=== PATIENT | female | born 1950 | race Caucasian/White ===

== ENCOUNTER → 2017-09-21 | Outpatient (CLI) | payer MEDICAID ==
[~2017-09-21] MED LIST: AC325T PO; ALBU2.5V4; ALBU8.5H2; ALBU8.5H2 IH; ALN70T; ALPR.5T; ALPR.5T PO; ALPR1TAB7 PO; ASP325TEC PO; BACL10TA PO; CA C1TAB26 PO; CALCIUM PO; CHLO500T2; CHOL500019 PO; D50KC; FLC1T PO; FLUO20CA25; FLUO20CA25 PO; FLUO40CA PO; FLUO60TA PO; FLUT1DIS26; FNT100TD TD; FNT50TD; FNT75TD TD; FRS325T PO; FURO40TA4; FURO40TA4 PO; IBUP-15 PO; IBUP-1773 PO; KCL20TCR; LANS30CA PO; LNS30CCR; LNS30CCR PO; LRT10T; LRT10T PO; MAGN250T7 PO; METH2.5T PO; MNTL10T; MNTL10T PO; MTF500T; MTX2.5T PO; MULT-608 PO; MULT1TAB53 PO; NIAC400C2 PO; NYST15CR3 TP; OMEG-12 PO; OMEG1CAP51 PO; OMEP40CA36 PO; OMG1KC PO; OXC5T; OXYC10TA7 PO; POLY17PO23 PO; POTA10CA43 PO; POTA10TA10 PO; SENN1TAB76 PO
--- NOTE | 2017-09-21 15:19 | Diagnostic Imaging Report ---
EXAMINATION: Pelvic ultrasound. INDICATION: Postmenopausal bleeding. FINDINGS: This study was technically difficult due to patient's body habitus. The previous pelvic ultrasound exam performed on 05/17/2016 noted thickening of the endometrium and raised the question of endometrial carcinoma. On the prior exam, the endometrial stripe measured 7 mm. On this study, the endometrium remains slightly thickened at 6 mm (normal 5 mm or less). There is an IUD within the endometrium. Even in retrospect, the IUD was difficult to appreciate on the prior exam. The uterus itself is not enlarged measuring 7.8 x 3.3 x 5.2 cm. There is no focal mass involving the uterus to suggest fibroid. Neither ovary was identified. There is no pelvic mass or free fluid collection noted. IMPRESSION: 1. The endometrial lining is minimally thickened. There also appears to be an IUD within the endometrium. If further evaluation of the endometrium is desired, then hysteroscopy would be recommended. 2. There is no acute pelvic abnormality noted. 3. The ovaries were not identified. Dictated on workstation # [id number]
== END ==
LOC: RAD 11:29
PROVIDERS: ATTEND Family Medicine
DX: N95.0 Postmenopausal bleeding (principal); Z97.5 Presence of (intrauterine) contraceptive device
CPT/HCPCS: 76830

== ENCOUNTER → 2018-01-03 | Outpatient (CLI) | payer MEDICAID ==
--- NOTE | 2018-01-03 14:00 | Diagnostic Imaging Report ---
INDICATION: Chronic left hip pain. FINDINGS: Three views of the left hip show no fracture, dislocation or other acute bony abnormality. There is mild narrowing and hypertrophic spurring present. 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 IMPRESSION: There are degenerative changes present as described with no acute abnormality seen. Dictated by: Dictated on workstation # [id number]
== END ==
LOC: RAD 13:07
PROVIDERS: ATTEND Family Medicine
DX: M16.12 Unilateral primary osteoarthritis, left hip (principal)
CPT/HCPCS: 73502

== ENCOUNTER 2018-01-29 18:28 | Observation (INO) | payer MEDICAID ==
[~2018-01-29] VITALS: Ht 162.6 cm; Wt 144.4 kg
--- OUTSIDE RECORDS SUMMARY | 2018-01-29 18:38 | XMS REPORT ---
Author Author HILARY BESS Organization [facility] Address [address] [place] [address] Care Team Providers Care Undertaker Helper Name Role Phone BESS RICHARD Unavailable PROBLEMS Type Condition ICD9-CM Code [id number] Code Onset Dates Condition Status SNOMED Code Problem Peripheral edema R60.9 Active 281156950 Problem Low HDL (under 40) E78.6 Active 620614238 Problem Leukocytosis, unspecified type D72.829 Active 391265410 Problem BMI 50.0-59.9, adult Z68.43 Active 045026557 Problem Chronic obstructive pulmonary disease, unspecified COPD type J44.9 Active 98271413 Problem Elevated lymphocyte count D72.820 Active 86345531 Problem Abnormal stress test R94.39 Active 955206244 Problem Allergic rhinitis, unspecified allergic rhinitis type J30.9 Active 88050533 Problem Stress incontinence N39.3 Active 12394326 Problem Postmenopausal bleeding N95.0 Active 86173340 Problem Type 2 diabetes mellitus with hyperglycemia, without long-term current use of insulin E11.65 Active 40012877 Problem Drug-induced constipation K59.03 Active 87010947 Problem Obstructive sleep apnea G47.33 Active 12276027 Problem Palpitations R00.2 Active 62175955 Problem Uncomplicated asthma, unspecified asthma severity J45.909 Active 474182618 Problem Nocturnal hypoxia G47.34 Active 858134447 Problem Rheumatoid arthritis involving multiple sites, unspecified rheumatoid factor presence M06.9 Active 615686717 Problem Bilateral carotid artery stenosis I65.23 Active 31249572 Problem Chronic pain syndrome G89.4 Active 876732042 Problem 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, penitentiary, 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 Active 056144051929 Problem Major depressive disorder, recurrent episode, unspecified severity F33.9 Active 27981740 Problem Generalized anxiety disorder F41.1 Active 721484076 Problem Chronic prescription opiate use Z79.899 Active 860718424 ALLERGIES No Information ENCOUNTERS Encounter Location Date Diagnosis [facility] [address] [address] Dec, [facility] [id number] [place] [address] 03667- 9619 Nov, Chronic pain syndrome G89.4 [facility] [id number] [place] [address] 06604- 4115 Oct, Chronic pain syndrome G89.4 [facility] [id number] [place] [address] 23254- 9151 Sep, Chronic pain syndrome G89.4 [facility] [id number] [place] [address] 11188- 1070 Sep, [facility] [id number] [place] [address] 44295- 3556 Aug, Chronic pain syndrome G89.4 [facility] [id number] [place] [address] 90406- 6816 Aug, Postmenopausal bleeding N95.0 ; 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, penitentiary, 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 ; Type 2 diabetes mellitus with hyperglycemia, without long- term current use of insulin E11.65 and BMI 50.0-59.9, adult Z68.43 [place] [id number] [place] [address] 53883- 5481 Jul, Chronic pain syndrome G89.4 and Generalized anxiety disorder F41.1 [facility] [id number] [place] [address] 73611- 8110 Jun, Chronic pain syndrome G89.4 and Generalized anxiety disorder F41.1 [facility] [id number] [place] [address] 83390- 7212 May, Chronic pain syndrome G89.4 and Generalized anxiety disorder F41.1 [place] [id number] [place] [address] 07234- 5862 May, 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, penitentiary, 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 [facility] [id number] [place] [address] 52786- 7387 15 May, 2017 Type 2 diabetes mellitus with hyperglycemia, without long- term current use of insulin E11.65 ; Chronic pain syndrome G89.4 ; Leukocytosis , unspecified type D72.829 ; Chronic prescription opiate use Z79.899 ; 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, oil heaterman, 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 ; Elevated lymphocyte count D72.820 ; Encounter for immunization Z23 and BMI 50.0-59.9, adult Z68.43 [facility] [id number] [place] [address] 31095- 5759 18 Apr, 2017 Chronic pain syndrome G89.4 and Generalized anxiety disorder F41.[address] [address]776- 0545 Mar, Generalized anxiety disorder F41.1 and Chronic pain syndrome G89.4 [place] [address] 17840- 3846 Mar, [facility] [id number] [place] [address] 15155- 0888 Feb, [address] [address]43- 5486 Feb, Generalized anxiety disorder F41.1 and Chronic pain syndrome G89.4 [facility] [id number] [place] [address] 43461- 4813 16 Feb, 2017 Elevated lymphocyte count D72.820 [facility] [id number] [place] [address] 37794- 3677 15 Feb, 2017 Chronic prescription opiate use Z79.899 ; 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, penitentiary, 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 ; Low HDL (under 40) E78.6 and Chronic obstructive pulmonary disease, unspecified COPD type J44.9 [facility] [id number] [place] [address] 17271- 8315 January, Generalized anxiety disorder F41.1 and Chronic pain syndrome G89.4 [id number] [place] [address] 0407 18 Dec, 2016 Chronic pain syndrome G89.4 and Generalized anxiety disorder F41.1 [facility] [id number] [place] [address] 01394- 9962 11 Dec, 2016 [facility] [id number] [place] [address] 15008- 4918 28 Nov, 2016 Rheumatoid arthritis involving multiple sites, unspecified rheumatoid factor presence M06.9 ; Chronic pain syndrome G89.4 ; Generalized anxiety disorder F41.1 ; Type 2 diabetes mellitus with hyperglycemia, without long-term current use of insulin E11.65 and Postmenopausal bleeding N95.0 [facility] [id number] [place] [address] 42755- 0859 17 Nov, 2016 [facility] [id number] [place] [address] 10487- 2985 Nov, [facility] [id number] [place] [address] 92642- 5686 16 Nov, 2016 Generalized anxiety disorder F41.1 and Chronic pain syndrome G89.4 [facility] [id number] [place] [address] 85287- 3201 28 Oct, 2016 [facility] [id number] [place] [address] 47112- 4098 17 Oct, 2016 [facility] [id number] [place] [address] 92794- 7248 17 Oct, 2016 [facility] [id number] [place] [address] 81583- 2028 15 Oct, 2016 Chronic pain syndrome G89.4 and Generalized anxiety disorder F41.1 [facility] [id number] [place] [address] 35877- 9832 Sep, Chronic pain syndrome G89.4 and Generalized anxiety disorder F41.1 [facility] [address] [place] [address] 70096- 4787 14 Aug, 2016 Sore throat J02.9 ; Chronic pain syndrome G89.4 ; Postmenopausal bleeding N95.0 ; Acute suppurative otitis media of left ear without spontaneous rupture of tympanic membrane, recurrence not specified H66.002 ; Generalized anxiety disorder F41.1 ; Stress incontinence N39.3 ; Drug- induced constipation K59.03 ; Chronic prescription opiate use Z79.899 and Prediabetes R73.09 [facility] [id number] [place] [address] 51683- 1417 15 Jul, 2016 [facility] [address] 16514- 9713 Jul, [facility] [address] 89359- 1514 Jun, [facility] [address] 22855- 7174 Jun, [facility] [address] 77588- 9012 Jun, [facility] [address] 60679- 2691 Jun, [facility] [address] 39490- 8622 Jun, Prediabetes R73.09 [facility] [address] 19830- 3556 May, Prediabetes R73.09 [facility] [address] 09872- 1477 13 May, 2016 Postmenopausal bleeding N95.0 ; Prediabetes R73.09 and Thickened endometrium R93.8 [facility] [address] 69155- 7991 May, [facility] [address] 53942- 9075 Apr, Prediabetes R73.09 [facility] [address] 03592- 5477 Apr, Chronic pain syndrome G89.4 ; Postmenopausal bleeding N95.0 ; 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, penitentiary, 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 ; Generalized anxiety disorder F41.1 and Chronic obstructive pulmonary disease, unspecified COPD type J44.9 [facility] [id number] [place] [address] 80156- 0114 Mar, [facility] [id number] [place] [address] 99996- 8749 Feb, [facility] [id number] [place] [address] 89486- 8258 January, [facility] [id number] [place] [address] 29319- 9002 Dec, Chronic pain syndrome G89.4 ; Chronic prescription opiate use Z79.899 ; Leukocytosis, unspecified type D72.829 and Generalized anxiety disorder F41.1 [facility] [id number] [place] [address] 99080- 3653 Dec, [facility] [id number] [place] [address] 31119- 1332 Nov, [facility] [id number] [place] [address] 76677- 3619 Nov, [facility] [id number] [place] [address] 44082- 2394 Nov, [facility] [id number] [place] [address] 18613- 6827 Oct, [facility] [id number] [place] [address] 73831- 9868 Oct, [facility] [id number] [place] [address] 63684- 5605 Oct, [facility] [address] 8075 Sep, [facility] [id number] [place] [address] 87721- 1992 Aug, [facility] [address] [address]- 8352 Aug, Leukocytosis, unspecified type D72.829 ; Peripheral edema R60.9 and 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, penitentiary, 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 [facility] [address] [address]- 2106 Aug, [facility] [id number] [place] [address] 50232- 2469 Jul, [facility] [id number] [place] [address] 90616- 0800 Jul, [facility] [id number] [place] [address] 61552- 5822 Jun, [facility] [id number] [place] [address] 41174- 6998 May, [facility] [id number] [place] [address] 75518- 9089 May, Chronic pain 338.29 ; Leukocytosis 288.60 ; Anxiety 300.00 and Major depressive disorder, recurrent episode, severe, without mention of psychotic behavior 296.33 [facility] [address] [address]- 5106 Apr, [facility] [address] [address]- 4478 Apr, [facility] [address] [address]- 9089 Apr, [facility] [id number] [place] [address] 06228- 6961 Apr, [facility] [id number] [place] [address] 67038- 7197 Apr, [facility] [address] [address]- 0637 Apr, [facility] [address] [address]- 9753 Mar, [facility] [address] [address]- 6881 Mar, [facility] [address] [address]- 2546 Mar, [facility] [id number] [place] [address] 78500- 1809 Mar, [facility] [address] [address]- 4975 Feb, Leukocytosis 288.60 [facility] [id number] [place] [address] 31408- 3836 Feb, [facility] [address] [address]- 1258 Feb, Chronic pain 338.29 ; Rheumatoid arthritis 714.0 ; Fatigue 780.79 ; Anxiety 300.00 and Asthma 493.90 [facility] [address] [address]- 7711 January, [facility] [address] [address]- 0602 29 Dec, 2014 [facility] [address] [address]- 8192 28 Dec, 2014 [facility] [address] [address]- 3132 14 Dec, 2014 [facility] [address] [address]- 2571 13 Dec, 2014 [facility] [address] [address]- 5906 18 Nov, 2014 [facility] [address] [address]- 6506 18 Nov, 2014 [facility] [address] [address]- 1990 Nov, [facility] [place] [facility] [address] [id number] [place] [address]- 2128 Nov, [facility] [place] [facility] [address] [id number] [place] [address]- 7158 Nov, [facility] [place] [facility] [address] [id number] [place] [address]- 9013 Nov, [facility] [place] [facility] [address] [id number] [place] [address]- 7907 Nov, [facility] [place] [facility] [address] [id number] [place] [address]- 2436 Nov, [facility] [place] [facility] [address] [id number] [place] [address]- 7353 Oct, [facility] [place] [facility] [address] [id number] [place] [address]- 4831 Oct, [facility] [place] [facility] [address] [id number] [place] [address]- 4826 Sep, [facility] [place] [facility] [address] [id number] [place] [address]- 8026 Sep, [facility] [place] [facility] [address] [id number] [place] [address]- 5053 Sep, [facility] [place] [facility] [address] [id number] [place] [address]- 4321 Sep, [facility] [place] [facility] [address] [id number] [address]- 0109 Aug, [facility] [place] [facility] [address] [id number] [place] [address]- 1982 Aug, [facility] [place] [facility] [address] [id number] [place] [address]- 9492 Aug, [facility] [place] [facility] [address] [id number] [place] [address]- 5693 Aug, [facility] [place] [facility] [address] [id number] [place] 9084 Aug, [facility] [place] [facility] [address] [id number] [place] 9797 Aug, [facility] [place] [facility] [address] [id number] [place]- 4298 Aug, [facility] [place] [facility] [address] [id number] [place] [address]- 6001 Aug, [facility] [place] [facility] [address] [id number] [place] [address]- 0738 Jul, [facility] [place] [facility] [address] [id number] [place]- 7185 Jul, [facility] [place] [facility] [address] [id number] [place] [address]- 0491 Jun, [facility] [place] [facility] [address] [id number] [place] [address]- 2327 Jun, [facility] [place] [facility] [address] [id number] [place] [address]- 2318 Jun, [facility] [place] [facility] [address] [id number] [place] [address]- 2017 Jun, [facility] [place] [facility] [address] [facility] [id number] [place] [address]- 4153 Jun, [facility] [place] [facility] [address] [id number] [place] [address]- 7189 Jun, [facility] [place] [facility] [address] [id number] [address]- 9636 Jun, [facility] [place] [facility] [address] [id number] [place] [address]- 2046 Jun, [facility] [place] [facility] [address] [id number] [place] [address]- 5168 Jun, [facility] [place] [facility] [address] [id number] [place] [address]- 0077 Jun, [facility] [place] [facility] [address] [id number] [place] [address]- 5689 May, 2013 [facility] [place] [facility] [address] [id number] [place] [address]- 6911 May, [facility] [place] [facility] [address] [id number] [place] [address]- 1319 May, [facility] [place] [facility] [address] [id number] [place] [address]- 9455 May, 2013 [facility] [place] [facility] [address] [id number] [place] [address]- 9112 May, [facility] [place] [facility] [address] [id number] [place] [address]- 7892 May, 2013 [facility] [place] [facility] [address] [id number] [place] [address]- 9306 May, [facility] [place] [facility] [address] [id number] [place] [address]- 5258 May, [facility] [place] [facility] [address] [id number] [place] [address]- 2764 May, [facility] [place] [facility] [address] [id number] [place] [address]- 4212 Apr, [facility] [place] [facility] [address] [id number] [place] [address]- 3029 Apr, [facility] [place] [facility] [address] [id number] [place] [address]- 3906 Apr, [facility] [place] [facility] [address] [id number] [place] [address]- 2660 Apr, [facility] [place] [facility] [address] [id number] [place] [address]- 1110 Apr, [facility] [place] [facility] [address] [id number] [place] [address]- 3924 Apr, [facility] [place] [facility] [address] [id number] [place] [address]- 3430 Apr, [facility] [place] [facility] [address] [id number] [place] [address]- 1666 Apr, [facility] [place] [facility] [address] [id number] [place] [id number] Apr, [facility] [place] [facility] [address] [id number] [place] 3579 Apr, [facility] [place] [facility] [address] [id number] [place] [address]- 9176 Mar, [facility] [place] [facility] [address] [id number] [place] [address]- 8148 Mar, [facility] [place] [facility] [address] [id number] [place] [address]- 2499 Mar, [facility] [place] [facility] [address] [id number] [place] [address]- 3043 Mar, [facility] [place] [facility] [address] [id number] [place] [address]- 1986 Mar, [facility] [place] [facility] [address] [id number] [place] [address]- 1421 Mar, [facility] [place] [facility] [address] [id number] [place] [address]- 7887 Mar, [facility] [place] [facility] [address] [id number] [place] [address]- 4665 Mar, [facility] [place] [facility] [address] [id number] [place] [address]- 2178 Mar, [facility] [place] [facility] [address] [id number] [place] [address]- 5346 Mar, [facility] [place] [facility] [address] [id number] [place] [address]- 7221 Mar, [facility] [place] [facility] [address] [id number] [place] 1162 Mar, [facility] [place] [facility] [address] [id number] [place] [address]- 9935 16 Mar, 2013 [facility] [place] [facility] [address] [id number] [place] [address]- 5413 16 Mar, 2013 [facility] [place] [facility] [address] [id number] [place] [address]- 3736 15 Mar, 2014 [facility] [place] [facility] [address] [id number] [place] [address]- 2970 15 Mar, 2013 [facility] [place] [facility] [address] [id number] [place] [address]- 6922 14 Mar, 2013 [facility] [place] [facility] [address] [id number] [place] [address]- 4090 14 Mar, 2014 [facility] [place] [facility] [address] [id number] [place] [address]- 2930 11 Mar, 2014 [facility] [place] [facility] [address] [id number] [place] [address]- 8324 11 Mar, 2014 [facility] [place] [facility] [address] [id number] [place] [address]- 2109 10 Mar, 2014 [facility] [place] [facility] [address] [id number] [place] [address]- 4702 10 Mar, 2014 [facility] [place] [facility] [address] [id number] [place] [address]- 1758 27 Feb, 2014 [facility] [place] [facility] [address] [id number] [place] [address]- 1486 27 Feb, 2014 [facility] [place] [facility] [address] [id number] [place] [address]- 1904 17 Feb, 2014 [facility] [place] [facility] [address] [id number] [place] [address]- 7162 17 Feb, 2014 [facility] [place] [facility] [address] [id number] [place] [address]- 8000 13 Feb, 2014 [facility] [place] [facility] [address] [id number] [place] [address]- 7426 Feb, [facility] [place] [facility] [address] [id number] [place] [address]- 7516 Feb, [facility] [place] [facility] [address] [id number] [place] [address]- 0495 Feb, [facility] [place] [facility] [address] [id number] [place] [address] January, [facility] [place] [facility] [address] [id number] [place] [address] January, [facility] [place] [facility] [address] [id number] [place] [address] January, [facility] [place] [facility] [address] [id number] [place] [address] January, [facility] [place] [facility] [address] [id number] [place] [address] January, [facility] [place] [facility] [address] [id number] [place] [address] January, [facility] [place] [facility] [address] [id number] [place] [address] January, [facility] [place] [facility] [address] [id number] [place] [address] January, [facility] [place] [facility] [address] [id number] [place] [address] January, [facility] [place] [facility] [address] [id number] [place] [address] January, [facility] [place] [facility] [address] [id number] [place] [address] January, [facility] [place] [facility] [address] [id number] [place] [address]- [address] Dec, [facility] [place] [facility] [address] [id number] [place] [address] Dec, [facility] [place] [facility] [address] [id number] [place] [address]- [address] Dec, [facility] [place] [facility] [address] [id number] [place] [address] 29 Dec, 2013 [facility] [place] [facility] [address] [id number] [place] [address] 28 Dec, 2013 [facility] [place] [facility] [address] [id number] [place] [address] Dec, [facility] [place] [facility] [address] [id number] [place] [address] 24 Dec, 2013 [facility] [place] [facility] [address] [id number] [place] [address] Dec, [facility] [place] [facility] [address] [id number] [place] [address] Dec, [facility] [place] [facility] [address] [id number] [place] [address] Dec, [facility] [place] [facility] [address] [id number] [place] [address] 16 Dec, 2013 [facility] [place] [facility] [address] [id number] [place] [address] 15 Dec, 2013 [facility] [place] [facility] [address] [id number] [place] [address] 15 Dec, 2013 [facility] [place] [facility] [address] [id number] [place] [address]- [address] Dec, [facility] [place] [facility] [address] [id number] [place] [address] Dec, [facility] [place] [facility] [address] [id number] [place] [address] Dec, [facility] [place] [facility] [address] [id number] [place] [address] Dec, [facility] [place] [facility] [address] [id number] [place] [address] Nov, [facility] [place] [facility] [address] [id number] [place] [address] Nov, [facility] [place] [facility] [address] [id number] [place] [address] Nov, [facility] [place] [facility] [address] [id number] [place] [address] Nov, [facility] [place] [facility] [address] [id number] [place] [address] Nov, [facility] [place] [facility] [address] [id number] [place] [address] Nov, [facility] [facility] [address] [id number] [place] [address] Nov, [facility] [place] [facility] [address] [facility] [id number] [place] [address] Nov, [facility] [place] [facility] [address] [id number] [place] [address] Oct, [facility] [place] [facility] [address] [id number] [place] [address] Oct, [facility] [place] [facility] [address] [id number] [place] [address] 33[address] Oct, [facility] [place] [facility] [address] [id number] [place] [address]- 8980 Oct, [facility] [place] [facility] [address] [id number] [place] [address] 3618 Oct, [facility] [place] [facility] [address] [id number] [place] [address]- 2807 Oct, [facility] [place] [facility] [address] [id number] [place] [address] Sep, [facility] [place] [facility] [address] [id number] [place] [address] Sep, [facility] [place] [facility] [address] [id number] [place] [address] Sep, [facility] [address] [id number] [place] [address] 7474 Sep, [facility] [place] [facility] [address] [id number] [place] [address]- 4[address] Sep, [facility] [place] [facility] [address] [id number] [place] [address]- 6[address] Sep, [facility] [place] [address] [id number] [place] [address]- 5010 Sep, [facility] [place] [address] [id number] [place] [address]- 6019 Sep, [facility] [place] [facility] [address] [id number] [place] [address]- 1619 Sep, [facility] [address] [id number] [place] [address]- 2565 Sep, [facility] [place] [facility] [address] [id number] [place] [address]- 9050 Sep, [facility] [place] [facility] [address] [id number] [place] [address] 2014 Sep, [facility] [address] [id number] [place] [address]- [address] Aug, [facility] [address] [id number] [place] [address] Aug, [facility] [address] [id number] [place] [address]- 5623 Aug, [facility] [address] [id number] [place] [address]- 9502 Aug, [facility] [address] [id number] [place] [address] Aug, [facility] [address] [id number] [place] [address] Aug, [facility] [address] [id number] [place] [address]- 7986 Aug, 2012 [facility] [address] [id number] [place] [address]- 3279 Aug, [facility] [address] [id number] [place] [address]- 6831 Aug, [facility] [address] [id number] [place] [address]- 0809 Aug, [facility] [address] [id number] [place] [address]- 1090 Jul, [facility] [place] [facility] [address] [id number] [place] [address]- 7743 Jul, [facility] [address] [id number] [place] [address]- 5961 Jul, [facility] [address] [id number] [place] [address]- 1703 Jul, [facility] [place] [address] [id number] [place] [address]- 0803 Jul, [facility] [address] [id number] [place] [address]- 2795 Jun, [facility] [address] [id number] [place] [address]- 2630 Jun, [facility] [address] [id number] [place] [address]- 2161 Jun, [facility] [address] [id number] [place] [address]- 7490 Jun, [facility] [address] [id number] [place] [address]- 0155 Jun, [facility] [address] [id number] [place] [address]- 3252 Jun, [facility] [address] [id number] [place] [address]- 0199 Jun, [facility] [address] [id number] [place] [address]- 6614 16 Jun, 2012 [facility] [address] [id number] [place] [address]- 0110 16 Jun, 2012 [facility] [address] [id number] [place] [address]- 1660 10 Jun, 2012 [facility] [address] [id number] [place] [address]- 2241 10 Jun, 2012 [facility] [address] [id number] [place] [address]- 0894 10 Jun, 2012 [facility] [address] [id number] [place] [address]- 3116 10 Jun, 2012 [facility] [address] [id number] [place] [address]- 2399 10 Jun, 2013 [facility] [address] [id number] [place] [address]- 8657 10 Jun, 2013 [facility] [address] [id number] [place] [address]- 4845 Jun, [facility] [address] [id number] [place] [address]- 7281 Jun, [facility] [address] [id number] [place] [address]- 1561 30 May, 2012 [facility] [address] [id number] [place] [address]- 9827 18 May, 2012 [facility] [address] [id number] [place] [address]- 7971 10 May, 2012 [facility] [address] [id number] [place] [address]- 9314 03 May, 2012 [facility] [address] [id number] [place] [address]- 1845 19 Apr, 2013 [facility] [address] [id number] [place] [address]- 4198 Apr, [facility] [address] [id number] [place] [address]- 9222 Apr, [facility] [address] [id number] [place] [address]- 3277 Mar, [facility] [address] [id number] [place] [address]- 6517 Mar, [facility] [address] [id number] [place] [address]- 3884 Feb, [facility] [address] [id number] [place] [address]- 5529 Feb, [facility] [address] [id number] [place] [address]- 5369 Feb, [facility] [address] [id number] [place] [address]- 8278 January, [facility] [address] [id number] [place] [address]- 6862 January, [facility] [address] [id number] [place] [address]- 6849 January, [facility] [address] [id number] [place] [address]- 4772 January, [facility] [address] [id number] [place] [address]- 6329 Dec, [facility] [address] [id number] [place] [address]- 0049 Dec, [facility] [address] [id number] [place] [address]- 2656 Dec, [facility] [address] [id number] [place] [address]- 6673 Dec, [facility] [address] [id number] [place] [address]- 3668 Dec, [facility] [address] [id number] [place] [address]- 1330 Nov, [facility] [address] [id number] [place] [address]- 3797 Oct, [facility] [address] [id number] [place] [address]- 9985 Oct, [facility] [address] [id number] [place] [address]- 7297 Oct, [facility] [address] [id number] [place] [address]- 8492 Oct, [facility] [address] [id number] [place] [address]- 1240 Oct, [facility] [address] [id number] [place] [address]- 5706 Sep, [facility] [address] [id number] [place] [address]- 2807 Sep, [facility] [address] [id number] [place] [address]- 5454 Sep, [facility] [address] [id number] [place] [address]- 8030 Sep, [facility] [address] [id number] [place] [address]- 1839 Sep, [facility] [address] [id number] [place] [address]- 8967 Sep, [facility] [address] [id number] [place] [address]- 9138 Sep, [facility] [address] [id number] [place] [address]- 8611 Aug, [facility] [address] [id number] [place] [address]117 Aug, [facility] [address] [id number] [place] [address]- 1017 Aug, [facility] [address] [id number] [place] [address]- 2636 Aug, [facility] [address] [id number] [place] [address]- 8416 Aug, [facility] [address] [id number] [place] [address]- 6396 Aug, [facility] [address] [id number] [place] [address]- 9542 Aug, [facility] [address] [id number] [place] [address]- 2875 Aug, [facility] [address] [id number] [place] [address]- 9183 Aug, [facility] [address] [id number] [place] [address]- 9724 Jul, [facility] [address] [id number] [place] [address]- 1071 Jul, [facility] [address] [id number] [place] [address]- 2323 Jul, [facility] [address] [id number] [place] [address]- 6795 Jul, [facility] [address] [id number] [place] [address]- 3092 Jul, [facility] [address] [id number] [place] [address]- 5669 Jul, [facility] [address] [id number] [place] [address]- 5115 Jul, [facility] [address] [id number] [place] [address]- 5312 Jul, [facility] [address] [facility] [id number] [place] [address]- 9005 Jul, [facility] [address] [id number] [place] [address]- 4641 Jun, [facility] [address] [id number] [place] [address]- 5143 Jun, [facility] [address] [id number] [place] [address]- 5006 Jun, [facility] [address] [id number] [place] [address]- 8396 Jun, [facility] [address] [id number] [place] [address]- 3595 Jun, [facility] [address] [id number] [place] [address]- 7564 Jun, [facility] [address] [id number] [place] [address]- 1071 Jun, [facility] [address] [id number] [place] [address]- 5144 Jun, [facility] [address] [id number] [place] [address]- 6408 May, [facility] [address] [id number] [place] [address]- 7349 May, [facility] [address] [id number] [place] [address]- 0895 Apr, [facility] [address] [id number] [place] [address]- 3310 Apr, [facility] [address] [id number] [place] [address]- 8464 Mar, [facility] [address] [id number] [place] [address]- 3406 Mar, [facility] [address] [id number] [place] [address]- 2546 Mar, [facility] [address] [id number] [place] [address]- 1349 Feb, [facility] [address] [id number] [place] [address]- 2110 Feb, [facility] [address] [id number] [place] [address]- 3445 Feb, [facility] [address] [id number] [place] [address]- 4956 Feb, [facility] [address] [id number] [place] [address]- 2845 January, [facility] [address] [id number] [place] [address]- 2876 January, [facility] [address] [id number] [place] [address]- 0091 January, [facility] [address] [id number] [place] [address]- 1812 Dec, [facility] [address] [id number] [place] [address]- 8510 Dec, [facility] [address] [id number] [place] [address]- 2067 Dec, [facility] [address] [id number] [place] [address]- 0135 Dec, [facility] [address] [id number] [place] [address]- 5690 Nov, [facility] [address] [id number] [place] [address]- 2147 Nov, [facility] [address] [id number] [place] [address]- 4094 Nov, [facility] [address] [id number] [place] [address]- 1390 16 Nov, 2011 [facility] [address] [id number] [place] [address]- 2327 Oct, [facility] [address] [id number] [place] [address]- 0336 23 Oct, 2011 [facility] [address] [id number] [place] [address] 2546 16 Oct, 2011 [facility] [address] [id number] [place] [address] 2546 15 Oct, 2011 [facility] [address] [id number] [place] [address] 2546 09 Oct, 2011 [facility] [place] [address] [id number] [place] [address] 2546 07 Oct, 2011 [facility] [address] [id number] [place] [address]- 2346 02 Oct, 2011 [facility] [address] [id number] [place] [address] 2546 31 Sep, 2011 [facility] [address] [id number] [place] [address] 2546 Sep, [facility] [address] [id number] [place] [address] 2545 Sep, [facility] [address] [id number] [place] [address]- 0776 Sep, [facility] [address] [id number] [place] [address]- 0857 Sep, [facility] [address] [id number] [place] [address] 2546 Sep, [facility] [address] [id number] [place] [address] 2546 Sep, [facility] [place] [facility] [address] [id number] [place] [address] 2546 Sep, [facility] [address] [id number] [place] [address]- 2546 Sep, [facility] [place] [facility] [address] [id number] [place] [address]- 3383 Sep, [facility] [place] [facility] [address] [id number] [place] [address]- 8852 10 Sep, 2011 [facility] [place] [facility] [address] [id number] [place] [address]- 9890 Aug, [facility] [place] [facility] [address] [id number] [place] [address]- 5823 Aug, [facility] [place] [facility] [address] [id number] [place] [address]- 3320 Aug, [facility] [place] [facility] [address] [id number] [place] [address]- 3930 Aug, [facility] [place] [facility] [address] [id number] [place] [address]- 3818 Jul, [facility] [place] [facility] [address] [id number] [place] [address]- 0822 Jul, [facility] [place] [facility] [address] [id number] [place] [address]- 3827 16 Jul, 2011 [facility] [place] [facility] [address] [id number] [place] [address]- 4348 Jul, [facility] [place] [facility] [address] [id number] [place] [address]- 2258 Jul, [facility] [place] [facility] [address] [id number] [place] [address]- 5279 Jul, [facility] [place] [facility] [address] [id number] [place] [address]- 8390 Jun, [facility] [place] [facility] [address] [id number] [place] [address]- 7333 18 Jun, 2011 [facility] [place] [facility] [address] [id number] [place] [address]- 1339 10 Jun, 2011 [facility] [place] [facility] [address] [id number] [place]10 16 Feb, 2011 [facility] [place] [facility] [address] [id number] [place] [address]- 7980 28 Aug, 2010 [facility] [address] [id number] [place] [address]- 1317 Aug, [facility] [place] [facility] [address] [id number] [place] 9166 Aug, [facility] [address] [id number] [place] [address]- 0496 Jul, [facility] [place] [facility] [address] [id number] [place] [address]- 0665 Jul, [facility] [address] [id number] [place] [address]- 6434 Jul, [facility] [address] [id number] [place] [address]- 4155 Jul, [facility] [address] [id number] [place] [address]- 4748 Jul, [facility] [address] [id number] [place] [address]- 7141 Jul, [facility] [address] [id number] [place] [address]- 0710 Jun, [facility] [address] [id number] [place] [address]- 6187 Mar, [facility] [address] [id number] [place] [address]- 3048 January, [facility] [place] [facility] [address] [id number] [place] [address]- 1655 Nov, [facility] [place] [facility] [address] [id number] [place] [address]- 5232 Oct, [facility] [place] [facility] [address] [id number] [place] [address]- 1145 Sep, [facility] [place] [facility] [address] [id number] [place] [address]- 5962 Aug, [facility] [place] [facility] [address] [id number] [place] [address]- 6692 30 Aug, 2009 [facility] [place] [facility] [address] [id number] [place] [address]- 4916 Aug, [facility] [place] [facility] [address] [id number] [place] [address] 2546 16 Aug, 2009 [facility] [place] [facility] [address] [id number] [place] [address]- 4436 16 Aug, 2009 [facility] [place] [facility] [address] [id number] [place] [address] 2546 Aug, [facility] [place] [facility] [address] [id number] [place] [address]- 5936 Aug, [facility] [address] [facility] [id number] [place] 3039 Aug, [facility] [place] [facility] [address] [id number] [place] [address]- 3943 Aug, [facility] [place] [facility] [address] [id number] [place] [address]- 4908 Jul, [facility] [place] [facility] [address] [id number] [place] [address]- 8010 28 Jun, 2009 [facility] [place] [facility] [address] [id number] [place] [address]- 1040 21 Jun, 2009 [facility] [place] [facility] [address] [id number] [place] [address]- 2760 16 Jun, 2009 [facility] [place] [facility] [address] [id number] [place] [address]- 5186 13 Jun, 2009 [facility] [place] [facility] [address] [id number] [place] [address] 2546 Jun, [facility] [place] [facility] [address] [id number] [place] [address] 2546 11 May, 2009 [facility] [place] [facility] [address] [id number] [place] [address] January, IMMUNIZATIONS No Known Immunizations SOCIAL HISTORY Never Assessed REASON FOR VISIT Refill Requests PLAN OF CARE VITAL SIGNS MEDICATIONS Medication Instructions Dosage Frequency Start Date End Date Duration Status Lasix 40 MG Orally Once a day in the morning & 1/2 tab in afternoon 1 tablet 30 Active Klor-Con M10 10 MEQ TAKE ONE TABLET ORAL ROUTE 1 TIME PER DAY TAKE ONLY WITH LASIX. 30 Active RESULTS No Results PROCEDURES No Known procedures INSTRUCTIONS MEDICATIONS ADMINISTERED No Known Medications MEDICAL (GENERAL) HISTORY Type Description Date Medical History respiratory disorders Medical History chronic obstructive pulmonary disease remote hx of heavy tobacco use Medical History post cholecystectomy Medical History hyperlipidemia Medical History obesity Medical History endocrine disorder glucose intolerance Medical History osteoporosis Medical History arthritis psoriatic Medical History rheumatoid arthritis 2009 Medical History chronic pain Medical History psychiatric disorders anxiety/depression Medical History fatty liver Medical History Chest pain- normal cardiac cath 2009 Medical History H/O chronic steroid use- last DEXA normal 2013 Surgical History dental surgery teeth pulled . wears denture 08/13/2010 Surgical History tonsilectomy Surgical History appendectomy Surgical History orthopedic surgery -total left knee replacement 05/03/2011 Surgical History laminectomy with disc removal Surgical History prior surgery 2 spinal fusions , tubal ligation Hospitalization History tonsil surgery Hospitalization History appendectomy Hospitalization History PNA x 3 Hospitalization History back surgery x 3 Hospitalization History torn knee stayed 3 days Hospitalization History total L knee replacement stayed 7 days Hospitalization History ruptured disc
--- OUTSIDE RECORDS SUMMARY | 2018-01-29 18:39 | XMS REPORT ---
Author Author HILARY BESS Organization [facility] Address [address] [place] [address] Care Team Providers Care Traffic Sign Erection Supervisor Name Role Phone BESS RICHARD Unavailable PROBLEMS Type Condition ICD9-CM Code [id number] Code Onset Dates Condition Status SNOMED Code Problem Peripheral edema R60.9 Active 915082131 Problem Low HDL (under 40) E78.6 Active 125927169 Problem Leukocytosis, unspecified type D72.829 Active 849363399 Problem BMI 50.0-59.9, adult Z68.43 Active 646142165 Problem Chronic obstructive pulmonary disease, unspecified COPD type J44.9 Active 13498861 Problem Elevated lymphocyte count D72.820 Active 10190251 Problem Abnormal stress test R94.39 Active 251482207 Problem Allergic rhinitis, unspecified allergic rhinitis type J30.9 Active 12278888 Problem Stress incontinence N39.3 Active 15710653 Problem Postmenopausal bleeding N95.0 Active 27867949 Problem Type 2 diabetes mellitus with hyperglycemia, without long-term current use of insulin E11.65 Active 07532415 Problem Drug-induced constipation K59.03 Active 99852368 Problem Obstructive sleep apnea G47.33 Active 62848121 Problem Palpitations R00.2 Active 51873534 Problem Uncomplicated asthma, unspecified asthma severity J45.909 Active 026503753 Problem Nocturnal hypoxia G47.34 Active 121138917 Problem Rheumatoid arthritis involving multiple sites, unspecified rheumatoid factor presence M06.9 Active 960959181 Problem Bilateral carotid artery stenosis I65.23 Active 30879182 Problem Chronic pain syndrome G89.4 Active 877804756 Problem 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, medical terminologist, 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 Active 674022480987 Problem Major depressive disorder, recurrent episode, unspecified severity F33.9 Active 96364206 Problem Generalized anxiety disorder F41.1 Active 641125516 Problem Chronic prescription opiate use Z79.899 Active 174372754 ALLERGIES No Information SOCIAL HISTORY Never Assessed PLAN OF CARE VITAL SIGNS MEDICATIONS Unknown Medications RESULTS No Results PROCEDURES No Known procedures IMMUNIZATIONS No Known Immunizations MEDICAL (GENERAL) HISTORY Type Description Date Medical [...]
--- OUTSIDE RECORDS SUMMARY | 2018-01-29 18:39 | XMS REPORT ---
Author Author HILARY BESS Organization [facility] Address [address] [place] [address] Care Team Providers Care Compliance Field Technician Name Role Phone BESS RICHARD Unavailable PROBLEMS Type Condition ICD9-CM Code FUT01-AK Code Onset Dates Condition Status SNOMED Code Problem Peripheral edema R60.9 Active 485572704 Problem Low HDL (under 40) E78.6 Active 158936354 Problem Leukocytosis, unspecified type D72.829 Active 844413979 Problem BMI 50.0-59.9, adult Z68.43 Active 854172598 Problem Chronic obstructive pulmonary disease, unspecified COPD type J44.9 Active 90724555 Problem Elevated lymphocyte count D72.820 Active 52649883 Problem Abnormal stress test R94.39 Active 375842993 Problem Allergic rhinitis, unspecified allergic rhinitis type J30.9 Active 47320755 Problem Stress incontinence N39.3 Active 27087816 Problem Postmenopausal bleeding N95.0 Active 19692929 Problem Type 2 diabetes mellitus with hyperglycemia, without long-term current use of insulin E11.65 Active 73271562 Problem Drug-induced constipation K59.03 Active 22298196 Problem Obstructive sleep apnea G47.33 Active 20850765 Problem Palpitations R00.2 Active 15123685 Problem Uncomplicated asthma, unspecified asthma severity J45.909 Active 797341723 Problem Nocturnal hypoxia G47.34 Active 724252101 Problem Rheumatoid arthritis involving multiple sites, unspecified rheumatoid factor presence M06.9 Active 943216600 Problem Bilateral carotid artery stenosis I65.23 Active 88314224 Problem Chronic pain syndrome G89.4 Active 012104019 Problem 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, residential, 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 Active 106377191844 Problem Major depressive disorder, recurrent episode, unspecified severity F33.9 Active 08270802 Problem Generalized anxiety disorder F41.1 Active 670578919 Problem Chronic prescription opiate use Z79.899 Active 085521478 ALLERGIES Substance Reaction Event Type Date Status stainless steel, medical kaylan redness Non Drug Allergy May, Active adhesive rash Non Drug Allergy May, Active ENCOUNTERS Encounter Location Date Diagnosis [facility] [id number] [place] [address] 38012- 5211 January, [facility] [id number] [place] [address] 78105- 1279 Dec, Generalized anxiety disorder F41.1 and Chronic pain syndrome G89.4 [facility] [id number] [place] [address] 84529- 5072 Dec, [facility] [id number] [place] [address] 20167- 2053 Dec, [facility] [id number] [place] [address] 70123- 9999 Dec, BMI 50.0-59.9, adult Z68.43 ; Left hip pain M25.552 ; Chronic pain syndrome G89.4 ; Generalized anxiety disorder F41.1 and Rheumatoid arthritis involving multiple sites, unspecified rheumatoid factor presence M06.9 [facility] [id number] [place] [address] 77801- 8549 Nov, Chronic pain syndrome G89.4 [facility] [id number] [place] [address] 26375- 3467 Oct, Chronic pain syndrome G89.4 [facility] [id number] [place] [address] 72595- 9994 Sep, Chronic pain syndrome G89.4 [facility] [id number] [place] [address] 15300- 3350 Sep, [facility] [id number] [place] [address] 34929- 8104 Aug, Chronic pain syndrome G89.4 [facility] [id number] [place] [address] 81553- 4880 Aug, Postmenopausal bleeding N95.0 ; 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, 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, 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 ; Type 2 diabetes mellitus with hyperglycemia, without long- term current use of insulin E11.65 and BMI 50.0-59.9, adult Z68.43 [facility] [id number] [place] [address] 28370- 9481 Jul, Chronic pain syndrome G89.4 and Generalized anxiety disorder F41.1 [facility] [id number] [place] [address] 34290- 8034 Jun, Chronic pain syndrome G89.4 and Generalized anxiety disorder F41.1 [facility] [id number] [place] [address] 16081- 5833 May, Chronic pain syndrome G89.4 and Generalized anxiety disorder F41.1 [facility] [id number] [place] [address] 95707- 0784 May, 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, residential, 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 [facility] [id number] [place] [address] 50544- 0294 15 May, 2017 Type 2 diabetes mellitus with hyperglycemia, without long- term current use of insulin E11.65 ; Chronic pain syndrome G89.4 ; Leukocytosis , unspecified type D72.829 ; Chronic prescription opiate use Z79.899 ; 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, 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, 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 ; Elevated lymphocyte count D72.820 ; Encounter for immunization Z23 and BMI 50.0-59.9, adult Z68.43 [facility] [id number] [place] [address] 69658- 5073 Apr, Chronic pain syndrome G89.4 and Generalized anxiety disorder F41.1 [facility] [id number] [place] [address] 06857- 6993 Mar, Generalized anxiety disorder F41.1 and Chronic pain syndrome G89.4 [facility] [id number] [place] [address] 88557- 3570 Mar, [facility] [id number] [place] [address] 59071- 4282 Feb, [place] [id number] [place] [address] 92380- 2171 Feb, Generalized anxiety disorder F41.1 and Chronic pain syndrome G89.4 [facility] [id number] [place] [address] 98653- 5049 Feb, Elevated lymphocyte count D72.820 [facility] [id number] [place] [address] 22765- 4719 Feb, Chronic prescription opiate use Z79.899 ; 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, 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, 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 ; Low HDL (under 40) E78.6 and Chronic obstructive pulmonary disease, unspecified COPD type J44.9 [facility] [id number] [place] [address] 06652- 1314 January, Generalized anxiety disorder F41.1 and Chronic pain syndrome G89.4 [facility] [id number] [place] [address] 78504- 5690 Dec, Chronic pain syndrome G89.4 and Generalized anxiety disorder F41.1 [facility] [id number] [place] [address] 38730- 4720 Dec, [facility] [id number] [place] [address] 16887- 7030 Nov, Rheumatoid arthritis involving multiple sites, unspecified rheumatoid factor presence M06.9 ; Chronic pain syndrome G89.4 ; Generalized anxiety disorder F41.1 ; Type 2 diabetes mellitus with hyperglycemia, without long-term current use of insulin E11.65 and Postmenopausal bleeding N95.0 [facility] [id number] [place] [address] 52815- 3203 Nov, [facility] [id number] [place] [address] 77287- 5234 Nov, [facility] [id number] [place] [address] 77074- 9017 Nov, Generalized anxiety disorder F41.1 and Chronic pain syndrome G89.4 [facility] [id number] [place] [address] 02408- 9532 Oct, [facility] [id number] [place] [address] 55597- 0230 Oct, [facility] [id number] [place] [address] 07162- 0845 Oct, [facility] [id number] [place] [address] 16136- 7130 15 Oct, 2016 Chronic pain syndrome G89.4 and Generalized anxiety disorder F41.1 [facility] [id number] [place] [address] 90922- 2671 Sep, Chronic pain syndrome G89.4 and Generalized anxiety disorder F41.1 [facility] [id number] [place] [address] 27698- 2824 Aug, Sore throat J02.9 ; Chronic pain syndrome G89.4 ; Postmenopausal bleeding N95.0 ; Acute suppurative otitis media of left ear without spontaneous rupture of tympanic membrane, recurrence not specified H66.002 ; Generalized anxiety disorder F41.1 ; Stress incontinence N39.3 ; Drug- induced constipation K59.03 ; Chronic prescription opiate use Z79.899 and Prediabetes R73.09 [facility] [id number] [place] [address] 84106- 0053 15 Jul, 2016 [facility] [id number] [place] [address] 00443- 2442 Jul, [facility] [id number] [place] [address] 53055- 9641 Jun, [facility] [id number] [place] [address] 53566- 4358 Jun, [facility] [id number] [place] [address] 69356- 4887 Jun, [facility] [id number] [place] [address] 12664- 6278 Jun, [facility] [address] [address]- 8847 Jun, Prediabetes R73.09 [facility] [id number] [place] [address] 87966- 9083 May, Prediabetes R73.09 [facility] [id number] [place] [address] 11746- 6598 May, Postmenopausal bleeding N95.0 ; Prediabetes R73.09 and Thickened endometrium R93.8 [facility] [id number] [place] [address] 98809- 3550 May, [facility] [id number] [place] [address] 95185- 5565 Apr, Prediabetes R73.09 [facility] [id number] [place] [address] 35218- 3692 Apr, Chronic pain syndrome G89.4 ; Postmenopausal bleeding N95.0 ; 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, 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, 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 ; Generalized anxiety disorder F41.1 and Chronic obstructive pulmonary disease, unspecified COPD type J44.9 [facility] [id number] [place] [address] 93268- 8536 Mar, [facility] [id number] [place] [address] 48225- 5806 Feb, [facility] [id number] [place] [address] 82306- 5870 January, [facility] [id number] [place] [address] 06080- 0235 Dec, Chronic pain syndrome G89.4 ; Chronic prescription opiate use Z79.899 ; Leukocytosis, unspecified type D72.829 and Generalized anxiety disorder F41.1 [facility] [id number] [place] [address] 85546- 6626 Dec, [facility] [id number] [place] [address] 90241- 1475 Nov, [facility] [address] [address]- 5830 Nov, [facility] [address] [address]- 3267 Nov, [facility] [address] [address]- 1948 Oct, [facility] [id number] [place] [address] 85311- 9060 Oct, [facility] [id number] [place] [address] 76925- 6509 Oct, [facility] [address] [address]- 0790 Sep, [facility] [address] [address]- 3615 Aug, [facility] [address] [address]- 4105 Aug, Leukocytosis, unspecified type D72.829 ; Peripheral edema R60.9 and 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, residential, 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 [facility] [address] [address]- 4914 Aug, [facility] [address] [address]- 8788 Jul, [facility] [address] [address]- 9237 Jul, [facility] [address] [address]- 5552 Jun, [facility] [address] [address]- 1654 10 May, 2015 [facility] [id number] [address]- 2904 08 May, 2015 Chronic pain 338.29 ; Leukocytosis 288.60 ; Anxiety 300.00 and Major depressive disorder, recurrent episode, severe, without mention of psychotic behavior 296.33 [facility] [id number] [address]- 7347 Apr, [facility] [id number] [address]- 3224 Apr, [facility] [id number] [place] [address] 85905- 6981 Apr, [facility] [id number] [place] [address] 81583- 7051 Apr, [facility] [id number] [place] [address] 15914- 5843 Apr, [facility] [id number] [place] [address] 51749- 5425 Apr, [facility] [id number] [place] [address] 54057- 3290 Mar, [facility] [address], [place] [address]- 5423 Mar, [facility] [id number] [place] [address] 67576- 3272 Mar, [facility] [address] [address]- 4255 Mar, [facility] [address] [address]- 6960 Feb, Leukocytosis 288.60 [facility] [address] [address]- 6906 Feb, [facility] [id number] [address]- 0629 Feb, Chronic pain 338.29 ; Rheumatoid arthritis 714.0 ; Fatigue 780.79 ; Anxiety 300.00 and Asthma 493.90 [facility] [id number] [place] [address] 72083- 2856 January, [facility] [place] [facility] [address] [id number] [place] [address]- 9826 29 Dec, 2014 [facility] [place] [facility] [address] [id number] [place] [address]- 0590 28 Dec, 2014 [facility] [place] [facility] [address] [id number] [place] [address]- 8427 14 Dec, 2014 [facility] [place] [facility] [address] [id number] [place] [address]- 8109 Dec, [facility] [place] [facility] [address] [id number] [place] [address]- 7082 Nov, [facility] [place] [facility] [address] [id number] [place] [address]- 7072 Nov, [facility] [place] [facility] [address] [id number] [place] [address]- 4142 Nov, [facility] [place] [facility] [address] [id number] [place] [address]- 9030 Nov, [facility] [place] [facility] [address] [id number] [place] [address]- 1568 Nov, [facility] [place] [facility] [address] [id number] [place] [address]- 9415 Nov, [facility] [place] [facility] [address] [id number] [place] [address]- 7681 Nov, [facility] [place] [facility] [address] [id number] [place] [address]- 6468 Nov, [facility] [place] [facility] [address] [id number] [place] [address]- 4445 Oct, [facility] [place] [facility] [address] [id number] [place] [address]- 9441 Oct, [facility] [place] [facility] [address] [id number] [place] [address]- 2343 Sep, [facility] [place] [facility] [address] [id number] [place] [address]- 7340 Sep, [facility] [address] [id number] [place] [address]- 1014 Sep, [facility] [place] [facility] [address] [id number] [place] [address]- 5861 Sep, [facility] [address] [id number] [place] [address]- 7015 Aug, [facility] [place] [facility] [address] [id number] [place] [address]- 6078 Aug, [facility] [place] [facility] [address] [id number] [place] [address]- 9900 Aug, [facility] [place] [facility] [address] [id number] [place] [address]- 9506 Aug, [facility] [place] [facility] [address] [id number] [place] [address]- 5834 Aug, [facility] [place] [facility] [address] [id number] [place] [address]- 6175 Aug, [facility] [place] [facility] [address] [id number] [place] [address]- 9598 Aug, [facility] [place] [facility] [address] [id number] [place] [address]- 3856 Aug, [facility] [place] [facility] [address] [id number] [place] [address]- 3478 Jul, [facility] [place] [facility] [address] [id number] [place] [address]- 0764 Jul, [facility] [place] [facility] [address] [id number] [place] [address]- 6238 Jun, [facility] [place] [facility] [address] [id number] [place] [address]- 1432 Jun, [facility] [place] [facility] [address] [id number] [place] 5280 Jun, [facility] [place] [facility] [address] [id number] [place] [address]- 9703 Jun, [facility] [place] [facility] [address] [id number] [place] [address]- 3251 Jun, [facility] [place] [facility] [address] [id number] [place] [address]- 9845 Jun, [facility] [place] [facility] [address] [id number] [place] [address]- 1240 Jun, [facility] [place] [facility] [address] [id number] [place] [address]- 4772 Jun, [facility] [place] [facility] [address] [id number] [place] [address]- 9496 Jun, [facility] [place] [facility] [address] [id number] [place] [address]- 9137 Jun, [facility] [place] [facility] [address] [id number] [place] [address]- 8754 May, [facility] [place] [facility] [address] [id number] [place] [address]- 7074 25 May, 2014 [facility] [place] [facility] [address] [id number] [place] [address]- 6797 22 May, 2014 [facility] [place] [facility] [address] [id number] [address]- 7123 19 May, 2013 [facility] [place] [facility] [address] [id number] [address]- 3051 19 May, 2013 [facility] [place] [facility] [address] [id number] [place] [address]- 2543 19 May, 2013 [facility] [place] [facility] [address] [id number] [place] [address]- 0254 19 May, 2013 [facility] [place] [facility] [address] [id number] [place] [address]- 9389 17 May, 2013 [facility] [place] [facility] [address] [id number] [place] [address]- 1856 May, [facility] [place] [facility] [address] [id number] [place] [address]- 0000 Apr, [facility] [place] [facility] [address] [id number] [place] [address]- 2785 Apr, [facility] [place] [facility] [address] [id number] [place] [address]- 3530 Apr, [facility] [place] [facility] [address] [id number] [place] [address]- 4043 Apr, [facility] [place] [facility] [address] [id number] [place] [address]- 4320 Apr, [facility] [place] [facility] [address] [id number] [place] [address]- 9266 Apr, [facility] [place] [facility] [address] [id number] [place] [address]- 7877 Apr, [facility] [place] [facility] [address] [id number] [place] [address]- 8233 Apr, [facility] [place] [facility] [address] [id number] [place] [address] Apr, [facility] [place] [facility] [address] [id number] [place] [address]- 3615 Apr, [facility] [place] [facility] [address] [id number] [place] [address]- 9778 Mar, [facility] [place] [facility] [address] [id number] [place] [address]- 3292 Mar, [facility] [place] [facility] [address] [id number] [place] [address]- 5480 Mar, [facility] [place] [facility] [address] [id number] [place] [address]- 9945 Mar, [facility] [place] [facility] [address] [id number] [place] 2981 Mar, [facility] [place] [facility] [address] [id number] [place] [address]- 8414 17 Mar, 2013 [facility] [place] [facility] [address] [id number] [place] [address]- 1611 17 Mar, 2013 [facility] [place] [facility] [address] [id number] [place] [address]- 2186 17 Mar, 2013 [facility] [place] [facility] [address] [id number] [place] [address]- 1670 16 Mar, 2013 [facility] [place] [facility] [address] [id number] [place] [address]- 1119 16 Mar, 2013 [facility] [place] [facility] [address] [id number] [place] [address]- 7248 16 Mar, 2013 [facility] [place] [facility] [address] [id number] [place] [address]- 6760 16 Mar, 2013 [facility] [place] [facility] [address] [id number] [place] [address]- 6559 16 Mar, 2013 [facility] [place] [facility] [address] [id number] [place] [address]- 3509 16 Mar, 2013 [facility] [place] [facility] [address] [id number] [place] [address]- 3134 15 Mar, 2013 [facility] [place] [facility] [address] [id number] [place] [address]- 6443 15 Mar, 2013 [facility] [place] [facility] [address] [id number] [place] [address]- 0283 14 Mar, 2013 [facility] [place] [facility] [address] [id number] [place] [address]- 0599 14 Mar, 2013 [facility] [place] [facility] [address] [id number] [place] [address]- 7418 11 Mar, 2013 [facility] [place] [facility] [address] [id number] [place] [address]- 0961 11 Mar, 2013 [facility] [place] [facility] [address] [id number] [place] [address]- 8396 Mar, [facility] [place] [facility] [address] [id number] [place] [address]- 2872 Mar, [facility] [place] [facility] [address] [id number] [place] [address] Feb, [facility] [place] [facility] [address] [id number] [place] [address] Feb, [facility] [place] [facility] [address] [id number] [place] [address] Feb, [facility] [place] [facility] [address] [id number] [place] [address] Feb, [facility] [place] [facility] [address] [id number] [place] [address] Feb, [facility] [place] [facility] [address] [id number] [place] [address] Feb, [facility] [place] [facility] [address] [id number] [place] [address] Feb, [facility] [place] [facility] [address] [id number] [place] [address] Feb, [facility] [place] [facility] [address] [id number] [place] [address] January, [facility] [place] [facility] [address] [id number] [place] [address] January, [facility] [place] [facility] [address] [id number] [place] [address] January, [facility] [place] [facility] [address] [id number] [place] [address] January, [facility] [place] [facility] [address] [id number] [place] [address] January, [facility] [place] [facility] [address] [id number] [place] [address] January, [facility] [place] [facility] [address] [id number] [place] [address] January, [facility] [place] [facility] [address] [id number] [place] [address] January, [facility] [place] [facility] [address] [id number] [place] [address] January, [facility] [place] [facility] [address] [id number] [place] [address] January, [facility] [place] [facility] [address] [id number] [place] [address] January, [facility] [place] [facility] [address] [id number] [place] [address]- [address] Dec, [facility] [place] [facility] [address] [id number] [place] [address] Dec, [facility] [place] [facility] [address] [id number] [place] [address] Dec, [facility] [place] [facility] [address] [id number] [place] [address]- [address] Dec, [facility] [place] [facility] [address] [id number] [place] [address]- [address] Dec, [facility] [place] [facility] [address] [id number] [place] [address] Dec, [facility] [place] [facility] [address] [id number] [place] [address] Dec, [facility] [place] [facility] [address] [id number] [place] [address] Dec, [facility] [place] [facility] [address] [id number] [place] [address] Dec, [facility] [place] [facility] [address] [id number] [place] [address] Dec, [facility] [place] [facility] [address] [id number] [place] [address] Dec, [facility] [place] [facility] [address] [id number] [place] [address] Dec, [facility] [facility] [address] [id number] [place] [address] Dec, [facility] [place] [facility] [address] [id number] [place] [address] Dec, [facility] [place] [facility] [address] [id number] [place] [address]- 2717 Dec, [facility] [place] [facility] [address] [id number] [place] [address] 2420 Dec, [facility] [place] [facility] [address] [id number] [place] [address]- 4559 Dec, [facility] [place] [facility] [address] [id number] [place] [address]- 8454 Nov, [facility] [place] [facility] [address] [id number] [place] [address]- 9345 Nov, [facility] [place] [facility] [address] [id number] [place] [address]- 5839 Nov, [facility] [place] [facility] [address] [id number] [place] [address]- 5049 Nov, [facility] [place] [facility] [address] [id number] [place] [address]- 7233 Nov, [facility] [place] [facility] [address] [id number] [place] [address]- 5013 Nov, [facility] [place] [facility] [address] [id number] [place] [address]- 6318 Nov, [facility] [place] [facility] [address] [id number] [place] [address]- 2947 Nov, [facility] [place] [facility] [address] [id number] [place] [address]- 5387 Oct, [facility] [place] [facility] [address] [id number] [place] [address]- 2125 Oct, [facility] [place] [facility] [address] [id number] [place] [address]- 1255 Oct, [facility] [place] [facility] [address] [id number] [place] [address]- 1042 Oct, [facility] [place] [address] [id number] [place] [address]- 4636 Oct, [facility] [place] [facility] [address] [id number] [place] [address]- 9011 Oct, [facility] [place] [facility] [address] [id number] [place] [address]- 6360 Sep, [facility] [place] [facility] [address] [id number] [place] [address]- 4919 Sep, [facility] [place] [facility] [address] [id number] [place] [address]- 4517 Sep, [facility] [place] [facility] [address] [id number] [place] [address]- 7648 Sep, [facility] [place] [facility] [address] [id number] [place] [address]- 6500 Sep, [facility] [address] [id number] [place] [address]- 0593 Sep, [facility] [address] [id number] [place] [address]- 9325 Sep, [facility] [place] [address] [id number] [place] [address]- 9714 Sep, [facility] [address] [id number] [place] [address]- 2342 Sep, [facility] [address] [id number] [place] [address]- 6693 Sep, [facility] [address] [id number] [place] [address]- 4528 Sep, [facility] [address] [id number] [place] [address]- 6591 Sep, [facility] [address] [id number] [place] [address]- 2118 Aug, [facility] [address] [id number] [place] [address]- 8076 Aug, [facility] [address] [id number] [place] [address]- 2036 Aug, [facility] [address] [id number] [place] [address]- 4127 Aug, [facility] [address] [id number] [place] [address]- 5378 Aug, [facility] [address] [id number] [place] [address]- 3124 Aug, [facility] [address] [id number] [place] [address]- 3255 Aug, [facility] [address] [id number] [place] [address]- 1967 Aug, [facility] [address] [id number] [place] [address]- 7213 Aug, [facility] [address] [id number] [place] [address]- 1346 Aug, [facility] [address] [id number] [place] [address]- 0317 Jul, [facility] [address] [id number] [place] [address]- 2145 Jul, [facility] [address] [id number] [place] [address]- 7187 Jul, [facility] [address] [id number] [place] [address]- 5132 Jul, [facility] [address] [id number] [place] [address]- 4236 06 Jul, 2012 [facility] [address] [id number] [place] [address]- 3292 31 Jun, 2012 [facility] [address] [id number], [place] [address]- 9668 31 Jun, 2012 [facility] [address] [id number] [place] [address]- 0116 30 Jun, 2012 [facility] [address] [id number], [place] [address]- 1607 30 Jun, 2012 [facility] [address] [id number] [place] [address]- 2806 30 Jun, 2012 [facility] [address] [id number], [place] [address]- 4234 30 Jun, 2012 [facility] [address] [id number], [place] [address]- 2854 29 Jun, 2012 [facility] [address] [id number], [place] [address]- 8087 16 Jun, 2012 [facility] [address] [id number], [place] [address]- 5668 16 Jun, 2012 [facility] [address] [id number], [place] [address]- 0059 10 Jun, 2012 [facility] [address] [id number], [place] [address]- 0821 10 Jun, 2012 [facility] [address] [id number], [place] [address]- 3321 10 Jun, 2012 [facility] [address] [id number], [place] [address]- 4913 10 Jun, 2012 [facility] [address] [id number], [place] [address]- 6469 10 Jun, 2012 [facility] [address] [id number], [place] [address]- 6008 10 Jun, 2012 [facility] [address] [id number] [place] [address]- 4271 Jun, [facility] [address] [id number] [place] [address]- 6195 Jun, [facility] [address] [id number] [place] [address]- 5340 May, [facility] [address] [id number] [place] [address]- 7249 May, [facility] [address] [id number] [place] [address]- 4755 May, [facility] [address] [id number] [place] [address]- 1065 May, [facility] [address] [id number] [place] [address]- 7044 Apr, [facility] [address] [id number] [place] [address]- 8077 Apr, [facility] [address] [id number] [place] [address]- 3038 Apr, [facility] [address] [id number] [place] [address]- 7469 Mar, [facility] [address] [id number] [place] [address]- 3876 Mar, [facility] [address] [id number] [place] [address]- 9264 Feb, [facility] [address] [id number] [place] [address]- 254 Feb, [facility] [address] [id number] [place] [address]- 5660 Feb, [facility] [address] [id number] [place] [address]- 2542 January, [facility] [address] [id number] [place] [address]- 1033 January, [facility] [address] [id number] [place] [address]- 5846 January, [facility] [address] [id number] [place] [address]- 3003 January, [facility] [address] [id number] [place] [address]- 4748 Dec, [facility] [address] [id number] [place] [address]- 9213 Dec, [facility] [address] [id number] [place] [address]- 7888 Dec, [facility] [address] [id number] [place] [address]- 6891 Dec, [facility] [address] [id number] [place] [address]- 1004 Dec, [facility] [address] [id number] [place] [address]- 3525 Nov, [facility] [address] [id number] [place] [address]- 2307 Oct, [facility] [address] [id number] [place] [address]- 1404 Oct, [facility] [address] [id number] [place] [address]- 3008 Oct, [facility] [address] [id number] [place] [address]- 1641 Oct, [facility] [address] [id number] [place] [address]- 3735 Oct, [facility] [address] [id number] [place] [address]- 6247 Sep, [facility] [address] [id number] [place] [address]- 9976 Sep, [facility] [address] [id number] [place] [address]- 1990 22 Sep, 2012 [facility] [address] [id number] [place] [address]- 8596 16 Sep, 2012 [facility] [address] [id number] [place] [address]- 5066 15 Sep, 2012 [facility] [address] [id number] [place] [address]- 5716 08 Sep, 2012 [facility] [address] [id number] [place] [address]- 3848 Sep, [facility] [address] [id number] [place] [address]- 1456 Aug, [facility] [address] [id number] [place] [address]- 6595 Aug, [facility] [address] [id number] [place] [address]- 8744 Aug, [facility] [address] [id number] [place] [address]- 9388 Aug, [facility] [address] [id number] [place] [address]- 1003 Aug, [facility] [address] [id number] [place] [address]- 4395 Aug, [facility] [address] [id number] [place] [address]- 9010 Aug, [facility] [address] [id number] [place] [address] 2540 Aug, [facility] [address] [id number] [place] [address]- 3740 Aug, [facility] [address] [id number] [place] [address]- 6378 30 Jul, 2012 [facility] [address] [id number] [place] [address]- 9885 Jul, [facility] [address] [id number] [place] [address]- 2805 Jul, [facility] [address] [id number] [place] [address]- 2333 Jul, [facility] [address] [id number] [place] [address]- 4783 Jul, [facility] [address] [id number] [place] [address]- 1394 Jul, [facility] [address] [id number] [place] [address]- 8967 Jul, [facility] [address] [id number] [place] [address]- 1143 Jul, [facility] [address] [id number] [place] [address]- 0859 Jul, [facility] [address] [id number] [place] [address]- 7727 Jun, [facility] [address] [id number] [place] [address]- 9587 Jun, [facility] [address] [id number] [place] [address]- 6314 Jun, [facility] [address] [id number] [place] [address]- 1476 Jun, [facility] [address] [id number] [place] [address]- 6683 Jun, [facility] [address] [id number] [place] [address]- 1889 Jun, [facility] [address] [id number] [place] [address]- 3480 Jun, [facility] [address] [id number] [place] [address]- 7702 Jun, [facility] [address] [id number] [place] [address]- 3159 May, [facility] [address] [id number] [place] [address]- 8708 May, [facility] [address] [id number] [place] [address]- 2046 Apr, [facility] [address] [id number] [place] [address]- 3576 Apr, [facility] [address] [id number] [place] [address]- 8510 Mar, [facility] [address] [id number] [place] [address]- 5834 Mar, [facility] [place] [address] [id number] [place] [address]- 9897 Mar, [facility] [address] [id number] [place] [address]- 2212 Feb, [facility] [place] [address] [id number] [place] [address]- 5363 Feb, [facility] [place] [facility] [address] [id number] [place] [address]- 2281 Feb, [facility] [place] [address] [id number] [place] [address]- 8185 Feb, [facility] [place] [address] [id number] [place] [address]- 2503 January, [facility] [place] [facility] [address] [id number] [place] [address]- 8190 January, [facility] [place] [address] [id number] [place] [address]- 4116 January, [facility] [place] [facility] [address] [id number] [place] [address]- 0614 Dec, [facility] [place] [address] [id number] [place] [address]- 1361 Dec, [facility] [place] [facility] [address] [id number] [place] [address]- 2262 24 Dec, 2011 [facility] [address] [id number] [place] [address]- 1996 12 Dec, 2011 [facility] [place] [facility] [address] [id number] [place] [address]- 1566 30 Nov, 2011 [facility] [place] [address] [id number] [place] [address]- 5156 29 Nov, 2011 [facility] [place] [facility] [address] [id number] [place] [address] 2548 28 Nov, 2011 [facility] [place] [facility] [address] [id number] [place] [address]- 6136 16 Nov, 2011 [facility] [place] [facility] [address] [id number] [place] [address] 23 Oct, 2011 [facility] [place] [facility] [address] [id number] [place] [address]- 9986 23 Oct, 2011 [facility] [facility] [address] [id number] [place] [address]- 6616 16 Oct, 2011 [facility] [facility] [id number] [place] [address]- 0621 15 Oct, 2011 [facility] [address] [id number] [place] [address]- 1564 09 Oct, 2011 [facility] [place] [facility] [address] [facility] [id number] [place] [address]- 9337 07 Oct, 2011 [facility] [place] [facility] [address] [id number] [place] [address]- 3600 02 Oct, 2011 [facility] [place] [facility] [address] [facility] [id number] [place] [address]- 1109 Sep, [facility] [place] [facility] [address] [facility] [id number] [place] [address]- 7643 Sep, [facility] [place] [facility] [address] [id number] [place] [address]- 2165 Sep, [facility] [address] [id number] [place] [address]- 5993 Sep, [facility] [place] [facility] [address] [id number] [place] [address]- 0256 Sep, [facility] [place] [facility] [address] [id number] [place] [address]- 1597 Sep, [facility] [place] [facility] [address] [id number] [place] [address]- 2895 Sep, [facility] [address] [id number] [place] [address]- 6711 Sep, [facility] [place] [facility] [address] [id number] [place] [address]- 1278 Sep, [facility] [place] [facility] [address] [id number] [place] [address]- 8695 Sep, [facility] [place] [facility] [address] [id number] [place] [address]- 1404 Sep, [facility] [place] [facility] [address] [id number] [place] [address]- 9532 Aug, [facility] [place] [facility] [address] [id number] [place] [address]- 0813 Aug, [facility] [place] [facility] [address] [id number], [place] [address]- 1917 Aug, [facility] [place] [facility] [address] [id number], [place] [address]- 6744 13 Aug, 2011 [facility] [place] [facility] [address] [id number] [place] [address]- 7564 28 Jul, 2011 [facility] [place] [facility] [address] [id number] [place] [address]- 8882 23 Jul, 2011 [facility] [place] [facility] [address] [id number] [place] [address]- 0445 16 Jul, 2011 [facility] [place] [facility] [address] [id number] [place] [address]- 6572 16 Jul, 2011 [facility] [place] [facility] [address] [id number] [place] [address]- 0681 16 Jul, 2011 [facility] [place] [facility] [address] [id number] [place] [address]- 3150 Jul, [facility] [place] [facility] [address] [id number] [place] [address]- 7482 Jun, [facility] [place] [facility] [address] [id number] [place] [address]- 5499 Jun, [facility] [place] [facility] [address] [id number] [place] [address]- 0920 Jun, [facility] [place] [facility] [address] [id number] [place] [address]- 8797 Feb, [facility] [place] [facility] [address] [id number] [place] [address]- 0571 Aug, [facility] [place] [facility] [address] [id number] [place] [address]- 1385 Aug, [facility] [place] [facility] [address] [id number] [place] [address]- 1061 Aug, [facility] [facility] [address] [facility] [id number] [place] [address]- 6818 Jul, [facility] [place] [facility] [address] [id number] [place] [address]- 2674 Jul, [facility] [place] [facility] [address] [id number] [place] [address]- 3605 Jul, [facility] [place] [facility] [address] [id number] [place] [address]- 1856 Jul, [facility] [place] [facility] [address] [id number] [place] [address]- 2543 Jul, [facility] [place] [facility] [address] [id number] [place] [address]- 1881 Jul, [facility] [place] [facility] [address] [id number] [place] [address]- 6665 28 Jun, 2010 [facility] [address] [id number] [place] [address]- 3926 13 Mar, 2010 [facility] [address] [id number] [place] [address]- 3346 January, [facility] [address] [id number] [place] [address]- 7216 Nov, [facility] [address] [id number] [place] [address]- 8129 Oct, [facility] [address] [id number] [place] [address] 14 Sep, 2009 [facility] [address] [id number] [place] [address] 31 Aug, 2009 [facility] [address] [id number] [place] [address] 30 Aug, 2009 [facility] [address] [id number] [place] [address] 22 Aug, 2009 [facility] [address] [id number] [place] [address] 16 Aug, 2009 [facility] [address] [id number] [place] [address] 16 Aug, 2009 [facility] [address] [id number] [address] Aug, [facility] [address] [id number] [place] [address] Aug, [facility] [address] [id number] [place] [address] Aug, [facility] [address] [id number], [place] [address] Aug, [facility] [address] [id number], [place] [address] Jul, [facility] [id number] [address] Jun, [facility] [id number] [address] Jun, [facility] [id number], [place] [address] Jun, [facility] [id number] [address] Jun, [facility] [id number] [address] Jun, [facility] [id number] [address] May, [facility] [id number] [address] January, IMMUNIZATIONS Vaccine Route Administration Date Status FLUARIX QUAD (3 AND UP) 2016 IM Intramuscular Jun 08, 2017 Administered PCV 13 IM Intramuscular Jun 08, 2017 Administered SOCIAL HISTORY Never Assessed REASON FOR VISIT Pain management (chronic) -- yohan brian PLAN OF CARE Activity Details Follow Up 3 Months Reason: VITAL SIGNS Height 64 in 2017-06-08 Weight 303.6 lbs 2017-06-08 Temperature 98.0 degrees Fahrenheit 2017-06-08 Heart Rate 88 bpm 2017-06-08 Respiratory Rate 26 2017-06-08 BMI 52.11 kg/m2 2017-06-08 Blood pressure systolic 138 mmHg 2017-06-08 Blood pressure diastolic 76 mmHg 2017-06-08 MEDICATIONS Medication Instructions Dosage Frequency Start Date End Date Duration Status MiraLax - Orally 17 grams in 8 oz fluid daily as needed as directed Aug, Active Ibuprofen 600 MG Orally 2 times a day 1 tablet as needed 12h Active Loratadine 10 MG TAKE ONE TABLET BY MOUTH ONCE DAILY 30 Active ProAir HFA 108 (90 Base) MCG/ACT Inhalation every 4 hrs 2 puffs as needed 4h Feb, 30 days Active Folic Acid 1 MG Orally Once a day 1 tablet 24h 30 Active Debbi Microlet Lancets Lancets Check Blood Sugar 24h Jun, Active Lasix 40 MG Orally Once a day in the morning & 1/2 tab in afternoon 1 tablet 30 Active Oxycodone HCl 10 mg Orally 3 times a day 1 tablet as needed 8h Apr, Active Fluoxetine HCl 60 MG TAKE ONE TABLET BY MOUTH IN THE MORNING 30 Active 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 2.5 MG 6 tablet by Oral route 1 time per week 28 Active Baclofen 10 MG Orally every 6 hours 1 tablet with food or milk as needed 6h Active Debbi Contour Test Test Strips In Vitro Once to Twice a day Test Blood Sugar Active Xanax 1 MG Orally Three times a day as needed 1 tablet Nov, Active Fentanyl 100 MCG/HR Transdermal every 72 hours 1 patch to skin Apr, Active Mirena (52 MG) 20 MCG/24HR Active Omeprazole 40 MG Orally Once a day 1 capsule 24h 30 Active Singulair 10 MG Orally Once a day 1 tablet in the evening 24h 30 Active Klor-Con M10 10 MEQ TAKE ONE TABLET ORAL ROUTE 1 TIME PER DAY TAKE ONLY WITH LASIX. 30 Active RESULTS Name Result Date Reference Range CBC 2017-06-08 WBC TNP RBC TNP Hemoglobin TNP Hematocrit TNP MCV MCH MCHC RDW Platelets TNP Neutrophils TNP Lymphs TNP Monocytes TNP Eos TNP Basos Immature Cells Neutrophils (Absolute) Lymphs (Absolute) TNP Monocytes(Absolute) Eos (Absolute) TNP Baso (Absolute) TNP Immature Granulocytes Immature Grans (Abs) NR Hematology Comments: CMP 2017-06-08 Glucose, Serum 160 65-99 BUN 15 8-27 Creatinine, Serum 0.81 0.57-1.00 eGFR If NonAfricn Am 76 >59 eGFR If Africn Am 88 >59 BUN/Creatinine Ratio 19 12-28 Sodium, Serum 139 134-144 Potassium, Serum 4.4 3.5-5.2 Chloride, Serum 97 96-106 Carbon Dioxide, Total 23 18-29 Calcium, Serum 9.2 8.7-10.3 Protein, Total, Serum 7.7 6.0-8.5 Albumin, Serum 3.9 3.6-4.8 Globulin, Total 3.8 1.5-4.5 A/G Ratio 1.0 1.2-2.2 Bilirubin, Total 0.3 0.0-1.2 Alkaline Phosphatase, S 84 39-117 AST (SGOT) 18 0-40 ALT (SGPT) 14 0-32 Request Problem TNP A1C (IN HOUSE) 2017-06-08 A1C IN HOUSE 5.8 4.3 - 5.6 % Previous A1c 5.5 Lot [id number] Exp date 01/2019 [employer] 2017-06-08 PROCEDURES Procedure Date Ordered Result Body Site No Charge Jun 08, 2017 LAB NOT BILLED BY [facility] Jun 08, 2017 SINGLE IMMUNIZATION ADMIN Jun 08, 2017 FLUARIX QUAD (3 & UP)--2014Jun 08, 2017 IMMUNIZATION ADMIN, EACH ADD (please include units) Jun 08, 2017 GLYCATED HEMOGLOBIN TEST Jun 08, 2017 PCV 13 Jun 08, 2017 VENIPUNCT, ROUTINE* Jun 08, 2017 INSTRUCTIONS MEDICATIONS ADMINISTERED No Known Medications MEDICAL [...]
--- OUTSIDE RECORDS SUMMARY | 2018-01-29 18:39 | XMS REPORT ---
Author Author HILARY BESS Organization [facility] Address [address] [place] [address] Care Team Providers Care Information Resource Consultant Name Role Phone BESS RICHARD Unavailable PROBLEMS Type Condition ICD9-CM Code [id number] Code Onset Dates Condition Status SNOMED Code Problem Peripheral edema R60.9 Active 250326033 Problem Low HDL (under 40) E78.6 Active 190164075 Problem Leukocytosis, unspecified type D72.829 Active 544685450 Problem BMI 50.0-59.9, adult Z68.43 Active 426374158 Problem Chronic obstructive pulmonary disease, unspecified COPD type J44.9 Active 93578510 Problem Elevated lymphocyte count D72.820 Active 12632110 Problem Abnormal stress test R94.39 Active 980859294 Problem Allergic rhinitis, unspecified allergic rhinitis type J30.9 Active 57933531 Problem Stress incontinence N39.3 Active 41490675 Problem Postmenopausal bleeding N95.0 Active 05673082 Problem Type 2 diabetes mellitus with hyperglycemia, without long-term current use of insulin E11.65 Active 32960902 Problem Drug-induced constipation K59.03 Active 84220909 Problem Obstructive sleep apnea G47.33 Active 67559573 Problem Palpitations R00.2 Active 47633859 Problem Uncomplicated asthma, unspecified asthma severity J45.909 Active 327283104 Problem Nocturnal hypoxia G47.34 Active 865636186 Problem Rheumatoid arthritis involving multiple sites, unspecified rheumatoid factor presence M06.9 Active 845291373 Problem Bilateral carotid artery stenosis I65.23 Active 78998428 Problem Chronic pain syndrome G89.4 Active 898443660 Problem 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
--- OUTSIDE RECORDS SUMMARY | 2018-01-29 18:39 | XMS REPORT ---
Author Author MELISSA BUSTOS [facility] eClinicalWorks Address Unknown Phone Unavailable Care Team Providers Care Glue Sprayer Name Role Phone MELISSA BUSTOS CP Unavailable Allergies No Known Allergies Problems Problem Type Condition Code Onset Dates Condition Status Problem Prediabetes R73.09 Active Problem Uncomplicated asthma, unspecified asthma severity J45.909 Active Problem Allergic rhinitis, unspecified allergic rhinitis type J30.9 Active Problem Major depressive disorder, recurrent episode, unspecified severity F33.9 Active Problem Obstructive sleep apnea G47.33 Active Problem Rheumatoid arthritis involving multiple sites, unspecified rheumatoid factor presence M06.9 Active Problem Generalized anxiety disorder F41.1 Active Problem Chronic obstructive pulmonary disease, unspecified COPD type J44.9 Active Problem Nocturnal hypoxia G47.34 Active Problem Chronic pain syndrome G89.4 Active Medications Medication Code System Code Instructions Start Date End Date Status Dosage Xanax [facility] [address]-12 1 MG Orally Three times a day as needed November 27, 2014 1 tablet Oxycodone HCl [facility] [address]-72 10 MG Orally 3 times a day April 02, 2015 1 tablet as needed Fentanyl [facility] [address]-47 100 MCG/HR Transdermal every 72 hours March 02, 2015 1 patch to skin Results No Known Results Summary Purpose eClinicalWorks Submission
--- OUTSIDE RECORDS SUMMARY | 2018-01-29 18:39 | XMS REPORT ---
Author Author HILARY BESS Organization [facility] Address [address] [place] [address] Care Team Providers Care Microfilm Duplicating Unit Supervisor Name Role Phone BESS RICHARD Unavailable PROBLEMS Type Condition ICD9-CM Code MAU06-YN Code Onset Dates Condition Status SNOMED Code Problem Peripheral edema R60.9 Active 094437366 Problem Low HDL (under 40) E78.6 Active 420166802 Problem Leukocytosis, unspecified type D72.829 Active 689995966 Problem BMI 50.0-59.9, adult Z68.43 Active 357058685 Problem Chronic obstructive pulmonary disease, unspecified COPD type J44.9 Active 76001939 Problem Elevated lymphocyte count D72.820 Active 46687890 Problem Abnormal stress test R94.39 Active 729165293 Problem Allergic rhinitis, unspecified allergic rhinitis type J30.9 Active 44758742 Problem Stress incontinence N39.3 Active 70617328 Problem Postmenopausal bleeding N95.0 Active 42674695 Problem Type 2 diabetes mellitus with hyperglycemia, without long-term current use of insulin E11.65 Active 11283645 Problem Drug-induced constipation K59.03 Active 18966825 Problem Obstructive sleep apnea G47.33 Active 18760697 Problem Palpitations R00.2 Active 31830953 Problem Uncomplicated asthma, unspecified asthma severity J45.909 Active 242883567 Problem Nocturnal hypoxia G47.34 Active 373461831 Problem Rheumatoid arthritis involving multiple sites, unspecified rheumatoid factor presence M06.9 Active 961250494 Problem Bilateral carotid artery stenosis I65.23 Active 99609266 Problem Chronic pain syndrome G89.4 Active 395419124 Problem 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, 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, 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 Active 795259740392 Problem Major depressive disorder, recurrent episode, unspecified severity F33.9 Active 06576860 Problem Generalized anxiety disorder F41.1 Active 534007026 Problem Chronic prescription opiate use Z79.899 Active 644265573 ALLERGIES No Information SOCIAL HISTORY Never Assessed PLAN OF CARE VITAL SIGNS MEDICATIONS Medication Instructions Dosage Frequency Start Date End Date Duration Status Fentanyl 100 MCG/HR Transdermal every 72 hours 1 patch to skin Aug, Active Oxycodone HCl 10 mg Orally 3 times a day 1 tablet as needed 8h Aug, Active Xanax 1 MG Orally Three times a day as needed 1 tablet Nov, Active RESULTS No Results PROCEDURES No Known procedures IMMUNIZATIONS No Known Immunizations MEDICAL (GENERAL) HISTORY Type Description Date Medical History respiratory disorders Medical History chronic obstructive pulmonary disease remote hx of heavy tobacco use Medical History post cholecystectomy Medical History hyperlipidemia Medical History obesity Medical History endocrine disorder glucose intolerance Medical History osteoporosis Medical History arthritis psoriatic Medical History rheumatoid arthritis 2010 Medical History chronic pain Medical History psychiatric [...]
--- OUTSIDE RECORDS SUMMARY | 2018-01-29 18:40 | XMS REPORT ---
Author Author BESS RICHARD e[employer] Address Unknown Phone Unavailable Care Team Providers Care Netting Weaver Name Role Phone BESS RICHARD CP Unavailable Allergies No Known Allergies Problems Problem Type Condition Code Onset Dates Condition Status Problem Generalized anxiety disorder F41.1 Active Problem Nocturnal hypoxia G47.34 Active Problem Chronic pain syndrome G89.4 Active Problem Leukocytosis, unspecified type D72.829 Active Problem Peripheral edema R60.9 Active Problem Chronic prescription opiate use Z79.899 Active Problem Major depressive disorder, recurrent episode, unspecified severity F33.9 Active Problem Obstructive sleep apnea G47.33 Active Problem 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, care home, 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 Active Problem Rheumatoid arthritis involving multiple sites, unspecified rheumatoid factor presence M06.9 Active Problem Prediabetes R73.09 Active Problem Allergic rhinitis, unspecified allergic rhinitis type J30.9 Active Problem Uncomplicated asthma, unspecified asthma severity J45.909 Active Problem Chronic obstructive pulmonary disease, unspecified COPD type J44.9 Active Medications Medication Code System Code Instructions Start Date End Date Status Dosage Oxycodone HCl [facility] [address]-69 10 MG Orally 3 times a day April 02, 2015 1 tablet as needed Fentanyl [facility] [address]-58 100 MCG/HR Transdermal every 72 hours March 02, 2015 1 patch to skin Xanax [facility] [address]-31 1 MG Orally Three times a day as needed November 27, 2014 1 tablet Results No Known Results Summary Purpose eClinicalWorks Submission
--- OUTSIDE RECORDS SUMMARY | 2018-01-29 18:40 | XMS REPORT ---
Author Author BESS RICHARD [employer] Address Unknown Phone Unavailable Care Team Providers Care Single Spindle Screw Machine Operator Name Role Phone BESS RICHARD CP Unavailable Allergies No Known Allergies Problems Problem Type Condition Code Onset Dates Condition Status Problem Major depressive disorder, recurrent episode, unspecified severity F33.9 Active Problem Bilateral carotid artery stenosis I65.23 Active Problem Rheumatoid arthritis involving multiple sites, unspecified rheumatoid factor presence M06.9 Active Problem Chronic prescription opiate use Z79.899 Active Problem Leukocytosis, unspecified type D72.829 Active Problem Low HDL (under 40) E78.6 Active Problem Palpitations R00.2 Active Problem Abnormal stress test R94.39 Active Problem Peripheral edema R60.9 Active Problem 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, 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, 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 Active Problem Prediabetes R73.09 Active Problem Allergic rhinitis, unspecified allergic rhinitis type J30.9 Active Problem Generalized anxiety disorder F41.1 Active Problem Chronic pain syndrome G89.4 Active Problem Uncomplicated asthma, unspecified asthma severity J45.909 Active Problem Nocturnal hypoxia G47.34 Active Problem Chronic obstructive pulmonary disease, unspecified COPD type J44.9 Active Problem Obstructive sleep apnea G47.33 Active Medications Medication Code System Code Instructions Start Date End Date Status Dosage ProAir HFA [facility] [address]-36 108 (90 Base) MCG/ACT Inhalation every 4 hrs March 02, 2015 2 puffs as needed Results No Known Results Summary Purpose eClinicalWorks Submission
--- OUTSIDE RECORDS SUMMARY | 2018-01-29 18:40 | XMS REPORT ---
Author Author BESS RICHARD [employer] Address Unknown Phone Unavailable Care Team Providers Care Display Designer Name Role Phone BESS RICHARD CP Unavailable Allergies No Known Allergies Problems Problem Type Condition ICD-9 Code Onset Dates Condition Status Problem Major depressive disorder, recurrent episode, severe, without mention of psychotic behavior 296.33 Active Problem Obstructive sleep apnea (adult) (pediatric) 327.23 Active Problem Anxiety 300.00 Active Problem COPD (chronic obstructive pulmonary disease) 496 Active Problem Chronic pain 338.29 Active Problem Impaired fasting glucose 790.21 Active Problem Rheumatoid arthritis 714.0 Active Problem Asthma 493.90 Active Problem Allergic rhinitis 477.9 Active Medications No Known Medications Results No Known Results Summary Purpose eClinicalWorks Submission
--- OUTSIDE RECORDS SUMMARY | 2018-01-29 18:40 | XMS REPORT ---
Author Author BESS RICHARD [employer] Address Unknown Phone Unavailable Care Team Providers Care Data Steward Name Role Phone BESS RICHARD CP Unavailable [...] Problem Peripheral edema R60.9 Active Problem 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, roasterman, 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 Active Problem Prediabetes R73.09 [...] Instructions Start Date End Date Status Dosage Baclofen [facility] [address]-53 10 MG Orally every 6 hours Sep 27, 2015 1 tablet with food or milk as needed Singulair [facility] [address]-74 10 MG Orally Once a day May 03, 2015 1 tablet in the evening Results No Known Results Summary Purpose eClinicalWorks Submission
--- OUTSIDE RECORDS SUMMARY | 2018-01-29 18:40 | XMS REPORT ---
Author BESS Riggins [employer] Address Unknown Phone Unavailable Care Team Providers Care Server Developer Name Role Phone BESS RICHARD CP Unavailable Allergies, Adverse Reactions, Alerts Substance Reaction Event Type N.K.D.A. Info Not Available Non Drug Allergy Problems Problem Type Condition ICD-9 Code Onset Dates Condition Status Assessment Chronic pain 338.29 Active Problem Major depressive disorder, recurrent episode, severe, without mention of psychotic behavior 296.33 Active Problem Obstructive sleep apnea (adult) (pediatric) 327.23 Active Problem Anxiety 300.00 Active Problem COPD (chronic obstructive pulmonary disease) 496 Active Problem Chronic pain 338.29 Active Problem Impaired fasting glucose 790.21 Active Problem Rheumatoid arthritis 714.0 Active Problem Asthma 493.90 Active Problem Allergic rhinitis 477.9 Active Assessment Major depressive disorder, recurrent episode, severe, without mention of psychotic behavior 296.33 Active Assessment Anxiety 300.00 Active Assessment Leukocytosis 288.60 Active Medications Medication Code System Code Instructions Start Date End Date Status Dosage Potassium Chloride [facility] [address]-79 10 mEq Orally Quantity Amount, Route, and Frequency Jun 12, 2014 10 mEq by Oral route 1 time per day Take only with Lasix. Claritin [facility] [address]-61 10 MG Jun 12, 2014 1 tablet by Oral route 1 time per day Oxycodone HCl [facility] [address]-11 10 MG Orally 3 times a day April 02, 2015 1 tablet as needed Vitamin D3 [facility] [address] 1,000 unit Aug 30, 2012 1 capsule by Oral route 1 time per day Lasix [facility] [address]-15 40 MG Orally Once a day in the morning & 1/2 tab in afternoon May 04, 2015 1 tablet Xanax [facility] [address]-03 1 MG Orally Three times a day as needed November 27, 2014 1 tablet ProAir HFA [facility] [address]-37 108 (90 Base) MCG/ACT Inhalation every 4 hrs March 02, 2015 2 puffs as needed Singulair [facility] [address]-03 10 MG Orally Once a day May 03, 2015 1 tablet in the evening Fentanyl [facility] [address]-42 100 MCG/HR Transdermal every 72 hours March 02, 2015 1 patch to skin Ibuprofen [facility] [address]-37 600 mg December 09, 2014 take 1 tablet by Oral route 2 times per day PRN Folic Acid [facility] [address]-49 1 MG Orally Once a day May 04, 2015 1 tablet Omeprazole [facility] [address]-91 40 MG Orally Once a day May 04, 2015 1 capsule 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 Sodium NDC 0 2.5 mg Jul 08, 2014 6 tablet by Oral route 1 time per week Baclofen [facility] [address]-32 10 MG December 08, 2014 1 tablet by Oral route every 6 hours PRN Duragesic NDC 0 75 mcg/hr 1 PATCH applied topically every 72 hours November 27, 2014 1 PATCH by Topical route every 72 hours nystatin topical NDC 0 100,000 unit/gram Quantity Amount, Route, and Frequency January 12, 2014 1 dose by Topical route 2 times per day Prozac [facility] [address]-66 20 MG Orally Once a day May 04, 2015 3 capsule in the morning Procedures Procedure Coding System Code Date Office Visit, Est Pt., Level 3 CPT-4 11887 Jun 01, 2015 BLOOD SMEAR INTERPRETATION CPT-4 11437 Jun 01, 2015 No Charge CPT-4 93521 Jun 01, 2015 VENIPUNCT, ROUTINE* CPT-4 74184 Jun 01, 2015 COMPLETE CBC W/AUTO DIFF WBC CPT-4 04931 Jun 01, 2015 Vital Signs Date/Time: Jun 01, 2015 Temperature 100.0 F Weight 316.4 lbs Height 64 in BMI 54.30 Index Blood Pressure Diastolic 84 mmHg Blood Pressure Systolic 132 mmHg Cardiac Monitoring Heart Rate 92 bpm Results No Known Results Summary Purpose eClinicalWorks Submission
--- OUTSIDE RECORDS SUMMARY | 2018-01-29 18:40 | XMS REPORT ---
Author Author HILARY BESS Organization [facility] Address [address] [place] [address] Care Team Providers Care Reservations Clerk Name Role Phone BESS RICHARD Unavailable PROBLEMS Type Condition ICD9-CM Code VOZ52-DD Code Onset Dates Condition Status SNOMED Code Problem Peripheral edema R60.9 Active 347494355 Problem Low HDL (under 40) E78.6 Active 799429836 Problem Leukocytosis, unspecified type D72.829 Active 699808890 Problem BMI 50.0-59.9, adult Z68.43 Active 357995857 Problem Chronic obstructive pulmonary disease, unspecified COPD type J44.9 Active 86294141 Problem Elevated lymphocyte count D72.820 Active 86248289 Problem Abnormal stress test R94.39 Active 357375709 Problem Allergic rhinitis, unspecified allergic rhinitis type J30.9 Active 06023952 Problem Stress incontinence N39.3 Active 31736523 Problem Postmenopausal bleeding N95.0 Active 40330369 Problem Type 2 diabetes mellitus with hyperglycemia, without long-term current use of insulin E11.65 Active 63651125 Problem Drug-induced constipation K59.03 Active 06284729 Problem Obstructive sleep apnea G47.33 Active 60870175 Problem Palpitations R00.2 Active 07414407 Problem Uncomplicated asthma, unspecified asthma severity J45.909 Active 046456146 Problem Nocturnal hypoxia G47.34 Active 584327566 Problem Rheumatoid arthritis involving multiple sites, unspecified rheumatoid factor presence M06.9 Active 111431132 Problem Bilateral carotid artery stenosis I65.23 Active 36135102 Problem Chronic pain syndrome G89.4 Active 027741645 Problem 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, terminal operations manager, 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 Active 813432047383 Problem Major depressive disorder, recurrent episode, unspecified severity F33.9 Active 66841277 Problem Generalized anxiety disorder F41.1 Active 114025027 Problem Chronic prescription opiate use Z79.899 Active 151706156 ALLERGIES No Information SOCIAL HISTORY Never Assessed PLAN OF CARE VITAL SIGNS MEDICATIONS Medication Instructions Dosage Frequency Start Date End Date Duration Status ProAir HFA 108 (90 Base) MCG/ACT Inhalation every 4 hrs 2 puffs as needed 4h Feb, 30 days Active RESULTS No Results PROCEDURES No Known [...]
--- OUTSIDE RECORDS SUMMARY | 2018-01-29 18:40 | XMS REPORT ---
Author Author BESS RICHARD [employer] Address Unknown Phone Unavailable Care Team Providers Care Professional Fee Coder Name Role Phone BESS RICHARD CP Unavailable [...] Instructions Start Date End Date Status Dosage Nystatin [facility] [address]-50 361169 UNIT/GM Externally Twice a day Aug 06, 2015 1 application to affected area Results No Known Results Summary Purpose eClinicalWorks Submission
--- OUTSIDE RECORDS SUMMARY | 2018-01-29 18:40 | XMS REPORT ---
Author Author JOSE A HOLCOMB Organization [employer] Address Unknown Phone Unavailable Care Team Providers Care Ground Crew Chief Name Role Phone JOSE A HOLCOMB CP Unavailable Allergies No Known Allergies Problems [...] Problem Peripheral edema R60.9 Active Problem 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, exterminator helper, 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 Active Problem Prediabetes R73.09 [...] Start Date End Date Status Dosage Xanax [facility] [address]-52 1 MG Orally Three times a day as needed November 27, 2014 1 tablet Oxycodone HCl [facility] [address]-42 10 MG Orally 3 times a day April 02, 2015 1 tablet as needed Fentanyl [facility] [address]-82 100 MCG/HR Transdermal every 72 hours March 02, 2015 1 patch to skin Results No Known Results Summary Purpose eClinicalWorks Submission
--- OUTSIDE RECORDS SUMMARY | 2018-01-29 18:40 | XMS REPORT ---
Author Author BESS RICHARD e[employer] Address Unknown Phone Unavailable Care Team Providers Care Computerized Mill Recorder Name Role Phone BESS RICHARD CP Unavailable Allergies, Adverse Reactions, Alerts Substance Reaction Event Type adhesive rash Non Drug Allergy stainless steel, medical kaylan redness Non Drug Allergy Problems Problem Type Condition Code Onset Dates Condition Status Problem Major depressive disorder, recurrent episode, unspecified severity F33.9 Active Problem Bilateral carotid artery stenosis I65.23 Active Problem Rheumatoid arthritis involving multiple sites, unspecified rheumatoid factor presence M06.9 Active Problem Chronic prescription opiate use Z79.899 Active Assessment 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, rocket engine component mechanic, 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 Active Problem Leukocytosis, unspecified type D72.829 Active Assessment Generalized anxiety disorder F41.1 Active Assessment Chronic obstructive pulmonary disease, unspecified COPD type J44.9 Active Problem Low HDL (under 40) E78.6 Active Problem Palpitations R00.2 Active Problem Abnormal stress test R94.39 Active Problem Peripheral edema R60.9 Active Problem 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, rocket engine component mechanic, 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 Active Problem Prediabetes R73.09 Active Problem Allergic rhinitis, unspecified allergic rhinitis type J30.9 Active Assessment Postmenopausal bleeding N95.0 Active Assessment Chronic pain syndrome G89.4 Active Problem Generalized anxiety disorder F41.1 Active Problem Chronic pain syndrome G89.4 Active Problem Uncomplicated asthma, unspecified asthma severity J45.909 Active Problem Nocturnal hypoxia G47.34 Active Problem Chronic obstructive pulmonary disease, unspecified COPD type J44.9 Active Problem Obstructive sleep apnea G47.33 Active Medications Medication Code System Code Instructions Start Date End Date Status Dosage Oxycodone HCl [facility] [address]-17 10 MG Orally 3 times a day April 02, 2015 1 tablet as needed Folic Acid [facility] 84056112698 1 MG Orally Once a day 1 tablet ProAir HFA [facility] [address]-04 108 (90 Base) MCG/ACT Inhalation every 4 hrs March 02, 2015 2 puffs as needed Singulair [facility] [address]-14 10 MG Orally Once a day May 03, 2015 1 tablet in the evening Baclofen [facility] [address]-70 10 MG Orally every 6 hours Sep 27, 2015 1 tablet with food or milk as needed Klor-Con M10 [facility] [id number] 10 MEQ TAKE ONE TABLET ORAL ROUTE 1 TIME PER DAY TAKE ONLY WITH LASIX. Vitamin D3 [facility] [address] 1,000 unit Aug 30, 2012 1 capsule by Oral route 1 time per day Lasix [facility] 94794417789 40 MG Orally Once a day in the morning & 1/2 tab in afternoon 1 tablet Xanax [facility] [address]-69 1 MG Orally Three times a day as needed November 27, 2014 1 tablet Claritin [facility] 88435165075 10 MG 1 tablet by Oral route 1 time per day Omeprazole [facility] 36163410348 40 MG Orally Once a day 1 capsule Prozac [facility] [address]-67 60 mg Orally Once a day 1 capsule in the morning Ibuprofen [facility] [address]-98 600 MG Orally 2 times a day December 22, 2015 1 tablet as needed Nystatin [facility] [address]-48 110955 UNIT/GM Externally Twice a day Aug 06, 2015 1 application to affected area Fentanyl [facility] [address]-62 100 MCG/HR Transdermal every 72 hours March 02, 2015 1 patch to skin 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 [facility] 05463344548 2.5 MG 6 tablet by Oral route 1 time per week Procedures Procedure Coding System Code Date [facility] NOBLL May 02, 2016 VENIPUNCT, ROUTINE* CPT-4 33542 May 02, 2016 MEASURE BLOOD OXYGEN LEVEL CPT-4 93141 May 02, 2016 Office Visit, Est Pt., Level 3 CPT-4 78559 May 02, 2016 Vital Signs Date/Time: May 02, 2016 Cardiac Monitoring Heart Rate 94 bpm Weight 333.1 lbs Height 64 in BMI 57.17 Index Oximetry on room air:94 % Blood Pressure Diastolic 86 mmHg Blood Pressure Systolic 124 mmHg Results No Known Results Summary Purpose eClinicalWorks Submission
--- OUTSIDE RECORDS SUMMARY | 2018-01-29 18:40 | XMS REPORT ---
Author Author BESS RICHARD [employer] Address Unknown Phone Unavailable Care Team Providers Care Manufacturing Scheduler Name Role Phone BESS RICHARD CP Unavailable [...] Problem Peripheral edema R60.9 Active Problem 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, terminal gauger, 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 Active Problem Prediabetes R73.09 Active Problem Allergic rhinitis, unspecified allergic rhinitis type J30.9 Active Problem Generalized anxiety disorder F41.1 Active Problem Chronic pain syndrome G89.4 Active Problem Uncomplicated asthma, unspecified asthma severity J45.909 Active Problem Nocturnal hypoxia G47.34 Active Problem Chronic obstructive pulmonary disease, unspecified COPD type J44.9 Active Problem Obstructive sleep apnea G47.33 Active Medications No Known Medications Results No Known Results Summary Purpose eClinicalWorks Submission
--- OUTSIDE RECORDS SUMMARY | 2018-01-29 18:40 | XMS REPORT ---
Author Author MELISSA BUSTOS [facility] eClinicalWorks Address Unknown Phone Unavailable Care Team Providers Care Dry Transfer Man Name Role Phone MELISSA BUSTOS CP Unavailable [...] End Date Status Dosage Oxycodone HCl [facility] [address]-91 10 MG Orally 3 times a day April 02, 2015 1 tablet as needed Xanax [facility] [address]-51 1 MG Orally Three times a day as needed November 27, 2014 1 tablet Fentanyl [facility] [address]-37 100 MCG/HR Transdermal every 72 hours March 02, 2015 1 patch to skin Results No Known Results Summary Purpose eClinicalWorks Submission
--- OUTSIDE RECORDS SUMMARY | 2018-01-29 18:40 | XMS REPORT ---
Author JOELLEN Grande [facility] [place] eClinicalWorks Address Unknown Phone Unavailable Care Team Providers Care Christian Science Practitioner Name Role Phone JOELLEN BUTT CP Unavailable Allergies No Known Allergies Problems [...] Obstructive sleep apnea G47.33 Active Problem 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, detention, 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 Active Problem Rheumatoid arthritis involving multiple sites, unspecified rheumatoid factor presence M06.9 Active Problem Prediabetes R73.09 Active Problem Allergic rhinitis, unspecified allergic rhinitis type J30.9 Active Problem Uncomplicated asthma, unspecified asthma severity J45.909 Active Problem Chronic obstructive pulmonary disease, unspecified COPD type J44.9 Active Medications Medication Code System Code Instructions Start Date End Date Status Dosage Xanax [facility] [address]-12 1 MG Orally Three times a day as needed November 27, 2014 1 tablet Oxycodone HCl [facility] [address]-82 10 MG Orally 3 times a day April 02, 2015 1 tablet as needed Baclofen [facility] [address]-99 10 MG Orally every 6 hours Sep 27, 2015 December 26, 2015 1 tablet with food or milk as needed Singulair [facility] [address]-17 10 MG Orally Once a day May 03, 2015 1 tablet in the evening Fentanyl [facility] [address]-17 100 MCG/HR Transdermal every 72 hours March 02, 2015 1 patch to skin Results No Known Results Summary Purpose eClinicalWorks Submission
--- OUTSIDE RECORDS SUMMARY | 2018-01-29 18:41 | XMS REPORT ---
Author Author HILARY BESS Organization [facility] Address [address] [place] [address] Care Team Providers Care Bag Machine Helper Name Role Phone BESS RICHARD Unavailable PROBLEMS Type Condition ICD9-CM Code [id number] Code Onset Dates Condition Status SNOMED Code Problem Rheumatoid arthritis involving multiple sites, unspecified rheumatoid factor presence M06.9 Active 830849129 Problem Abnormal stress test R94.39 Active 096598092 Problem Bilateral carotid artery stenosis I65.23 Active 42651901 Problem Low HDL (under 40) E78.6 Active 423290807 Assessment Thickened endometrium R93.8 May, Active 167174673 Problem Chronic prescription opiate use Z79.899 Active 227438588 Problem 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, medical terminologist, 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 Active 313377960388 Problem Palpitations R00.2 Active 16113980 Problem Leukocytosis, unspecified type D72.829 Active 665718935 Problem Peripheral edema R60.9 Active 503921456 Problem Allergic rhinitis, unspecified allergic rhinitis type J30.9 Active 32837842 Problem Uncomplicated asthma, unspecified asthma severity J45.909 Active 737155246 Assessment Postmenopausal bleeding N95.0 May, Active 16493549 Problem Prediabetes R73.09 Active 7413454 Problem Chronic pain syndrome G89.4 Active 877823825 Problem Nocturnal hypoxia G47.34 Active 974999283 Problem Chronic obstructive pulmonary disease, unspecified COPD type J44.9 Active 51199014 Problem Obstructive sleep apnea G47.33 Active 55759227 Problem Generalized anxiety disorder F41.1 Active 597861290 Problem Major depressive disorder, recurrent episode, unspecified severity F33.9 Active 06309310 ALLERGIES Substance Reaction Event Type Date Status adhesive rash Non Drug Allergy May, Active stainless steel, medical kaylan redness Non Drug Allergy May, Active SOCIAL HISTORY No smoking Hx information available PLAN OF CARE VITAL SIGNS Height 64 in 2016-06-06 Weight 341.6 lbs 2016-06-06 Heart Rate 90 bpm 2016-06-06 Respiratory Rate 26 2016-06-06 BMI 58.63 kg/m2 2016-06-06 Blood pressure systolic 142 mmHg 2016-06-06 Blood pressure diastolic 86 mmHg 2016-06-06 MEDICATIONS Medication Instructions Dosage Frequency Start Date End Date Duration Status Lasix 40 MG Orally Once a day in the morning & 1/2 tab in afternoon 1 tablet 30 Active Omeprazole 40 MG Orally Once a day 1 capsule 24h 30 Active Klor-Con M10 10 MEQ TAKE ONE TABLET ORAL ROUTE 1 TIME PER DAY TAKE ONLY WITH LASIX. 30 Active Folic Acid 1 MG Orally Once a day 1 tablet 24h 30 Active Singulair 10 MG Orally Once a day 1 tablet in the evening 24h 30 Active 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 2.5 MG 6 tablet by Oral route 1 time per week 28 Active Xanax 1 MG Orally Three times a day as needed 1 tablet Nov, Active Claritin 10 MG 1 tablet by Oral route 1 time per day 30 Active Prozac 20 MG Orally Once a day 3 capsule in the morning 24h 30 Active Baclofen 10 MG Orally every 6 hours 1 tablet with food or milk as needed 6h 30 Active ProAir HFA 108 (90 Base) MCG/ACT Inhalation every 4 hrs 2 puffs as needed 4h Feb, Active Fentanyl 100 MCG/HR Transdermal every 72 hours 1 patch to skin Feb, Active Ibuprofen 600 MG Orally 2 times a day 1 tablet as needed 12h 30 Nov, 2015 30 day(s) Active Nystatin 896314 UNIT/GM Externally Twice a day 1 application to affected area 12h Jul, Active Prozac 60 mg Orally Once a day 1 capsule in the morning 24h 30 Active Vitamin D3 1,000 unit 1 capsule by Oral route 1 time per day Aug, Active Oxycodone HCl 10 MG Orally 3 times a day 1 tablet as needed 8h 10 Mar, 2015 Active RESULTS Name Result Date Reference Range A1C (IN HOUSE) 2016-06-06 A1C IN HOUSE 6.6% 4.3 - 5.6 % Previous A1c 5.9% February Lot [id number] Exp date March 2018 PROCEDURES Procedure Date Ordered Related Diagnosis Body Site GLYCATED HEMOGLOBIN TEST Jun 06, 2016 Office Visit, Est Pt., Level 2 Jun 06, 2016 IMMUNIZATIONS No Known Immunizations
--- OUTSIDE RECORDS SUMMARY | 2018-01-29 18:41 | XMS REPORT ---
Author Author HILARY BESS Organization [facility] Address [address] [place] [address] Care Team Providers Care Enterprise Account Manager Name Role Phone BESS RICHARD Unavailable PROBLEMS Type Condition ICD9-CM Code WPV80-FV Code Onset Dates Condition Status SNOMED Code Problem Peripheral edema R60.9 Active 740613192 Problem Low HDL (under 40) E78.6 Active 995894718 Problem Leukocytosis, unspecified type D72.829 Active 560829498 Problem BMI 50.0-59.9, adult Z68.43 Active 572432921 Problem Chronic obstructive pulmonary disease, unspecified COPD type J44.9 Active 15545636 Problem Elevated lymphocyte count D72.820 Active 46862394 Problem Abnormal stress test R94.39 Active 649792804 Problem Allergic rhinitis, unspecified allergic rhinitis type J30.9 Active 16982421 Problem Stress incontinence N39.3 Active 48920645 Problem Postmenopausal bleeding N95.0 Active 81209953 Problem Type 2 diabetes mellitus with hyperglycemia, without long-term current use of insulin E11.65 Active 15364220 Problem Drug-induced constipation K59.03 Active 74961374 Problem Obstructive sleep apnea G47.33 Active 63491212 Problem Palpitations R00.2 Active 93999909 Problem Uncomplicated asthma, unspecified asthma severity J45.909 Active 704269453 Problem Nocturnal hypoxia G47.34 Active 880558996 Problem Rheumatoid arthritis involving multiple sites, unspecified rheumatoid factor presence M06.9 Active 954797403 Problem Bilateral carotid artery stenosis I65.23 Active 40610809 Problem Chronic pain syndrome G89.4 Active 373193678 Problem 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, senior care, 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 Active 415101530506 Problem Major depressive disorder, recurrent episode, unspecified severity F33.9 Active 74854534 Problem Generalized anxiety disorder F41.1 Active 571407141 Problem Chronic prescription opiate use Z79.899 Active 452430563 ALLERGIES No Information ENCOUNTERS Encounter Location Date Diagnosis [place] [address] [id number] [place] [address] 58348- 6216 Dec, Generalized anxiety disorder F41.1 and Chronic pain syndrome G89.4 [facility] [address] [id number] [place] [address] 80873- 7485 Dec, [facility] [id number] [place] [address] 51637- 0054 Dec, [place] [address] [place] [id number] [place] [address] 27815- 9609 Dec, BMI 50.0-59.9, adult Z68.43 ; Left hip pain M25.552 ; Chronic pain syndrome G89.4 ; Generalized anxiety disorder F41.1 and Rheumatoid arthritis involving multiple sites, unspecified rheumatoid factor presence M06.9 [place] [address] [place] [id number] [place] [address] 07129- 0551 Nov, Chronic pain syndrome G89.4 [place] [address] [place] [id number] [place] [address] 50574- 4620 Oct, Chronic pain syndrome G89.4 [place] [address] [place] [id number] [place] [address] 36276- 7102 Sep, Chronic pain syndrome G89.4 [place] [address] [place] [id number] [place] [address] 82526- 0573 Sep, [place] [address] [place] [id number] [place] [address] 95346- 7283 Aug, Chronic pain syndrome G89.4 [place] [address] [place] [id number] [place] [address] 86633- 7209 Aug, Postmenopausal bleeding N95.0 ; 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, senior care, 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 ; Type 2 diabetes mellitus with hyperglycemia, without long- term current use of insulin E11.65 and BMI 50.0-59.9, adult Z68.43 [place] [address] [place] [id number] [place] [address] 60658- 5782 Jul, Chronic pain syndrome G89.4 and Generalized anxiety disorder F41.1 [place] [id number] [place] [address] 91266- 0320 Jun, Chronic pain syndrome G89.4 and Generalized anxiety disorder F41.1 [place] [address] [place] [id number] [place] [address] 90698- 2108 May, Chronic pain syndrome G89.4 and Generalized anxiety disorder F41.1 [place] [address] [place] [id number] [place] [address] 42297- 6297 May, 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, senior care, 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 [place] [address] [place] [id number] [place] [address] 88744- 3209 15 May, 2017 Type 2 diabetes mellitus with hyperglycemia, without long- term current use of insulin E11.65 ; Chronic pain syndrome G89.4 ; Leukocytosis , unspecified type D72.829 ; Chronic prescription opiate use Z79.899 ; 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, senior care, 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 ; Elevated lymphocyte count D72.820 ; Encounter for immunization Z23 and BMI 50.0-59.9, adult Z68.43 [place] [address] [place] [address] 70850- 5867 Apr, Chronic pain syndrome G89.4 and Generalized anxiety disorder F41.1 [place] [address] [place] [id number] [place] [address] 99573- 6838 Mar, Generalized anxiety disorder F41.1 and Chronic pain syndrome G89.4 [place] [id number] [place] [address] 24662- 6765 Mar, [place] [address] [place] [id number] [place] [address] 37747- 6517 Feb, [place] [address] [place] [id number] [place] [address] 17373- 3671 Feb, Generalized anxiety disorder F41.1 and Chronic pain syndrome G89.4 [place] [address] [place] [address] [id number] [place] [address]- 4950 16 Feb, 2017 Elevated lymphocyte count D72.820 [place] [address] [place] [id number] [place] [address] 26944- 5196 15 Feb, 2017 Chronic prescription opiate use Z79.899 ; 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, senior care, 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 ; Low HDL (under 40) E78.6 and Chronic obstructive pulmonary disease, unspecified COPD type J44.9 [place] [address] [place] [id number] [place] [address] 34498- 3264 January, Generalized anxiety disorder F41.1 and Chronic pain syndrome G89.4 [place] [address] [place] [id number] [place] [address] 62236- 7201 Dec, Chronic pain syndrome G89.4 and Generalized anxiety disorder F41.1 [place] [address] [place] [id number] [place] [address] 36928- 3545 Dec, [place] [address] [place] [id number] [place] [address] 24214- 4703 Nov, Rheumatoid arthritis involving multiple sites, unspecified rheumatoid factor presence M06.9 ; Chronic pain syndrome G89.4 ; Generalized anxiety disorder F41.1 ; Type 2 diabetes mellitus with hyperglycemia, without long-term current use of insulin E11.65 and Postmenopausal bleeding N95.0 [place] [address] [place] [id number] [place] [address] 80246- 4649 17 Nov, 2016 [place] [address] [place] [id number] [place] [address] 76779- 0894 Nov, [place] [address] [place] [id number] [place] [address] 51490- 8446 Nov, Generalized anxiety disorder F41.1 and Chronic pain syndrome G89.4 [place] [address] [place] [id number] [place] [address] 63663- 3572 28 Oct, 2016 [place] [address] [place] [id number] [place] [address] 42658- 4527 Oct, [facility] [address] [place] [address] 54119- 3830 17 Oct, 2016 [facility] [id number] [place] [address] 83835- 6659 15 Oct, 2016 Chronic pain syndrome G89.4 and Generalized anxiety disorder F41.1 [facility] [address] [id number] [place] [address] 93655- 6460 Sep, Chronic pain syndrome G89.4 and Generalized anxiety disorder F41.1 [facility] [address] [place] [id number] [place] [address] 93268- 5227 14 Aug, 2016 Sore throat J02.9 ; Chronic pain syndrome G89.4 ; Postmenopausal bleeding N95.0 ; Acute suppurative otitis media of left ear without spontaneous rupture of tympanic membrane, recurrence not specified H66.002 ; Generalized anxiety disorder F41.1 ; Stress incontinence N39.3 ; Drug- induced constipation K59.03 ; Chronic prescription opiate use Z79.899 and Prediabetes R73.09 [facility] [id number] [place] [address] 04938- 3614 Jul, [facility] [id number] [place] [address] 34640- 2441 Jul, [facility] [id number] [place] [address] 90322- 7733 Jun, [facility] [id number] [place] [address] 62176- 2539 Jun, [facility] [id number] [place] [address] 86746- 1130 Jun, [facility] [id number] [place] [address] 91822- 5529 Jun, [facility] [id number] [place] [address] 32392- 3965 Jun, Prediabetes R73.09 [facility] [id number] [place] [address] 64773- 1883 May, Prediabetes R73.09 [facility] [id number] [place] [address] 81380- 9188 May, Postmenopausal bleeding N95.0 ; Prediabetes R73.09 and Thickened endometrium R93.8 [facility] [id number] [place] [address] 64351- 9918 May, [facility] [id number] [place] [address] 33274- 5241 Apr, Prediabetes R73.09 [facility] [id number] [place] [address] 85169- 4044 Apr, Chronic pain syndrome G89.4 ; Postmenopausal bleeding N95.0 ; 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, senior care, 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 ; Generalized anxiety disorder F41.1 and Chronic obstructive pulmonary disease, unspecified COPD type J44.9 [facility] [id number] [place] [address] 23746- 0717 Mar, [facility] [id number] [place] [address] 82834- 1667 Feb, [facility] [address] [id number] [place] [address] 35642- 6875 January, [facility] [id number] [place] [address] 47737- 7013 Dec, Chronic pain syndrome G89.4 ; Chronic prescription opiate use Z79.899 ; Leukocytosis, unspecified type D72.829 and Generalized anxiety disorder F41.1 [facility] [address] [place] [address] 88181- 9234 Dec, [facility] [id number] [place] [address] 42078- 9421 Nov, [facility] [id number] [place] [address] 75389- 4215 Nov, [facility] [address] [place] [id number] [place] [address] [place] [address]- 7421 Nov, [facility] [id number] [place] [address] 83941- 9851 Oct, [facility] [id number] [place] [address] 272672- 8550 Oct, [facility] [id number] [place] [address] 97498- 9745 Oct, [facility] [id number] [place] [address] 67996- 2655 Sep, [facility] [id number] [place] [address] 679629- 4625 Aug, [facility] [id number] [place] [address] 27997- 6423 Aug, Leukocytosis, unspecified type D72.829 ; Peripheral edema R60.9 and 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, 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, 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 [facility] [address] [place] [address] 15534- 1102 Aug, [facility] [id number] [place] [address] 90047- 2234 Jul, [facility] [id number] [place] [address] 53272- 7411 Jul, [facility] [id number] [place] [address] 48757- 1587 Jun, [facility] [address] [address]- 6684 May, [facility] [id number] [place] [address] 26693- 4908 08 May, 2015 Chronic pain 338.29 ; Leukocytosis 288.60 ; Anxiety 300.00 and Major depressive disorder, recurrent episode, severe, without mention of psychotic behavior 296.33 [facility] [address] [place] [address] 14996- 9530 Apr, [facility] [address] [address]- 2791 Apr, [facility] [address] [address]- 7728 Apr, [facility] [address] [address]- 4136 Apr, [facility] [id number] [place] [address] 81033- 7896 Apr, [facility] [address] [address]- 5164 Apr, [facility] [address] [place] [address] 69411- 4918 Mar, [facility] [id number] [place] [address] 41449- 2993 Mar, [facility] [address] [place] [address] 76140- 4298 Mar, [facility] [address] [address]- 5521 Mar, [facility] [address] [address]- 8044 Feb, Leukocytosis 288.60 [facility] [address] [address]- 2689 Feb, [facility] [address] [address]- 0901 Feb, Chronic pain 338.29 ; Rheumatoid arthritis 714.0 ; Fatigue 780.79 ; Anxiety 300.00 and Asthma 493.90 [facility] [address] [address]- 4979 January, [facility] [address] [address]- 6136 Dec, [facility] [id number] [address]- 4363 28 Dec, 2014 [facility] [place] [facility] [address] [id number] [place] [address]- 0104 14 Dec, 2014 [facility] [place] [facility] [address] [id number] [place] [address]- 6339 Dec, [facility] [place] [facility] [address] [id number] [place] [address]- 2974 18 Nov, 2014 [facility] [place] [facility] [address] [id number] [place] [address]- 7401 Nov, [facility] [place] [facility] [address] [id number] [place] [address]- 0838 Nov, [facility] [place] [facility] [address] [id number] [place] [address]- 0074 Nov, [facility] [place] [facility] [address] [id number] [place] [address]- 7426 Nov, [facility] [place] [facility] [address] [id number] [place] [address]- 1446 Nov, [facility] [place] [facility] [address] [id number] [place] [address]- 4454 Nov, [facility] [place] [facility] [address] [id number] [place] [address]- 4872 Nov, [facility] [place] [facility] [address] [id number] [place] [address]- 3769 Oct, [facility] [place] [facility] [address] [id number] [place] [address]- 0388 Oct, [facility] [place] [facility] [address] [id number] [place] [address]- 6589 Sep, [facility] [place] [facility] [address] [id number] [place] [address]- 2682 Sep, [facility] [place] [facility] [address] [id number] [place] [address]- 2454 Sep, [facility] [place] [facility] [address] [id number] [place] [address]- 1038 05 Sep, 2014 [facility] [place] [facility] [address] [id number] [place] [address]- 1121 Aug, [facility] [place] [facility] [address] [id number] [place] [address]- 6650 Aug, [facility] [place] [facility] [address] [id number] [place] [address]- 8529 Aug, [facility] [place] [facility] [address] [id number] [place] [address]- 1592 Aug, [facility] [place] [facility] [address] [id number] [place] [address]- 5918 Aug, [facility] [place] [facility] [address] [id number] [place] [address]- 9313 Aug, [facility] [place] [facility] [address] [id number] [place] [address]- 5524 Aug, [facility] [place] [facility] [address] [id number] [place] [address]- 1527 Aug, [facility] [place] [facility] [address] [id number] [place] [address]- 4994 Jul, [facility] [place] [facility] [address] [facility] [id number] [place] [address]- 1537 Jul, [facility] [place] [facility] [address] [id number] [place] [address]- 8345 Jun, [facility] [place] [facility] [address] [id number] [place] [address]- 2021 Jun, [facility] [place] [facility] [address] [id number] [place] [address]- 9454 Jun, [facility] [place] [facility] [address] [id number] [place] [address]- 7994 Jun, [facility] [place] [facility] [address] [id number] [place] [address]- 0659 Jun, [facility] [place] [facility] [address] [id number] [place] [address]- 1184 29 Jun, 2014 [facility] [place] [facility] [address] [id number] [place] [address]- 7463 15 Jun, 2014 [facility] [place] [facility] [address] [id number] [place] [address]- 0881 Jun, [facility] [place] [facility] [address] [id number] [place] [address]- 0671 Jun, [facility] [place] [facility] [address] [id number] [place] [address]- 7780 Jun, [facility] [place] [facility] [address] [id number] [place] [address]- 6453 25 May, 2014 [facility] [place] [facility] [address] [id number] [place] [address]- 8074 25 May, 2014 [facility] [place] [facility] [address] [id number] [address]- 4813 22 May, 2014 [facility] [place] [facility] [address] [id number] [place] [address]- 2845 19 May, 2014 [facility] [place] [facility] [address] [id number] [address]- 4450 19 May, 2014 [facility] [place] [facility] [address] [id number], [place] [address]- 0406 19 May, 2013 [facility] [place] [facility] [address] [id number], [place] [address]- 4962 19 May, 2013 [facility] [place] [facility] [address] [id number] [place] [address]- 8375 17 May, 2014 [facility] [place] [facility] [address] [id number] [address]- 3773 17 May, 2013 [facility] [place] [facility] [address] [id number] [address]- 7580 29 Apr, 2014 [facility] [place] [facility] [address] [id number] [place] [address]- 9366 Apr, [facility] [place] [facility] [address] [id number] [place] [address]- 1685 Apr, [facility] [place] [facility] [address] [id number] [place] [address]- 4261 Apr, [facility] [place] [facility] [address] [id number] [place] [address]- 9914 Apr, [facility] [place] [facility] [address] [id number] [place] [address]- 6228 Apr, [facility] [place] [facility] [address] [id number] [place] [address]- 8376 Apr, [facility] [place] [facility] [address] [id number] [place] [address]- 2575 Apr, [facility] [place] [facility] [address] [id number] [place] [id number] Apr, [facility] [place] [facility] [address] [id number] [place] [address]- 7026 Apr, [facility] [place] [facility] [address] [id number] [place] [address]- 8233 Mar, [facility] [place] [facility] [address] [id number] [place] [address]- 2496 Mar, [facility] [place] [facility] [address] [id number] [place] [address]- 8908 Mar, [facility] [place] [facility] [address] [id number] [place] [address]- 9448 Mar, [facility] [place] [facility] [address] [id number] [place] [address]- 4335 Mar, [facility] [place] [facility] [address] [id number] [place] [address]- 3430 Mar, [facility] [place] [facility] [address] [id number] [place] [address]- 7385 Mar, [facility] [place] [facility] [address] [id number] [facility] [place] [address]- 0823 17 Mar, 2013 [facility] [place] [facility] [address] [id number] [facility] [place] [address]- 7736 16 Mar, 2013 [facility] [place] [facility] [address] [id number] [facility] [place] [address]- 9266 16 Mar, 2013 [facility] [place] [facility] [address] [id number] [place] [address]- 6926 16 Mar, 2013 [facility] [place] [facility] [address] [id number] [place] [address]- 2545 16 Mar, 2013 [facility] [place] [facility] [address] [id number] [place] [address]- 6376 16 Mar, 2013 [facility] [place] [facility] [address] [id number] [place] [address]- 2446 16 Mar, 2013 [facility] [place] [facility] [address] [id number] [place] [address]- 4925 15 Mar, 2013 [facility] [place] [facility] [address] [id number] [place] [address]- 5739 15 Mar, 2013 [facility] [place] [facility] [address] [id number] [place] [address]- 7951 14 Mar, 2013 [facility] [place] [facility] [address] [id number] [place] [address]- 1659 14 Mar, 2013 [facility] [place] [facility] [address] [id number] [place] [address] 11 Mar, 2013 [facility] [place] [facility] [address] [id number] [facility] [place] [address] 11 Mar, 2013 [facility] [place] [facility] [address] [id number] [place] [address] 10 Mar, 2013 [facility] [place] [facility] [address] [id number] [place] [address] 10 Mar, 2013 [facility] [place] [facility] [address] [id number] [place] [address] Feb, [facility] [place] [facility] [address] [id number] [place] [address] Feb, [facility] [place] [facility] [address] [id number] [place] [address] Feb, [facility] [place] [facility] [address] [id number] [place] [address] Feb, [facility] [place] [facility] [address] [id number] [place] [address] Feb, [facility] [place] [facility] [address] [id number] [place] [address] Feb, [facility] [place] [facility] [address] [id number] [place] [address] Feb, [facility] [place] [facility] [address] [id number] [place] [address] Feb, [facility] [place] [facility] [address] [id number] [place] [address] January, [facility] [place] [facility] [address] [id number] [place] [address] January, [facility] [place] [facility] [address] [id number] [place] [address] January, [facility] [place] [facility] [address] [id number] [place] [address] January, [facility] [place] [facility] [address] [id number] [place] [address] January, [facility] [place] [facility] [address] [id number] [place] [address] January, [facility] [place] [facility] [address] [id number] [place] [address] January, [facility] [place] [facility] [address] [id number] [place] [address] January, [facility] [place] [facility] [address] [id number] [place] [address] January, [facility] [place] [facility] [address] [id number] [place] [address] January, [facility] [place] [facility] [address] [id number] [place] [address] January, [facility] [place] [facility] [address] [id number] [place] [address] Dec, [facility] [place] [facility] [address] [id number] [place] [address] Dec, [facility] [place] [facility] [address] [id number] [place] [address] Dec, [facility] [place] [facility] [address] [id number] [place] [address] Dec, [facility] [place] [facility] [address] [id number] [place] [address] Dec, [facility] [place] [facility] [address] [id number] [place] [address] Dec, [facility] [place] [facility] [address] [id number] [place] [address] Dec, [facility] [place] [facility] [address] [id number] [place] [address] Dec, [facility] [place] [facility] [address] [id number] [place] [address] Dec, [facility] [place] [facility] [address] [id number] [place] [address] Dec, [facility] [place] [facility] [address] [id number] [place] [address] Dec, [facility] [place] [facility] [address] [id number] [place] [address] 0953 Dec, [facility] [place] [facility] [address] [id number] [place] [address]- 7807 Dec, [facility] [place] [facility] [address] [id number] [place] [address]- 8767 Dec, [facility] [place] [facility] [address] [id number] [place] [address]- 3489 Dec, [facility] [place] [facility] [address] [id number] [place] [address]- 8784 Dec, [facility] [place] [facility] [address] [id number] [place] [address]- 3450 Dec, [facility] [place] [facility] [address] [id number] [place] [address] 3701 Nov, [facility] [place] [facility] [address] [id number] [place] [address]- 6685 Nov, [facility] [place] [facility] [address] [id number] [place] [address]- 8010 Nov, [facility] [place] [facility] [address] [id number] [place] [address]- 2587 Nov, [facility] [place] [facility] [address] [id number] [place] [address]- 3447 Nov, [facility] [place] [facility] [address] [id number] [place] [address]- 5464 Nov, [facility] [place] [facility] [address] [id number] [place] [address]- 6426 Nov, [facility] [place] [facility] [address] [id number] [address]- [address]70 Nov, [facility] [place] [facility] [address] [id number] [place] [address]- 7373 Oct, [facility] [place] [facility] [address] [id number] [place] [address]- 9666 Oct, [facility] [place] [facility] [address] [id number] [place] [address]- 0157 Oct, [facility] [place] [facility] [address] [id number] [address] 1244 Oct, [facility] [place] [facility] [address] [id number] [place] [address]- 1241 Oct, [facility] [place] [facility] [address] [id number] [place] [address]- 7896 Oct, [facility] [place] [facility] [address] [id number] [place] [address]- 3544 Sep, [facility] [place] [facility] [address] [id number] [place] [address]- 8990 Sep, [facility] [place] [facility] [address] [id number] [place] [address]- 9941 Sep, [facility] [place] [facility] [address] [id number] [place] [address]- 7530 Sep, [facility] [place] [facility] [address] [id number] [place] [address] 1937 Sep, [facility] [place] [facility] [address] [id number] [place] [address]- 7819 Sep, [facility] [place] [facility] [address] [id number] [place] [address]- 6989 Sep, [facility] [place] [facility] [address] [id number] [place] [address]- 4808 Sep, [facility] [place] [facility] [address] [id number] [place] [address]- 9508 Sep, [facility] [place] [facility] [address] [id number] [place] [address]- 2027 Sep, [facility] [place] [facility] [address] [id number] [place] [address]- 5008 Sep, [facility] [place] [facility] [address] [id number] [place] [address]- 3969 Sep, [facility] [place] [facility] [address] [id number] [place] [address]- 3013 Aug, [facility] [place] [facility] [address] [id number] [place] [address]- 2600 Aug, [facility] [place] [facility] [address] [id number] [place] [address]- 0649 Aug, [facility] [place] [facility] [address] [id number] [place] [address]- 7992 Aug, [facility] [place] [facility] [address] [id number] [place] [address]- 0602 Aug, [facility] [place] [facility] [address] [id number] [place] [address]- 2477 Aug, [facility] [place] [facility] [address] [id number] [place] [address]- 0566 Aug, [facility] [place] [facility] [address] [id number] [place] [address]- 4548 Aug, [facility] [place] [facility] [address] [id number] [place] [address]- 7183 Aug, [facility] [place] [facility] [address] [id number] [place] [address]- 7589 Aug, [facility] [place] [facility] [address] [id number] [place] [address]- 8858 Jul, [facility] [place] [facility] [address] [id number] [place] [address]- 6274 Jul, [facility] [place] [facility] [address] [id number] [place] [address]- 3320 Jul, [facility] [place] [facility] [address] [id number] [place] [address]- 2459 Jul, [facility] [place] [facility] [address] [id number] [place] [address]- 9182 Jul, [facility] [place] [facility] [address] [id number] [place] [address]- 5619 Jun, [facility] [place] [facility] [address] [id number], [place] [address]- 9431 31 Jun, 2012 [facility] [place] [facility] [address] [id number] [place] [address]- 8540 30 Jun, 2012 [facility] [place] [facility] [address] [id number] [place] [address]- 1926 30 Jun, 2012 [facility] [place] [facility] [address] [id number] [place] [address]- 4106 30 Jun, 2012 [facility] [place] [facility] [address] [id number], [place] [address]- 0834 30 Jun, 2012 [facility] [place] [facility] [address] [id number] [place] [address]- 4075 29 Jun, 2012 [facility] [place] [facility] [address] [id number] [address]- 5801 16 Jun, 2012 [facility] [place] [facility] [address] [id number], [place] [address]- 7096 16 Jun, 2012 [facility] [place] [facility] [address] [id number] [address]- 6128 10 Jun, 2012 [facility] [place] [facility] [address] [id number][place] [address]- 0155 10 Jun, 2012 [facility] [place] [facility] [address] [id number][place] [address]- 7591 10 Jun, 2012 [facility] [place] [facility] [address] [id number], [place] [address]- 6103 10 Jun, 2012 [facility] [place] [facility] [address] [id number], [place] [address]- 0419 10 Jun, 2012 [facility] [place] [facility] [address] [id number], [place] [address]- 6920 10 Jun, 2012 [facility] [place] [facility] [address] [id number], [place] [address]- 9340 09 Jun, 2012 [facility] [place] [facility] [address] [id number], [place] [address]- 5203 Jun, 2012 [facility] [place] [facility] [address] [id number] [place] [address]- 7039 30 May, 2013 [facility] [address] [id number] [place] [address]- 9679 18 May, 2013 [facility] [address] [id number] [place] [address]- 0556 10 May, 2013 [facility] [address] [id number] [place] [address]- 5694 May, [facility] [address] [id number] [place] [address]- 4217 Apr, [facility] [address] [id number] [place] [address]- 4998 Apr, [facility] [address] [id number] [place] [address]- 9049 Apr, [facility] [address] [id number] [place] [address]- 5027 Mar, [facility] [address] [id number] [place] [address]- 7668 Mar, [facility] [address] [id number] [place] [address]- 5993 Feb, [facility] [address] [id number] [place] [address]- 5362 Feb, [facility] [address] [id number] [place] [address]- 7333 Feb, [facility] [address] [id number] [place] [address]- 5150 January, [facility] [address] [id number] [place] [address]- 6904 January, [facility] [address] [id number] [place] [address]- 2546 January, [facility] [address] [id number] [place] [address]- 5882 January, [facility] [address] [id number] [place] [address]- 6258 Dec, [facility] [address] [id number] [place] [address]- 3836 Dec, [facility] [address] [id number] [place] [address]- 6126 Dec, [facility] [place] [facility] [address] [id number] [place] [address]- 6716 Dec, [facility] [address] [id number] [place] [address]- 4110 Dec, [facility] [address] [id number] [place] [address]- 0046 Nov, [facility] [address] [id number] [place] [address]- 2076 Oct, [facility] [address] [id number] [place] [address]- 8263 Oct, [facility] [address] [id number] [place] [address]- 4709 Oct, [facility] [address] [id number] [place] [address]- 2452 Oct, [facility] [address] [id number] [place] [address]- 6196 Oct, [facility] [place] [facility] [address] [id number] [address]- 4216 Sep, [facility] [place] [facility] [address] [id number] [place] [address]- 5726 Sep, [facility] [place] [facility] [address] [id number] [place] [address]- 9886 Sep, [facility] [place] [facility] [address] [id number] [place] [address]- 3796 Sep, [facility] [place] [facility] [address] [id number] [place] [address]- 1072 15 Sep, 2012 [facility] [address] [id number] [place] [address]- 0351 08 Sep, 2012 [facility] [place] [facility] [address] [id number] [place] [address]- 4286 Sep, [facility] [address] [id number] [place] [address]- 8596 Aug, [facility] [place] [facility] [address] [id number] [place] [address]- 5093 Aug, [facility] [address] [id number] [place] [address]- 1885 Aug, [facility] [place] [facility] [address] [id number] [place] [address]- 0328 Aug, [facility] [address] [id number] [place] [address]- 4426 Aug, [facility] [place] [facility] [address] [id number] [place] [address]- 5015 Aug, [facility] [place] [facility] [address] [id number] [place] [address]- 1470 Aug, [facility] [place] [facility] [address] [id number] [place] [address]- 6745 Aug, [facility] [place] [facility] [address] [id number] [place] [address]- 3906 Aug, [facility] [place] [facility] [address] [id number] [place] [address]- 7727 Jul, [facility] [place] [facility] [address] [id number] [place] [address]- 8054 Jul, [facility] [place] [facility] [address] [id number] [place] [address]- 2379 Jul, [facility] [place] [facility] [address] [id number] [place] [address]- 4308 Jul, [facility] [place] [facility] [address] [id number] [place] [address]- 3234 Jul, [facility] [place] [facility] [address] [id number] [place] [address]- 4901 Jul, [facility] [place] [facility] [address] [id number] [place] [address]- 7570 Jul, [facility] [place] [facility] [address] [id number] [place] [address], [place] [address]- 9728 Jul, [facility] [place] [facility] [address] [id number] [place] [address]- 5720 Jul, [facility] [place] [facility] [address] [id number] [place] [address]- 4469 Jun, [facility] [place] [facility] [address] [id number] [place] [address]- 8739 Jun, [facility] [place] [facility] [address] [id number] [place] [address]- 1519 Jun, [facility] [place] [facility] [address] [id number] [place] [address]- 2950 Jun, [facility] [place] [facility] [address] [id number] [place] [address]- 1302 Jun, [facility] [place] [facility] [address] [facility] [id number] [place] [address]- 2011 Jun, [facility] [place] [facility] [address] [id number], [place] [address]- 5900 Jun, [facility] [place] [facility] [address] [id number] [place] [address]- 6116 Jun, [facility] [place] [facility] [address] [id number] [place] [address]- 9813 May, [facility] [place] [facility] [address] [id number] [place] [address]- 2099 May, [facility] [place] [facility] [address] [id number] [place] [address]- 7755 Apr, [facility] [place] [facility] [address] [id number] [place] [address]- 4276 Apr, [facility] [place] [facility] [address] [id number] [place] [address]- 0756 Mar, [facility] [place] [facility] [address] [id number] [place] [address]- 4466 Mar, [facility] [place] [facility] [address] [id number] [place] [address]- 5480 Mar, [facility] [place] [facility] [address] [id number] [place] [address]- 5923 Feb, [facility] [place] [facility] [address] [id number] [place] [address]- 8350 Feb, [facility] [place] [facility] [address] [id number] [place] [address]- 3014 Feb, [facility] [place] [facility] [address] [id number] [place] [address]- 2452 Feb, [facility] [place] [facility] [address] [id number] [place] [address]- 8796 January, [facility] [place] [facility] [address] [id number] [place] [address]- 4329 January, [facility] [place] [facility] [address] [id number] [place] [address]- 4584 January, [facility] [place] [facility] [address] [id number] [place] [address]- 1098 Dec, [facility] [place] [facility] [address] [id number] [place] [address]- 2430 Dec, [facility] [place] [facility] [address] [id number] [place] [address]- 9732 Dec, [facility] [place] [facility] [address] [id number] [place] [address]- 2277 Dec, [facility] [place] [facility] [address] [id number] [place] [address]- 5266 30 Nov, 2011 [facility] [place] [facility] [address] [id number] [place] [address]- 4936 29 Nov, 2011 [facility] [place] [facility] [address] [id number] [place] [address] 2546 28 Nov, 2011 [facility] [address] [id number] [place] [address]- 0576 16 Nov, 2011 [facility] [place] [facility] [address] [id number] [place] [address]- 2276 Oct, [facility] [place] [facility] [address] [id number] [place] [address]- 5356 Oct, [facility] [place] [facility] [address] [id number] [place] [address]- 8436 16 Oct, 2011 [facility] [place] [facility] [address] [id number] [place] [address]- 4425 15 Oct, 2011 [facility] [place] [facility] [address] [id number] [place] [address]- 7539 09 Oct, 2011 [facility] [place] [facility] [address] [id number] [place] [address]- 5419 07 Oct, 2011 [facility] [place] [facility] [address] [id number] [place] [address]- 9568 Oct, [facility] [place] [facility] [address] [id number] [place] [address]- 2539 Sep, [facility] [place] [facility] [address] [id number] [place] [address]- 2419 Sep, [facility] [place] [facility] [address] [id number] [place] [address] 2546 Sep, [facility] [place] [facility] [address] [id number] [place] [address]- 8118 Sep, [facility] [place] [facility] [address] [id number] [place] [address]- 0907 Sep, [facility] [place] [facility] [address] [id number] [place] [address]- 2021 Sep, [facility] [place] [facility] [address] [id number] [place] [address]- 1167 Sep, [facility] [place] [facility] [address] [id number] [place] [address]- 3514 Sep, [facility] [place] [facility] [address] [id number] [place] [address]- 0551 Sep, [facility] [place] [facility] [address] [id number] [place] [address]- 1762 Sep, [facility] [place] [facility] [address] [id number] [place] [address]- 9475 Sep, [facility] [place] [facility] [address] [id number] [place] [address]- 2852 Aug, [facility] [place] [facility] [address] [id number] [place] [address]- 1185 Aug, [facility] [place] [facility] [address] [id number] [place] [address]- 4640 Aug, [facility] [place] [facility] [address] [id number] [place] [address]- 6173 Aug, [facility] [place] [facility] [address] [id number] [place] [address]- 7566 28 Jul, 2011 [facility] [place] [facility] [address] [id number] [place] [address]- 9636 Jul, [facility] [place] [facility] [address] [id number] [place] [address]- 7909 16 Jul, 2011 [facility] [place] [facility] [address] [id number] [place] [address]- 5461 16 Jul, 2011 [facility] [place] [facility] [address] [id number] [place] [address]- 8994 16 Jul, 2011 [facility] [place] [facility] [address] [id number] [place] [address]- 8476 Jul, [facility] [address] [id number] [place] [address]- 3140 26 Jun, 2011 [facility] [address] [id number] [place] [address]- 3913 18 Jun, 2011 [facility] [address] [id number] [place] [address]- 8141 10 Jun, 2011 [facility] [address] [id number] [place] [address]- 5926 16 Feb, 2011 [facility] [address] [id number] [place] [address], [place] [address]- 7222 Aug, [facility] [address] [id number] [place] [address] Aug, [facility] [address] [facility] [id number] [place] [address] Aug, [facility] [address] [id number] [place] [address] Jul, [facility] [address] [facility] [id number] [place] [address] Jul, [facility] [address] [facility] [id number] [place] [address] Jul, [facility] [place] [facility] [address] [id number] [place] [address] Jul, [facility] [place] [facility] [address] [id number] [place] [address] Jul, [facility] [place] [facility] [address] [facility] [id number] [place] [address] Jul, [facility] [place] [facility] [address] [facility] [id number] [place] [address] Jun, [facility] [place] [facility] [address] [facility] [id number] [place] [address] Mar, [facility] [address] [id number] [place] [address] 17 Jan, 2010 [facility] [place] [facility] [address] [id number] [place] [address] Nov, [facility] [place] [facility] [address] [id number] [place] [address] 18 Oct, 2009 [facility] [place] [facility] [address] [id number] [place] [address] 14 Sep, 2009 [facility] [address] [id number] [place] [address] 31 Aug, 2009 [facility] [place] [facility] [address] [id number] [place] [address] 30 Aug, 2009 [facility] [place] [facility] [address] [facility] [id number] [place] [address] Aug, [facility] [place] [facility] [address] [id number] [address] 16 Aug, 2009 [facility] [place] [facility] [address] [facility] [id number], [place] [address] 16 Aug, 2009 [facility] [place] [facility] [address] [facility] [id number] [address] Aug, [facility] [place] [facility] [address] [facility] [id number] [address] Aug, [facility] [place] [facility] [address] [id number] [address] 04 Aug, 2009 [facility] [place] [facility] [address] [id number] [address] Aug, [facility] [place] [facility] [address] [facility] [id number], [place] [address] Jul, [facility] [place] [facility] [address] [facility] [id number] [address] 28 Jun, 2009 [facility] [place] [facility] [address] [id number], [place] [address] Jun, [facility] [address] [facility] [id number] [place] [address] Jun, [facility] [address] [facility] [id number][place] [address] Jun, [facility] [address] [facility] [id number], [place] [address] Jun, [facility] [address] [facility] [id number] [address] May, [facility] [address] [facility] [id number] [address] January, IMMUNIZATIONS No Known Immunizations SOCIAL HISTORY Never Assessed REASON FOR VISIT Future lab order PLAN OF CARE VITAL SIGNS MEDICATIONS Unknown [...]
--- OUTSIDE RECORDS SUMMARY | 2018-01-29 18:41 | XMS REPORT ---
Author Author BESS RICHARD [employer] Address Unknown Phone Unavailable Care Team Providers Care Safety Attendant Name Role Phone BESS RICHARD CP Unavailable [...] Problem Peripheral edema R60.9 Active Problem 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, long term care pharmacist, 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 Active Problem Prediabetes R73.09 [...] Instructions Start Date End Date Status Dosage Debbi Contour Test NDC 0 Test Strips In Vitro Once to Twice a day Test Blood Sugar Results No Known Results Summary Purpose eClinical[employer] Submission
[2018-01-29] MEDS ORDERED: NS IV 1000 ML 1,000 ML IV ONE ×2 (18:42→23:17)
--- OUTSIDE RECORDS SUMMARY | 2018-01-29 18:42 | XMS REPORT ---
Author Author HILARY BESS Organization [facility] Address [address] [place] [address] Care Team Providers Care Silk Hanger Name Role Phone BESS RICHARD Unavailable PROBLEMS Type Condition ICD9-CM Code EPZ08-XX Code Onset Dates Condition Status SNOMED Code Problem Peripheral edema R60.9 Active 182968443 Problem Low HDL (under 40) E78.6 Active 476435005 Problem Leukocytosis, unspecified type D72.829 Active 707614448 Problem BMI 50.0-59.9, adult Z68.43 Active 774731060 Problem Chronic obstructive pulmonary disease, unspecified COPD type J44.9 Active 37186088 Problem Elevated lymphocyte count D72.820 Active 00081183 Problem Abnormal stress test R94.39 Active 419824043 Problem Allergic rhinitis, unspecified allergic rhinitis type J30.9 Active 05996657 Problem Stress incontinence N39.3 Active 99222864 Problem Postmenopausal bleeding N95.0 Active 31461112 Problem Type 2 diabetes mellitus with hyperglycemia, without long-term current use of insulin E11.65 Active 11023517 Problem Drug-induced constipation K59.03 Active 82895012 Problem Obstructive sleep apnea G47.33 Active 22561177 Problem Palpitations R00.2 Active 87615465 Problem Uncomplicated asthma, unspecified asthma severity J45.909 Active 455785638 Problem Nocturnal hypoxia G47.34 Active 398396261 Problem Rheumatoid arthritis involving multiple sites, unspecified rheumatoid factor presence M06.9 Active 820912420 Problem Bilateral carotid artery stenosis I65.23 Active 03826601 Problem Chronic pain syndrome G89.4 Active 682030155 Problem 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, extermination supervisor, 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 Active 380226438369 Problem Major depressive disorder, recurrent episode, unspecified severity F33.9 Active 22155308 Problem Generalized anxiety disorder F41.1 Active 836271128 Problem Chronic prescription opiate use Z79.899 Active 335805407 ALLERGIES No Information SOCIAL HISTORY Never Assessed PLAN OF CARE VITAL SIGNS MEDICATIONS Medication Instructions Dosage Frequency Start Date End Date Duration Status Nystatin 989176 UNIT/GM Externally Twice a day 1 application to affected area 12h 13 Jul, 2015 Active RESULTS No Results PROCEDURES No Known [...]
--- OUTSIDE RECORDS SUMMARY | 2018-01-29 18:42 | XMS REPORT ---
Author Author BESS RICHARD [employer] Address Unknown Phone Unavailable Care Team Providers Care Glove Stitcher Name Role Phone BESS RICHARD CP Unavailable [...] Problem Peripheral edema R60.9 Active Problem 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, primer charger, 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 Active Problem Prediabetes R73.09 Active Problem Allergic rhinitis, unspecified allergic rhinitis type J30.9 Active Assessment Prediabetes R73.09 Active Problem Generalized anxiety disorder F41.1 Active Problem Chronic pain syndrome G89.4 Active Problem Uncomplicated asthma, unspecified asthma severity J45.909 Active Problem Nocturnal hypoxia G47.34 Active Problem Chronic obstructive pulmonary disease, unspecified COPD type J44.9 Active Problem Obstructive sleep apnea G47.33 Active Medications Medication Code System Code Instructions Start Date End Date Status Dosage Debbi Microlet Lancets NDC 0 Lancets once daily Jul 05, 2016 Check Blood Sugar Debbi Contour Test NDC 0 Test Strips In Vitro Once to Twice a day Test Blood Sugar Results No Known Results Summary Purpose eClinicalWorks Submission
--- OUTSIDE RECORDS SUMMARY | 2018-01-29 18:42 | XMS REPORT ---
Author Author HILARY BESS Organization [facility] Address [address] [place] [address] Care Team Providers Care Raker Buffing Wheel Name Role Phone BESS RICHARD Unavailable PROBLEMS Type Condition ICD9-CM Code [id number] Code Onset Dates Condition Status SNOMED Code Problem Peripheral edema R60.9 Active 401056753 Problem Low HDL (under 40) E78.6 Active 848461681 Problem Leukocytosis, unspecified type D72.829 Active 343587265 Problem BMI 50.0-59.9, adult Z68.43 Active 595008129 Problem Chronic obstructive pulmonary disease, unspecified COPD type J44.9 Active 01579851 Problem Elevated lymphocyte count D72.820 Active 13196962 Problem Abnormal stress test R94.39 Active 929012855 Problem Allergic rhinitis, unspecified allergic rhinitis type J30.9 Active 14697624 Problem Stress incontinence N39.3 Active 75690181 Problem Postmenopausal bleeding N95.0 Active 42394227 Problem Type 2 diabetes mellitus with hyperglycemia, without long-term current use of insulin E11.65 Active 27765507 Problem Drug-induced constipation K59.03 Active 25731086 Problem Obstructive sleep apnea G47.33 Active 04112494 Problem Palpitations R00.2 Active 97422495 Problem Uncomplicated asthma, unspecified asthma severity J45.909 Active 795776758 Problem Nocturnal hypoxia G47.34 Active 438214182 Problem Rheumatoid arthritis involving multiple sites, unspecified rheumatoid factor presence M06.9 Active 726085388 Problem Bilateral carotid artery stenosis I65.23 Active 79982967 Problem Chronic pain syndrome G89.4 Active 535886426 Problem 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, parts counterman, 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 Active 236672763069 Problem Major depressive disorder, recurrent episode, unspecified severity F33.9 Active 02204561 Problem Generalized anxiety disorder F41.1 Active 156779531 Problem Chronic prescription opiate use Z79.899 Active 751121606 ALLERGIES No Information SOCIAL HISTORY Never Assessed PLAN OF CARE VITAL SIGNS MEDICATIONS Medication Instructions Dosage Frequency Start Date End Date Duration Status Oxycodone HCl 10 mg Orally 3 times a day 1 tablet as needed 8h Aug, Active Xanax 1 MG Orally Three times a day as needed 1 tablet Nov, Active Fentanyl 100 MCG/HR Transdermal every 72 hours 1 patch to skin Aug, Active RESULTS No Results PROCEDURES No Known [...]
--- OUTSIDE RECORDS SUMMARY | 2018-01-29 18:42 | XMS REPORT ---
Author Author HILARY BESS Organization [facility] Address [address] [place] [address] Care Team Providers Care Manager Progressive Care Name Role Phone BESS RICHARD Unavailable PROBLEMS Type Condition ICD9-CM Code [id number] Code Onset Dates Condition Status SNOMED Code Problem Peripheral edema R60.9 Active 067233354 Problem Low HDL (under 40) E78.6 Active 704392333 Problem Leukocytosis, unspecified type D72.829 Active 589586958 Problem BMI 50.0-59.9, adult Z68.43 Active 835937296 Problem Chronic obstructive pulmonary disease, unspecified COPD type J44.9 Active 71393197 Problem Elevated lymphocyte count D72.820 Active 61138313 Problem Abnormal stress test R94.39 Active 260625902 Problem Allergic rhinitis, unspecified allergic rhinitis type J30.9 Active 39721414 Problem Stress incontinence N39.3 Active 97756196 Problem Postmenopausal bleeding N95.0 Active 90709155 Problem Type 2 diabetes mellitus with hyperglycemia, without long-term current use of insulin E11.65 Active 33360745 Problem Drug-induced constipation K59.03 Active 21544973 Problem Obstructive sleep apnea G47.33 Active 41133590 Problem Palpitations R00.2 Active 63046589 Problem Uncomplicated asthma, unspecified asthma severity J45.909 Active 262384984 Problem Nocturnal hypoxia G47.34 Active 142129583 Problem Rheumatoid arthritis involving multiple sites, unspecified rheumatoid factor presence M06.9 Active 204506842 Problem Bilateral carotid artery stenosis I65.23 Active 09731737 Problem Chronic pain syndrome G89.4 Active 403119752 Problem 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, wood borer, 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 Active 403052930394 Problem Major depressive disorder, recurrent episode, unspecified severity F33.9 Active 49151239 Problem Generalized anxiety disorder F41.1 Active 859346903 Problem Chronic prescription opiate use Z79.899 Active 683752198 ALLERGIES No Information SOCIAL HISTORY Never Assessed PLAN OF CARE VITAL SIGNS MEDICATIONS Medication Instructions Dosage Frequency Start Date End Date Duration Status Oxycodone HCl 10 mg Orally 3 times a day 1 tablet as needed 8h Aug, Active Xanax 1 MG Orally Three times a day as needed 1 tablet Nov, Active Ibuprofen 600 MG Orally 2 times a day 1 tablet as needed 12h 30 Active Fentanyl 100 MCG/HR Transdermal every 72 [...]
--- OUTSIDE RECORDS SUMMARY | 2018-01-29 18:42 | XMS REPORT ---
Author Author HILARY BESS Organization [facility] Address [address] [place] [address] Care Team Providers Care Manager Reporting Name Role Phone BESS RICHARD Unavailable PROBLEMS Type Condition ICD9-CM Code SMA21-HL Code Onset Dates Condition Status SNOMED Code Problem Rheumatoid arthritis involving multiple sites, unspecified rheumatoid factor presence M06.9 Active 409543405 Problem Abnormal stress test R94.39 Active 456229035 Problem Bilateral carotid artery stenosis I65.23 Active 71005188 Problem Low HDL (under 40) E78.6 Active 863101727 Problem Chronic prescription opiate use Z79.899 Active 413455289 Problem 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, keno terminal operator, 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 Active 091454560652 Problem Palpitations R00.2 Active 83911673 Problem Leukocytosis, unspecified type D72.829 Active 652217771 Problem Peripheral edema R60.9 Active 044900869 Problem Allergic rhinitis, unspecified allergic rhinitis type J30.9 Active 50806851 Problem Uncomplicated asthma, unspecified asthma severity J45.909 Active 540694945 Assessment Prediabetes R73.09 19 May, 2016 Active 2194700 Problem Prediabetes R73.09 Active 0499445 Problem Chronic pain syndrome G89.4 Active 717299311 Problem Nocturnal hypoxia G47.34 Active 187060991 Problem Chronic obstructive pulmonary disease, unspecified COPD type J44.9 Active 16369825 Problem Obstructive sleep apnea G47.33 Active 63544810 Problem Generalized anxiety disorder F41.1 Active 479203083 Problem Major depressive disorder, recurrent episode, unspecified severity F33.9 Active 11769986 ALLERGIES Unknown Allergies SOCIAL HISTORY No smoking Hx information available PLAN OF CARE VITAL SIGNS MEDICATIONS Unknown Medications RESULTS No Results PROCEDURES No Known procedures IMMUNIZATIONS No Known Immunizations
--- OUTSIDE RECORDS SUMMARY | 2018-01-29 18:42 | XMS REPORT ---
Author Author HILARY BESS Organization [facility] Address [address] [place] [address] Care Team Providers Care Project Management Specialist Name Role Phone BESS RICHARD Unavailable PROBLEMS Type Condition ICD9-CM Code [id number]-MA Code Onset Dates Condition Status SNOMED Code Problem Peripheral edema R60.9 Active 818301954 Problem Chronic prescription opiate use Z79.899 Active 108942816 Problem Leukocytosis, unspecified type D72.829 Active 939934385 Problem Elevated lymphocyte count D72.820 Active 57455859 Problem Chronic obstructive pulmonary disease, unspecified COPD type J44.9 Active 14478030 Problem Type 2 diabetes mellitus with hyperglycemia, without long-term current use of insulin E11.65 Active 57787968 Problem Uncomplicated asthma, unspecified asthma severity J45.909 Active 907877080 Problem Allergic rhinitis, unspecified allergic rhinitis type J30.9 Active 99646754 Problem Drug-induced constipation K59.03 Active 12648531 Problem Low HDL (under 40) E78.6 Active 797388248 Problem Postmenopausal bleeding N95.0 Active 80103761 Problem Stress incontinence N39.3 Active 89493906 Problem Nocturnal hypoxia G47.34 Active 410737308 Problem Obstructive sleep apnea G47.33 Active 44080671 Problem Generalized anxiety disorder F41.1 Active 455129093 Problem Chronic pain syndrome G89.4 Active 132539874 Problem Bilateral carotid artery stenosis I65.23 Active 36441907 Problem Abnormal stress test R94.39 Active 586551596 Problem Major depressive disorder, recurrent episode, unspecified severity F33.9 Active 91425644 Problem Palpitations R00.2 Active 76734978 Problem Rheumatoid arthritis involving multiple sites, unspecified rheumatoid factor presence M06.9 Active 580970684 Problem 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, retirement, 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 Active 507762583946 ALLERGIES Substance Reaction Event Type Date Status adhesive rash Non Drug Allergy Aug, Active stainless steel, medical kaylan redness Non Drug Allergy Aug, Active SOCIAL HISTORY No smoking Hx information available PLAN OF CARE Activity Details Follow Up 3 Months Reason:Chronic pain VITAL SIGNS Height 64 in 2016-09-06 Weight 318.1 lbs 2016-09-06 Temperature 100.0 degrees Fahrenheit 2016-09-06 Heart Rate 88 bpm 2016-09-06 Respiratory Rate 24 2016-09-06 BMI 54.60 kg/m2 2016-09-06 Blood pressure systolic 134 mmHg 2016-09-06 Blood pressure diastolic 78 mmHg 2016-09-06 MEDICATIONS Medication Instructions Dosage Frequency Start Date End Date Duration Status Lasix 40 MG Orally Once a day in the morning & 1/2 tab in afternoon 1 tablet 30 Active MiraLax - Orally 17 grams in 8 oz fluid daily as needed as directed Aug, Active Singulair 10 MG Orally Once a day 1 tablet in the evening 24h 30 Active Debbi Microlet Lancets Lancets Check Blood Sugar 24h Jun, Active Baclofen 10 MG Orally every 6 hours 1 tablet with food or milk as needed 6h 30 Active Folic Acid 1 MG Orally Once a day 1 tablet 24h 30 Active Oxycodone HCl 10 MG Orally 3 times a day 1 tablet as needed 8h Aug, Active ProAir HFA 108 (90 Base) MCG/ACT Inhalation every 4 hrs 2 puffs as needed 4h Feb, Active Nystatin 419340 UNIT/GM Externally Twice a day 1 application to affected area 12h Jul, Active Ibuprofen 600 MG Orally 2 times a day 1 tablet as needed 12h 30 Active Klor-Con M10 10 MEQ TAKE ONE TABLET ORAL ROUTE 1 TIME PER DAY TAKE ONLY WITH LASIX. 30 Active Fluoxetine HCl 60 MG TAKE ONE TABLET BY MOUTH IN THE MORNING 30 Active Xanax 1 MG Orally Three times a day as needed 1 tablet Nov, Active Omeprazole 40 MG Orally Once a day 1 capsule 24h 30 Active Debbi Contour Test Test Strips In Vitro Once to Twice a day Test Blood Sugar Active 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 2.5 MG 6 tablet by Oral route 1 time per week 28 Active Augmentin 875-125 MG Orally every 12 hrs 1 tablet 12h Aug,Aug 10 day(s) Active Fentanyl 100 MCG/HR Transdermal every 72 hours 1 patch to skin Aug, Active Breo Ellipta 100-25 MCG/INH Inhalation Once a day 1 puff 24h Active RESULTS Name Result Date Reference Range STREP A (IN HOUSE) 2016-09-06 STREP A Negative Control + Lot # [id number] Exp date 04/21/2018 [employer] 2016-09-06 PROCEDURES Procedure Date Ordered Related Diagnosis Body Site STREP A ASSAY W/OPTIC Sep 06, 2016 Office Visit, Est Pt., Level 3 Sep 06, 2016 No Charge Sep 06, 2016 IMMUNIZATIONS No Known Immunizations
--- OUTSIDE RECORDS SUMMARY | 2018-01-29 18:43 | XMS REPORT ---
Author Author BESS RICHARD [employer] Address Unknown Phone Unavailable Care Team Providers Care Biochemistry Technologist Name Role Phone BESS RICHARD CP Unavailable [...] Obstructive sleep apnea G47.33 Active Problem 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, correction, 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 Active Problem Rheumatoid arthritis involving multiple sites, unspecified rheumatoid factor presence M06.9 Active Problem Prediabetes R73.09 Active Problem Allergic rhinitis, unspecified allergic rhinitis type J30.9 Active Problem Uncomplicated asthma, unspecified asthma severity J45.909 Active Problem Chronic obstructive pulmonary disease, unspecified COPD type J44.9 Active Medications Medication Code System Code Instructions Start Date End Date Status Dosage Baclofen [facility] [address]-64 10 MG December 08, 2014 1 tablet by Oral route every 6 hours PRN Singulair [facility] [address]-28 10 MG Orally Once a day May 03, 2015 1 tablet in the evening Results No Known Results Summary Purpose eClinicalWorks Submission
--- OUTSIDE RECORDS SUMMARY | 2018-01-29 18:43 | XMS REPORT ---
Author BESS Riggins [employer] Address Unknown Phone Unavailable Care Team Providers Care Industrial Retrofit Designer Name Role Phone BESS RICHARD CP [...] Obstructive sleep apnea G47.33 Active Problem 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, superintendent container terminal, 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 Active Problem Rheumatoid arthritis involving multiple sites, unspecified rheumatoid factor presence M06.9 Active Assessment 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, detention, 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 Active Problem Prediabetes R73.09 Active Problem Allergic rhinitis, unspecified allergic rhinitis type J30.9 Active Assessment Peripheral edema R60.9 Active Problem Uncomplicated asthma, unspecified asthma severity J45.909 Active Assessment Leukocytosis, unspecified type D72.829 Active Problem Chronic obstructive pulmonary disease, unspecified COPD type J44.9 Active Medications Medication Code System Code Instructions Start Date End Date Status Dosage 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 [facility] 16309810234 2.5 MG 6 tablet by Oral route 1 time per week Vitamin D3 [facility] [address]9212-[address] 1,000 unit Aug 30, 2012 1 capsule by Oral route 1 time per day Lasix [facility] [address]-28 40 MG Orally Once a day in the morning & 1/2 tab in afternoon May 04, 2015 1 tablet Xanax [facility] [address]-66 1 MG Orally Three times a day as needed November 27, 2014 1 tablet Folic Acid [facility] [address]-12 1 MG Orally Once a day May 04, 2015 1 tablet Singulair [facility] [address]-02 10 MG Orally Once a day May 03, 2015 1 tablet in the evening Omeprazole [facility] [address]-50 40 MG Orally Once a day May 04, 2015 1 capsule Fentanyl [facility] [address]-48 100 MCG/HR Transdermal every 72 hours March 02, 2015 1 patch to skin Oxycodone HCl [facility] [address]-34 10 MG Orally 3 times a day April 02, 2015 1 tablet as needed ProAir HFA [facility] [address]-44 108 (90 Base) MCG/ACT Inhalation every 4 hrs March 02, 2015 2 puffs as needed Ibuprofen [facility] [address]-38 600 mg December 09, 2014 take 1 tablet by Oral route 2 times per day PRN Claritin [facility] 00874156130 10 MG 1 tablet by Oral route 1 time per day Baclofen [facility] [address]-89 10 MG December 08, 2014 1 tablet by Oral route every 6 hours PRN Klor-Con M10 [facility] 95429510975 10 MEQ TAKE ONE TABLET ORAL ROUTE 1 TIME PER DAY TAKE ONLY WITH LASIX. Prozac [facility] [address]-69 20 MG Orally Once a day May 04, 2015 3 capsule in the morning Nystatin [facility] [address]-95 087916 UNIT/GM Externally Twice a day Aug 06, 2015 1 application to affected area Procedures Procedure Coding System Code Date Office Visit, Est Pt., Level 3 CPT-4 73725 Sep 15, 2015 MEASURE BLOOD OXYGEN LEVEL CPT-4 29909 Sep 15, 2015 Vital Signs Date/Time: Sep 15, 2015 Temperature 97.9 F Weight 328.4 lbs Height 64 in Oximetry 93 % Blood Pressure Diastolic 89 mmHg Blood Pressure Systolic 142 mmHg Cardiac Monitoring Heart Rate 90 bpm BMI 56.36 Index Results No Known Results Summary Purpose eClinicalWorks Submission
--- OUTSIDE RECORDS SUMMARY | 2018-01-29 18:43 | XMS REPORT ---
Author Author JOSEE COOK Organization [facility] Address [address] [place] [address] Care Team Providers Care Sizing Sprayer Name Role Phone JOSEE COOK Unavailable PROBLEMS Type Condition ICD9-CM Code ADB18-EY Code Onset Dates Condition Status SNOMED Code Problem Peripheral edema R60.9 Active 542486888 Problem Low HDL (under 40) E78.6 Active 831574248 Problem Leukocytosis, unspecified type D72.829 Active 120607073 Problem BMI 50.0-59.9, adult Z68.43 Active 366425058 Problem Chronic obstructive pulmonary disease, unspecified COPD type J44.9 Active 85588642 Problem Elevated lymphocyte count D72.820 Active 57352477 Problem Abnormal stress test R94.39 Active 079721337 Problem Allergic rhinitis, unspecified allergic rhinitis type J30.9 Active 42338396 Problem Stress incontinence N39.3 Active 46981472 Problem Postmenopausal bleeding N95.0 Active 10796132 Problem Type 2 diabetes mellitus with hyperglycemia, without long-term current use of insulin E11.65 Active 09591650 Problem Drug-induced constipation K59.03 Active 42720406 Problem Obstructive sleep apnea G47.33 Active 64808466 Problem Palpitations R00.2 Active 35902747 Problem Uncomplicated asthma, unspecified asthma severity J45.909 Active 674185875 Problem Nocturnal hypoxia G47.34 Active 785934035 Problem Rheumatoid arthritis involving multiple sites, unspecified rheumatoid factor presence M06.9 Active 678967559 Problem Bilateral carotid artery stenosis I65.23 Active 21061397 Problem Chronic pain syndrome G89.4 Active 601991317 Problem 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, retirement, 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 Active 291110063727 Problem Major depressive disorder, recurrent episode, unspecified severity F33.9 Active 22732861 Problem Generalized anxiety disorder F41.1 Active 612292710 Problem Chronic prescription opiate use Z79.899 Active 092640264 ALLERGIES No Information ENCOUNTERS Encounter Location Date Diagnosis [place] [id number] [place] [address] 46990- 1069 Dec, Generalized anxiety disorder F41.1 and Chronic pain syndrome G89.4 [place] [id number] [place] [address] 14656- 0631 Dec, [facility] [place] [id number] [place] [address] 34927- 0801 Dec, [place] [id number] [place] [address] 50046- 1653 Dec, BMI 50.0-59.9, adult Z68.43 ; Left hip pain M25.552 ; Chronic pain syndrome G89.4 ; Generalized anxiety disorder F41.1 and Rheumatoid arthritis involving multiple sites, unspecified rheumatoid factor presence M06.9 [place] [id number] [place] [address] 65371- 3303 Nov, Chronic pain syndrome G89.4 [place] [id number] [place] [address] 74844- 6375 Oct, Chronic pain syndrome G89.4 [place] [id number] [place] [address] 62906- 4653 Sep, Chronic pain syndrome G89.4 [place] [id number] [place] [address] 28707- 8513 Sep, [place] [id number] [place] [address] 36811- 3576 Aug, Chronic pain syndrome G89.4 [place] [id number] [place] [address] 03513- 0972 Aug, Postmenopausal bleeding N95.0 ; 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, retirement, 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 ; Type 2 diabetes mellitus with hyperglycemia, without long- term current use of insulin E11.65 and BMI 50.0-59.9, adult Z68.43 [place] [id number] [place] [address] 00134- 8920 Jul, Chronic pain syndrome G89.4 and Generalized anxiety disorder F41.1 [place] [id number] [place] [address] 57761- 4067 Jun, Chronic pain syndrome G89.4 and Generalized anxiety disorder F41.1 [place] [id number] [place] [address] 46508- 3994 May, Chronic pain syndrome G89.4 and Generalized anxiety disorder F41.1 [place] [id number] [place] [address] 26063- 3620 May, 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, 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, 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 [place] [address] 17197- 9115 15 May, 2017 Type 2 diabetes mellitus with hyperglycemia, without long- term current use of insulin E11.65 ; Chronic pain syndrome G89.4 ; Leukocytosis , unspecified type D72.829 ; Chronic prescription opiate use Z79.899 ; 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, retirement, 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 ; Elevated lymphocyte count D72.820 ; Encounter for immunization Z23 and BMI 50.0-59.9, adult Z68.43 [place] [id number] [place] [address] 17388- 8673 Apr, Chronic pain syndrome G89.4 and Generalized anxiety disorder F41.1 [place] [id number] [place] [address] 00226- 6652 Mar, Generalized anxiety disorder F41.1 and Chronic pain syndrome G89.4 [place] [id number] [place] [address] 54543- 5239 Mar, [place] [address] 76672- 4790 Feb, [place] [id number] [place] [address] 90662- 9105 Feb, Generalized anxiety disorder F41.1 and Chronic pain syndrome G89.4 [place] [address] [place] [address]- 7812 16 Feb, 2017 Elevated lymphocyte count D72.820 [place] [id number] [place] [address] 73584- 5866 15 Feb, 2017 Chronic prescription opiate use Z79.899 ; 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, retirement, 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 ; Low HDL (under 40) E78.6 and Chronic obstructive pulmonary disease, unspecified COPD type J44.9 [place] [id number] [place] [address] 80369- 6689 January, Generalized anxiety disorder F41.1 and Chronic pain syndrome G89.4 [place] [address] 30909- 9281 Dec, Chronic pain syndrome G89.4 and Generalized anxiety disorder F41.1 [place] [id number] [place] [address] 44846- 8851 Dec, [place] [id number] [place] [address] 33595- 6482 Nov, Rheumatoid arthritis involving multiple sites, unspecified rheumatoid factor presence M06.9 ; Chronic pain syndrome G89.4 ; Generalized anxiety disorder F41.1 ; Type 2 diabetes mellitus with hyperglycemia, without long-term current use of insulin E11.65 and Postmenopausal bleeding N95.0 [place] [id number] [place] [address] 75858- 1583 17 Nov, 2016 [place] [id number] [place] [address] 90546- 7427 Nov, [place] [id number] [place] [address] 42148- 0355 Nov, Generalized anxiety disorder F41.1 and Chronic pain syndrome G89.4 [place] [id number] [place] [address] 11170- 5021 28 Oct, 2016 [place] [id number] [place] [address] 71310- 6477 17 Oct, 2016 [place] [address] [place] [address] 51290- 8903 Oct, [facility] [place] [id number] [place] [address] 47732- 6201 15 Oct, 2016 Chronic pain syndrome G89.4 and Generalized anxiety disorder F41.1 [facility] [place] [id number] [place] [address] 79440- 8079 Sep, Chronic pain syndrome G89.4 and Generalized anxiety disorder F41.1 [facility] [place] [id number] [place] [address] 10262- 6677 14 Aug, 2016 Sore throat J02.9 ; Chronic pain syndrome G89.4 ; Postmenopausal bleeding N95.0 ; Acute suppurative otitis media of left ear without spontaneous rupture of tympanic membrane, recurrence not specified H66.002 ; Generalized anxiety disorder F41.1 ; Stress incontinence N39.3 ; Drug- induced constipation K59.03 ; Chronic prescription opiate use Z79.899 and Prediabetes R73.09 [facility] [place] [id number] [place] [address] 27829- 0711 Jul, [facility] [place] [id number] [place] [address] 70810- 1681 Jul, [facility] [place] [id number] [place] [address] 54488- 2455 Jun, [facility] [place] [id number] [place] [address] 08918- 1446 Jun, [facility] [place] [id number] [place] [address] 86782- 1951 Jun, [facility] [place] [id number] [place] [address] 97128- 9548 Jun, [facility] [place] [id number] [place] [address] 90765- 4849 Jun, Prediabetes R73.09 [facility] [place] [id number] [place] [address] 84110- 4148 May, Prediabetes R73.09 [facility] [place] [address] [place] [address]- 1588 May, Postmenopausal bleeding N95.0 ; Prediabetes R73.09 and Thickened endometrium R93.8 [facility] [place] [address] [place] [address] 62176- 0632 May, [facility] [place] [id number] [place] [address] 03818- 7696 Apr, Prediabetes R73.09 [facility] [place] [address] [place] [address] 26869- 4054 Apr, Chronic pain syndrome G89.4 ; Postmenopausal bleeding N95.0 ; 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, 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, 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 ; Generalized anxiety disorder F41.1 and Chronic obstructive pulmonary disease, unspecified COPD type J44.9 [facility] [place] [id number] [place] [address] 69190- 3029 Mar, [facility] [place] [id number] [place] [address] 11781- 3870 Feb, [facility] [place] [id number] [place] [address] 97508- 2379 January, [facility] [place] [address] [place] [address] 70059- 2248 Dec, Chronic pain syndrome G89.4 ; Chronic prescription opiate use Z79.899 ; Leukocytosis, unspecified type D72.829 and Generalized anxiety disorder F41.1 [facility] [place] [address] [place] [address]- 8721 Dec, [facility] [place] [id number] [place] [address] 37719- 5393 Nov, [facility] [place] [address] [place] [address] 09146- 3322 Nov, [facility] [place] [id number] [place] [address] 50969- 0421 Nov, [facility] [place] [address] [place] [address]- 6941 Oct, [facility] [place] [address] [place] [address] 24802- 0812 Oct, [facility] [place] [address] [place] [address] 46120- 7892 Oct, [facility] [place] [id number] [place] [address] 159794- 8076 Sep, [facility] [place] [address] [place] [address] 854762- 3750 Aug, [facility] [place] [id number] [place] [address] 76551- 7737 Aug, Leukocytosis, unspecified type D72.829 ; Peripheral edema R60.9 and 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, 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, 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 [facility] [address], [place] [address]- 2305 Aug, [facility] [place] [id number] [place] [address] 54858- 9184 Jul, [facility] [place] [address] [place] [address]- 2089 Jul, [facility] [place] [address] [place] [address]- 0603 Jun, [facility] [place] [address], [place] [address]- 0567 May, [facility] [place] [address] [place] [address] 16611- 0415 08 May, 2015 Chronic pain 338.29 ; Leukocytosis 288.60 ; Anxiety 300.00 and Major depressive disorder, recurrent episode, severe, without mention of psychotic behavior 296.33 [facility] [address], [place] [address]- 2257 Apr, [facility] [place] [address] [place] [address]- 0466 Apr, [facility] [place] [address], [place] [address]- 2365 Apr, [facility] [place] [address] [place] [address]- 7613 Apr, [facility] [place] [id number] [place] [address] 00359- 8960 Apr, [facility] [place] [address] [place] [address] 72261- 0873 Apr, [facility] [place] [id number] [place] [address] 98042- 5431 Mar, [facility] [place] [id number] [place] [address] 22393- 2065 Mar, [facility] [place] [id number] [place] [address] 26859- 5393 Mar, [facility] [place] [address], [place] [address]- 7968 Mar, [facility] [place] [address], [place] [address]- 4117 Feb, Leukocytosis 288.60 [facility] [place] [id number] [place] [address]- 5050 Feb, [facility] [place] [address], [place] [address]- 5975 Feb, Chronic pain 338.29 ; Rheumatoid arthritis 714.0 ; Fatigue 780.79 ; Anxiety 300.00 and Asthma 493.90 [facility] [place] [id number] [place] [address]- 9994 January, [facility] [place] [address], [place] [address]- 5365 Dec, [facility] [id number] [place] [address] 29035- 2746 28 Dec, 2014 [facility] [place] [facility] [address] [id number] [place] [address]- 5372 14 Dec, 2014 [facility] [place] [facility] [address] [id number] [place] [address]- 3071 13 Dec, 2014 [facility] [place] [facility] [address] [id number] [place] [address]- 3063 18 Nov, 2014 [facility] [place] [facility] [address] [id number] [place] [address]- 6750 Nov, [facility] [place] [facility] [address] [id number] [place] [address]- 9775 Nov, [facility] [place] [facility] [address] [id number] [place] [address]- 0090 Nov, [facility] [place] [facility] [address] [id number] [place] [address]- 8199 Nov, [facility] [place] [facility] [address] [id number] [place] [address]- 3830 Nov, [facility] [place] [facility] [address] [id number] [place] [address]- 9622 Nov, [facility] [place] [facility] [address] [id number] [place] [address]- 9482 Nov, [facility] [place] [facility] [address] [id number] [place] [address]- 8347 Oct, [facility] [place] [facility] [address] [id number] [place] [address]- 4438 Oct, [facility] [place] [facility] [address] [id number] [place] [address]- 9792 Sep, [facility] [place] [facility] [address] [id number] [place] [address]- 9987 Sep, [facility] [place] [facility] [address] [id number] [place] [address]- 6590 Sep, [facility] [place] [facility] [address] [id number] [place] [address]- 4610 05 Sep, 2014 [facility] [place] [facility] [address] [id number] [place] [address]- 8149 Aug, [facility] [place] [facility] [address] [id number] [place] [address]- 2300 Aug, [facility] [place] [facility] [address] [id number] [place] [address]- 7676 Aug, [facility] [place] [facility] [address] [id number] [place] [address]- 8911 Aug, [facility] [place] [facility] [address] [id number] [place] [address]- 7805 Aug, [facility] [place] [facility] [address] [id number] [place] [address]- 2384 Aug, [facility] [place] [facility] [address] [id number] [place] [address]- 4073 Aug, [facility] [place] [facility] [address] [id number] [place] [address]- 9852 Aug, [facility] [place] [facility] [address] [id number] [place] [address]- 6560 Jul, [facility] [place] [facility] [address] [id number] [place] [address]- 5981 Jul, [facility] [place] [facility] [address] [id number] [place] [address]- 2298 Jun, [facility] [place] [facility] [address] [id number] [place] [address]- 0738 Jun, [facility] [place] [facility] [address] [id number] [place] [address]- 5104 Jun, [facility] [place] [facility] [address] [id number] [place] [address]- 7162 Jun, [facility] [place] [facility] [address] [id number] [place] [address]- 3968 Jun, [facility] [place] [facility] [address] [id number] [place] [address]- 6868 29 Jun, 2014 [facility] [place] [facility] [address] [id number] [place] [address]- 7713 Jun, [facility] [place] [facility] [address] [id number] [place] [address]- 7055 Jun, [facility] [place] [facility] [address] [id number] [place] [address]- 8846 Jun, [facility] [place] [facility] [address] [id number] [place] [address]- 0520 Jun, [facility] [place] [facility] [address] [id number] [place] [address]- 2626 May, [facility] [place] [facility] [address] [id number] [place] [address]- 3999 25 May, 2014 [facility] [place] [facility] [address] [id number] [place] [address]- 3411 22 May, 2014 [facility] [place] [facility] [address] [id number] [place] [address]- 4847 19 May, 2014 [facility] [place] [facility] [address] [id number] [place] [address]- 1906 19 May, 2014 [facility] [place] [facility] [address] [id number] [place] [address]- 2670 19 May, 2013 [facility] [place] [facility] [address] [id number], [place] [address]- 6279 19 May, 2014 [facility] [place] [facility] [address] [id number] [place] [address]- 254 17 May, 2014 [facility] [place] [facility] [address] [id number] [place] [address]- 5569 17 May, 2013 [facility] [place] [facility] [address] [id number] [place] [address]- 8728 29 Apr, 2014 [facility] [place] [facility] [address] [id number] [place] [address]- 1355 Apr, [facility] [place] [facility] [address] [id number] [place] [address]- 7329 Apr, [facility] [place] [facility] [address] [id number] [place] [address]- 9276 Apr, [facility] [place] [facility] [address] [id number] [place] [address]- 3524 Apr, [facility] [place] [facility] [address] [id number] [place] [address]- 2404 Apr, [facility] [place] [facility] [address] [id number] [place] [address]- 7467 Apr, [facility] [place] [facility] [address] [id number] [place] [address]- 1345 Apr, [facility] [place] [facility] [address] [id number] [place] [address] Apr, [facility] [place] [facility] [address] [id number] [place] [address]- 9994 Apr, [facility] [place] [facility] [address] [id number] [place] [address]- 9086 Mar, [facility] [place] [facility] [address] [id number] [place] [address]- 2701 Mar, [facility] [place] [facility] [address] [id number] [place] [address]- 2305 Mar, [facility] [place] [facility] [address] [id number] [place] [address]- 2836 Mar, [facility] [place] [facility] [address] [id number] [place] [address]- 6029 Mar, [facility] [place] [facility] [address] [id number] [place] [address]- 2217 Mar, [facility] [place] [facility] [address] [id number] [place] 4354 Mar, [facility] [place] [facility] [address] [id number] [place] [address]- 0704 17 Mar, 2013 [facility] [place] [facility] [address] [id number] [facility] [place] [address]- 5386 16 Mar, 2013 [facility] [place] [facility] [address] [id number] [place] [address] 16 Mar, 2013 [facility] [place] [facility] [address] [id number] [facility] [place] [address] 16 Mar, 2013 [facility] [place] [facility] [address] [id number] [place] [address] 16 Mar, 2013 [facility] [place] [facility] [address] [id number] [place] [address] 16 Mar, 2013 [facility] [place] [facility] [address] [id number] [place] [address] 16 Mar, 2013 [facility] [place] [facility] [address] [id number] [place] [address] 15 Mar, 2013 [facility] [place] [facility] [address] [id number] [place] [address] 15 Mar, 2013 [facility] [place] [facility] [address] [id number] [place] [address] 39[address] 14 Mar, 2013 [facility] [place] [facility] [address] [id number] [place] [address] 14 Mar, 2013 [facility] [place] [facility] [address] [id number] [facility] [place] [address] 11 Mar, 2013 [facility] [place] [facility] [address] [id number] [place] [address] 11 Mar, 2013 [facility] [place] [facility] [address] [id number] [place] [address] Mar, [facility] [place] [facility] [address] [id number] [place] [address] Mar, [facility] [place] [facility] [address] [id number] [place] [address] Feb, [facility] [place] [facility] [address] [id number] [place] [address] Feb, [facility] [place] [facility] [address] [id number] [place] [address] Feb, [facility] [place] [facility] [address] [id number] [place] [address] Feb, [facility] [place] [facility] [address] [id number] [place] [address] Feb, [facility] [place] [facility] [address] [id number] [place] [address] Feb, [facility] [place] [facility] [address] [id number] [place] [address] Feb, [facility] [place] [facility] [address] [id number] [place] [address] Feb, [facility] [place] [facility] [address] [id number] [place] [address] January, [facility] [place] [facility] [address] [id number] [place] [address] January, [facility] [place] [facility] [address] [id number] [place] [address] January, [facility] [place] [facility] [address] [id number] [place] [address] January, [facility] [place] [facility] [address] [id number] [place] [address] January, [facility] [place] [facility] [address] [id number] [place] [address] January, [facility] [place] [facility] [address] [id number] [place] [address] January, [facility] [place] [facility] [address] [id number] [place] [address] January, [facility] [place] [facility] [address] [id number] [place] [address] January, [facility] [place] [facility] [address] [id number] [place] [address] January, [facility] [place] [facility] [address] [id number] [place] [address] January, [facility] [place] [facility] [address] [id number] [place] [address] 9[address] Dec, [facility] [place] [facility] [address] [id number] [place] [address]- [address] Dec, [facility] [place] [facility] [address] [id number] [place] [address]- 9669 Dec, [facility] [place] [facility] [address] [id number] [place] [address]- 3887 Dec, [facility] [place] [facility] [address] [id number] [place] [address]- [address] Dec, [facility] [place] [facility] [address] [id number] [place] [address]- 6558 Dec, [facility] [place] [facility] [address] [id number] [place] [address]- 5580 Dec, [facility] [place] [facility] [address] [id number] [place] [address]- 0900 Dec, [facility] [place] [facility] [address] [id number] [place] [address]- 1062 Dec, [facility] [place] [facility] [address] [id number] [place] [address]- 3821 Dec, [facility] [place] [facility] [address] [id number] [place] [address]- 9486 Dec, [facility] [place] [facility] [address] [id number] [place] [address]- 0698 Dec, [facility] [place] [facility] [address] [id number] [place] [address]- 2189 15 Dec, 2013 [facility] [place] [facility] [address] [id number] [place] [address]- 3741 Dec, [facility] [place] [facility] [address] [id number] [place] [address] Dec, [facility] [place] [facility] [address] [id number] [place] [address]- 8224 Dec, [facility] [place] [facility] [address] [id number] [place] [address]- 7427 Dec, [facility] [place] [facility] [address] [id number] [place] [address]- 3639 Nov, [facility] [place] [facility] [address] [id number] [place] [address]- 6319 Nov, [facility] [place] [facility] [address] [id number] [place] [address]- 7092 Nov, [facility] [place] [facility] [address] [id number] [place] [address]- 9943 Nov, [facility] [place] [facility] [address] [id number] [place] [address]- 8965 Nov, [facility] [place] [facility] [address] [id number] [place] [address]- 8955 Nov, [facility] [place] [facility] [address] [id number] [place] [address]- 0634 Nov, [facility] [place] [facility] [address] [id number] [place] [address]- 9325 Nov, [facility] [place] [facility] [address] [id number] [place] [address]- 3417 Oct, [facility] [place] [facility] [address] [id number] [place] [address]- 2554 Oct, [facility] [place] [facility] [address] [id number] [place] [address]- 3594 Oct, [facility] [place] [facility] [address] [id number], [place] [address]- 8[address] Oct, [facility] [address] [id number] [place] [address]- 3649 Oct, [facility] [place] [facility] [address] [id number] [place] [address]- 5758 Oct, [facility] [place] [facility] [address] [id number] [place] [address]- 3422 Sep, [facility] [place] [facility] [address] [id number] [place] [address]- 1163 Sep, [facility] [place] [facility] [address] [id number] [place] [address]- 5819 Sep, [facility] [place] [facility] [address] [id number] [place] [address]- 2441 Sep, [facility] [place] [facility] [address] [id number] [place] [address]- 5424 Sep, [facility] [place] [facility] [address] [id number] [place] [address]- 6242 Sep, [facility] [place] [facility] [address] [id number] [place] [address]- 6049 Sep, [facility] [place] [facility] [address] [id number] [place] [address]- 2917 Sep, [facility] [place] [facility] [address] [id number] [place] [address]- 9778 Sep, [facility] [place] [facility] [address] [id number], [place] [address]- 5939 Sep, [facility] [place] [facility] [address] [id number] [place] [address]- 5401 Sep, [facility] [place] [facility] [address] [id number] [place] [address]- 3188 Sep, [facility] [place] [facility] [address] [id number] [place] [address]- 2614 Aug, [facility] [place] [facility] [address] [id number] [place] [address]- 4607 Aug, [facility] [place] [facility] [address] [id number] [place] [address]- 7363 05 Aug, 2013 [facility] [place] [facility] [address] [id number] [place] [address]- 1748 05 Aug, 2013 [facility] [place] [facility] [address] [id number] [place] [address]- 1120 Aug, [facility] [place] [facility] [address] [id number] [place] [address]- 5396 Aug, [facility] [place] [facility] [address] [id number] [place] [address]- 6094 Aug, [facility] [place] [facility] [address] [id number] [place] [address]- 0530 Aug, [facility] [place] [facility] [address] [id number] [place] [address]- 7213 Aug, [facility] [place] [facility] [address] [id number] [place] [address]- 4235 Aug, [facility] [place] [facility] [address] [id number] [place] [address]- 9708 Jul, [facility] [place] [facility] [address] [id number] [place] [address]- 4499 Jul, [facility] [place] [facility] [address] [id number] [place] [address]- 1002 Jul, [facility] [place] [facility] [address] [id number] [place] [address]- 1609 Jul, [facility] [place] [facility] [address] [id number] [place] [address]- [address] Jul, [facility] [place] [facility] [address] [id number] [place] [address]- 8917 Jun, [facility] [place] [facility] [address] [id number] [place] [address]- 7330 31 Jun, 2012 [facility] [place] [facility] [address] [id number] [place] [address]- 1048 30 Jun, 2012 [facility] [place] [facility] [address] [id number], [place] [address]- 6623 30 Jun, 2012 [facility] [place] [facility] [address] [id number] [place] [address]- 0467 30 Jun, 2012 [facility] [place] [facility] [address] [id number], [place] [address]- 7447 30 Jun, 2012 [facility] [place] [facility] [address] [id number] [place] [address]- 9381 29 Jun, 2012 [facility] [place] [facility] [address] [id number], [place] [address]- 3750 16 Jun, 2012 [facility] [place] [facility] [address] [id number], [place] [address]- 8214 16 Jun, 2012 [facility] [place] [facility] [address] [id number], [place] [address]- 9844 10 Jun, 2012 [facility] [place] [facility] [address] [id number], [place] [address]- 6342 10 Jun, 2012 [facility] [place] [facility] [address] [id number], [place] [address]- 1545 10 Jun, 2012 [facility] [place] [facility] [address] [id number], [place] [address]- 8771 10 Jun, 2012 [facility] [place] [facility] [address] [id number], [place] [address]- 9760 10 Jun, 2012 [facility] [place] [facility] [address] [id number], [place] [address]- 7906 10 Jun, 2012 [facility] [place] [facility] [address] [id number], [place] [address]- 9618 09 Jun, 2012 [facility] [place] [facility] [address] [id number], [place] [address]- 7720 Jun, 2012 [facility] [place] [facility] [address] [id number] [place] [address]- 5104 30 May, 2013 [facility] [address] [id number] [place] [address]- 7691 18 May, 2013 [facility] [place] [facility] [address] [id number] [place] [address]- 6466 10 May, 2013 [facility] [address] [id number] [place] [address]- 7823 May, [facility] [place] [facility] [address] [id number] [place] [address]- 2763 Apr, [facility] [address] [id number] [place] [address]- 9284 Apr, [facility] [address] [id number] [place] [address]- 6380 Apr, [facility] [address] [id number] [place] [address]- 5049 Mar, [facility] [address] [id number] [place] [address]- 6764 Mar, [facility] [place] [facility] [address] [id number] [place] [address]- 5653 Feb, [facility] [address] [id number] [place] [address]- 2626 Feb, [facility] [place] [facility] [address] [id number] [place] [address]- 4013 Feb, [facility] [place] [facility] [address] [id number] [place] [address]- 2550 January, [facility] [place] [facility] [address] [id number] [place] [address]- 1878 January, [facility] [place] [facility] [address] [id number] [place] [address]- 2546 January, [facility] [place] [facility] [address] [id number] [place] [address]- 0048 January, [facility] [place] [facility] [address] [id number] [place] [address]- 3179 Dec, [facility] [address] [id number] [place] [address]- 4696 Dec, [facility] [address] [id number] [place] [address]- 5998 Dec, [facility] [address] [id number] [place] [address]- 4769 Dec, [facility] [address] [id number] [place] [address]- 4755 Dec, [facility] [address] [id number] [place] [address]- 7039 Nov, [facility] [address] [id number] [place] [address]- 4485 Oct, [facility] [address] [id number] [place] [address]- 9435 Oct, [facility] [address] [id number] [place] [address]- 5178 Oct, [facility] [address] [id number] [place] [address]- 9783 Oct, [facility] [address] [id number] [place] [address]- 0947 Oct, [facility] [address] [id number] [place] [address]- 8245 Sep, [facility] [place] [facility] [address] [id number] [place] [address]- 5259 Sep, [facility] [place] [facility] [address] [id number] [place] [address]- 1028 Sep, [facility] [place] [facility] [address] [id number] [place] [address]- 6069 Sep, [facility] [place] [facility] [address] [id number] [place] [address]- 2447 15 Sep, 2012 [facility] [address] [id number] [place] [address]- 6688 Sep, [facility] [place] [facility] [address] [id number] [place] [address]- 0769 Sep, [facility] [place] [facility] [address] [id number] [place] [address]- 0125 Aug, [facility] [place] [facility] [address] [id number] [place] [address]- 7212 Aug, [facility] [place] [facility] [address] [id number] [place] [address]- 5697 Aug, [facility] [place] [facility] [address] [id number] [place] [address]- 4101 Aug, [facility] [address] [id number] [place] [address]- 0335 Aug, [facility] [place] [facility] [address] [id number] [place] [address]- 2296 Aug, [facility] [place] [facility] [address] [id number] [place] [address]- 2491 Aug, [facility] [place] [facility] [address] [id number] [place] [address]- 7380 Aug, [facility] [place] [facility] [address] [id number] [place] [address]- 8200 Aug, [facility] [place] [facility] [address] [id number] [place] [address]- 5490 30 Jul, 2012 [facility] [place] [facility] [address] [id number] [place] [address]- 9992 Jul, [facility] [place] [facility] [address] [id number] [place] [address]- 2732 Jul, [facility] [place] [facility] [address] [id number] [place] [address]- 6411 Jul, [facility] [place] [facility] [address] [id number] [place] [address]- 2110 Jul, [facility] [place] [facility] [address] [id number] [place] [address]77 Jul, [facility] [place] [facility] [address] [id number] [place] [address]- 8416 Jul, [facility] [place] [facility] [address] [id number] [place] [address]- 6973 Jul, [facility] [place] [facility] [address] [id number] [place] [address]- 6840 Jul, [facility] [place] [facility] [address] [id number] [place] [address]- 4892 Jun, [facility] [place] [facility] [address] [id number] [place] [address]- 2164 Jun, [facility] [place] [facility] [address] [id number] [place] [address]- 6227 Jun, [facility] [place] [facility] [address] [id number] [place] [address]- 6548 Jun, [facility] [place] [facility] [address] [id number] [place] [address]- 9194 Jun, [facility] [place] [facility] [address] [facility] [id number] [place] [address]- 9612 Jun, [facility] [place] [facility] [address] [id number] [place] [address]- 4591 Jun, [facility] [place] [facility] [address] [id number] [place] [address]- 9942 Jun, [facility] [place] [facility] [address] [id number] [place] [address]- 7560 May, [facility] [place] [facility] [address] [id number] [place] [address]- 2128 May, [facility] [place] [facility] [address] [id number] [place] [address]- 9809 Apr, [facility] [place] [facility] [address] [id number] [place] [address]- 7620 Apr, [facility] [place] [facility] [address] [id number] [place] [address]- 8756 Mar, [facility] [place] [facility] [address] [id number] [place] [address]- 8956 Mar, [facility] [place] [facility] [address] [id number] [place] [address]- 6697 Mar, [facility] [place] [facility] [address] [id number] [place] [address]- 5478 Feb, [facility] [place] [facility] [address] [id number] [place] [address]- 1050 Feb, [facility] [place] [facility] [address] [id number] [place] [address]- 9151 Feb, [facility] [place] [facility] [address] [id number] [place] [address]- 7188 Feb, [facility] [place] [facility] [address] [id number] [place] [address]- 0934 January, [facility] [place] [facility] [address] [id number] [place] [address]- 0983 January, [facility] [place] [facility] [address] [id number] [place] [address]- 5941 January, [facility] [place] [facility] [address] [id number] [place] [address]- 8927 Dec, [facility] [place] [facility] [address] [id number] [place] [address]- 6082 Dec, [facility] [place] [facility] [address] [id number] [place] [address]- 8418 Dec, [facility] [place] [facility] [address] [id number] [place] [address]- 8520 Dec, [facility] [place] [facility] [address] [id number] [place] [address]- 1206 30 Nov, 2011 [facility] [place] [facility] [address] [id number] [place] [address] 2546 29 Nov, 2011 [facility] [place] [facility] [address] [id number] [place] [address] 2546 28 Nov, 2011 [facility] [place] [facility] [address] [id number] [place] [address]- 0456 16 Nov, 2011 [facility] [place] [facility] [address] [id number] [place] [address] 2546 Oct, [facility] [place] [facility] [address] [id number] [place] [address]- 4716 23 Oct, 2011 [facility] [place] [facility] [address] [id number] [place] [address] 2546 16 Oct, 2011 [facility] [place] [facility] [address] [id number] [place] [address] 2546 15 Oct, 2011 [facility] [place] [facility] [address] [id number] [place] [address]- 2542 09 Oct, 2011 [facility] [place] [facility] [address] [id number] [place] [address]- 5474 07 Oct, 2011 [facility] [place] [facility] [address] [facility] [id number] [place] [address]- 1860 02 Oct, 2011 [facility] [place] [facility] [address] [id number] [place] [address] 2546 Sep, [facility] [place] [facility] [address] [id number] [place] [address] 2546 Sep, [facility] [place] [facility] [address] [id number] [place] [address] 2546 Sep, [facility] [place] [facility] [address] [id number] [place] [address] 2546 Sep, [facility] [place] [facility] [address] [id number] [place] [address]- 2801 Sep, [facility] [place] [facility] [address] [id number] [place] [address]- 8323 Sep, [facility] [place] [facility] [address] [id number] [place] [address]- 2146 Sep, [facility] [place] [facility] [address] [id number] [place] [address]- 0427 Sep, [facility] [place] [facility] [address] [id number] [place] [address]- 0707 Sep, [facility] [place] [facility] [address] [id number] [place] [address]- 5741 Sep, [facility] [place] [facility] [address] [id number] [place] [address]- 6342 Sep, [facility] [place] [facility] [address] [id number] [place] [address]- 7801 Aug, [facility] [place] [facility] [address] [id number] [place] [address]- 0845 Aug, [facility] [place] [facility] [address] [id number] [place] [address]- 0836 Aug, [facility] [place] [facility] [address] [id number] [place] [address]- 9195 Aug, [facility] [place] [facility] [address] [id number], [place] [address]- 8417 28 Jul, 2011 [facility] [place] [facility] [address] [id number], [place] [address]- 0856 23 Jul, 2011 [facility] [place] [facility] [address] [id number] [place] [address]- 8836 16 Jul, 2011 [facility] [place] [facility] [address] [id number] [place] [address] 16 Jul, 2011 [facility] [place] [facility] [address] [id number] [place] [address] 16 Jul, 2011 [facility] [place] [facility] [address] [id number] [place] [address] 03 Jul, 2011 [facility] [place] [facility] [address] [id number] [place] [address] 26 Jun, 2011 [facility] [place] [facility] [address] [id number] [place] [address] 18 Jun, 2011 [facility] [place] [facility] [address] [id number] [place] [address] 10 Jun, 2011 [facility] [place] [facility] [address] [id number] [place] [address] 16 Feb, 2011 [facility] [place] [facility] [address] [id number] [place] [address] Aug, [facility] [place] [facility] [address] [id number] [place] [address] Aug, [facility] [place] [facility] [address] [id number] [place] [address] Aug, [facility] [place] [facility] [address] [id number] [place] [address] Jul, [facility] [place] [facility] [address] [id number] [place] [address] Jul, [facility] [place] [facility] [address] [facility] [id number] [place] [address] Jul, [facility] [place] [facility] [address] [id number] [place] [address] Jul, [facility] [place] [facility] [address] [id number] [place] [address] Jul, [facility] [place] [facility] [address] [id number] [place] [address] Jul, [facility] [place] [facility] [address] [id number] [place] [address] Jun, [facility] [place] [facility] [address] [id number] [place] [address] Mar, [facility] [place] [facility] [address] [id number] [place] [address] 17 Jan, 2010 [facility] [address] [id number] [place] [address] 11 Nov, 2009 [facility] [address] [id number] [place] [address] 18 Oct, 2009 [facility] [address] [id number] [place] [address] 14 Sep, 2009 [facility] [address] [id number] [place] [address] 31 Aug, 2009 [facility] [address] [id number] [place] [address] 30 Aug, 2009 [facility] [address] [facility] [id number] [place] [address] Aug, [facility] [address] [id number] [place] [address] 16 Aug, 2009 [facility] [address] [id number] [place] [address] 16 Aug, 2009 [facility] [address] [facility] [id number] [place] [address] Aug, [facility] [address] [facility] [id number] [place] [address] Aug, [facility] [address] [id number], [place] [address] 04 Aug, 2009 [facility] [address] [id number] [place] [address] Aug, [facility] [address] [id number], [place] [address] Jul, [facility] [address] [id number], [place] [address] 28 Jun, 2009 [facility] [address] [id number], [place] [address] Jun, [facility] [address] [facility] [id number], [place] [address] Jun, [facility] [address] [facility] [id number], [place] [address] Jun, [facility] [address] [facility] [id number], [place] [address] Jun, [facility] [address] [facility] [id number], [place] [address] May, [facility] [address] [facility] [id number], [place] [address] January, IMMUNIZATIONS No Known Immunizations SOCIAL HISTORY Never Assessed REASON FOR VISIT Controlled Medication Refills PLAN OF CARE VITAL SIGNS MEDICATIONS Medication Instructions Dosage Frequency Start Date End Date Duration Status Fentanyl 100 MCG/HR Transdermal every 72 hours 1 patch to skin May, Active Xanax 1 MG Orally Three times a day as needed 1 tablet Nov, Active Oxycodone HCl 10 mg Orally 3 times a day 1 tablet as needed 8h May, Active RESULTS No Results PROCEDURES No Known [...]
--- OUTSIDE RECORDS SUMMARY | 2018-01-29 18:44 | XMS REPORT ---
Author Author NATANAEL ENGLISH Organization [employer] Address Unknown Phone Unavailable Care Team Providers Care Seo Coordinator Name Role Phone NATANAEL ENGLISH CP Unavailable Allergies No Known Allergies Problems [...] Active Problem Allergic rhinitis 477.9 Active Medications Medication Code System Code Instructions Start Date End Date Status Dosage Xanax [facility] [address]-38 1 MG Orally Three times a day as needed November 27, 2014 1 tablet Oxycodone HCl [facility] [address]-33 10 MG Orally 3 times a day April 02, 2015 1 tablet as needed Fentanyl [facility] [address]-74 100 MCG/HR Transdermal every 72 hours March 02, 2015 1 patch to skin Results No Known Results Summary Purpose [employer] Submission
--- OUTSIDE RECORDS SUMMARY | 2018-01-29 18:44 | XMS REPORT ---
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 [address]-32 1 MG Orally Three times a day as needed November 27, 2014 1 tablet Fentanyl [facility] [address]-42 100 MCG/HR Transdermal every 72 hours March 02, 2015 1 patch to skin Oxycodone HCl [facility] [address]-98 10 MG Orally 3 times a day April 02, 2015 1 tablet as needed Results No Known Results Summary Purpose [employer] Submission
--- OUTSIDE RECORDS SUMMARY | 2018-01-29 18:44 | XMS REPORT ---
Author Author HILARY BESS Organization [facility], [place], [facility] Address [address] [place] [address] Care Team Providers Care Pack Worker Supervisor Name Role Phone LORENZO RICHARDHANY Unavailable PROBLEMS Type Condition ICD9-CM Code [id number] Code Onset Dates Condition Status SNOMED Code Problem Rheumatoid arthritis involving multiple sites, unspecified rheumatoid factor presence M06.9 Active 685259007 Problem Abnormal stress test R94.39 Active 421671864 Problem Bilateral carotid artery stenosis I65.23 Active 96214236 Problem Low HDL (under 40) E78.6 Active 980443598 Problem Chronic prescription opiate use Z79.899 Active 264737581 Problem 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, 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, 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 Active 160286521830 Problem Palpitations R00.2 Active 02365505 Problem Leukocytosis, unspecified type D72.829 Active 818530560 Problem Peripheral edema R60.9 Active 754579134 Problem Allergic rhinitis, unspecified allergic rhinitis type J30.9 Active 60507265 Problem Uncomplicated asthma, unspecified asthma severity J45.909 Active 712026382 Problem Prediabetes R73.09 Active 8751009 Problem Chronic pain syndrome G89.4 Active 096212776 Problem Nocturnal hypoxia G47.34 Active 369164986 Problem Chronic obstructive pulmonary disease, unspecified COPD type J44.9 Active 73900264 Problem Obstructive sleep apnea G47.33 Active 86424949 Problem Generalized anxiety disorder F41.1 Active 849547233 Problem Major depressive disorder, recurrent episode, unspecified severity F33.9 Active 44104340 ALLERGIES Unknown Allergies SOCIAL HISTORY No smoking Hx information available PLAN OF CARE VITAL SIGNS MEDICATIONS Medication Instructions Dosage Frequency Start Date End Date Duration Status Fentanyl 100 MCG/HR Transdermal every 72 hours 1 patch to skin Feb, Active 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 2.5 MG 6 tablet by Oral route 1 time per week 28 Active Oxycodone HCl 10 MG Orally 3 times a day 1 tablet as needed 8h Mar, Active Xanax 1 MG Orally Three times a day as needed 1 tablet Nov, Active RESULTS No Results PROCEDURES No Known procedures IMMUNIZATIONS No Known Immunizations
--- OUTSIDE RECORDS SUMMARY | 2018-01-29 18:44 | XMS REPORT ---
Author Author HILARY BESS Organization [facility] Address [address] [place] [address] Care Team Providers Care Monotype Caster Name Role Phone BESS RICHARD Unavailable PROBLEMS Type Condition ICD9-CM Code [id number] Code Onset Dates Condition Status SNOMED Code Problem Peripheral edema R60.9 Active 248557736 Problem Low HDL (under 40) E78.6 Active 847421902 Problem Leukocytosis, unspecified type D72.829 Active 124110364 Problem BMI 50.0-59.9, adult Z68.43 Active 065714725 Problem Chronic obstructive pulmonary disease, unspecified COPD type J44.9 Active 97835908 Problem Elevated lymphocyte count D72.820 Active 27598783 Problem Abnormal stress test R94.39 Active 490004619 Problem Allergic rhinitis, unspecified allergic rhinitis type J30.9 Active 73324149 Problem Stress incontinence N39.3 Active 69120095 Problem Postmenopausal bleeding N95.0 Active 18536496 Problem Type 2 diabetes mellitus with hyperglycemia, without long-term current use of insulin E11.65 Active 26650577 Problem Drug-induced constipation K59.03 Active 61447867 Problem Obstructive sleep apnea G47.33 Active 07505413 Problem Palpitations R00.2 Active 47286487 Problem Uncomplicated asthma, unspecified asthma severity J45.909 Active 615579813 Problem Nocturnal hypoxia G47.34 Active 449706678 Problem Rheumatoid arthritis involving multiple sites, unspecified rheumatoid factor presence M06.9 Active 275323688 Problem Bilateral carotid artery stenosis I65.23 Active 85222977 Problem Chronic pain syndrome G89.4 Active 847664908 Problem 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
[2018-01-29] MEDS ORDERED: fentaNYL INJECTION 100 MCG/2 ML AMP IVP ONE ×2 (18:45→19:30)
--- OUTSIDE RECORDS SUMMARY | 2018-01-29 18:45 | XMS REPORT ---
Author Author HILARY BESS Organization [facility] Address [address] [place] [address] Care Team Providers Care Passport Support Manager Name Role Phone BESS RICHARD Unavailable PROBLEMS Type Condition ICD9-CM Code [id number] Code Onset Dates Condition Status SNOMED Code Problem Peripheral edema R60.9 Active 654820353 Problem Low HDL (under 40) E78.6 Active 978393795 Problem Leukocytosis, unspecified type D72.829 Active 501961447 Problem BMI 50.0-59.9, adult Z68.43 Active 865068047 Problem Chronic obstructive pulmonary disease, unspecified COPD type J44.9 Active 32621612 Problem Elevated lymphocyte count D72.820 Active 72085518 Problem Abnormal stress test R94.39 Active 107086802 Problem Allergic rhinitis, unspecified allergic rhinitis type J30.9 Active 28515497 Problem Stress incontinence N39.3 Active 28246241 Problem Postmenopausal bleeding N95.0 Active 79299190 Problem Type 2 diabetes mellitus with hyperglycemia, without long-term current use of insulin E11.65 Active 02632458 Problem Drug-induced constipation K59.03 Active 40954233 Problem Obstructive sleep apnea G47.33 Active 66865853 Problem Palpitations R00.2 Active 24269056 Problem Uncomplicated asthma, unspecified asthma severity J45.909 Active 869663660 Problem Nocturnal hypoxia G47.34 Active 592576816 Problem Rheumatoid arthritis involving multiple sites, unspecified rheumatoid factor presence M06.9 Active 329320637 Problem Bilateral carotid artery stenosis I65.23 Active 87416234 Problem Chronic pain syndrome G89.4 Active 606457040 Problem 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, jail, 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 Active 710356550261 Problem Major depressive disorder, recurrent episode, unspecified severity F33.9 Active 20733460 Problem Generalized anxiety disorder F41.1 Active 036841822 Problem Chronic prescription opiate use Z79.899 Active 469848393 ALLERGIES No Information ENCOUNTERS Encounter Location Date Diagnosis [facility] [address] [address] Dec, [facility] [id number] [place] [address] 98898- 7964 Nov, Chronic pain syndrome G89.4 [facility] [id number] [place] [address] 76725- 4027 Oct, Chronic pain syndrome G89.4 [facility] [id number] [place] [address] 98304- 9521 Sep, Chronic pain syndrome G89.4 [facility] [id number] [place] [address] 88510- 5259 Sep, [facility] [id number] [place] [address] 09828- 0323 Aug, Chronic pain syndrome G89.4 [facility] [id number] [place] [address] 99461- 1500 Aug, Postmenopausal bleeding N95.0 ; 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, jail, 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 ; Type 2 diabetes mellitus with hyperglycemia, without long- term current use of insulin E11.65 and BMI 50.0-59.9, adult Z68.43 [address] [facility] [id number] [place] [address] 79475- 9943 Jul, Chronic pain syndrome G89.4 and Generalized anxiety disorder F41.1 [facility] [id number] [place] [address] 10024- 6898 Jun, Chronic pain syndrome G89.4 and Generalized anxiety disorder F41.1 [facility] [id number] [place] [address] 36492- 3786 May, Chronic pain syndrome G89.4 and Generalized anxiety disorder F41.1 [facility] [id number] [place] [address] 51071- 4880 May, 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, jail, 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 [facility] [id number] [place] [address] 95721- 4454 15 May, 2017 Type 2 diabetes mellitus with hyperglycemia, without long- term current use of insulin E11.65 ; Chronic pain syndrome G89.4 ; Leukocytosis , unspecified type D72.829 ; Chronic prescription opiate use Z79.899 ; 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, 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, 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 ; Elevated lymphocyte count D72.820 ; Encounter for immunization Z23 and BMI 50.0-59.9, adult Z68.43 [facility] [id number] [place] [address] 95767- 2496 18 Apr, 2017 Chronic pain syndrome G89.4 and Generalized anxiety disorder F41.[address] [address]23- 3898 Mar, Generalized anxiety disorder F41.1 and Chronic pain syndrome G89.4 [facility] [address] [address]293- 8253 Mar, [facility] [id number] [place] [address] 71709- 7861 Feb, [address] [address]- 4668 Feb, Generalized anxiety disorder F41.1 and Chronic pain syndrome G89.4 [facility] [id number] [place] [address] 45563- 8996 16 Feb, 2017 Elevated lymphocyte count D72.820 [facility] [id number] [place] [address] 22401- 2900 15 Feb, 2017 Chronic prescription opiate use Z79.899 ; 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, jail, 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 ; Low HDL (under 40) E78.6 and Chronic obstructive pulmonary disease, unspecified COPD type J44.9 [facility] [id number] [place] [address] 94888- 9976 January, Generalized anxiety disorder F41.1 and Chronic pain syndrome G89.4 [id number] [place] [address]- 8585 18 Dec, 2016 Chronic pain syndrome G89.4 and Generalized anxiety disorder F41.1 [facility] [id number] [place] [address] 49414- 4171 11 Dec, 2016 [facility] [id number] [place] [address] 30222- 0085 28 Nov, 2016 Rheumatoid arthritis involving multiple sites, unspecified rheumatoid factor presence M06.9 ; Chronic pain syndrome G89.4 ; Generalized anxiety disorder F41.1 ; Type 2 diabetes mellitus with hyperglycemia, without long-term current use of insulin E11.65 and Postmenopausal bleeding N95.0 [facility] [id number] [place] [address] 19024- 3029 17 Nov, 2016 [facility] [id number] [place] [address] 01062- 7014 Nov, [facility] [id number] [place] [address] 49772- 7421 16 Nov, 2016 Generalized anxiety disorder F41.1 and Chronic pain syndrome G89.4 [facility] [id number] [place] [address] 38840- 6790 28 Oct, 2016 [facility] [id number] [place] [address] 89765- 1798 17 Oct, 2016 [facility] [address] [place] [address] 90844- 2536 17 Oct, 2016 [facility] [id number] [place] [address] 83777- 6010 15 Oct, 2016 Chronic pain syndrome G89.4 and Generalized anxiety disorder F41.1 [facility] [id number] [place] [address] 89298- 5016 Sep, Chronic pain syndrome G89.4 and Generalized anxiety disorder F41.1 [facility] [address] [place] [address] 40859- 0159 14 Aug, 2016 Sore throat J02.9 ; Chronic pain syndrome G89.4 ; Postmenopausal bleeding N95.0 ; Acute suppurative otitis media of left ear without spontaneous rupture of tympanic membrane, recurrence not specified H66.002 ; Generalized anxiety disorder F41.1 ; Stress incontinence N39.3 ; Drug- induced constipation K59.03 ; Chronic prescription opiate use Z79.899 and Prediabetes R73.09 [facility] [id number] [place] [address] 19155- 1066 15 Jul, 2016 [facility] [address] 18943- 2674 Jul, [facility] [address] 59561- 9681 Jun, [facility] [address] 83871- 2182 Jun, [facility] [address] 62316- 4658 Jun, [facility] [address] 23579- 5195 Jun, [facility] [address] 52536- 3320 Jun, Prediabetes R73.09 [facility] [address] 56483- 9896 May, Prediabetes R73.09 [facility] [address] 36533- 0587 13 May, 2016 Postmenopausal bleeding N95.0 ; Prediabetes R73.09 and Thickened endometrium R93.8 [facility] [address] 82219- 3215 May, [facility] [address] 60767- 4541 Apr, Prediabetes R73.09 [facility] [address] 55249- 4483 Apr, Chronic pain syndrome G89.4 ; Postmenopausal bleeding N95.0 ; 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, jail, 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 ; Generalized anxiety disorder F41.1 and Chronic obstructive pulmonary disease, unspecified COPD type J44.9 [facility] [id number] [place] [address] 89344- 9820 Mar, [facility] [id number] [place] [address] 71098- 3602 Feb, [facility] [id number] [place] [address] 91075- 7159 January, [facility] [id number] [place] [address] 43995- 2931 Dec, Chronic pain syndrome G89.4 ; Chronic prescription opiate use Z79.899 ; Leukocytosis, unspecified type D72.829 and Generalized anxiety disorder F41.1 [facility] [id number] [place] [address] 94791- 3022 Dec, [facility] [id number] [place] [address] 86002- 1396 Nov, [facility] [id number] [place] [address] 93367- 8638 Nov, [facility] [address] [place] [address] 05070- 8584 Nov, [facility] [address] [place] [address] 24727- 1218 Oct, [facility] [address] [place] [address] 09987- 7160 Oct, [facility] [id number] [place] [address] 23521- 2529 Oct, [facility] [address] [address]55 Sep, [facility] [id number] [place] [address] 51018- 0040 Aug, [facility] [address] [address]- 5936 Aug, Leukocytosis, unspecified type D72.829 ; Peripheral edema R60.9 and 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, jail, 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 [facility] [address] [address]- 4940 Aug, [facility] [id number] [place] [address] 11078- 3654 Jul, [facility] [address] [place] [address] 61371- 5847 Jul, [facility] [id number] [place] [address] 81665- 8548 Jun, [facility] [id number] [place] [address] 92046- 9962 May, [facility] [id number] [place] [address] 60965- 0684 May, Chronic pain 338.29 ; Leukocytosis 288.60 ; Anxiety 300.00 and Major depressive disorder, recurrent episode, severe, without mention of psychotic behavior 296.33 [facility] [address] [address]- 0688 Apr, [facility] [address] [address]- 6241 Apr, [facility] [address] [address]- 5552 Apr, [facility] [id number] [place] [address] 69741- 2556 Apr, [facility] [id number] [place] [address] 93257- 7398 Apr, [facility] [address] [address]- 1725 Apr, [facility] [address] [address]- 2894 Mar, [facility] [address] [address]- 5537 Mar, [facility] [address] [address]- 2546 Mar, [facility] [address] [place] [address] 96607- 4642 Mar, [facility] [address] [address]- 2251 Feb, Leukocytosis 288.60 [facility] [id number] [place] [address] 66326- 1236 Feb, [facility] [address] [address]- 3289 Feb, Chronic pain 338.29 ; Rheumatoid arthritis 714.0 ; Fatigue 780.79 ; Anxiety 300.00 and Asthma 493.90 [facility] [address] [address]- 4583 January, [facility] [address] [address]- 8088 29 Dec, 2014 [facility] [address] [address]- 9702 28 Dec, 2014 [facility] [address] [address]- 2895 14 Dec, 2014 [facility] [address] [address]- 8598 13 Dec, 2014 [facility] [address] [address]- 3256 18 Nov, 2014 [facility] [address] [address]- 2086 18 Nov, 2014 [facility] [address] [address]- 6932 Nov, [facility] [place] [facility] [address] [id number] [place] [address]- 2685 Nov, [facility] [place] [facility] [address] [id number] [place] [address]- 5357 Nov, [facility] [place] [facility] [address] [id number] [place] [address]- 3513 Nov, [facility] [place] [facility] [address] [id number] [place] [address]- 8497 Nov, [facility] [place] [facility] [address] [id number] [place] [address]- 5676 Nov, [facility] [place] [facility] [address] [id number] [place] [address]- 6815 Oct, [facility] [place] [facility] [address] [id number] [place] [address]- 4510 Oct, [facility] [place] [facility] [address] [id number] [place] [address]- 9695 Sep, [facility] [place] [facility] [address] [id number] [place] [address]- 2069 Sep, [facility] [place] [facility] [address] [id number] [place] [address]- 8013 Sep, [facility] [place] [facility] [address] [id number] [place] [address]- 7912 Sep, [facility] [place] [facility] [address] [id number] [address]- 1486 Aug, [facility] [place] [facility] [address] [id number] [place] [address]- 2848 Aug, [facility] [place] [facility] [address] [id number] [place] [address]- 1730 Aug, [facility] [place] [facility] [address] [id number] [place] [address]- 8423 Aug, [facility] [place] [facility] [address] [id number] [place] 3018 Aug, [facility] [place] [facility] [address] [id number] [place] 0559 Aug, [facility] [place] [facility] [address] [id number] [place] 2275 Aug, [facility] [place] [facility] [address] [id number] [place] [address]- 1047 Aug, [facility] [place] [facility] [address] [id number] [place] [address]- 4208 Jul, [facility] [place] [facility] [address] [id number] [place]- 9449 Jul, [facility] [place] [facility] [address] [id number] [place] [address]- 7120 Jun, [facility] [place] [facility] [address] [id number] [place] [address]- 0621 Jun, [facility] [place] [facility] [address] [id number] [place] [address]- 0478 Jun, [facility] [place] [facility] [address] [id number] [place] [address]- 8779 Jun, [facility] [place] [facility] [address] [facility] [id number] [place] [address]- 0502 Jun, [facility] [place] [facility] [address] [id number] [place] [address]- 0721 Jun, [facility] [place] [facility] [address] [id number] [address]- 3077 Jun, [facility] [place] [facility] [address] [id number] [place] [address]- 4244 Jun, [facility] [place] [facility] [address] [id number] [place] [address]- 8020 Jun, [facility] [place] [facility] [address] [id number] [place] [address]- 6586 Jun, [facility] [place] [facility] [address] [id number] [place] [address]- 6698 May, 2013 [facility] [place] [facility] [address] [id number] [place] [address]- 3392 May, [facility] [place] [facility] [address] [id number] [place] [address]- 5916 May, [facility] [place] [facility] [address] [id number] [place] [address]- 3297 May, 2013 [facility] [place] [facility] [address] [id number] [place] [address]- 6525 May, [facility] [place] [facility] [address] [id number] [place] [address]- 0279 May, 2013 [facility] [place] [facility] [address] [id number] [place] [address]- 4975 May, [facility] [place] [facility] [address] [id number] [place] [address]- 9981 May, [facility] [place] [facility] [address] [id number] [place] [address]- 7310 May, [facility] [place] [facility] [address] [id number] [place] [address]- 8363 Apr, [facility] [place] [facility] [address] [id number] [place] [address]- 3717 Apr, [facility] [place] [facility] [address] [id number] [place] [address]- 9513 Apr, [facility] [place] [facility] [address] [id number] [place] [address]- 2745 Apr, [facility] [place] [facility] [address] [id number] [place] [address]- 7787 Apr, [facility] [place] [facility] [address] [id number] [place] [address]- 5507 Apr, [facility] [place] [facility] [address] [id number] [place] [address]- 3356 Apr, [facility] [place] [facility] [address] [id number] [place] [address]- 1409 Apr, [facility] [place] [facility] [address] [id number] [id number] Apr, [facility] [place] [facility] [address] [id number] [place] 2881 Apr, [facility] [place] [facility] [address] [id number] [place] [address]- 7113 Mar, [facility] [place] [facility] [address] [id number] [place] [address]- 4090 Mar, [facility] [place] [facility] [address] [id number] [place] [address]- 1778 Mar, [facility] [place] [facility] [address] [id number] [place] [address]- 1516 Mar, [facility] [place] [facility] [address] [id number] [place] [address]- 6300 Mar, [facility] [place] [facility] [address] [id number] [place] [address]- 3621 Mar, [facility] [place] [facility] [address] [id number] [place] [address]- 9753 Mar, [facility] [place] [facility] [address] [id number] [place] [address]- 2258 Mar, [facility] [place] [facility] [address] [id number] [place] [address]- 5912 Mar, [facility] [place] [facility] [address] [id number] [place] [address]- 6849 Mar, [facility] [place] [facility] [address] [id number] [place] [address]- 0638 Mar, [facility] [place] [facility] [address] [id number] [place] 3647 Mar, [facility] [place] [facility] [address] [id number] [place] [address]- 0434 16 Mar, 2013 [facility] [place] [facility] [address] [id number] [place] [address]- 9043 16 Mar, 2013 [facility] [place] [facility] [address] [id number] [place] [address]- 3116 15 Mar, 2014 [facility] [place] [facility] [address] [id number] [place] [address]- 8448 15 Mar, 2013 [facility] [place] [facility] [address] [id number] [place] [address]- 2899 14 Mar, 2013 [facility] [place] [facility] [address] [id number] [place] [address]- 7384 14 Mar, 2014 [facility] [place] [facility] [address] [id number] [place] [address]- 8993 11 Mar, 2014 [facility] [place] [facility] [address] [id number] [place] [address]- 7488 11 Mar, 2014 [facility] [place] [facility] [address] [id number] [place] [address]- 6366 10 Mar, 2014 [facility] [place] [facility] [address] [id number] [place] [address]- 9787 10 Mar, 2014 [facility] [place] [facility] [address] [id number] [place] [address]- 7019 27 Feb, 2014 [facility] [place] [facility] [address] [id number] [place] [address]- 3280 27 Feb, 2014 [facility] [place] [facility] [address] [id number] [place] [address]- 1075 17 Feb, 2014 [facility] [place] [facility] [address] [id number] [place] [address]- 3057 17 Feb, 2014 [facility] [place] [facility] [address] [id number] [place] [address]- 3855 13 Feb, 2014 [facility] [place] [facility] [address] [id number] [place] [address]- 6915 Feb, [facility] [place] [facility] [address] [id number] [place] [address]- 5247 Feb, [facility] [place] [facility] [address] [id number] [place] [address]- 3647 Feb, [facility] [place] [facility] [address] [id number] [place] [address] January, [facility] [place] [facility] [address] [id number] [place] [address] January, [facility] [place] [facility] [address] [id number] [place] [address] January, [facility] [place] [facility] [address] [id number] [place] [address] January, [facility] [place] [facility] [address] [id number] [place] [address] January, [facility] [place] [facility] [address] [id number] [place] [address] January, [facility] [place] [facility] [address] [id number] [place] [address] January, [facility] [place] [facility] [address] [id number] [place] [address] January, [facility] [place] [facility] [address] [id number] [place] [address] January, [facility] [place] [facility] [address] [id number] [place] [address] January, [facility] [place] [facility] [address] [id number] [place] [address] January, [facility] [place] [facility] [address] [id number] [place] [address] Dec, [facility] [place] [facility] [address] [id number] [place] [address] Dec, [facility] [place] [facility] [address] [id number] [place] [address] Dec, [facility] [place] [facility] [address] [id number] [place] [address] 29 Dec, 2013 [facility] [place] [facility] [address] [id number] [place] [address] 28 Dec, 2013 [facility] [place] [facility] [address] [id number] [place] [address] Dec, [facility] [place] [facility] [address] [id number] [place] [address] 24 Dec, 2013 [facility] [place] [facility] [address] [id number] [place] [address] Dec, [facility] [place] [facility] [address] [id number] [place] [address] Dec, [facility] [place] [facility] [address] [id number] [place] [address] Dec, [facility] [place] [facility] [address] [id number] [place] [address] 16 Dec, 2013 [facility] [place] [facility] [address] [id number] [place] [address] 15 Dec, 2013 [facility] [place] [facility] [address] [id number] [place] [address] 15 Dec, 2013 [facility] [place] [facility] [address] [id number] [place] [address] Dec, [facility] [place] [facility] [address] [id number] [place] [address] Dec, [facility] [place] [facility] [address] [id number] [place] [address] Dec, [facility] [place] [facility] [address] [id number] [place] [address] Dec, [facility] [place] [facility] [address] [id number] [place] [address] Nov, [facility] [place] [facility] [address] [id number] [place] [address] Nov, [facility] [place] [facility] [address] [id number] [place] [address] Nov, [facility] [place] [facility] [address] [id number] [place] [address] Nov, [facility] [place] [facility] [address] [id number] [place] [address] Nov, [facility] [place] [facility] [address] [address] [id number] [place] [address] Nov, [facility] [place] [facility] [address] [id number] [place] [address] 9871 Nov, [facility] [place] [facility] [address] [facility] [id number] [place] [address] 6397 Nov, [facility] [place] [facility] [address] [id number] [place] [address] 7593 Oct, [facility] [place] [facility] [address] [id number] [place] [address] 3231 Oct, [facility] [place] [facility] [address] [id number] [place] [address]- 3199 Oct, [facility] [place] [facility] [address] [id number] [place] [address]- 8427 Oct, [facility] [place] [facility] [address] [id number] [place] [address]- 3734 Oct, [facility] [place] [facility] [address] [id number] [place] [address]- 1555 Oct, [facility] [place] [facility] [address] [id number] [place] [address] Sep, [facility] [place] [facility] [address] [id number] [place] [address] Sep, [facility] [place] [facility] [address] [id number] [place] [address] Sep, [facility] [address] [id number] [place] [address]- 3080 Sep, [facility] [place] [facility] [address] [id number] [place] [address]- 4862 Sep, [facility] [place] [facility] [address] [id number] [place] [address]- 4206 Sep, [facility] [place] [facility] [address] [id number] [place] [address]- 5539 Sep, [facility] [place] [facility] [address] [id number] [place] [address]- 5397 Sep, [facility] [place] [facility] [address] [id number] [place] [address]- 1554 Sep, [facility] [place] [facility] [address] [id number] [place] [address]- 3180 Sep, [facility] [place] [facility] [address] [id number] [place] [address]- 2194 Sep, [facility] [place] [facility] [address] [id number] [place] [address] 3398 Sep, [facility] [place] [facility] [address] [id number] [place] [address]- 2507 Aug, [facility] [place] [facility] [address] [id number] [place] [address] 3439 Aug, [facility] [place] [facility] [address] [id number] [place] [address] 8026 Aug, [facility] [place] [facility] [address] [id number] [place] [address]- 7916 Aug, [facility] [place] [facility] [address] [id number] [place] [address] Aug, [facility] [place] [facility] [address] [id number] [place] [address] Aug, [facility] [place] [facility] [address] [id number] [place] [address]- 4742 Aug, 2012 [facility] [place] [facility] [address] [id number] [place] [address]- 1715 Aug, [facility] [place] [facility] [address] [id number] [place] [address]- 4647 Aug, [facility] [place] [facility] [address] [id number] [place] [address]- 5584 Aug, [facility] [place] [facility] [address] [id number] [place] [address]- 4120 Jul, [facility] [place] [facility] [address] [id number] [place] [address]- 1504 Jul, [facility] [place] [facility] [address] [id number] [place] [address]- 0146 Jul, [facility] [place] [facility] [address] [id number] [place] [address]- 6295 Jul, [facility] [place] [facility] [address] [id number] [place] [address]- 3218 Jul, [facility] [place] [facility] [address] [id number] [place] [address]- 6705 Jun, [facility] [place] [facility] [address] [id number] [place] [address]- 3491 Jun, [facility] [place] [facility] [address] [id number] [place] [address]- 4653 Jun, [facility] [place] [facility] [address] [id number] [place] [address]- 7855 Jun, [facility] [place] [facility] [address] [id number] [place] [address]- 9167 Jun, [facility] [place] [facility] [address] [id number] [place] [address]- 5782 Jun, [facility] [place] [facility] [address] [id number] [place] [address]- 5241 Jun, [facility] [place] [facility] [address] [id number] [place] [address]- 1772 16 Jun, 2012 [facility] [place] [facility] [address] [id number] [place] [address]- 4748 16 Jun, 2012 [facility] [place] [facility] [address] [id number] [place] [address]- 0694 10 Jun, 2012 [facility] [place] [facility] [address] [id number] [place] [address]- 7610 10 Jun, 2012 [facility] [place] [facility] [address] [id number] [place] [address]- 5332 10 Jun, 2012 [facility] [place] [facility] [address] [id number] [place] [address]- 5666 10 Jun, 2012 [facility] [place] [facility] [address] [id number] [place] [address]- 9097 10 Jun, 2013 [facility] [place] [facility] [address] [id number] [place] [address]- 8554 10 Jun, 2013 [facility] [place] [facility] [address] [id number] [place] [address]- 8999 Jun, [facility] [place] [facility] [address] [id number] [place] [address]- 3426 Jun, [facility] [place] [facility] [address] [id number] [place] [address]- 1930 30 May, 2012 [facility] [place] [facility] [address] [id number] [place] [address] 3493 18 May, 2012 [facility] [place] [facility] [address] [id number] [place] [address]- 2863 10 May, 2012 [facility] [place] [facility] [address] [id number] [place] [address]- 8342 03 May, 2012 [facility] [place] [facility] [address] [id number] [place] [address]- 4941 19 Apr, 2013 [facility] [place] [facility] [address] [id number] [place] [address]- 5292 Apr, [facility] [address] [id number] [place] [address]- 4290 Apr, [facility] [address] [id number] [place] [address]- 0262 Mar, [facility] [address] [id number] [place] [address]- 4103 Mar, [facility] [address] [id number] [place] [address]- 7291 Feb, [facility] [address] [id number] [place] [address]- 7106 Feb, [facility] [address] [id number] [place] [address]- 2381 Feb, [facility] [address] [id number] [place] [address]- 7650 January, [facility] [address] [id number] [place] [address]- 6620 January, [facility] [address] [id number] [place] [address]- 2127 January, [facility] [address] [id number] [place] [address]- 7874 January, [facility] [address] [id number] [place] [address]- 8416 Dec, [facility] [address] [id number] [place] [address]- 7551 Dec, [facility] [place] [facility] [address] [id number] [place] [address]- 3159 Dec, [facility] [place] [facility] [address] [id number] [place] [address]- 1899 Dec, [facility] [address] [id number] [place] [address]- 7583 Dec, [facility] [address] [id number] [place] [address]- 4053 Nov, [facility] [address] [id number] [place] [address]- 7029 Oct, [facility] [place] [facility] [address] [id number] [place] [address]- 9780 Oct, [facility] [place] [facility] [address] [id number] [place] [address]- 0376 Oct, [facility] [place] [facility] [address] [id number] [place] [address]- 8351 Oct, [facility] [place] [facility] [address] [id number] [place] [address]- 9585 Oct, [facility] [address] [id number] [place] [address]- 1342 Sep, [facility] [address] [id number] [place] [address]- 8438 Sep, [facility] [place] [facility] [address] [id number] [place] [address]- 5533 Sep, [facility] [address] [id number] [place] [address]- 9058 Sep, [facility] [address] [id number] [place] [address]- 0766 Sep, [facility] [address] [id number] [place] [address]- 3556 Sep, [facility] [place] [facility] [address] [id number] [place] [address]- 5179 Sep, [facility] [place] [facility] [address] [id number] [place] [address]- 5152 Aug, [facility] [place] [facility] [address] [id number] [place] [address] Aug, [facility] [place] [facility] [address] [id number] [place] [address]- 3150 Aug, [facility] [place] [facility] [address] [id number] [place] [address]- 5606 Aug, [facility] [place] [facility] [address] [id number] [place] [address]- 3886 Aug, [facility] [place] [facility] [address] [id number] [place] [address]- 1776 Aug, [facility] [place] [facility] [address] [id number] [place] [address]- 2235 Aug, [facility] [place] [facility] [address] [id number] [place] [address]- 7280 Aug, [facility] [place] [facility] [address] [id number] [place] [address]- 2962 Aug, [facility] [place] [facility] [address] [id number] [place] [address]- 2472 Jul, [facility] [place] [facility] [address] [id number] [place] [address]- 6649 Jul, [facility] [place] [facility] [address] [id number] [place] [address]- 0583 Jul, [facility] [place] [facility] [address] [id number] [place] [address]- 1857 Jul, [facility] [place] [facility] [address] [id number] [place] [address]- 2179 Jul, [facility] [place] [facility] [address] [id number] [place] [address]- 7365 Jul, [facility] [place] [facility] [address] [id number] [place] [address]- 7859 Jul, [facility] [place] [facility] [address] [id number] [place] [address]- 8777 Jul, [facility] [place] [facility] [address] [facility] [id number] [place] [address]- 1696 Jul, [facility] [place] [facility] [address] [id number] [place] [address]- 4230 Jun, [facility] [place] [facility] [address] [id number] [place] [address]- 4665 Jun, [facility] [place] [facility] [address] [id number] [place] [address]- 3676 Jun, [facility] [place] [facility] [address] [id number] [place] [address]- 1996 Jun, [facility] [place] [facility] [address] [id number] [place] [address]- 8431 Jun, [facility] [place] [facility] [address] [id number] [place] [address]- 6225 Jun, [facility] [place] [facility] [address] [id number] [place] [address]- 9014 Jun, [facility] [place] [facility] [address] [id number] [place] [address]- 7728 Jun, [facility] [place] [facility] [address] [id number] [place] [address]- 2427 May, [facility] [place] [facility] [address] [id number] [place] [address]- 7581 May, [facility] [place] [facility] [address] [id number] [place] [address]- 0898 Apr, [facility] [place] [facility] [address] [id number] [place] [address]- 3292 Apr, [facility] [place] [facility] [address] [id number] [place] [address]- 2428 Mar, [facility] [place] [facility] [address] [id number] [place] [address]- 3756 Mar, [facility] [place] [facility] [address] [id number] [place] [address]- 2546 Mar, [facility] [place] [facility] [address] [id number] [place] [address]- 1891 Feb, [facility] [place] [facility] [address] [id number] [place] [address]- 5326 Feb, [facility] [place] [facility] [address] [id number] [place] [address]- 5384 Feb, [facility] [place] [facility] [address] [id number] [place] [address]- 8611 Feb, [facility] [place] [facility] [address] [id number] [place] [address]- 1027 January, [facility] [place] [facility] [address] [id number] [place] [address]- 0228 January, [facility] [place] [facility] [address] [id number] [place] [address]- 7117 January, [facility] [place] [facility] [address] [id number] [place] [address]- 2828 Dec, [facility] [place] [facility] [address] [id number] [place] [address]- 9002 Dec, [facility] [place] [facility] [address] [id number] [place] [address]- 4277 Dec, [facility] [place] [facility] [address] [id number] [place] [address]- 3736 Dec, [facility] [place] [facility] [address] [id number] [place] [address]- 3638 Nov, [facility] [place] [facility] [address] [id number] [place] [address]- 5850 Nov, [facility] [place] [facility] [address] [id number] [place] [address]- 5229 Nov, [facility] [place] [facility] [address] [id number] [place] [address]- 1008 16 Nov, 2011 [facility] [place] [facility] [address] [id number] [place] [address]- 8896 Oct, [facility] [place] [facility] [address] [id number] [place] [address]- 8686 23 Oct, 2011 [facility] [address] [id number] [place] [address] 2546 16 Oct, 2011 [facility] [place] [facility] [address] [id number] [place] [address] 2546 15 Oct, 2011 [facility] [address] [id number] [place] [address] 2546 09 Oct, 2011 [facility] [place] [facility] [address] [id number] [place] [address] 2546 07 Oct, 2011 [facility] [address] [id number] [place] [address]- 8696 02 Oct, 2011 [facility] [address] [id number] [place] [address] 2546 31 Sep, 2011 [facility] [address] [id number] [place] [address] 2546 Sep, [facility] [address] [id number] [place] [address] 2541 Sep, [facility] [place] [facility] [address] [id number] [place] [address]- 0226 Sep, [facility] [address] [id number] [place] [address]- 2895 Sep, [facility] [place] [facility] [address] [id number] [place] [address] 2546 Sep, [facility] [address] [id number] [place] [address] 2546 Sep, [facility] [place] [facility] [address] [id number] [place] [address] 2546 Sep, [facility] [place] [facility] [address] [id number] [place] [address]- 2546 Sep, [facility] [place] [facility] [address] [id number] [place] [address]- 6391 Sep, [facility] [place] [facility] [address] [id number] [place] [address]- 3127 10 Sep, 2011 [facility] [place] [facility] [address] [id number] [place] [address]- 3168 Aug, [facility] [place] [facility] [address] [id number] [place] [address]- 3364 Aug, [facility] [place] [facility] [address] [id number] [place] [address]- 5039 Aug, [facility] [place] [facility] [address] [id number] [place] [address]- 2513 Aug, [facility] [place] [facility] [address] [id number] [place] [address]- 7779 Jul, [facility] [place] [facility] [address] [id number] [place] [address]- 7970 Jul, [facility] [place] [facility] [address] [id number] [place] [address]- 4560 16 Jul, 2011 [facility] [place] [facility] [address] [id number] [place] [address]- 4313 Jul, [facility] [place] [facility] [address] [id number] [place] [address]- 6634 Jul, [facility] [place] [facility] [address] [id number] [place] [address]- 4317 Jul, [facility] [place] [facility] [address] [id number] [place] [address]- 5921 Jun, [facility] [place] [facility] [address] [id number] [place] [address]- 5480 18 Jun, 2011 [facility] [place] [facility] [address] [id number] [place] [address]- 0860 10 Jun, 2011 [facility] [place] [facility] [address] [id number] [place] 4137 16 Feb, 2011 [facility] [place] [facility] [address] [id number] [place] [address]- 0961 28 Aug, 2010 [facility] [address] [id number] [place] [address]- 7830 Aug, [facility] [place] [facility] [address] [id number] [place] [address]806 Aug, [facility] [address] [id number] [place] [address]- 2946 Jul, [facility] [place] [facility] [address] [id number] [place] [address]- 9321 Jul, [facility] [address] [id number] [place] [address]- 0839 Jul, [facility] [address] [id number] [place] [address]- 9216 Jul, [facility] [address] [id number] [place] [address]- 2786 Jul, [facility] [address] [id number] [place] [address]- 8717 Jul, [facility] [address] [id number] [place] [address]- 0140 Jun, [facility] [address] [id number] [place] [address]- 7344 Mar, [facility] [address] [id number] [place] [address]- 3343 January, [facility] [place] [facility] [address] [id number] [place] [address]- 5601 Nov, [facility] [place] [facility] [address] [id number] [place] [address]- 5972 Oct, [facility] [place] [facility] [address] [id number] [place] [address]- 2870 Sep, [facility] [place] [facility] [address] [id number] [place] [address]- 6022 Aug, [facility] [place] [facility] [address] [id number] [place] [address]- 9863 30 Aug, 2009 [facility] [place] [facility] [address] [id number] [place] [address]- 4756 Aug, [facility] [place] [facility] [address] [id number] [place] [address] 2546 16 Aug, 2009 [facility] [place] [facility] [address] [id number] [place] [address]- 8556 16 Aug, 2009 [facility] [place] [facility] [address] [id number] [place] [address] 2546 Aug, [facility] [place] [facility] [address] [id number] [place] [address]- 1216 Aug, [facility] [address] [facility] [id number] [place] [address]17 Aug, [facility] [place] [facility] [address] [id number] [place] [address]- 9191 Aug, [facility] [place] [facility] [address] [id number] [place] [address]- 6391 Jul, [facility] [place] [facility] [address] [id number] [place] [address]- 6947 28 Jun, 2009 [facility] [place] [facility] [address] [id number] [place] [address]- 6751 21 Jun, 2009 [facility] [place] [facility] [address] [id number] [place] [address]- 9025 16 Jun, 2009 [facility] [place] [facility] [address] [id number] [place] [address]- 7026 13 Jun, 2009 [facility] [place] [facility] [address] [id number] [place] [address] 2546 Jun, [facility] [place] [facility] [address] [id number] [place] [address] 11 May, 2009 [facility] [place] [facility] [address] [id number] [place] [address] January, IMMUNIZATIONS No Known Immunizations SOCIAL HISTORY Never Assessed REASON FOR VISIT Controlled Med Refill PLAN OF CARE VITAL SIGNS MEDICATIONS Medication Instructions Dosage Frequency Start Date End Date Duration Status Oxycodone HCl 10 mg Orally 3 times a day 1 tablet as needed 8h Mar, Active Xanax 1 MG Orally Three times a day as needed 1 tablet Nov, Active Fentanyl 100 MCG/HR Transdermal every 72 hours 1 patch to skin Mar, Active RESULTS No Results PROCEDURES No Known [...]
--- OUTSIDE RECORDS SUMMARY | 2018-01-29 18:45 | XMS REPORT ---
Author Author HILARY BESS Organization [facility] Address [address] [place] [address] Care Team Providers Care Sheet Catcher Name Role Phone BESS RICHARD Unavailable PROBLEMS Type Condition ICD9-CM Code PWG05-II Code Onset Dates Condition Status SNOMED Code Problem Chronic prescription opiate use Z79.899 Active 369134102 Problem Leukocytosis, unspecified type D72.829 Active 733798261 Problem Peripheral edema R60.9 Active 935245227 Problem Elevated lymphocyte count D72.820 Active 13727810 Problem Abnormal stress test R94.39 Active 029480667 Problem Type 2 diabetes mellitus with hyperglycemia, without long-term current use of insulin E11.65 Active 63722370 Problem Allergic rhinitis, unspecified allergic rhinitis type J30.9 Active 67412557 Problem Major depressive disorder, recurrent episode, unspecified severity F33.9 Active 36814201 Problem Stress incontinence N39.3 Active 11716202 Problem Low HDL (under 40) E78.6 Active 093937486 Problem Drug-induced constipation K59.03 Active 64347666 Problem Postmenopausal bleeding N95.0 Active 43776360 Problem Nocturnal hypoxia G47.34 Active 239127509 Problem Obstructive sleep apnea G47.33 Active 16068633 Problem Chronic obstructive pulmonary disease, unspecified COPD type J44.9 Active 89216227 Problem Uncomplicated asthma, unspecified asthma severity J45.909 Active 409844607 Problem Generalized anxiety disorder F41.1 Active 367447897 Problem Rheumatoid arthritis involving multiple sites, unspecified rheumatoid factor presence M06.9 Active 844652207 Problem Palpitations R00.2 Active 30215931 Problem Bilateral carotid artery stenosis I65.23 Active 02340603 Problem Chronic pain syndrome G89.4 Active 658902228 Problem 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, assisted, 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 Active [id number] ALLERGIES Unknown Allergies SOCIAL HISTORY No smoking Hx information available PLAN OF CARE VITAL SIGNS MEDICATIONS Medication Instructions Dosage Frequency Start Date End Date Duration Status Xanax 1 MG Orally Three times a day as needed 1 tablet Nov, Active Oxycodone HCl 10 MG Orally 3 times a day 1 tablet as needed 8h Aug, Active Fentanyl 100 MCG/HR Transdermal every 72 hours 1 patch to skin Aug, Active RESULTS No Results PROCEDURES No Known procedures IMMUNIZATIONS No Known Immunizations
--- OUTSIDE RECORDS SUMMARY | 2018-01-29 18:48 | XMS REPORT | Continuity of Care Document ---
Author Author [facility] Address Unknown Phone Unavailable Allergies Active Description Code Type Severity Reaction Onset Reported/Identified Relationship to Patient Clinical Status Yes amitriptyline Drug Allergy 09/15/2011 Yes amitriptyline Drug Allergy N/ A N/A 09/15/2011 Yes 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 2.5 mg tablet Drug Allergy 04/09/2012 Yes Adhesive Bandage [id number] Drug Allergy Unknown N/A 03/12/2014 Medications There is no data. 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 06/12/2008 [facility] 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 06/12/2008 RAFA FERNÁNDEZ MD 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 06/12/2008 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 06/12/2008 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 06/12/2008 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 06/12/2008 RAFA FERNÁNDEZ MD 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 06/12/2008 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 06/12/2008 RAFA FERNÁNDEZ MD 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 06/12/2008 RAFA FERNÁNDEZ MD 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 06/12/2008 RAFA FERNÁNDEZ MD 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 06/12/2008 JOELLEN BUTT DO K 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 06/12/2008 [facility] 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 06/12/2008 BESS RICHARD MD N 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 06/12/2008 [facility] 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 06/12/2008 BESS RICHARD MD N 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 06/12/2008 BESS RICHARD MD N 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 06/12/2008 BESS RICHARD MD N 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 06/12/2008 BESS RICHARD MD N 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 06/12/2008 BESS RICHARD MD N 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 10/29/2008 RADHA GAXIOLA MD 848.9 UNSPECIFIED MUSCLE STRAIN 10/29/2008 RAFA FERNÁNDEZ MD 848.9 UNSPECIFIED MUSCLE STRAIN 10/29/2008 [facility] 848.9 UNSPECIFIED MUSCLE STRAIN 10/29/2008 848.9 UNSPECIFIED MUSCLE STRAIN 10/29/2008 RADHA GAXIOLA MD 848.9 UNSPECIFIED MUSCLE STRAIN 10/29/2008 [facility] 848.9 UNSPECIFIED MUSCLE STRAIN 10/29/2008 RAFA FERNÁNDEZ MD 848.9 UNSPECIFIED MUSCLE STRAIN 10/29/2008 848.9 UNSPECIFIED MUSCLE STRAIN 10/29/2008 848.9 UNSPECIFIED MUSCLE STRAIN 10/29/2008 848.9 UNSPECIFIED MUSCLE STRAIN 10/29/2008 RAFA FERNÁNDEZ MD 848.9 UNSPECIFIED MUSCLE STRAIN 10/29/2008 [facility] 848.9 UNSPECIFIED MUSCLE STRAIN 10/29/2008 RAFA FERNÁNDEZ MD 848.9 UNSPECIFIED MUSCLE STRAIN 10/29/2008 RAFA FERNÁNDEZ MD 848.9 UNSPECIFIED MUSCLE STRAIN 10/29/2008 RAFA FERNÁNDEZ MD 848.9 UNSPECIFIED MUSCLE STRAIN 10/29/2008 JOELLEN BUTT DO 848.9 UNSPECIFIED MUSCLE STRAIN 10/29/2008 [facility] 848.9 UNSPECIFIED MUSCLE STRAIN 10/29/2008 HILARY WONG, BESS N 848.9 UNSPECIFIED MUSCLE STRAIN 10/29/2008 [facility] 848.9 UNSPECIFIED MUSCLE STRAIN 10/29/2008 BESS RICHARD MD N 848.9 UNSPECIFIED MUSCLE STRAIN 10/29/2008 BESS RICHARD MD N 848.9 UNSPECIFIED MUSCLE STRAIN 10/29/2008 BESS RICHARD MD N 848.9 UNSPECIFIED MUSCLE STRAIN 10/29/2008 BESS RICHARD MD N 848.9 UNSPECIFIED MUSCLE STRAIN 10/29/2008 BESS RICHARD MD N 848.9 UNSPECIFIED MUSCLE STRAIN 12/14/2008 RADHA GAXIOLA MD 465.9 UPPER RESPIRATORY INFECTION 12/14/2008 RAFA FERNÁNDEZ MD 465.9 UPPER RESPIRATORY INFECTION 12/14/2008 [facility] 465.9 UPPER RESPIRATORY INFECTION 12/14/2008 465.9 UPPER RESPIRATORY INFECTION 12/14/2008 RADHA GAXIOLA MD 465.9 UPPER RESPIRATORY INFECTION 12/14/2008 [facility] 465.9 UPPER RESPIRATORY INFECTION 12/14/2008 RAFA FERNÁNDEZ MD 465.9 UPPER RESPIRATORY INFECTION 12/14/2008 465.9 UPPER RESPIRATORY INFECTION 12/14/2008 465.9 UPPER RESPIRATORY INFECTION 12/14/2008 465.9 UPPER RESPIRATORY INFECTION 12/14/2008 RAFA FERNÁNDEZ MD 465.9 UPPER RESPIRATORY INFECTION 12/14/2008 [facility] 465.9 UPPER RESPIRATORY INFECTION 12/14/2008 RAFA FERNÁNDEZ MD 465.9 UPPER RESPIRATORY INFECTION 12/14/2008 RAFA FERNÁNDEZ MD 465.9 UPPER RESPIRATORY INFECTION 12/14/2008 RAFA FERNÁNDEZ MD 465.9 UPPER RESPIRATORY INFECTION 12/14/2008 BUTT DO, JOELLEN K 465.9 UPPER RESPIRATORY INFECTION 12/14/2008 [facility] 465.9 UPPER RESPIRATORY INFECTION 12/14/2008 HILARY WONG, BESS N 465.9 UPPER RESPIRATORY INFECTION 12/14/2008 [facility] 465.9 UPPER RESPIRATORY INFECTION 12/14/2008 HILARY WONG, BESS N 465.9 UPPER RESPIRATORY INFECTION 12/14/2008 HILARY WONG, BESS N 465.9 UPPER RESPIRATORY INFECTION 12/14/2008 HILARY WONG, BESS N 465.9 UPPER RESPIRATORY INFECTION 12/14/2008 HILARY WONG, BESS N 465.9 UPPER RESPIRATORY INFECTION 12/14/2008 HILARY WONG, BESS N 465.9 UPPER RESPIRATORY INFECTION 02/02/2009 RADHA GAXIOLA MD 493.90 ASTHMA 02/02/2009 RADHA GAXIOLA MD 496 CHRONIC OBSTRUCTIVE PULMONARY DISEASE 02/02/2009 RAHDA GAXIOLA MD 785.1 palpitations 02/02/2009 RAFA FERNÁNDEZ MD 493.90 ASTHMA 02/02/2009 RAFA FERNÁNDEZ MD 496 CHRONIC OBSTRUCTIVE PULMONARY DISEASE 02/02/2009 RAFA FERNÁNDEZ MD 785.1 palpitations 02/02/2009 [facility] 493.90 ASTHMA 02/02/2009 [facility] 496 CHRONIC OBSTRUCTIVE PULMONARY DISEASE 02/02/2009 [facility] 785.1 palpitations 02/02/2009 493.90 ASTHMA 02/02/2009 496 CHRONIC OBSTRUCTIVE PULMONARY DISEASE 02/02/2009 785.1 palpitations 02/02/2009 RADHA GAXIOLA MD 493.90 ASTHMA 02/02/2009 RADHA GAXIOLA MD 496 CHRONIC OBSTRUCTIVE PULMONARY DISEASE 02/02/2009 RADHA GAXIOLA MD 785.1 palpitations 02/02/2009 [facility] 493.90 ASTHMA 02/02/2009 [facility] 496 CHRONIC OBSTRUCTIVE PULMONARY DISEASE 02/02/2009 [facility] 785.1 palpitations 02/02/2009 RAFA FERNÁNDEZ MD 493.90 ASTHMA 02/02/2009 RAFA FERNÁNDEZ MD 496 CHRONIC OBSTRUCTIVE PULMONARY DISEASE 02/02/2009 RAFA FERNÁNDEZ MD 785.1 palpitations 02/02/2009 493.90 ASTHMA 02/02/2009 496 CHRONIC OBSTRUCTIVE PULMONARY DISEASE 02/02/2009 785.1 palpitations 02/02/2009 493.90 ASTHMA 02/02/2009 496 CHRONIC OBSTRUCTIVE PULMONARY DISEASE 02/02/2009 785.1 palpitations 02/02/2009 493.90 ASTHMA 02/02/2009 496 CHRONIC OBSTRUCTIVE PULMONARY DISEASE 02/02/2009 785.1 palpitations 02/02/2009 RAFA FERNÁNDEZ MD 493.90 ASTHMA 02/02/2009 RAFA FERNÁNDEZ MD 496 CHRONIC OBSTRUCTIVE PULMONARY DISEASE 02/02/2009 RAFA FERNÁNDEZ MD 785.1 palpitations 02/02/2009 [facility] 493.90 ASTHMA 02/02/2009 [facility] 496 CHRONIC OBSTRUCTIVE PULMONARY DISEASE 02/02/2009 [facility] 785.1 palpitations 02/02/2009 RAFA FERNÁNDEZ MD 493.90 ASTHMA 02/02/2009 RAFA FERNÁNDEZ MD 496 CHRONIC OBSTRUCTIVE PULMONARY DISEASE 02/02/2009 RAFA FERNÁNDEZ MD 785.1 palpitations 02/02/2009 RAFA FERNÁNDEZ MD 493.90 ASTHMA 02/02/2009 RAFA FERNÁNDEZ MD 496 CHRONIC OBSTRUCTIVE PULMONARY DISEASE 02/02/2009 RAFA FERNÁNDEZ MD 785.1 palpitations 02/02/2009 RAFA FERNÁNDEZ MD 493.90 ASTHMA 02/02/2009 RAFA FERNÁNDEZ MD 496 CHRONIC OBSTRUCTIVE PULMONARY DISEASE 02/02/2009 RAFA FERNÁNDEZ MD 785.1 palpitations 02/02/2009 BUTT DOMARCELAA K 493.90 ASTHMA 02/02/2009 BUTT DO JOELLEN K 496 CHRONIC OBSTRUCTIVE PULMONARY DISEASE 02/02/2009 BUTT DOMARCELAA K 785.1 palpitations 02/02/2009 [facility] 493.90 ASTHMA 02/02/2009 [facility] 496 CHRONIC OBSTRUCTIVE PULMONARY DISEASE 02/02/2009 [facility] 785.1 palpitations 02/02/2009 BESS RICHARD MD N 493.90 ASTHMA 02/02/2009 BESS RICHARD MD N 496 CHRONIC OBSTRUCTIVE PULMONARY DISEASE 02/02/2009 BESS RICHARD MD N 785.1 palpitations 02/02/2009 [facility] 493.90 ASTHMA 02/02/2009 [facility] 496 CHRONIC OBSTRUCTIVE PULMONARY DISEASE 02/02/2009 [facility] 785.1 palpitations 02/02/2009 BESS RICHARD MD N 493.90 ASTHMA 02/02/2009 BESS RICHARD MD N 496 CHRONIC OBSTRUCTIVE PULMONARY DISEASE 02/02/2009 BESS RICHARD MD N 785.1 palpitations 02/02/2009 BESS RICHARD MD N 493.90 ASTHMA 02/02/2009 BESS RICHARD MD N 496 CHRONIC OBSTRUCTIVE PULMONARY DISEASE 02/02/2009 BESS RICHARD MD N 785.1 palpitations 02/02/2009 BESS RICHARD MD N 493.90 ASTHMA 02/02/2009 BESS RICHARD MD N 496 CHRONIC OBSTRUCTIVE PULMONARY DISEASE 02/02/2009 BESS RICHARD MD N 785.1 PALPITATIONS 02/02/2009 BESS RICHARD MD N 493.90 ASTHMA 02/02/2009 BESS RICHARD MD N 496 CHRONIC OBSTRUCTIVE PULMONARY DISEASE 02/02/2009 BESS RICHARD MD N 785.1 PALPITATIONS 02/02/2009 BESS RICHARD MD N 493.90 ASTHMA 02/02/2009 BESS RICHARD MD N 496 CHRONIC OBSTRUCTIVE PULMONARY DISEASE 02/02/2009 BESS RICHARD MD N 785.1 PALPITATIONS 06/04/2009 RADHA GAXIOLA MD 278.01 OBESITY MORBID 06/04/2009 RADHA GAXIOLA MD 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 06/04/2009 RADHA GAXIOLA MD 780.4 dizziness 06/04/2009 RADHA GAXIOLA MD 781.2 DISTURBANCE OF GAIT 06/04/2009 RAFA FERNÁNDEZ MD 278.01 OBESITY MORBID 06/04/2009 RAFA FERNÁNDEZ MD 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 06/04/2009 RAFA FERNÁNDEZ MD 780.4 dizziness 06/04/2009 RAFA FERNÁNDEZ MD 781.2 DISTURBANCE OF GAIT 06/04/2009 [facility] 278.01 OBESITY MORBID 06/04/2009 [facility] 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 06/04/2009 [facility] R 780.4 dizziness 06/04/2009 [facility] 781.2 DISTURBANCE OF GAIT 06/04/2009 278.01 OBESITY MORBID 06/04/2009 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 06/04/2009 780.4 dizziness 06/04/2009 781.2 DISTURBANCE OF GAIT 06/04/2009 RADHA GAXIOLA MD 278.01 OBESITY MORBID 06/04/2009 RADHA GAXIOLA MD 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 06/04/2009 RADHA GAXIOLA MD 780.4 dizziness 06/04/2009 RADHA GAXIOLA MD 781.2 DISTURBANCE OF GAIT 06/04/2009 [facility] 278.01 OBESITY MORBID 06/04/2009 [facility] 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 06/04/2009 [facility] 780.4 dizziness 06/04/2009 [facility] 781.2 DISTURBANCE OF GAIT 06/04/2009 RAFA FERNÁNDEZ MD 278.01 OBESITY MORBID 06/04/2009 RAFA FERNÁNDEZ MD 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 06/04/2009 RAFA FERNÁNDEZ MD 780.4 dizziness 06/04/2009 RAFA FERNÁNDEZ MD 781.2 DISTURBANCE OF GAIT 06/04/2009 278.01 OBESITY MORBID 06/04/2009 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 06/04/2009 780.4 dizziness 06/04/2009 781.2 DISTURBANCE OF GAIT 06/04/2009 278.01 OBESITY MORBID 06/04/2009 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 06/04/2009 780.4 dizziness 06/04/2009 781.2 DISTURBANCE OF GAIT 06/04/2009 278.01 OBESITY MORBID 06/04/2009 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 06/04/2009 780.4 dizziness 06/04/2009 781.2 DISTURBANCE OF GAIT 06/04/2009 RAFA FERNÁNDEZ MD 278.01 OBESITY MORBID 06/04/2009 RAFA FERNÁNDEZ MD 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 06/04/2009 RAFA FERNÁNDEZ MD 780.4 dizziness 06/04/2009 RAFA FERNÁNDEZ MD 781.2 DISTURBANCE OF GAIT 06/04/2009 [facility] 278.01 OBESITY MORBID 06/04/2009 [facility] 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 06/04/2009 [facility] 780.4 dizziness 06/04/2009 [facility] 781.2 DISTURBANCE OF GAIT 06/04/2009 RAFA FERNÁNDEZ MD 278.01 OBESITY MORBID 06/04/2009 RAFA FERNÁNDEZ MD 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 06/04/2009 RAFA FERNÁNDEZ MD 780.4 dizziness 06/04/2009 RAFA FERNÁNDEZ MD 781.2 DISTURBANCE OF GAIT 06/04/2009 RAFA FERNÁNDEZ MD 278.01 OBESITY MORBID 06/04/2009 RAFA FERNÁNDEZ MD 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 06/04/2009 RAFA FERNÁNDEZ MD 780.4 dizziness 06/04/2009 RAFA FERNÁNDEZ MD 781.2 DISTURBANCE OF GAIT 06/04/2009 RAFA FERNÁNDEZ MD 278.01 OBESITY MORBID 06/04/2009 RAFA FERNÁNDEZ MD 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 06/04/2009 RAFA FERNÁNDEZ MD 780.4 dizziness 06/04/2009 RAFA FERNÁNDEZ MD 781.2 DISTURBANCE OF GAIT 06/04/2009 BUTT DO, JOELLEN K 278.01 OBESITY MORBID 06/04/2009 BUTT DO, JOELLEN K 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 06/04/2009 BUTT DO, JOELLEN K 780.4 dizziness 06/04/2009 BUTT DO, JOELLEN K 781.2 DISTURBANCE OF GAIT 06/04/2009 [facility] 278.01 OBESITY MORBID 06/04/2009 [facility] 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 06/04/2009 [facility] 780.4 dizziness 06/04/2009 [facility] 781.2 DISTURBANCE OF GAIT 06/04/2009 BESS RICHARD MD N 278.01 OBESITY MORBID 06/04/2009 BESS RICHARD MD N 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 06/04/2009 BESS RICHARD MD N 780.4 dizziness 06/04/2009 BESS RICHARD MD N 781.2 DISTURBANCE OF GAIT 06/04/2009 [facility] 278.01 OBESITY MORBID 06/04/2009 [facility] 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 06/04/2009 [facility] 780.4 dizziness 06/04/2009 [facility] 781.2 DISTURBANCE OF GAIT 06/04/2009 BESS RICHARD MD N 278.01 OBESITY MORBID 06/04/2009 BESS RICHARD MD N 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 06/04/2009 BESS RICHARD MD N 780.4 dizziness 06/04/2009 BESS RICHARD MD N 781.2 DISTURBANCE OF GAIT 06/04/2009 BESS RICHARD MD N 278.01 OBESITY MORBID 06/04/2009 BESS RICHARD MD N 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 06/04/2009 BESS RICHARD MD N 780.4 dizziness 06/04/2009 BESS RICHARD MD N 781.2 DISTURBANCE OF GAIT 06/04/2009 BESS RICHARD MD N 278.01 OBESITY MORBID 06/04/2009 BESS RICHARD MD N 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 06/04/2009 BESS RICHARD MD N 780.4 DIZZINESS 06/04/2009 BESS RICHARD MD N 781.2 DISTURBANCE OF GAIT 06/04/2009 BESS RICHARD MD N 278.01 OBESITY MORBID 06/04/2009 BESS RICHARD MD N 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 06/04/2009 BESS RICHARD MD N 780.4 DIZZINESS 06/04/2009 BESS RICHARD MD N 781.2 DISTURBANCE OF GAIT 06/04/2009 HILARY MD, BESS N 278.01 OBESITY MORBID 06/04/2009 HILARY WONG, BESS N 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 06/04/2009 HILARY WONG, BESS N 780.4 DIZZINESS 06/04/2009 BESS RICHARD MD N 781.2 DISTURBANCE OF GAIT 06/24/2009 RADHA GAXIOLA MD 724.5 BACKACHE 06/24/2009 RADHA GAXIOLA MD 782.3 soft tissue swelling (non-joint) [Sx] 06/24/2009 RADHA GAXIOLA MD 786.05 Shortness Of Breath 06/24/2009 RADHA GAXIOLA MD V04.81 Vaccines Prophylactic Need Against Influenza 06/24/2009 RAFA FERNÁNDEZ MD 724.5 BACKACHE 06/24/2009 RAFA FERNÁNDEZ MD 782.3 soft tissue swelling (non-joint) [Sx] 06/24/2009 RAFA FERNÁNDEZ MD 786.05 Shortness Of Breath 06/24/2009 RAFA FERNÁNDEZ MD V04.81 Vaccines Prophylactic Need Against Influenza 06/24/2009 [facility] 724.5 BACKACHE 06/24/2009 [facility] 782.3 soft tissue swelling (non-joint) [Sx] 06/24/2009 [facility] 786.05 Shortness Of Breath 06/24/2009 [facility] V04.81 Vaccines Prophylactic Need Against Influenza 06/24/2009 724.5 BACKACHE 06/24/2009 782.3 soft tissue swelling (non-joint) [Sx] 06/24/2009 786.05 Shortness Of Breath 06/24/2009 V04.81 Vaccines Prophylactic Need Against Influenza 06/24/2009 RADHA GAXIOLA MD 724.5 BACKACHE 06/24/2009 RADHA GAXIOLA MD 782.3 soft tissue swelling (non-joint) [Sx] 06/24/2009 RADHA GAXIOLA MD 786.05 Shortness Of Breath 06/24/2009 RADHA GAXIOLA MD V04.81 Vaccines Prophylactic Need Against Influenza 06/24/2009 [facility] 724.5 BACKACHE 06/24/2009 [facility] 782.3 soft tissue swelling (non-joint) [Sx] 06/24/2009 [facility] 786.05 Shortness Of Breath 06/24/2009 [facility] V04.81 Vaccines Prophylactic Need Against Influenza 06/24/2009 RAFA FERNÁNDEZ MD 724.5 BACKACHE 06/24/2009 RAFA FERNÁNDEZ MD 782.3 soft tissue swelling (non-joint) [Sx] 06/24/2009 RAFA FERNÁNDEZ MD 786.05 Shortness Of Breath 06/24/2009 RAFA FERNÁNDEZ MD V04.81 Vaccines Prophylactic Need Against Influenza 06/24/2009 724.5 BACKACHE 06/24/2009 782.3 soft tissue swelling (non-joint) [Sx] 06/24/2009 786.05 Shortness Of Breath 06/24/2009 V04.81 Vaccines Prophylactic Need Against Influenza 06/24/2009 724.5 BACKACHE 06/24/2009 782.3 soft tissue swelling (non-joint) [Sx] 06/24/2009 786.05 Shortness Of Breath 06/24/2009 V04.81 Vaccines Prophylactic Need Against Influenza 06/24/2009 724.5 BACKACHE 06/24/2009 782.3 soft tissue swelling (non-joint) [Sx] 06/24/2009 786.05 Shortness Of Breath 06/24/2009 V04.81 Vaccines Prophylactic Need Against Influenza 06/24/2009 RAFA FERNÁNDEZ MD 724.5 BACKACHE 06/24/2009 RAFA FERNÁNDEZ MD 782.3 soft tissue swelling (non-joint) [Sx] 06/24/2009 RAFA FERNÁNDEZ MD 786.05 Shortness Of Breath 06/24/2009 RAFA FERNÁNDEZ MD V04.81 Vaccines Prophylactic Need Against Influenza 06/24/2009 [facility] 724.5 BACKACHE 06/24/2009 [facility] 782.3 soft tissue swelling (non-joint) [Sx] 06/24/2009 [facility] 786.05 Shortness Of Breath 06/24/2009 [facility] V04.81 Vaccines Prophylactic Need Against Influenza 06/24/2009 RAFA FERNÁNDEZ MD 724.5 BACKACHE 06/24/2009 RAFA FERNÁNDEZ MD 782.3 soft tissue swelling (non-joint) [Sx] 06/24/2009 RAFA FERNÁNDEZ MD 786.05 Shortness Of Breath 06/24/2009 RAFA FERNÁNDEZ MD V04.81 Vaccines Prophylactic Need Against Influenza 06/24/2009 RAFA FERNÁNDEZ MD 724.5 BACKACHE 06/24/2009 RAFA FERNÁNDEZ MD 782.3 soft tissue swelling (non-joint) [Sx] 06/24/2009 RAFA FERNÁNDEZ MD 786.05 Shortness Of Breath 06/24/2009 RAFA FERNÁNDEZ MD V04.81 Vaccines Prophylactic Need Against Influenza 06/24/2009 RAFA FERNÁNDEZ MD 724.5 BACKACHE 06/24/2009 RAFA FERNÁNDEZ MD 782.3 soft tissue swelling (non-joint) [Sx] 06/24/2009 RAFA FERNÁNDEZ MD 786.05 Shortness Of Breath 06/24/2009 RAFA FERNÁNDEZ MD V04.81 Vaccines Prophylactic Need Against Influenza 06/24/2009 BUTT DO, JOELLEN K 724.5 BACKACHE 06/24/2009 BUTT DO, JOELLEN K 782.3 soft tissue swelling (non-joint) [Sx] 06/24/2009 BUTT DO, JOELLEN K 786.05 Shortness Of Breath 06/24/2009 BUTT DO, JOELLEN K V04.81 Vaccines Prophylactic Need Against Influenza 06/24/2009 [facility] 724.5 BACKACHE 06/24/2009 [facility] 782.3 soft tissue swelling (non-joint) [Sx] 06/24/2009 [facility] 786.05 Shortness Of Breath 06/24/2009 [facility] V04.81 Vaccines Prophylactic Need Against Influenza 06/24/2009 BESS RICHARD MD 724.5 BACKACHE 06/24/2009 BESS RICHARD MD 782.3 soft tissue swelling (non-joint) [Sx] 06/24/2009 BESS RICHARD MD 786.05 Shortness Of Breath 06/24/2009 HILARY MD, BESS N V04.81 Vaccines Prophylactic Need Against Influenza 06/24/2009 [facility] 724.5 BACKACHE 06/24/2009 [facility] R 782.3 soft tissue swelling (non-joint) [Sx] 06/24/2009 [facility] R 786.05 Shortness Of Breath 06/24/2009 ROBINA [facility], MARIMAR R V04.81 Vaccines Prophylactic Need Against Influenza 06/24/2009 BESS RICHARD MD N 724.5 BACKACHE 06/24/2009 BESS RICHARD MD N 782.3 soft tissue swelling (non-joint) [Sx] 06/24/2009 BESS RICHARD MD N 786.05 Shortness Of Breath 06/24/2009 BESS RICHARD MD N V04.81 Vaccines Prophylactic Need Against Influenza 06/24/2009 BESS RICHARD MD N 724.5 BACKACHE 06/24/2009 BESS RICHARD MD N 782.3 soft tissue swelling (non-joint) [Sx] 06/24/2009 BESS RICHARD MD N 786.05 Shortness Of Breath 06/24/2009 BESS RICHARD MD N V04.81 Vaccines Prophylactic Need Against Influenza 06/24/2009 BESS RICHARD MD N 724.5 BACKACHE 06/24/2009 BESS RICHARD MD N 782.3 SOFT TISSUE SWELLING (NON-JOINT) [SX] 06/24/2009 BESS RICHARD MD N 786.05 Shortness Of Breath 06/24/2009 BESS RICHARD MD N V04.81 VACCINES PROPHYLACTIC NEED AGAINST INFLUENZA 06/24/2009 BESS RICHARD MD N 724.5 BACKACHE 06/24/2009 BESS RICHARD MD N 782.3 SOFT TISSUE SWELLING (NON-JOINT) [SX] 06/24/2009 BESS RICHARD MD N 786.05 Shortness Of Breath 06/24/2009 BESS RICHARD MD N V04.81 VACCINES PROPHYLACTIC NEED AGAINST INFLUENZA 06/24/2009 BESS RICHARD MD N 724.5 BACKACHE 06/24/2009 BESS RICHARD MD N 782.3 SOFT TISSUE SWELLING (NON-JOINT) [SX] 06/24/2009 BESS RICHARD MD N 786.05 Shortness Of Breath 06/24/2009 BESS RICHARD MD V04.81 VACCINES PROPHYLACTIC NEED AGAINST INFLUENZA 08/03/2009 RADHA GAXIOLA MD 704.8 OTHER SPECIFIED DISEASES OF HAIR AND HAIR FOLLICLES 08/03/2009 RAFA FERNÁNDEZ MD 704.8 OTHER SPECIFIED DISEASES OF HAIR AND HAIR FOLLICLES 08/03/2009 [facility], MARIMAR R 704.8 OTHER SPECIFIED DISEASES OF HAIR AND HAIR FOLLICLES 08/03/2009 704.8 OTHER SPECIFIED DISEASES OF HAIR AND HAIR FOLLICLES 08/03/2009 RADHA GAXIOLA MD 704.8 OTHER SPECIFIED DISEASES OF HAIR AND HAIR FOLLICLES 08/03/2009 [facility], MARIMAR R 704.8 OTHER SPECIFIED DISEASES OF HAIR AND HAIR FOLLICLES 08/03/2009 RAFA FERNÁNDEZ MD 704.8 OTHER SPECIFIED DISEASES OF HAIR AND HAIR FOLLICLES 08/03/2009 704.8 OTHER SPECIFIED DISEASES OF HAIR AND HAIR FOLLICLES 08/03/2009 704.8 OTHER SPECIFIED DISEASES OF HAIR AND HAIR FOLLICLES 08/03/2009 704.8 OTHER SPECIFIED DISEASES OF HAIR AND HAIR FOLLICLES 08/03/2009 RAFA FERNÁNDEZ MD 704.8 OTHER SPECIFIED DISEASES OF HAIR AND HAIR FOLLICLES 08/03/2009 [facility], MARIMAR R 704.8 OTHER SPECIFIED DISEASES OF HAIR AND HAIR FOLLICLES 08/03/2009 RAFA FERNÁNDEZ MD 704.8 OTHER SPECIFIED DISEASES OF HAIR AND HAIR FOLLICLES 08/03/2009 RAFA FERNÁNDEZ MD 704.8 OTHER SPECIFIED DISEASES OF HAIR AND HAIR FOLLICLES 08/03/2009 RAFA FERNÁNDEZ MD 704.8 OTHER SPECIFIED DISEASES OF HAIR AND HAIR FOLLICLES 08/03/2009 JOELLEN BUTT DO 704.8 OTHER SPECIFIED DISEASES OF HAIR AND HAIR FOLLICLES 08/03/2009 [facility], MARIMAR R 704.8 OTHER SPECIFIED DISEASES OF HAIR AND HAIR FOLLICLES 08/03/2009 BESS RICHARD MD N 704.8 OTHER SPECIFIED DISEASES OF HAIR AND HAIR FOLLICLES 08/03/2009 [facility], MARIMAR R 704.8 OTHER SPECIFIED DISEASES OF HAIR AND HAIR FOLLICLES 08/03/2009 BESS RICHARD MD N 704.8 OTHER SPECIFIED DISEASES OF HAIR AND HAIR FOLLICLES 08/03/2009 BESS RICHARD MD N 704.8 OTHER SPECIFIED DISEASES OF HAIR AND HAIR FOLLICLES 08/03/2009 BESS RICHARD MD N 704.8 OTHER SPECIFIED DISEASES OF HAIR AND HAIR FOLLICLES 08/03/2009 BESS RICHARD MD N 704.8 OTHER SPECIFIED DISEASES OF HAIR AND HAIR FOLLICLES 08/03/2009 BESS RICHARD MD N 704.8 OTHER SPECIFIED DISEASES OF HAIR AND HAIR FOLLICLES 09/01/2009 RADHA GAXIOLA MD 268.9 VITAMIN D DEFICIENCY 09/01/2009 RADHA GAXIOLA MD 272.1 HYPERTRIGLYCERIDEMIA 09/01/2009 RADHA GAXIOLA MD 789.00 ABDOMINAL PAIN UNSPECIFIED SITE 09/01/2009 RAFA FERNÁNDEZ MD 268.9 VITAMIN D DEFICIENCY 09/01/2009 RAFA FERNÁNDEZ MD 272.1 HYPERTRIGLYCERIDEMIA 09/01/2009 RAFA FERNÁNDEZ MD 789.00 ABDOMINAL PAIN UNSPECIFIED SITE 09/01/2009 [facility] 268.9 VITAMIN D DEFICIENCY 09/01/2009 [facility] 272.1 HYPERTRIGLYCERIDEMIA 09/01/2009 [facility] 789.00 ABDOMINAL PAIN UNSPECIFIED SITE 09/01/2009 268.9 VITAMIN D DEFICIENCY 09/01/2009 272.1 HYPERTRIGLYCERIDEMIA 09/01/2009 789.00 ABDOMINAL PAIN UNSPECIFIED SITE 09/01/2009 RADHA GAXIOLA MD 268.9 VITAMIN D DEFICIENCY 09/01/2009 RADHA GAXIOLA MD 272.1 HYPERTRIGLYCERIDEMIA 09/01/2009 RADHA GAXIOLA MD 789.00 ABDOMINAL PAIN UNSPECIFIED SITE 09/01/2009 [facility] 268.9 VITAMIN D DEFICIENCY 09/01/2009 [facility] 272.1 HYPERTRIGLYCERIDEMIA 09/01/2009 [facility] 789.00 ABDOMINAL PAIN UNSPECIFIED SITE 09/01/2009 RAFA FERNÁNDEZ MD 268.9 VITAMIN D DEFICIENCY 09/01/2009 RAFA FERNÁNDEZ MD 272.1 HYPERTRIGLYCERIDEMIA 09/01/2009 RAFA FERNÁNDEZ MD 789.00 ABDOMINAL PAIN UNSPECIFIED SITE 09/01/2009 268.9 VITAMIN D DEFICIENCY 09/01/2009 272.1 HYPERTRIGLYCERIDEMIA 09/01/2009 789.00 ABDOMINAL PAIN UNSPECIFIED SITE 09/01/2009 268.9 VITAMIN D DEFICIENCY 09/01/2009 272.1 HYPERTRIGLYCERIDEMIA 09/01/2009 789.00 ABDOMINAL PAIN UNSPECIFIED SITE 09/01/2009 268.9 VITAMIN D DEFICIENCY 09/01/2009 272.1 HYPERTRIGLYCERIDEMIA 09/01/2009 789.00 ABDOMINAL PAIN UNSPECIFIED SITE 09/01/2009 RAFA FERNÁNDEZ MD 268.9 VITAMIN D DEFICIENCY 09/01/2009 RAFA FERNÁNDEZ MD 272.1 HYPERTRIGLYCERIDEMIA 09/01/2009 RAFA FERNÁNDEZ MD 789.00 ABDOMINAL PAIN UNSPECIFIED SITE 09/01/2009 [facility] 268.9 VITAMIN D DEFICIENCY 09/01/2009 [facility] 272.1 HYPERTRIGLYCERIDEMIA 09/01/2009 [facility] 789.00 ABDOMINAL PAIN UNSPECIFIED SITE 09/01/2009 RAFA FERNÁNDEZ MD 268.9 VITAMIN D DEFICIENCY 09/01/2009 RAFA FERNÁNDEZ MD 272.1 HYPERTRIGLYCERIDEMIA 09/01/2009 RAFA FERNÁNDEZ MD 789.00 ABDOMINAL PAIN UNSPECIFIED SITE 09/01/2009 RAFA FERNÁNDEZ MD 268.9 VITAMIN D DEFICIENCY 09/01/2009 RFAA FERNÁNDEZ MD 272.1 HYPERTRIGLYCERIDEMIA 09/01/2009 RAFA FERNÁNDEZ MD 789.00 ABDOMINAL PAIN UNSPECIFIED SITE 09/01/2009 RAFA FERNÁNDEZ MD 268.9 VITAMIN D DEFICIENCY 09/01/2009 RAFA FERNÁNDEZ MD 272.1 HYPERTRIGLYCERIDEMIA 09/01/2009 RAFA FERNÁNDEZ MD 789.00 ABDOMINAL PAIN UNSPECIFIED SITE 09/01/2009 BUTT DO, JOELLEN K 268.9 VITAMIN D DEFICIENCY 09/01/2009 BUTT DO, JOELLEN K 272.1 HYPERTRIGLYCERIDEMIA 09/01/2009 BUTT DO, JOELLEN K 789.00 ABDOMINAL PAIN UNSPECIFIED SITE 09/01/2009 [facility] 268.9 VITAMIN D DEFICIENCY 09/01/2009 [facility] 272.1 HYPERTRIGLYCERIDEMIA 09/01/2009 [facility] 789.00 ABDOMINAL PAIN UNSPECIFIED SITE 09/01/2009 BESS RICHARD MD 268.9 VITAMIN D DEFICIENCY 09/01/2009 BESS RICHARD MD N 272.1 HYPERTRIGLYCERIDEMIA 09/01/2009 BESS RICHARD MD N 789.00 ABDOMINAL PAIN UNSPECIFIED SITE 09/01/2009 [facility] 268.9 VITAMIN D DEFICIENCY 09/01/2009 [facility] 272.1 HYPERTRIGLYCERIDEMIA 09/01/2009 [facility] 789.00 ABDOMINAL PAIN UNSPECIFIED SITE 09/01/2009 BESS RICHARD MD N 268.9 VITAMIN D DEFICIENCY 09/01/2009 HILARY WONG BESS N 272.1 HYPERTRIGLYCERIDEMIA 09/01/2009 BESS RICHARD MD N 789.00 ABDOMINAL PAIN UNSPECIFIED SITE 09/01/2009 BESS RICHARD MD N 268.9 VITAMIN D DEFICIENCY 09/01/2009 HILARY WONG BESS N 272.1 HYPERTRIGLYCERIDEMIA 09/01/2009 BESS RICHARD MD N 789.00 ABDOMINAL PAIN UNSPECIFIED SITE 09/01/2009 BESS RICHARD MD N 268.9 VITAMIN D DEFICIENCY 09/01/2009 HILARY WONG BESS N 272.1 HYPERTRIGLYCERIDEMIA 09/01/2009 BESS RICHARD MD N 789.00 ABDOMINAL PAIN UNSPECIFIED SITE 09/01/2009 BESS RICHARD MD N 268.9 VITAMIN D DEFICIENCY 09/01/2009 HILARY WONG BESS N 272.1 HYPERTRIGLYCERIDEMIA 09/01/2009 BESS RICHARD MD N 789.00 ABDOMINAL PAIN UNSPECIFIED SITE 09/01/2009 BESS RICHARD MD N 268.9 VITAMIN D DEFICIENCY 09/01/2009 BESS RICHARD MD N 272.1 HYPERTRIGLYCERIDEMIA 09/01/2009 BESS RICHARD MD N 789.00 ABDOMINAL PAIN UNSPECIFIED SITE 09/08/2009 RADHA GAXIOLA MD 780.79 OTHER MALAISE AND FATIGUE 09/08/2009 RAFA FERNÁNDEZ MD 780.79 OTHER MALAISE AND FATIGUE 09/08/2009 [facility] 780.79 OTHER MALAISE AND FATIGUE 09/08/2009 780.79 OTHER MALAISE AND FATIGUE 09/08/2009 RADHA GAXIOLA MD 780.79 OTHER MALAISE AND FATIGUE 09/08/2009 [facility] 780.79 OTHER MALAISE AND FATIGUE 09/08/2009 RAFA FERNÁNDEZ MD 780.79 OTHER MALAISE AND FATIGUE 09/08/2009 780.79 OTHER MALAISE AND FATIGUE 09/08/2009 780.79 OTHER MALAISE AND FATIGUE 09/08/2009 780.79 OTHER MALAISE AND FATIGUE 09/08/2009 RAFA FERNÁNDEZ MD 780.79 OTHER MALAISE AND FATIGUE 09/08/2009 [facility] 780.79 OTHER MALAISE AND FATIGUE 09/08/2009 RAFA FERNÁNDEZ MD 780.79 OTHER MALAISE AND FATIGUE 09/08/2009 RAFA FERNÁNDEZ MD 780.79 OTHER MALAISE AND FATIGUE 09/08/2009 RAFA FERNÁNDEZ MD 780.79 OTHER MALAISE AND FATIGUE 09/08/2009 JOELLEN BUTT DO 780.79 OTHER MALAISE AND FATIGUE 09/08/2009 [facility] 780.79 OTHER MALAISE AND FATIGUE 09/08/2009 BESS RICHARD MD 780.79 OTHER MALAISE AND FATIGUE 09/08/2009 [facility] 780.79 OTHER MALAISE AND FATIGUE 09/08/2009 BESS RICHARD MD 780.79 OTHER MALAISE AND FATIGUE 09/08/2009 BESS RICHARD MD 780.79 OTHER MALAISE AND FATIGUE 09/08/2009 BESS RICHARD MD 780.79 OTHER MALAISE AND FATIGUE 09/08/2009 BESS RICHARD MD 780.79 OTHER MALAISE AND FATIGUE 09/08/2009 BESS RICHARD MD 780.79 OTHER MALAISE AND FATIGUE 10/07/2009 RADHA GAXIOLA MD 790.29 HYPERGLYCEMIA 10/07/2009 RAFA FERNÁNDEZ MD 790.29 HYPERGLYCEMIA 10/07/2009 [facility] 790.29 HYPERGLYCEMIA 10/07/2009 790.29 HYPERGLYCEMIA 10/07/2009 RADHA GAXIOLA MD 790.29 HYPERGLYCEMIA 10/07/2009 [facility] 790.29 HYPERGLYCEMIA 10/07/2009 RAFA FERNÁNDEZ MD 790.29 HYPERGLYCEMIA 10/07/2009 790.29 HYPERGLYCEMIA 10/07/2009 790.29 HYPERGLYCEMIA 10/07/2009 790.29 HYPERGLYCEMIA 10/07/2009 RAFA FERNÁNDEZ MD 790.29 HYPERGLYCEMIA 10/07/2009 [facility] 790.29 HYPERGLYCEMIA 10/07/2009 RAFA FERNÁNDEZ MD 790.29 HYPERGLYCEMIA 10/07/2009 RAFA FERNÁNDEZ MD 790.29 HYPERGLYCEMIA 10/07/2009 RAFA FERNÁNDEZ MD 790.29 HYPERGLYCEMIA 10/07/2009 JOELLEN BUTT DO 790.29 HYPERGLYCEMIA 10/07/2009 [facility] 790.29 HYPERGLYCEMIA 10/07/2009 HILARY WONG, BESS N 790.29 HYPERGLYCEMIA 10/07/2009 [facility] 790.29 HYPERGLYCEMIA 10/07/2009 HILARY WONG, BESS N 790.29 HYPERGLYCEMIA 10/07/2009 HILARY WONG, BESS N 790.29 HYPERGLYCEMIA 10/07/2009 HILARY WONG, BESS N 790.29 HYPERGLYCEMIA 10/07/2009 HILARY WONG, BESS N 790.29 HYPERGLYCEMIA 10/07/2009 HILARY WONG, BESS N 790.29 HYPERGLYCEMIA 11/11/2009 RADHA GAXIOLA MD V58.69 LONG-TERM (CURRENT) USE OF OTHER MEDICATIONS 11/11/2009 RAFA FERNÁNDEZ MD V58.69 LONG-TERM (CURRENT) USE OF OTHER MEDICATIONS 11/11/2009 [facility] V58.69 LONG-TERM (CURRENT) USE OF OTHER MEDICATIONS 11/11/2009 V58.69 LONG-TERM ( CURRENT) USE OF OTHER MEDICATIONS 11/11/2009 RADHA GAXIOLA MD V58.69 LONG-TERM (CURRENT) USE OF OTHER MEDICATIONS 11/11/2009 [facility] V58.69 LONG-TERM (CURRENT) USE OF OTHER MEDICATIONS 11/11/2009 RAFA FERNÁNDEZ MD V58.69 LONG-TERM (CURRENT) USE OF OTHER MEDICATIONS 11/11/2009 V58.69 LONG-TERM ( CURRENT) USE OF OTHER MEDICATIONS 11/11/2009 V58.69 LONG-TERM ( CURRENT) USE OF OTHER MEDICATIONS 11/11/2009 V58.69 LONG-TERM ( CURRENT) USE OF OTHER MEDICATIONS 11/11/2009 RAFA FERNÁNDEZ MD V58.69 LONG-TERM (CURRENT) USE OF OTHER MEDICATIONS 11/11/2009 [facility] V58.69 LONG-TERM (CURRENT) USE OF OTHER MEDICATIONS 11/11/2009 RAFA FERNÁNDEZ MD V58.69 LONG-TERM (CURRENT) USE OF OTHER MEDICATIONS 11/11/2009 RAFA FERNÁNDEZ MD V58.69 LONG-TERM (CURRENT) USE OF OTHER MEDICATIONS 11/11/2009 RAFA FERNÁNDEZ MD V58.69 LONG-TERM (CURRENT) USE OF OTHER MEDICATIONS 11/11/2009 JOELLEN BUTT DO V58.69 LONG-TERM (CURRENT) USE OF OTHER MEDICATIONS 11/11/2009 [facility] Walters V58.69 LONG-TERM (CURRENT) USE OF OTHER MEDICATIONS 11/11/2009 BESS RICHARD MD V58.69 LONG-TERM (CURRENT) USE OF OTHER MEDICATIONS 11/11/2009 [facility] Walters V58.69 LONG-TERM (CURRENT) USE OF OTHER MEDICATIONS 11/11/2009 BESS RICHARD MD V58.69 LONG-TERM (CURRENT) USE OF OTHER MEDICATIONS 11/11/2009 BESS RICHARD MD V58.69 LONG-TERM (CURRENT) USE OF OTHER MEDICATIONS 11/11/2009 BESS RICHARD MD V58.69 LONG-TERM (CURRENT) USE OF OTHER MEDICATIONS 11/11/2009 BESS RICHARD MD V58.69 LONG-TERM (CURRENT) USE OF OTHER MEDICATIONS 11/11/2009 BESS RICHARD MD V58.69 LONG-TERM (CURRENT) USE OF OTHER MEDICATIONS 12/30/2009 RADHA GAXIOLA MD 338.29 OTHER CHRONIC PAIN 12/30/2009 RAFA FERNÁNDEZ MD 338.29 OTHER CHRONIC PAIN 12/30/2009 [facility] 338.29 OTHER CHRONIC PAIN 12/30/2009 338.29 OTHER CHRONIC PAIN 12/30/2009 RADHA GAXIOLA MD 338.29 CHRONIC PAIN 12/30/2009 [facility] 338.29 CHRONIC PAIN 12/30/2009 RAFA FERNÁNDEZ MD 338.29 CHRONIC PAIN 12/30/2009 338.29 CHRONIC PAIN 12/30/2009 338.29 CHRONIC PAIN 12/30/2009 338.29 CHRONIC PAIN 12/30/2009 RAFA FERNÁNDEZ MD 338.29 CHRONIC PAIN 12/30/2009 [facility] 338.29 CHRONIC PAIN 12/30/2009 JOLENE WONG, RAFA Perez 338.29 CHRONIC PAIN 12/30/2009 RAFA FERNÁNDEZ MD 338.29 CHRONIC PAIN 12/30/2009 RAFA FERNÁNDEZ MD 338.29 CHRONIC PAIN 12/30/2009 JOELLEN BUTT DO 338.29 CHRONIC PAIN 12/30/2009 [facility] 338.29 CHRONIC PAIN 12/30/2009 HILARY WONG, BESS N 338.29 CHRONIC PAIN 12/30/2009 [facility] 338.29 CHRONIC PAIN 12/30/2009 HILARY WONG, BESS N 338.29 CHRONIC PAIN 12/30/2009 HILARY WONG, BESS N 338.29 CHRONIC PAIN 12/30/2009 HILARY WONG, BESS N 338.29 CHRONIC PAIN 12/30/2009 HILARY WONG, BESS N 338.29 CHRONIC PAIN 12/30/2009 HILARY WONG, BESS N 338.29 CHRONIC PAIN 01/24/2010 RADHA GAXIOLA MD 786.50 Chest Pain, Unspecified 01/24/2010 RAFA FERNÁNDEZ MD 786.50 Chest Pain, Unspecified 01/24/2010 [facility] 786.50 Chest Pain, Unspecified 01/24/2010 786.50 Chest Pain, Unspecified 01/24/2010 RADHA GAXIOLA MD 786.50 Chest Pain, Unspecified 01/24/2010 [facility] 786.50 Chest Pain, Unspecified 01/24/2010 RAFA FERNÁNDEZ MD 786.50 Chest Pain, Unspecified 01/24/2010 786.50 Chest Pain, Unspecified 01/24/2010 786.50 Chest Pain, Unspecified 01/24/2010 786.50 Chest Pain, Unspecified 01/24/2010 RAFA FERNÁNDEZ MD 786.50 Chest Pain, Unspecified 01/24/2010 [facility] 786.50 Chest Pain, Unspecified 01/24/2010 RAFA FERNÁNDEZ MD 786.50 Chest Pain, Unspecified 01/24/2010 JOLENE WONG, RAFA Perez 786.50 Chest Pain, Unspecified 01/24/2010 RAFA FERNÁNDEZ MD 786.50 Chest Pain, Unspecified 01/24/2010 JOLELEN BUTT DO 786.50 Chest Pain, Unspecified 01/24/2010 [facility] 786.50 Chest Pain, Unspecified 01/24/2010 HILARY WONG, BESS N 786.50 Chest Pain, Unspecified 01/24/2010 [facility] 786.50 Chest Pain, Unspecified 01/24/2010 HILARY WONG, BESS N 786.50 Chest Pain, Unspecified 01/24/2010 HILARY WONG, BESS N 786.50 Chest Pain, Unspecified 01/24/2010 HILARY WONG, BESS N 786.50 Chest Pain, Unspecified 01/24/2010 HILARY WONG, BESS N 786.50 Chest Pain, Unspecified 01/24/2010 HILARY WONG, BESS N 786.50 Chest Pain, Unspecified 02/07/2010 RADHA GAXIOLA MD 300.00 anxiety 02/07/2010 RAFA FERNÁNDEZ MD 300.00 anxiety 02/07/2010 [facility] 300.00 anxiety 02/07/2010 300.00 anxiety 02/07/2010 RADHA GAXIOLA MD 300.00 anxiety 02/07/2010 [facility] 300.00 anxiety 02/07/2010 RAFA FERNÁNDEZ MD 300.00 anxiety 02/07/2010 300.00 anxiety 02/07/2010 300.00 anxiety 02/07/2010 300.00 anxiety 02/07/2010 RAFA FERNÁNDEZ MD 300.00 anxiety 02/07/2010 [facility] 300.00 anxiety 02/07/2010 RAFA FERNÁNDEZ MD 300.00 anxiety 02/07/2010 RAFA FERNÁNDEZ MD 300.00 anxiety 02/07/2010 RAFA FERNÁNDEZ MD 300.00 anxiety 02/07/2010 JOELLEN BUTT DO 300.00 anxiety 02/07/2010 [facility] 300.00 anxiety 02/07/2010 BESS RICHARD MD 300.00 anxiety 02/07/2010 [facility] 300.00 anxiety 02/07/2010 HILARY WONG, BESS N 300.00 anxiety 02/07/2010 HILARY WONG, BESS N 300.00 anxiety 02/07/2010 HILARY WONG, BESS N 300.00 anxiety 02/07/2010 HILARY WONG, BESS N 300.00 anxiety 02/07/2010 HILARY WONG, BESS N 300.00 anxiety 04/05/2010 RAHDA GAXIOLA MD 715.16 OSTEOARTHROSIS, LOCALIZED, PRIMARY, LOWER LEG 04/05/2010 RAFA FERNÁNDEZ MD 715.16 OSTEOARTHROSIS, LOCALIZED, PRIMARY, LOWER LEG 04/05/2010 [facility] 715.16 OSTEOARTHROSIS, LOCALIZED, PRIMARY, LOWER LEG 04/05/2010 715.16 OSTEOARTHROSIS, LOCALIZED, PRIMARY, LOWER LEG 04/05/2010 RADHA GAXIOLA MD 715.16 OSTEOARTHROSIS, LOCALIZED, PRIMARY, LOWER LEG 04/05/2010 [facility] 715.16 OSTEOARTHROSIS, LOCALIZED, PRIMARY, LOWER LEG 04/05/2010 RAFA FERNÁNDEZ MD 715.16 OSTEOARTHROSIS, LOCALIZED, PRIMARY, LOWER LEG 04/05/2010 715.16 OSTEOARTHROSIS, LOCALIZED, PRIMARY, LOWER LEG 04/05/2010 715.16 OSTEOARTHROSIS, LOCALIZED, PRIMARY, LOWER LEG 04/05/2010 715.16 OSTEOARTHROSIS, LOCALIZED, PRIMARY, LOWER LEG 04/05/2010 RAFA FERNÁNDEZ MD 715.16 OSTEOARTHROSIS, LOCALIZED, PRIMARY, LOWER LEG 04/05/2010 [facility] 715.16 OSTEOARTHROSIS, LOCALIZED, PRIMARY, LOWER LEG 04/05/2010 RAFA FERNÁNDEZ MD 715.16 OSTEOARTHROSIS, LOCALIZED, PRIMARY, LOWER LEG 04/05/2010 RAFA FERNÁNDEZ MD 715.16 OSTEOARTHROSIS, LOCALIZED, PRIMARY, LOWER LEG 04/05/2010 RAFA FERNÁNDEZ MD 715.16 OSTEOARTHROSIS, LOCALIZED, PRIMARY, LOWER LEG 04/05/2010 JOELLEN BUTT DO 715.16 OSTEOARTHROSIS, LOCALIZED, PRIMARY, LOWER LEG 04/05/2010 [facility] 715.16 OSTEOARTHROSIS, LOCALIZED, PRIMARY, LOWER LEG 04/05/2010 HILARY WONG, BESS N 715.16 OSTEOARTHROSIS, LOCALIZED, PRIMARY, LOWER LEG 04/05/2010 [facility] 715.16 OSTEOARTHROSIS, LOCALIZED, PRIMARY, LOWER LEG 04/05/2010 HILARY WONG, BESS N 715.16 OSTEOARTHROSIS, LOCALIZED, PRIMARY, LOWER LEG 04/05/2010 HILARY WONG, BESS N 715.16 OSTEOARTHROSIS, LOCALIZED, PRIMARY, LOWER LEG 04/05/2010 HILARY WONG, BESS N 715.16 OSTEOARTHROSIS, LOCALIZED, PRIMARY, LOWER LEG 04/05/2010 HILARY WONG, BESS N 715.16 OSTEOARTHROSIS, LOCALIZED, PRIMARY, LOWER LEG 04/05/2010 HILARY WONG, BESS N 715.16 OSTEOARTHROSIS, LOCALIZED, PRIMARY, LOWER LEG 04/25/2010 RADHA GAXIOLA MD 681.02 ONYCHIA AND PARONYCHIA OF FINGER 04/25/2010 RADHA GAXIOLA MD 702.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 SEBORRHEIC KERATOSIS 04/25/2010 RAFA FERNÁNDEZ MD 681.02 ONYCHIA AND PARONYCHIA OF FINGER 04/25/2010 RAFA FERNÁNDEZ MD 702.19 OTHER SEBORRHEIC KERATOSIS 04/25/2010 [facility] 681.02 ONYCHIA AND PARONYCHIA OF FINGER 04/25/2010 [facility] 702.19 OTHER SEBORRHEIC KERATOSIS 04/25/2010 681.02 ONYCHIA AND PARONYCHIA OF FINGER 04/25/2010 702.19 OTHER SEBORRHEIC KERATOSIS 04/25/2010 RADHA GAXIOLA MD 681.02 ONYCHIA AND PARONYCHIA OF FINGER 04/25/2010 RADHA GAXIOLA MD 702.19 OTHER SEBORRHEIC KERATOSIS 04/25/2010 [facility] 681.02 ONYCHIA AND PARONYCHIA OF FINGER 04/25/2010 [facility] 702.19 OTHER SEBORRHEIC KERATOSIS 04/25/2010 RAFA FERNÁNDEZ MD 681.02 ONYCHIA AND PARONYCHIA OF FINGER 04/25/2010 RAFA FERNÁNDEZ MD 702.19 OTHER SEBORRHEIC KERATOSIS 04/25/2010 681.02 ONYCHIA AND PARONYCHIA OF FINGER 04/25/2010 702.19 OTHER SEBORRHEIC KERATOSIS 04/25/2010 681.02 ONYCHIA AND PARONYCHIA OF FINGER 04/25/2010 702.19 OTHER SEBORRHEIC KERATOSIS 04/25/2010 681.02 ONYCHIA AND PARONYCHIA OF FINGER 04/25/2010 702.19 OTHER SEBORRHEIC KERATOSIS 04/25/2010 JOLENE WONG, RAFA Perez 681.02 ONYCHIA AND PARONYCHIA OF FINGER 04/25/2010 RAFA FERNÁNDEZ MD 702.19 OTHER SEBORRHEIC KERATOSIS 04/25/2010 [facility] 681.02 ONYCHIA AND PARONYCHIA OF FINGER 04/25/2010 [facility] 702.19 OTHER SEBORRHEIC KERATOSIS 04/25/2010 RAFA FERNÁNDEZ MD 681.02 ONYCHIA AND PARONYCHIA OF FINGER 04/25/2010 RAFA FERNÁNDEZ MD 702.19 OTHER SEBORRHEIC KERATOSIS 04/25/2010 RAFA FERNÁNDEZ MD M 681.02 ONYCHIA AND PARONYCHIA OF FINGER 04/25/2010 RAFA FERNÁNDEZ MD 702.19 OTHER SEBORRHEIC KERATOSIS 04/25/2010 RAFA FERNÁNDEZ MD 681.02 ONYCHIA AND PARONYCHIA OF FINGER 04/25/2010 RAFA FERNÁNDEZ MD 702.19 OTHER SEBORRHEIC KERATOSIS 04/25/2010 JOELLEN BUTT DO K 681.02 ONYCHIA AND PARONYCHIA OF FINGER 04/25/2010 BUTT JOELLEN CASANOVA K 702.19 OTHER SEBORRHEIC KERATOSIS 04/25/2010 [facility] 681.02 ONYCHIA AND PARONYCHIA OF FINGER 04/25/2010 [facility] 702.19 OTHER SEBORRHEIC KERATOSIS 04/25/2010 HILARY WONG, BESS House 681.02 ONYCHIA AND PARONYCHIA OF FINGER 04/25/2010 HILARY WONG, BESS N 702.19 OTHER SEBORRHEIC KERATOSIS 04/25/2010 [facility] 681.02 ONYCHIA AND PARONYCHIA OF FINGER 04/25/2010 [facility] 702.19 OTHER SEBORRHEIC KERATOSIS 04/25/2010 HILARY WONG BESS N 681.02 ONYCHIA AND PARONYCHIA OF FINGER 04/25/2010 HILARY WONG, BESS N 702.19 OTHER SEBORRHEIC KERATOSIS 04/25/2010 HILARY WONG, BESS N 681.02 ONYCHIA AND PARONYCHIA OF FINGER 04/25/2010 HILARY WONG, BESS N 702.19 OTHER SEBORRHEIC KERATOSIS 04/25/2010 HILARY WONG, BESS N 681.02 ONYCHIA AND PARONYCHIA OF FINGER 04/25/2010 HILARY WONG BESS N 702.19 OTHER SEBORRHEIC KERATOSIS 04/25/2010 HILARY WONG, BESS N 681.02 ONYCHIA AND PARONYCHIA OF FINGER 04/25/2010 HILARY WONG, BESS N 702.19 OTHER SEBORRHEIC KERATOSIS 04/25/2010 HILARY WONG, BESS N 681.02 ONYCHIA AND PARONYCHIA OF FINGER 04/25/2010 HILARY WONG, BESS N 702.19 OTHER SEBORRHEIC KERATOSIS 05/26/2010 RADHA GAXIOLA MD 112.0 Candidiasis Of Mouth 05/26/2010 RADHA GAXIOLA MD 719.49 PAIN IN JOINT, MULTIPLE SITES 05/26/2010 RAFA FERNÁNDEZ MD 112.0 Candidiasis Of Mouth 05/26/2010 RAFA FERNÁNDEZ MD 719.49 PAIN IN JOINT, MULTIPLE SITES 05/26/2010 [facility] 112.0 Candidiasis Of Mouth 05/26/2010 [facility] 719.49 PAIN IN JOINT, MULTIPLE SITES 05/26/2010 112.0 Candidiasis Of Mouth 05/26/2010 719.49 PAIN IN JOINT , MULTIPLE SITES 05/26/2010 RADHA GAXIOLA MD 112.0 Candidiasis Of Mouth 05/26/2010 RADHA GAXIOLA MD 719.49 PAIN IN JOINT, MULTIPLE SITES 05/26/2010 [facility] 112.0 Candidiasis Of Mouth 05/26/2010 [facility] 719.49 PAIN IN JOINT, MULTIPLE SITES 05/26/2010 RAFA FERNÁNDEZ MD 112.0 Candidiasis Of Mouth 05/26/2010 RAFA FERNÁNDEZ MD 719.49 ARTHRALGIAS IN MULTIPLE SITES 05/26/2010 112.0 Candidiasis Of Mouth 05/26/2010 719.49 ARTHRALGIAS IN MULTIPLE SITES 05/26/2010 112.0 Candidiasis Of Mouth 05/26/2010 719.49 ARTHRALGIAS IN MULTIPLE SITES 05/26/2010 112.0 Candidiasis Of Mouth 05/26/2010 719.49 ARTHRALGIAS IN MULTIPLE SITES 05/26/2010 RAFA FERNÁNDEZ MD 112.0 Candidiasis Of Mouth 05/26/2010 RAFA FERNÁNDEZ MD 719.49 ARTHRALGIAS IN MULTIPLE SITES 05/26/2010 [facility] 112.0 Candidiasis Of Mouth 05/26/2010 [facility] 719.49 ARTHRALGIAS IN MULTIPLE SITES 05/26/2010 RAFA FERNÁNDEZ MD 112.0 Candidiasis Of Mouth 05/26/2010 RAFA FERNÁNDEZ MD 719.49 ARTHRALGIAS IN MULTIPLE SITES 05/26/2010 RAFA FERNÁNDEZ MD 112.0 Candidiasis Of Mouth 05/26/2010 RAFA FERNÁNDEZ MD 719.49 ARTHRALGIAS IN MULTIPLE SITES 05/26/2010 RAFA FERNÁNDEZ MD 112.0 Candidiasis Of Mouth 05/26/2010 RAFA FERNÁNDEZ MD 719.49 ARTHRALGIAS IN MULTIPLE SITES 05/26/2010 JOELLEN BUTT DO K 112.0 Candidiasis Of Mouth 05/26/2010 JOELLEN BUTT DO 719.49 ARTHRALGIAS IN MULTIPLE SITES 05/26/2010 [facility], [facility] R 112.0 Candidiasis Of Mouth 05/26/2010 [facility], [facility] R 719.49 ARTHRALGIAS IN MULTIPLE SITES 05/26/2010 BESS RICHARD MD 112.0 Candidiasis Of Mouth 05/26/2010 BESS RICHARD MD 719.49 ARTHRALGIAS IN MULTIPLE SITES 05/26/2010 [facility] R 112.0 Candidiasis Of Mouth 05/26/2010 [facility], MARIMAR R 719.49 ARTHRALGIAS IN MULTIPLE SITES 05/26/2010 BESS RICHARD MD N 112.0 Candidiasis Of Mouth 05/26/2010 BESS RICHARD MD N 719.49 ARTHRALGIAS IN MULTIPLE SITES 05/26/2010 BESS RICHARD MD N 112.0 Candidiasis Of Mouth 05/26/2010 BESS RICHARD MD N 719.49 ARTHRALGIAS IN MULTIPLE SITES 05/26/2010 BESS RICHARD MD N 112.0 Candidiasis Of Mouth 05/26/2010 BESS RICHARD MD N 719.49 ARTHRALGIAS IN MULTIPLE SITES 05/26/2010 BESS RICHARD MD N 112.0 Candidiasis Of Mouth 05/26/2010 BESS RICHARD MD N 719.49 ARTHRALGIAS IN MULTIPLE SITES 05/26/2010 BESS RICHARD MD N 112.0 Candidiasis Of Mouth 05/26/2010 BESS RICHARD MD N 719.49 ARTHRALGIAS IN MULTIPLE SITES 12/20/2010 RADHA GAXIOLA MD 719.46 joint pain, localized in the knee 12/20/2010 RADHA GAXIOLA MD 786.2 COUGH 12/20/2010 RAFA FERNÁNDEZ MD 719.46 joint pain, localized in the knee 12/20/2010 RAFA FERNÁNDEZ MD 786.2 COUGH 12/20/2010 [facility], [facility] R 719.46 joint pain, localized in the knee [facility]/20/2010 [facility] COUGH 12/20/2010 719.46 joint pain, localized in the knee 12/20/2010 786.2 COUGH 12/20/2010 RADHA GAXIOLA MD 719.46 joint pain, localized in the knee 12/20/2010 RADHA GAXIOLA MD 786.2 COUGH 12/20/2010 [facility] 719.46 joint pain, localized in the knee 12/20/2010 [facility], [facility] R 786.2 COUGH 12/20/2010 RAFA FERNÁNDEZ MD 719.46 joint pain, localized in the knee 12/20/2010 RAFA FERNÁNDEZ MD 786.2 COUGH 12/20/2010 719.46 joint pain, localized in the knee 12/20/2010 786.2 COUGH 12/20/2010 719.46 joint pain, localized in the knee 12/20/2010 786.2 COUGH 12/20/2010 719.46 joint pain, localized in the knee 12/20/2010 786.2 COUGH 12/20/2010 RAFA FERNÁNDEZ MD 719.46 joint pain, localized in the knee 12/20/2010 RAFA FERNÁNDEZ MD 786.2 COUGH 12/20/2010 [facility] 719.46 joint pain, localized in the knee 12/20/2010 [facility] 786.2 COUGH 12/20/2010 RAFA FERNÁNDEZ MD 719.46 joint pain, localized in the knee 12/20/2010 RAFA FERNÁNDEZ MD 786.2 COUGH 12/20/2010 RAAF FERNÁNDEZ MD 719.46 joint pain, localized in the knee 12/20/2010 RAFA FERNÁNDEZ MD 786.2 COUGH 12/20/2010 RAFA FERNÁNDEZ MD 719.46 joint pain, localized in the knee 12/20/2010 RAFA FERNÁNDEZ MD 786.2 COUGH 12/20/2010 BUTT DO, JOELLEN K 719.46 joint pain, localized in the knee 12/20/2010 BUTT DO, JOELLEN K 786.2 COUGH 12/20/2010 [facility] 719.46 joint pain, localized in the knee 12/20/2010 [facility] 786.2 COUGH 12/20/2010 BESS RICHARD MD N 719.46 joint pain, localized in the knee 12/20/2010 BESS RICHARD MD N 786.2 COUGH 12/20/2010 [facility], [facility] R 719.46 joint pain, localized in the knee 12/20/2010 [facility], MARIM[facility] R 786.2 COUGH 12/20/2010 BESS RICHARD MD N 719.46 joint pain, localized in the knee 12/20/2010 BESS RICHARD MD N 786.2 COUGH 12/20/2010 BESS RICHARD MD N 719.46 joint pain, localized in the knee 12/20/2010 BESS RICHARD MD N 786.2 COUGH 12/20/2010 BESS RICHARD MD N 719.46 joint pain, localized in the knee 12/20/2010 BESS RICHARD MD N 786.2 COUGH 12/20/2010 BESS RICHARD MD N 719.46 joint pain, localized in the knee 12/20/2010 BESS RICHARD MD N 786.2 COUGH 12/20/2010 BESS RICHARD MD N 719.46 joint pain, localized in the knee 12/20/2010 BESS RICHARD MD N 786.2 COUGH 03/09/2011 RADHA GAXIOLA MD 724.8 OTHER SYMPTOMS REFERABLE TO BACK 03/09/2011 RAFA FERNÁNDEZ MD 724.8 OTHER SYMPTOMS REFERABLE TO BACK 03/09/2011 [facility], [facility] R 724.8 OTHER SYMPTOMS REFERABLE TO BACK 03/09/2011 724.8 OTHER SYMPTOMS REFERABLE TO BACK 03/09/2011 RADHA GAXIOLA MD 724.8 OTHER SYMPTOMS REFERABLE TO BACK 03/09/2011 [facility], [facility] R 724.8 OTHER SYMPTOMS REFERABLE TO BACK 03/09/2011 RAFA FERNÁNDEZ MD 724.8 OTHER SYMPTOMS REFERABLE TO BACK 03/09/2011 724.8 OTHER SYMPTOMS REFERABLE TO BACK 03/09/2011 724.8 OTHER SYMPTOMS REFERABLE TO BACK 03/09/2011 724.8 OTHER SYMPTOMS REFERABLE TO BACK 03/09/2011 RAFA FERNÁNDEZ MD 724.8 OTHER SYMPTOMS REFERABLE TO BACK 03/09/2011 [facility], [facility] R 724.8 OTHER SYMPTOMS REFERABLE TO BACK 03/09/2011 RAFA FERNÁNDEZ MD 724.8 OTHER SYMPTOMS REFERABLE TO BACK 03/09/2011 RAFA FERNÁNDEZ MD 724.8 OTHER SYMPTOMS REFERABLE TO BACK 03/09/2011 RAFA FERNÁNDEZ MD 724.8 OTHER SYMPTOMS REFERABLE TO BACK 03/09/2011 JOELLEN BUTT DO 724.8 OTHER SYMPTOMS REFERABLE TO BACK 03/09/2011 [facility] R 724.8 OTHER SYMPTOMS REFERABLE TO BACK 03/09/2011 BESS RICHARD MD N 724.8 OTHER SYMPTOMS REFERABLE TO BACK 03/09/2011 [facility] R 724.8 OTHER SYMPTOMS REFERABLE TO BACK 03/09/2011 BESS RICHARD MD N 724.8 OTHER SYMPTOMS REFERABLE TO BACK 03/09/2011 BESS RICHARD MD N 724.8 OTHER SYMPTOMS REFERABLE TO BACK 03/09/2011 BESS RICHARD MD N 724.8 OTHER SYMPTOMS REFERABLE TO BACK 03/09/2011 BESS RICHARD MD N 724.8 OTHER SYMPTOMS REFERABLE TO BACK 03/09/2011 BESS RICHARD MD N 724.8 OTHER SYMPTOMS REFERABLE TO BACK 03/21/2011 RADHA GAXIOLA MD V72.84 Pre-operative Examination Unspecified 03/21/2011 RAFA FERNÁNDEZ MD V72.84 Pre-operative Examination Unspecified 03/21/2011 [facility] V72.84 Pre-operative Examination Unspecified 03/21/2011 V72.84 Pre- operative Examination Unspecified 03/21/2011 RADHA GAXIOLA MD V72.84 Pre-operative Examination Unspecified 03/21/2011 [facility] V72.84 Pre-operative Examination Unspecified 03/21/2011 RAFA FERNÁNDEZ MD V72.84 Pre-operative Examination Unspecified 03/21/2011 V72.84 Pre- operative Examination Unspecified 03/21/2011 V72.84 Pre- operative Examination Unspecified 03/21/2011 V72.84 Pre- operative Examination Unspecified 03/21/2011 RAFA FERNÁNDEZ MD V72.84 Pre-operative Examination Unspecified 03/21/2011 [facility] V72.84 Pre-operative Examination Unspecified 03/21/2011 RAFA FERNÁNDEZ MD V72.84 Pre-operative Examination Unspecified 03/21/2011 RAFA FERNÁNDEZ MD V72.84 Pre-operative Examination Unspecified 03/21/2011 RAFA FERNÁNDEZ MD V72.84 Pre-operative Examination Unspecified 03/21/2011 BUTT DO, JOELLEN K V72.84 Pre-operative Examination Unspecified 03/21/2011 [facility] V72.84 Pre-operative Examination Unspecified 03/21/2011 BESS RICHARD MD V72.84 Pre-operative Examination Unspecified 03/21/2011 [facility] [place] V72.84 Pre-operative Examination Unspecified 03/21/2011 BESS RICHARD MD V72.84 Pre-operative Examination Unspecified 03/21/2011 BESS RICHARD MD V72.84 Pre-operative Examination Unspecified 03/21/2011 BESS RICHARD MD V72.84 Pre-operative Examination Unspecified 03/21/2011 BESS RICHARD MD V72.84 Pre-operative Examination Unspecified 03/21/2011 BESS RICHARD MD V72.84 Pre-operative Examination Unspecified 05/05/2011 Ot 250.00 DIAB WENDIE WO COMPL, TYPE II OR UNSPEC TY 05/05/2011 Ot 272.1 PURE HYPERGLYCERIDEMIA 05/05/2011 Ot 278.00 OBESITY, NOS 05/05/2011 Ot 311 DEPRESSIVE DISORDER NEC 05/05/2011 Ot 338.29 OTHER CHRONIC PAIN 05/05/2011 Ot 424.0 MITRAL VALVE DISORDER 05/05/2011 Ot 496 CHR AIRWAY OBSTRUCT NEC 05/05/2011 Ot 530.81 ESOPHAGEAL REFLUX 05/05/2011 Ot 696.0 PSORIATIC ARTHROPATHY 05/05/2011 Ot 714.0 RHEUMATOID ARTHRITIS 05/05/2011 Ot 715.36 LOC OSTEOARTH NOS-L/LEG 05/05/2011 Ot 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 05/05/2011 Ot 733.00 OSTEOPOROSIS NOS 05/05/2011 Ot 780.57 UNSPECIFIED SLEEP APNEA 05/05/2011 Ot V15.82 HISTORY OF TOBACCO USE 05/05/2011 Ot V45.4 ARTHRODESIS STATUS 05/05/2011 Ot V85.41 BODY MASS INDEX 40.0-44.9, ADULT 05/09/2011 Ot 250.00 DIAB WENDIE WO COMPL, TYPE II OR UNSPEC TY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 CCDS Ot R94.39 ABNORMAL RESULT OF OTHER CARDIOVASCULAR 08/10/2016 KIA WONG FACC, ALI FACP CCDS Ot Z68.43 BODY MASS INDEX (BMI) 50-59.9 , ADULT 08/10/2016 KIA WONG FACC, ALI FACP CCDS Ot Z79.899 OTHER LONG-TERM (CURRENT) DRUG THERAPY 08/12/2016 KIA WONG FACC, ALI FACP CCDS Ot E66.9 OBESITY, UNSPECIFIED 08/12/2016 KIA WONG FACC, ALI FACP CCDS Ot G47.33 OBSTRUCTIVE SLEEP APNEA (ADULT) (PEDIATR 08/12/2016 KIA WONG FACC, ALI FACP CCDS Ot I49.8 OTHER SPECIFIED CARDIAC ARRHYTHMIAS 08/12/2016 KIA WONG FACC, ALI FACP CCDS Ot J44.9 CHRONIC OBSTRUCTIVE PULMONARY DISEASE, U 08/12/2016 KIA WONG FACC, ALI FACP CCDS Ot R06.00 DYSPNEA, UNSPECIFIED 08/12/2016 KIA WONG FACC, ALI FACP CCDS Ot R94.39 ABNORMAL RESULT OF OTHER CARDIOVASCULAR 08/12/2016 KIA MENDENHALLC, ALI FACP CCDS Ot Z68.43 BODY MASS INDEX (BMI) 50-59.9 , ADULT 08/12/2016 KIA MENDENHALLC, ALI FACP CCDS Ot Z79.899 OTHER 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 THERAPY 08/14/2016 CONCEPCIÓN JACKSON Ot E78.2 MIXED HYPERLIPIDEMIA 08/14/2016 CONCEPCIÓN JACKSON Ot I10 ESSENTIAL (PRIMARY) HYPERTENSION 08/14/2016 CONCEPCIÓN JACKSON Ot I25.10 ATHSCL HEART DISEASE OF [place] CORONARY 08/14/2016 HIGINIO ARTHUR DO Ot F32.9 MAJOR DEPRESSIVE DISORDER, SINGLE EPISOD 08/14/2016 HIGINIO ARTHUR DO Ot I25.10 ATHSCL HEART DISEASE OF [place] CORONARY 08/14/2016 HIGINIO ARTHUR DO Ot J44.9 CHRONIC OBSTRUCTIVE PULMONARY DISEASE, U 08/14/2016 HIGINIO ARTHUR DO Ot R00.2 PALPITATIONS 08/14/2016 HIGINIO ARTHUR DO Ot R06.02 SHORTNESS OF BREATH 08/15/2016 CONCEPCIÓN JACKSON Ot E78.2 MIXED HYPERLIPIDEMIA 08/15/2016 DAGMAR JACKSONTH K Ot I10 ESSENTIAL (PRIMARY) HYPERTENSION 08/15/2016 CONCEPCIÓN JACKSON Ot I25.10 ATHSCL HEART DISEASE OF [place] CORONARY 08/16/2016 CONCEPCIÓN JACKSON Ot E78.2 MIXED HYPERLIPIDEMIA 08/16/2016 CONCEPCIÓN JACKSON Ot I10 ESSENTIAL (PRIMARY) HYPERTENSION 08/16/2016 CONCEPCIÓN JACKSON K Ot I25.10 ATHSCL HEART DISEASE OF [place] CORONARY 08/16/2016 CONCEPCIÓN JACKSON Ot E78.2 MIXED HYPERLIPIDEMIA 08/16/2016 CONCEPCIÓN JACKSON Ot I10 ESSENTIAL (PRIMARY) HYPERTENSION 08/16/2016 CONCEPCIÓN JACKSON Ot I25.10 ATHSCL HEART DISEASE OF [place] CORONARY 08/30/2016 HIGINIO ARTHUR DO Ot F32.9 MAJOR DEPRESSIVE DISORDER, SINGLE EPISOD 08/30/2016 HIGINIO ARTHUR DO Ot I25.10 ATHSCL HEART DISEASE OF [place] CORONARY 08/30/2016 HIGINIO ARTHUR DO Ot J44.9 CHRONIC OBSTRUCTIVE PULMONARY DISEASE, U 08/30/2016 HIGINIO ARTHUR DO Ot R00.2 PALPITATIONS 08/30/2016 HIGINIO ARTHUR DO Ot R06.02 SHORTNESS OF BREATH 08/30/2016 CONCEPCIÓN JACKSON Ot E78.2 MIXED HYPERLIPIDEMIA 08/30/2016 CONCEPCIÓN JACKSON K Ot I10 ESSENTIAL (PRIMARY) HYPERTENSION 08/30/2016 CONCEPCIÓN JACKSON Ot I25.10 ATHSCL HEART DISEASE OF [place] CORONARY 09/22/2017 BESS RICHARD MD Ot N95.0 POSTMENOPAUSAL BLEEDING 09/22/2017 BESS RICHARD MD Ot Z97.5 PRESENCE OF (INTRAUTERINE) CONTRACEPTIVE 01/03/2018 RAFA FERNÁNDEZ MD Ot V76.12 OTH SCREEN MAMMO-MALIGN NEOPLASM OF [place] 01/03/2018 FENECH DO, DORIS S Ot 627.1 POSTMENOPAUSAL BLEEDING 01/03/2018 FENECH DO, DORIS S Ot 627.1 POSTMENOPAUSAL BLEEDING 01/03/2018 FENECH DO, DORIS S Ot 793.5 NOSP (ABN) FINDINGS ON RADIOLOGICAL OT 01/03/2018 GRACIE CASANOVA DORIS S Ot V72.63 PRE-PROCEDURAL LABORATORY EXAMINATION 01/03/2018 GRACIE DO DORIS S Ot V74.8 SCREEN-BACTERIAL DIS NEC 01/03/2018 FENECH DO, DORIS S Ot 627.1 POSTMENOPAUSAL BLEEDING 01/03/2018 FENECH DO, DORIS S Ot 793.5 NOSP (ABN) FINDINGS ON RADIOLOGICAL OT 01/03/2018 SELINAECH DO DORIS S Ot V72.84 EXAM PRE-OPERATIVE NOS 01/03/2018 BESS RICHARD MD Ot 401.1 BENIGN HYPERTENSION 01/03/2018 BESS RICHARD MD Ot 719.49 JOINT PAIN-MULT JTS 01/03/2018 BESS RICHARD MD Ot V58.69 OTH MED,LT,CURRENT USE 01/03/2018 BESS RICHARD MD Ot V70.0 ROUTINE MEDICAL EXAM 01/03/2018 BESS RICHARD MD Ot V76.51 SCREEN MAL NEOP-COLON 01/03/2018 BESS RICHARD MD Ot V82.81 SCREENING FOR OSTEOPOROSIS 01/03/2018 LISA RIOS MD Ot I10 ESSENTIAL (PRIMARY) HYPERTENSION 01/03/2018 LISA RIOS MD Ot I25.10 ATHSCL HEART DISEASE OF [place] CORONARY 01/03/2018 LISA RIOS MD Ot R00.2 PALPITATIONS 01/03/2018 LISA RIOS MD Ot R07.89 OTHER CHEST PAIN 01/03/2018 LISA RIOS MD Ot E07.89 OTHER SPECIFIED DISORDERS OF THYROID 01/03/2018 LISA RIOS MD Ot I10 ESSENTIAL (PRIMARY) HYPERTENSION 01/03/2018 LISA RIOS MD Ot I25.10 ATHSCL HEART DISEASE OF [place] CORONARY 01/03/2018 LISA RIOS MD Ot R00.2 PALPITATIONS 01/03/2018 BESS RICHARD MD Ot N95.0 POSTMENOPAUSAL BLEEDING 01/03/2018 HIGINIO ARTHUR DO Ot F32.9 MAJOR DEPRESSIVE DISORDER, SINGLE EPISOD 01/03/2018 HIGINIO ARTHUR DO Ot I25.10 ATHSCL HEART DISEASE OF [place] CORONARY 01/03/2018 HIGINIO ARTHUR DO Ot J44.9 CHRONIC OBSTRUCTIVE PULMONARY DISEASE, U 01/03/2018 HIGINIO ARTHUR DO Ot R00.2 PALPITATIONS 01/03/2018 HIGINIO ARTHUR DO Ot R06.02 SHORTNESS OF BREATH 01/03/2018 CONCEPCIÓN JACKSON Ot E78.2 MIXED HYPERLIPIDEMIA 01/03/2018 CONCEPCIÓN JACKSON Ot I10 ESSENTIAL (PRIMARY) HYPERTENSION 01/03/2018 CONCEPCIÓN JACKSON Ot I25.10 ATHSCL HEART DISEASE OF [place] CORONARY 01/03/2018 BESS RICHARD MD Ot N95.0 POSTMENOPAUSAL BLEEDING 01/03/2018 BESS RICHARD MD Ot Z97.5 PRESENCE OF (INTRAUTERINE) CONTRACEPTIVE 01/04/2018 BESS RICHARD MD Ot M16.12 UNILATERAL PRIMARY OSTEOARTHRITIS, LEFT 01/25/2018 BESS RICHARD MD, Ot M16.12 UNILATERAL PRIMARY OSTEOARTHRITIS, LEFT Procedures Code Description Performed By Performed On 81.54 05/03/2011 16587 INDIV PSYTX 45/50 MIN 07/30/2012 13736 ROUTINE VENIPUNCTURE 08/30/2012 31811 VITAMIN D 25-HYDROXY (D2,D3 , TOTAL) 08/31/2012 38651 INDIV PSYTX 45/50 MIN 09/13/2012 10976 PSYTX PT&/FAMILY 45 MINUTES 10/04/2012 12590 ROUTINE VENIPUNCTURE 10/08/2012 PSYCH BRIAN QUARLES 10/08/2012 49774 ESR/SED RATE 10/08/2012 07403 URINE DRUG SCREEN (IN-HOUSE ) 10/08/2012 67687 CRP 10/09/2012 72904 LIVER PANEL (LFT) 10/09/2012 69343 RA FACTOR 10/09/2012 88864 CCP ANTIBODY 10/09/2012 ANAANA MARK ANALYZER (SCREEN) 10/09/2012 16370 PSYTX PT&/FAMILY 45 MINUTES 10/23/2012 74233 PSYTX PT&/FAMILY 45 MINUTES 11/18/2012 62918 PSYTX PT&/FAMILY 45 MINUTES 01/03/2013 75454 ROUTINE VENIPUNCTURE 01/22/2013 81763 UA LONG DIP 01/22/2013 03969 A1C (IN-HOUSE) 01/22/2013 55114 CBC 01/22/2013 18155 LIPID PANEL 01/22/2013 74330 CMP 01/22/2013 0863199 GFR CALC (RESULT ONLY) 01/22/2013 39804 TSH 01/22/2013 28651 PSYTX PT&/FAMILY 45 MINUTES 02/07/2013 44388 MAMMOGRAM, SCREENING 06/12/2013 28130 PSYTX PT&/FAMILY 45 MINUTES 06/24/2013 60319 ROUTINE VENIPUNCTURE 08/22/2013 TILA BHANDARI 08/22/2013 82716 A1C (IN-HOUSE) 08/22/2013 33988 INSULIN LEVEL 08/22/2013 3800288 GFR CALC (RESULT ONLY) 08/22/2013 67842 CMP 08/22/2013 33509 LIPID PANEL 08/22/2013 63606 MAGNESIUM 08/22/2013 42038 CBC 08/22/2013 81396 PSYTX PT&/FAMILY 45 MINUTES 12/12/2013 16430 ROUTINE VENIPUNCTURE 01/06/2014 68076 A1C (IN-HOUSE) 01/06/2014 4831424 GFR CALC (RESULT ONLY) 01/06/2014 49122 CMP 01/06/2014 58710 LIPID PANEL 01/06/2014 33461 CBC 01/06/2014 40823 PSYTX PT&/FAMILY 45 MINUTES 01/27/2014 97578 ROUTINE VENIPUNCTURE 04/02/2014 04872 DEXA BONE DENSITY, AXIAL 04/02/2014 23622 [employer] 04/02/2014 52512 CBC 04/02/2014 2976750 GFR CALC (RESULT ONLY) 04/02/2014 38443 CMP 04/02/2014 88494 LIPID PANEL 04/02/2014 59321 TSH 04/02/2014 68277 T4 FREE 04/06/2014 79112 T3 TOTAL 04/06/2014 66520 HEMOCCULT 04/09/2014 Rheumatol Rosanne Rosen 05/22/2014 23865 SLEEP STUDY ([facility] SLEEP STUDY) 06/10/2014 70955 ROUTINE VENIPUNCTURE 08/28/2014 27159 T4 FREE 08/28/2014 72839 TSH 08/28/2014 47956 T3 TOTAL 08/28/2014 Results Test Result Range Automated blood complete blood count (hemogram) panel - 07/25/16 09:55 Blood leukocytes automated count (number/volume) 8.9 10*3/uL 4.3-11.0 Blood erythrocytes automated count (number/volume) 4.74 10*6/uL 4.35-5.85 Venous blood hemoglobin measurement (mass/volume) 13.3 g/dL 11.5-16.0 Blood hematocrit (volume fraction) 41 % 35-52 Automated erythrocyte mean corpuscular volume 87 [foz_us] 80-99 Automated erythrocyte mean corpuscular hemoglobin (mass per erythrocyte) 28 pg 25-34 Automated erythrocyte mean corpuscular hemoglobin concentration measurement ( mass/volume) 32 g/dL 32-36 Automated erythrocyte distribution width ratio 14.1 % 10.0-14.5 Automated blood platelet count (count/volume) 334 10*3/uL 130-400 Automated blood platelet mean volume measurement 10.0 [foz_us] 7.4-10.4 PT panel in platelet poor plasma by coagulation assay - 07/25/16 09:55 Prothrombin time (PT) in platelet poor plasma by coagulation assay 12.8 s 12.2-14.7 INR in platelet poor plasma or blood by coagulation assay 1.0 0.8-1.4 Activated partial thromboplastin time (aPTT) in platelet poor plasma bycoagulation assay - 07/25/16 09:55 Activated partial thromboplastin time (aPTT) in platelet poor plasma bycoagulation assay 34 s 24-35 Comprehensive metabolic panel - 07/25/16 09:55 Serum or plasma sodium measurement (moles/volume) 140 mmol/L 135-145 Serum or plasma potassium measurement (moles/volume) 3.9 mmol/L 3.6-5.0 Serum or plasma chloride measurement (moles/volume) 102 mmol/L 98-107 Carbon dioxide 26 mmol/L 21-32 Serum or plasma anion gap determination (moles/volume) 12 mmol/L 5-14 Serum or plasma urea nitrogen measurement (mass/volume) 11 mg/dL 7-18 Serum or plasma creatinine measurement (mass/volume) 0.84 mg/dL 0.60-1.30 Serum or plasma urea nitrogen/creatinine mass ratio 13 NRG Serum or plasma creatinine measurement with calculation of estimated glomerular filtration rate > NRG Serum or plasma glucose measurement (mass/volume) 111 mg/dL 70-105 Serum or plasma calcium measurement (mass/volume) 9.6 mg/dL 8.5-10.1 Serum or plasma total bilirubin measurement (mass/volume) 0.5 mg/dL 0.1-1.0 Serum or plasma alkaline phosphatase measurement (enzymatic activity/volume) 71 U/L 40-136 Serum or plasma aspartate aminotransferase measurement (enzymatic activity/ volume) 22 U/L 5-34 Serum or plasma alanine aminotransferase measurement (enzymatic activity/volume ) 20 U/L 0-55 Serum or plasma protein measurement (mass/volume) 7.6 g/dL 6.4-8.2 Serum or plasma albumin measurement (mass/volume) 4.0 g/dL 3.2-4.5 Lipid 1996 panel - 07/25/16 09:55 Serum or plasma triglyceride measurement (mass/volume) 171 mg/dL <150 Serum or plasma cholesterol measurement (mass/volume) 130 mg/dL < 200 Serum or plasma cholesterol in HDL measurement (mass/volume) 25 mg/ dL 40-60 Cholesterol in LDL [mass/volume] in serum or plasma by direct assay 76 mg/dL 1-129 Serum or plasma cholesterol in VLDL measurement (mass/volume) 34 mg/ dL 5-40 Methicillin resistant Staphylococcus aureus (MRSA) screening culture - 09:55 Methicillin resistant Staphylococcus aureus (MRSA) screening culture NEG NRG Arterial blood gas measurement - 08/11/16 13:25 Blood pCO2 49 mm[Hg] 35-45 Blood pO2 65 mm[Hg] 79-93 Arterial blood bicarbonate measurement (moles/volume) 29 mmol/L 23-27 Arterial blood base excess by calculation 3.1 mmol/L -2.5 -2.5 Arterial blood oxygen saturation measurement 94 % 94-100 * Inhaled oxygen flow rate RA NRG Arterial blood pH measurement with patient temperature correction 7.39 7.37-7.43 Arterial blood carbon dioxide, total measurement (moles/volume) 30.4 mmol/L 21.0-31.0 Body site LR NRG Assessment of wrist artery patency prior to arterial puncture YES- POS NRG Setting of ventilation mode NO NRG Measurement of body temperature 98.3 NRG Comprehensive metabolic panel - 08/15/16 18:22 Serum or plasma sodium measurement (moles/volume) 137 mmol/L 135-145 Serum or plasma potassium measurement (moles/volume) 4.1 mmol/L 3.6-5.0 Serum or plasma chloride measurement (moles/volume) 103 mmol/L 98-107 Carbon dioxide 24 mmol/L 21-32 Serum or plasma anion gap determination (moles/volume) 10 mmol/L 5-14 Serum or plasma urea nitrogen measurement (mass/volume) 13 mg/dL 7-18 Serum or plasma creatinine measurement (mass/volume) 0.77 mg/dL 0.60-1.30 Serum or plasma urea nitrogen/creatinine mass ratio 17 NRG Serum or plasma creatinine measurement with calculation of estimated glomerular filtration rate > NRG Serum or plasma glucose measurement (mass/volume) 117 mg/dL 70-105 Serum or plasma calcium measurement (mass/volume) 9.4 mg/dL 8.5-10.1 Serum or plasma total bilirubin measurement (mass/volume) 0.4 mg/dL 0.1-1.0 Serum or plasma alkaline phosphatase measurement (enzymatic activity/volume) 71 U/L 40-136 Serum or plasma aspartate aminotransferase measurement (enzymatic activity/ volume) 22 U/L 5-34 Serum or plasma alanine aminotransferase measurement (enzymatic activity/volume ) 17 U/L 0-55 Serum or plasma protein measurement (mass/volume) 7.3 g/dL 6.4-8.2 Serum or plasma albumin measurement (mass/volume) 3.9 g/dL 3.2-4.5 Lipid 1996 panel - 08/15/16 18:22 Serum or plasma triglyceride measurement (mass/volume) 143 mg/dL <150 Serum or plasma cholesterol measurement (mass/volume) 144 mg/dL < 200 Serum or plasma cholesterol in HDL measurement (mass/volume) 32 mg/ dL 40-60 Cholesterol in LDL [mass/volume] in serum or plasma by direct assay 90 mg/dL 1-129 Serum or plasma cholesterol in VLDL measurement (mass/volume) 29 mg/ dL 5-40 CBC With Differential/Platelet - 03/08/17 15:59 WBC 10.2 x10E3/uL 3.4-10.8 RBC 4.56 x10E6/uL 3.77-5.28 Hemoglobin 12.4 g/dL 11.1-15.9 Hematocrit 39.0 % 34.0-46.6 MCV 86 fL 79-97 MCH 27.2 pg 26.6-33.0 MCHC 31.8 g/dL 31.5-35.7 RDW 16.1 % 12.3-15.4 Platelets 373 x10E3/uL 150-379 Neutrophils 56 % Lymphs 34 % Monocytes 8 % Eos 2 % Basos 0 % Neutrophils (Absolute) 5.7 x10E3/uL 1.4-7.0 Lymphs (Absolute) 3.4 x10E3/uL 0.7-3.1 Monocytes(Absolute) 0.8 x10E3/uL 0.1-0.9 Eos (Absolute) 0.2 x10E3/uL 0.0-0.4 Baso (Absolute) 0.0 x10E3/uL 0.0-0.2 Immature Granulocytes 0 % Immature Grans (Abs) 0.0 x10E3/uL 0.0-0.1 Comp. Metabolic Panel (14) - 03/08/17 15:59 Glucose, Serum 96 mg/dL 65-99 BUN 13 mg/dL 8-27 Creatinine, Serum 0.85 mg/dL 0.57-1.00 eGFR If NonAfricn Am 72 mL/min/1.73 >59 eGFR If Africn Am 83 mL/min/1.73 >59 BUN/Creatinine Ratio 15 12-28 Sodium, Serum 139 mmol/L 134-144 Potassium, Serum 4.2 mmol/L 3.5-5.2 Chloride, Serum 97 mmol/L 96-106 Carbon Dioxide, Total 23 mmol/L 18-29 Calcium, Serum 9.6 mg/dL 8.7-10.3 Protein, Total, Serum 8.3 g/dL 6.0-8.5 Albumin, Serum 4.3 g/dL 3.6-4.8 Globulin, Total 4.0 g/dL 1.5-4.5 A/G Ratio 1.1 1.2-2.2 Bilirubin, Total 0.6 mg/dL 0.0-1.2 Alkaline Phosphatase, S 85 IU/L 39-117 AST (SGOT) 23 IU/L 0-40 ALT (SGPT) 22 IU/L 0-32 Lipid Panel - 03/08/17 15:59 Cholesterol, Total 154 mg/dL 100-199 Triglycerides 168 mg/dL 0-149 HDL Cholesterol 31 mg/dL >39 VLDL Cholesterol Adam 34 mg/dL 5-40 LDL Cholesterol Calc 89 mg/dL 0-99 CBC With Differential/Platelet - 06/08/17 15:20 WBC TNP x10E3/uL RBC TNP Hemoglobin TNP Hematocrit TNP Platelets TNP Neutrophils TNP Lymphs TNP Monocytes TNP Eos TNP Lymphs (Absolute) TNP Eos (Absolute) TNP Baso (Absolute) TNP Comp. Metabolic Panel (14) - 06/08/17 15:20 Glucose, Serum 160 mg/dL 65-99 BUN 15 mg/dL 8-27 Creatinine, Serum 0.81 mg/dL 0.57-1.00 eGFR If NonAfricn Am 76 mL/min/1.73 >59 eGFR If Africn Am 88 mL/min/1.73 >59 BUN/Creatinine Ratio 19 12-28 Sodium, Serum 139 mmol/L 134-144 Potassium, Serum 4.4 mmol/L 3.5-5.2 Chloride, Serum 97 mmol/L 96-106 Carbon Dioxide, Total 23 mmol/L 18-29 Calcium, Serum 9.2 mg/dL 8.7-10.3 Protein, Total, Serum 7.7 g/dL 6.0-8.5 Albumin, Serum 3.9 g/dL 3.6-4.8 Globulin, Total 3.8 g/dL 1.5-4.5 A/G Ratio 1.0 1.2-2.2 Bilirubin, Total 0.3 mg/dL 0.0-1.2 Alkaline Phosphatase, S 84 IU/L 39-117 AST (SGOT) 18 IU/L 0-40 ALT (SGPT) 14 IU/L 0-32 Request Problem - 06/08/17 15:20 Request Problem TNP CMP - 06/08/17 15:20 Glucose, Serum 160 mg/dL 65-99 BUN 15 mg/dL 8-27 Creatinine, Serum 0.81 mg/dL 0.57-1.00 eGFR If NonAfricn Am 76 mL/min/1.73 >59 eGFR If Africn Am 88 mL/min/1.73 >59 BUN/Creatinine Ratio 19 12-28 Sodium, Serum 139 mmol/L 134-144 Potassium, Serum 4.4 mmol/L 3.5-5.2 Chloride, Serum 97 mmol/L 96-106 Carbon Dioxide, Total 23 mmol/L 18-29 Calcium, Serum 9.2 mg/dL 8.7-10.3 Protein, Total, Serum 7.7 g/dL 6.0-8.5 Albumin, Serum 3.9 g/dL 3.6-4.8 Globulin, Total 3.8 g/dL 1.5-4.5 A/G Ratio 1.0 1.2-2.2 Bilirubin, Total 0.3 mg/dL 0.0-1.2 Alkaline Phosphatase, S 84 IU/L 39-117 AST (SGOT) 18 IU/L 0-40 ALT (SGPT) 14 IU/L 0-32 Request Problem TNP NRG CBC - 09/11/17 14:29 WHITE BLOOD CELL COUNT 10.5 Thousand/uL 3.8-10.8 RED BLOOD CELL COUNT 4.86 Million/uL 3.80-5.10 HEMOGLOBIN 14.1 g/dL 11.7-15.5 HEMATOCRIT 43.2 % 35.0-45.0 MCV 88.9 fL 80.0-100.0 MCH 29.0 pg 27.0-33.0 MCHC 32.6 g/dL 32.0-36.0 RDW 13.5 % 11.0-15.0 PLATELET COUNT 337 Thousand/uL 140-400 MPV 10.3 fL 7.5-12.5 ABSOLUTE NEUTROPHILS 5933 cells/uL 4548-9254 ABSOLUTE LYMPHOCYTES 3455 cells/uL 850-3900 ABSOLUTE MONOCYTES 840 cells/uL 200-950 ABSOLUTE EOSINOPHILS 221 cells/uL 15-500 ABSOLUTE BASOPHILS 53 cells/uL 0-200 NEUTROPHILS 56.5 % NRG LYMPHOCYTES 32.9 % NRG MONOCYTES 8.0 % NRG EOSINOPHILS 2.1 % NRG BASOPHILS 0.5 % NRG Encounters ACCT No. Visit Date/Time Discharge Status Pt. Type Provider Facility Loc./Unit Complaint [id number] 11/27/2014 09:54:00 11/27/2014 23:59:59 CLS Outpatient BESS RICHARD MD [id number] 08/28/2014 10:23:00 08/28/2014 23:59:59 CLS Outpatient BESS RICHARD MD [id number] 05/22/2014 15:49:00 05/22/2014 23:59:59 CLS Outpatient BESS RICHARD MD [id number] 04/09/2014 11:10:00 04/09/2014 23:59:59 CLS Outpatient BESS RICHARD MD [id number] 04/02/2014 10:14:00 04/02/2014 23:59:59 CLS Outpatient BESS RICHARD MD [id number] 01/27/2014 12:43:00 01/27/2014 23:59:59 CLS Outpatient MARIMAR ALVAREZ [id number] 01/06/2014 11:03:00 01/06/2014 23:59:59 CLS Outpatient BESS RICHARD MD [id number] 12/12/2013 08:26:00 12/12/2013 23:59:59 CLS Outpatient MARIMAR ALVAREZ [id number] 11/13/2013 14:58:00 11/13/2013 23:59:59 CLS Outpatient FILOMENA JOELLEN CASANOVA [id number] 08/22/2013 08:57:00 08/22/2013 23:59:59 CLS Outpatient RAFA FERNÁNDEZ MD [id number] 08/22/2013 08:57:00 08/22/2013 23:59:59 CLS Outpatient RAFA FERNÁNDEZ MD [id number] 07/24/2013 11:25:00 07/24/2013 23:59:59 CLS Outpatient RAFA FERNÁNDEZ MD [id number] 06/24/2013 11:53:00 06/24/2013 23:59:59 CLS Outpatient MARIMAR ALVAREZ [id number] 06/03/2013 11:24:00 06/03/2013 23:59:59 CLS Outpatient RAFA FERNÁNDEZ MD [id number] 11/15/2012 14:59:00 11/15/2012 23:59:59 CLS Outpatient RAFA FERNÁNDEZ MD [id number] 10/18/2012 14:49:00 10/18/2012 23:59:59 CLS Outpatient MARIMAR ALVAREZ [id number] 10/08/2012 13:13:00 10/08/2012 23:59:59 CLS Outpatient RADHA GAXIOLA MD [id number] 10/01/2012 11:05:00 10/01/2012 23:59:59 CLS Outpatient [id number] 09/13/2012 15:49:00 09/13/2012 23:59:59 CLS Outpatient ROBINA AGUDELOMARIMAR [id number] 08/30/2012 11:28:00 08/30/2012 23:59:59 CLS Outpatient RAFA FERNÁNDEZ [place] [id number] 06/26/2012 10:31:00 06/26/2012 23:59:59 CLS Outpatient RADHA GAXIOLA MD [id number] 02/07/2013 14:23:00 Document Registration [id number] 01/22/2013 13:04:00 Document Registration [id number] 12/31/2012 16:00:00 Document Registration [id number] 06/09/2017 12:06:00 Document Registration [id number] 03/09/2017 08:06:00 Document Registration [id number] 01/03/2018 13:07:00 01/03/2018 23:59:59 CLS Outpatient BESS RICHARD MD [facility] RAD [id number] 09/21/2017 11:29:00 09/21/2017 23:59:59 CLS Outpatient BESS RICHARD MD [facility] RAD N95.0 POSTMENOPAUSAL BLEEDING [id number] 08/15/2016 17:45:00 08/15/2016 23:59:59 CLS Outpatient CONCEPCIÓN JACKSON [facility] LAB CAD,HTN, MIXED HLP [id number] 08/11/2016 13:00:00 08/11/2016 23:59:59 CLS Outpatient HIGINIO ARTHUR DO [facility] RT COPD,SOB,PALPITATION,CAD [id number] 07/25/2016 09:02:00 07/25/2016 17:30:00 DIS Outpatient KIA WONG FACC, DK MENDENHALLP CCDS [facility] CATH SOB,CAD, FATIGUE,HTN,OBESITY [id number] 05/17/2016 13:33:00 05/17/2016 23:59:59 CLS Outpatient BESS RICHARD MD [facility] RAD POSTMENOPAUSAL BLEEDING [id number] 02/14/2016 09:30:00 02/14/2016 23:59:59 CLS Preadmit LISA RIOS MD [facility] CARD CAD,CP,PALPITATIONS,HTN [id number] 11/15/2015 09:03:00 02/13/2016 00:01:00 DIS Outpatient LISA RIOS MD [facility] CARD CAD,CP,PALPITATIONS,HTN [id number] 11/17/2015 10:19:00 11/17/2015 23:59:59 CLS Out[facility]OS [facility] [facility] CARD CAD,CHEST PAIN, PALPITATIONS,HTN [id number] 04/23/2014 11:22:00 04/23/2014 23:59:59 CLS Outpatient BESS RICHARD MD [facility] RAD OSTEOPOROSIS [id number] 03/19/2014 11:00:00 03/19/2014 14:45:00 DIS Outpatient DORIS BOWMAN DO [facility] SD POST MENOPAUSAL BLEEDING [id number] 03/17/2014 07:16:00 03/17/2014 23:59:59 CLS Outpatient DORIS BOWMAN DO [facility] PREOP POST MENOPAUSAL BLEEDING [id number] 03/12/2014 09:12:00 03/12/2014 11:35:00 DIS Outpatient DORIS BOWMAN DO [facility] SD POST MENOPAUSAL BLEEDING; ENDOMETRIAL THICKENING [id number] 03/05/2014 12:44:00 03/05/2014 23:59:59 CLS Outpatient DORIS BOWMAN DO [facility] PREOP POST MENOPAUSAL BLEEDING; ENDOMETRIAL THICKENING [id number] 02/09/2014 15:04:00 02/09/2014 23:59:59 CLS Outpatient DORIS BOWMAN DO [facility] RAD POSTMENOPAUSAL BLEEDING [id number] 12/12/2013 13:00:00 12/22/2013 16:51:00 DIS Outpatient TILA TARIQ [facility] REHAB B HIP PAIN [id number] 06/12/2013 14:31:00 06/12/2013 23:59:59 CLS Outpatient JOLENE WONG, RAFA Perez [facility] RAD SCREENING [id number] 11/15/2015 09:02:00 Document Registration [id number] 07/12/2012 09:09:00 Document Registration [id number] 02/20/2012 10:07:00 Document Registration [id number] 07/03/2011 19:57:00 Document Registration [id number] 06/29/2011 11:06:00 Document Registration [id number] 05/05/2011 14:45:00 Document Registration [id number] 05/03/2011 05:50:00 Document Registration [id number] 04/27/2011 09:35:00 Document Registration [id number] 08/08/2010 13:16:00 Document Registration [id number] 07/26/2010 17:59:00 Document Registration [id number] 01/03/2018 11:20:00 01/03/2018 23:59:59 [facility] [id number] 09/11/2017 14:00:00 Document Registration [id number] 06/08/2017 14:00:00 Document Registration
[2018-01-29 19:11] LABS: BASOPHILS % (AUTO) 0 % (0-10); EOSINOPHILS # (AUTO) 0.3 10^3/uL (0.0-0.3); EOSINOPHILS % (AUTO) 3 % (0-10); HEMATOCRIT 41 % (35-52); HEMOGLOBIN 12.9 G/DL (11.5-16.0); LYMPHOCYTES # (AUTO) 1.7 X 10^3 (1.0-4.0); LYMPHOCYTES % (AUTO) 15 % (12-44); MEAN CORPUSCULAR HEMOGLOBIN 29 PG (25-34); MEAN CORPUSCULAR HGB CONC 31 G/DL (32-36); MEAN CORPUSCULAR VOLUME 92 FL (80-99); MEAN PLATELET VOLUME 9.9 FL (7.4-10.4); MONOCYTES % (AUTO) 9 % (0-12); NEUTROPHILS # (AUTO) 8.6 X 10^3 (1.8-7.8); NEUTROPHILS % (AUTO) 74 % (42-75); PLATELET COUNT 301 10^3/uL (130-400); RED BLOOD COUNT 4.48 10^6/uL (4.35-5.85); RED CELL DISTRIBUTION WIDTH 14.9 % (10.0-14.5); WHITE BLOOD COUNT 11.6 10^3/uL (4.3-11.0)
[2018-01-29 20:00] LABS: ALANINE AMINOTRANSFERASE 21 U/L (0-55); ALBUMIN 3.5 GM/DL (3.2-4.5); ALKALINE PHOSPHATASE 82 U/L (40-136); BILIRUBIN,TOTAL 0.3 MG/DL (0.1-1.0); BUN/CREATININE RATIO 20; CALCIUM 8.6 MG/DL (8.5-10.1); CARBON DIOXIDE 26 MMOL/L (21-32); CHLORIDE 107 MMOL/L (98-107); GFR ESTIMATED > 60; GLUCOSE 289 MG/DL (70-105); POTASSIUM 4.2 MMOL/L (3.6-5.0); SODIUM 141 MMOL/L (135-145); TOTAL PROTEIN 6.9 GM/DL (6.4-8.2)
[2018-01-29] MEDS ORDERED: HYDROmorphone 2 MG/ML VIAL (DILAUDID) IVP STA ×3 (20:02→23:13)
--- NOTE | 2018-01-29 20:04 | Diagnostic Imaging Report ---
INDICATION: Fall. COMPARISON: Study compared to 04/27/2011. FINDINGS: There is a new mass projecting over the right upper lung measuring 3.4 cm cephalocaudal. A correlative chest CT is recommended. Heart size is at the upper limits of normal. There is no focal pneumonia, effusion, or pneumothorax. IMPRESSION: Right upper lung mass has developed in the interim. Correlative chest CT recommended as its further evaluation. If iodinated contrast media is tolerable, its administration would improve sensitivity and specificity. Results phoned to the ER. Dictated by: Dictated on workstation # [id number]
--- NOTE | 2018-01-29 20:08 | Diagnostic Imaging Report ---
INDICATION: Fall with back pain. FINDINGS: Note is made of a mass-like density in the right upper lobe posteriorly abutting the top of the major fissure measuring 2.7 cm. It shows no air bronchograms; neoplasm could not be excluded. Reconstruction views reveal the thoracolumbar vertebral body heights to be within normal limits. There are advanced degenerative changes to the discs, endplates, and facets throughout the lumbar spine with vertebral body and posterior element fusion at the L4-L5 level with incorporated posterolateral bone graft. [place] defect in the left iliac bone noted, presumed postoperative. There is ossification of the posterior longitudinal ligament at the thoracolumbar level resulting in substantial and moderate severities of multilevel canal stenoses, chronic. No thoracolumbar fracture. No bony destruction. No traumatic malalignment. IMPRESSION: Thoracolumbar spondylosis, ossification of the posterior longitudinal ligament, and multilevel thoracolumbar junction canal stenoses, chronic. Incorporated interbody and posterior fusion at L4-L5. No thoracolumbar fracture or traumatic malalignment. Mass-like density in the right upper lobe, josh-fissural, posterolaterally; neoplasm cannot be excluded. No suspicious lytic or sclerotic thoracic spinal lesion, however. Dictated by: Dictated on workstation # [id number]
[2018-01-29] MEDS ORDERED: LORazepam INJ 2 MG/ML (ATIVAN) VIAL IVP ONE (20:15)
--- NOTE | 2018-01-29 20:16 | Diagnostic Imaging Report ---
PROCEDURE: CT pelvis without contrast. TECHNIQUE: Multiple contiguous axial images were obtained through the pelvis without the use of intravenous contrast. Sagittal and coronal reformations were performed. INDICATION: Fell, pelvic and coccygeal pain. FINDINGS: CT scanning of the pelvis demonstrates an IUD in place. The uterus, adnexal structures, and urinary bladder are normal. The visualized bowel of loops appear unremarkable. A couple of diverticula are present. Mild arteriosclerosis is present. No hernias are present. The bone windows demonstrate postoperative changes to the lower lumbar spine. No fractures are present. No fluid collections are present. IMPRESSION: There are no acute findings. Dictated by: Dictated on workstation # [id number]
[2018-01-29] MEDS ORDERED: NS 100 ML (IVPB) BAG IV ONE (20:30)
[2018-01-29] MEDS ORDERED: IOHEXOL 350 MG/ML 100 ML (OMNIPAQUE 350) VIAL IV ONE (20:30)
--- NOTE | 2018-01-29 21:02 | Diagnostic Imaging Report ---
PROCEDURE: CT chest with contrast only. TECHNIQUE: Multiple contiguous axial images were obtained through the chest after administration of intravenous contrast. INDICATION: Lung mass. FINDINGS: Soft tissue like density mass in the right upper lobe posteriorly measures 2.3 x 2.2 cm in axial plane. Its cephalocaudal length in the coronal reconstructions is roughly 3.1 cm. It abuts the very top of the of major fissure along its posterior aspect. There is no other lung mass. No pathological appearing hilar or mediastinal lymph nodes. No acute or suspicious osseous lesion. No effusion or pneumothorax. The visualized upper abdomen reveals the adrenals to be intact. The partially visualized liver mildly fatty but nonfocal and nonacute with mild postcholecystectomy ectasia of the biliary ducts. The aorta is patent and nonaneurysmal. There is no evidence for central PE. No fracture or traumatic abnormality. IMPRESSION: A right upper lobe lung mass is present, malignancy cannot be excluded. We note this is well seen on a radiograph of earlier this same date and reflects a development from a previous x-ray of July 2016, therefore viewed with suspicion. The mass could be biopsied percutaneously with CT guidance. There was no other significant finding. There were no findings suggestive of additional thoracic neoplasm. Dictated by: Dictated on workstation # [id number]
--- NOTE | 2018-01-29 21:27 | Diagnostic Imaging Report ---
INDICATION: Fall, pain. FINDINGS: Left knee arthroplasty performed. There is severe right knee tricompartmental osteoarthritis. No fractures or dislocations however. IMPRESSION: Tib-fib radiographs bilaterally revealed a replaced left knee and a severely degenerated right knee. No acute appearing abnormalities. Dictated by: Dictated on workstation # [id number]
--- NOTE | 2018-01-29 21:37 | Diagnostic Imaging Report ---
INDICATION: Fall, pain FINDINGS: There is total left knee. Severe right knee osteoarthritis. There is mild arthritic changes to the bilateral hips symmetric. No femoral fracture. IMPRESSION: Degenerated right knee, replaced left knee. Mild arthritic changes to the bilateral hips. No acute femoral abnormality. Dictated by: Dictated on workstation # [id number]
[2018-01-29 21:53] LABS: BILIRUBIN,URINE NEGATIVE (NEGATIVE); CLARITY,URINE CLEAR; COLOR,URINE YELLOW; GLUCOSE, URINE (UA) 3+ (NEGATIVE); KETONES,URINE NEGATIVE (NEGATIVE); LEUKOCYTE ESTERASE ,URINE NEGATIVE (NEGATIVE); NITRITE,URINE NEGATIVE (NEGATIVE); PH,URINE 6 (5-9); PROTEIN,URINE 2+ (NEGATIVE); UROBILINOGEN,URINE 1 MG/DL (NORMAL)
[2018-01-29 22:01] LABS: BACTERIA,URINE NEGATIVE /HPF; WBC,URINE RARE /HPF
[2018-01-29] MEDS ORDERED: KETOROLAC 30 MG/ML VIAL IVP ONE (22:15)
[2018-01-29] MEDS ORDERED: GABAPENTIN 300 MG (NEURONTIN) CAP PO ONE (23:15)
--- NOTE | 2018-01-30 00:13 | ED General ---
General Chief Complaint: Trauma-Non Activation Stated Complaint: FALL Nursing Triage Note: pt fell getting up from toilet. pt states her legs just couldn't hold her up and she fell directly on her rear end. pt c/o knee and hip pain related to ra. denies hitting head or losing consciousness Nursing Sepsis Screen: No Definite Risk Source of Information: Patient, EMS Exam Limitations: No Limitations History of Present Illness Date Seen by Provider: January 29, 2018 Time Seen by Provider: 18:29 Initial Comments This 67-year-old woman presents to the emergency room via EMS after having a fall in her home. She has had significant problems with pain and weakness in her legs, especially her knees, over the past few months. She has been referred to orthopedics for this problem. She has been requiring assistance from family for transfers and ambulation. Today she was home alone and fell while getting up from the toilet. She states her legs "gave out" while she was trying to stand up. She fell backward onto her buttocks with her knees bent beneath her. She denies any head or neck injury. There was no loss of consciousness. She complains of exacerbation of chronic back pain, pain around the coccyx, and pain in the hips and knees. She has severe arthritis with chronic pain at baseline. She is also very anxious. She comments that she normally takes 3 doses of anxiolytics per day but has not had any yet today. Allergies and Home Medications Allergies Coded Allergies: Adhesive Bandage (Unverified Allergy, Unknown, 03/12/14) Home Medications Albuterol Sulfate 1 Puff Puff, 2 PUFF IH Q4H PRN for SHORTNESS OF BREATH, ( Reported) 1 PUFF = 90 MCG Alprazolam 1 Mg Tablet, 1 MG PO TID PRN for ANXIETY, (Reported) Baclofen 10 Mg Tablet, 10 MG PO QID, (Reported) Fentanyl 1 Each Patch.td72, 75 MCG TD Q72H, (Reported) USES ALONG WITH 12MCG PATCH Fentanyl 1 Each Patch.td72, 12 MCG TD Q72H, (Reported) USES ALONG WITH 75MCG PATCH Fluoxetine HCl 60 Mg Tablet, 60 MG PO DAILY, (Reported) Folic Acid 1 Mg Tablet, 1 MG PO SuMoTuWeThSa, (Reported) Furosemide 40 Mg Tablet, 20 MG PO 1300 PRN for SWELLING, (Reported) TAKES 1/2 (40MG) TABLET Furosemide 40 Mg Tablet, 40 MG PO DAILY, (Reported) Ibuprofen 600 Mg Tablet, 600 MG PO BID PRN for PAIN-MILD, (Reported) Loratadine 10 Mg Tablet, 10 MG PO HS, (Reported) 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 Sodium 2.5 Mg Tablet, 15 MG PO Fr, (Reported) TAKES 6 (2.5MG) TABLETS Montelukast Sodium 10 Mg Tablet, 10 MG PO HS, (Reported) Nystatin 15 Gm Cream..g., TP BID PRN for RASH, (Reported) Omeprazole 40 Mg Capsule.dr, 40 MG PO HS, (Reported) Oxycodone HCl 10 Mg Tablet, 10 MG PO TID PRN for PAIN-SEVERE, (Reported) Polyethylene Glycol 3350 255 Gm Powder, 17 GM PO Q48H, (Reported) Potassium Chloride 10 Meq Tab.er.prt, 10 MEQ PO DAILY, (Reported) Patient Home Medication List Home Medication List Reviewed: Yes Review of Systems Constitutional: weakness EENTM: no symptoms reported Respiratory: no symptoms reported Cardiovascular: no symptoms reported Gastrointestinal: no symptoms reported Genitourinary: no symptoms reported : No Musculoskeletal: see HPI Skin: no symptoms reported Psychiatric/Neurological: See HPI Hematologic/Lymphatic: No Symptoms Reported Immunological/Allergic: no symptoms reported Past Xdnupdo-Yvglga-Hhbyqx Hx Patient Social History Alcohol Use: Denies Use Recreational Drug Use: No Type Used: Cigarettes Former Smoker, Quit: Jul 25, 1996 Recent Foreign Travel: No Contact w/Someone Who Travel: No Recent Infectious Disease Expo: No Recent Hopitalizations: Yes Immunizations Up To Date Date of Pneumonia Vaccine: Mar 12, 2012 Past Medical History Surgeries: Yes (appy, open gb, back surgeries,tubal ligation, t&a) Adenoidectomy, Gallbladder, Orthopedic, Tonsillectomy, Tubal Ligation Respiratory: Yes Asthma, COPD Cardiac: Yes Neurological: No : No Reproductive Disorders: No Gastrointestinal: Yes Diverticulosis Musculoskeletal: Yes (DJD LEFT KNEE, spinal stenosis) Rheumatoid Arthritis Endocrine: Yes HEENT: No Cancer: No Psychosocial: Yes Anxiety Blood Disorders: No Physical Exam Vital Signs Vital Signs - First Documented 01/29/18 01/30/18 18:29 00:45 Temp 98.4 Pulse 104 Resp 22 B/P (MAP) 150/84 (106) O2 Delivery Room Air O2 Flow Rate 2.00 Capillary Refill : Greater Than 3 Seconds General Appearance: WD/WN, Moderate Distress, Obese HEENT: PERRL/EOMI, Normal ENT Inspection, Other (Oropharynx dry) Neck: Normal Inspection, Non Tender Respiratory: Lungs Clear, Normal Breath Sounds, No Accessory Muscle Use, No Respiratory Distress Cardiovascular: Regular Rate, Rhythm, No Edema, No Murmur Gastrointestinal: Normal Bowel Sounds, Non Tender, Soft Extremity: No Pedal Edema, Other (Tenderness over the hips bilaterally and knees bilaterally. 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 She did move both lower extremities independently. Patient was extremely anxious.) Skin: Normal Color, Warm/Dry Progress/Results/Core Measures Suspected Sepsis Recent Fever Within 48 Hours: No Infection Criteria Present: None New/Unexplained Altered Menta: No Sepsis Screen: No Definite Risk SIRS Temperature:98.4 Pulse: 104 Respiratory Rate: 22 Laboratory Tests 01/29/18 19:00: White Blood Count 11.6H Blood Pressure 150 /84 Mean: 106 Laboratory Tests 01/29/18 19:00: Creatinine 0.80, Platelet Count 301, Total Bilirubin 0.3 Results/Orders Lab Results Laboratory Tests Test 01/29/18 19:00 01/29/18 21:43 01/30/18 05:10 Range/Units White Blood Count 11.6 H 4.3-11.0 10^3/uL Red Blood Count 4.48 4.35-5.85 10^6/uL Hemoglobin 12.9 11.5-16.0 G/DL Hematocrit 41 35-52 % Mean Corpuscular Volume 92 80-99 FL Mean Corpuscular Hemoglobin 29 25-34 PG Mean Corpuscular Hemoglobin Concent 31 L 32-36 G/DL Red Cell Distribution Width 14.9 H 10.0-14.5 % Platelet Count 301 130-400 10^3/uL Mean Platelet Volume 9.9 7.4-10.4 FL Neutrophils (%) (Auto) 74 42-75 % Lymphocytes (%) (Auto) 15 12-44 % Monocytes (%) (Auto) 9 0-12 % Eosinophils (%) (Auto) 3 0-10 % Basophils (%) (Auto) 0 0-10 % Neutrophils # (Auto) 8.6 H 1.8-7.8 X 10^3 Lymphocytes # (Auto) 1.7 1.0-4.0 X 10^3 Monocytes # (Auto) 1.0 0.0-1.0 X 10^3 Eosinophils # (Auto) 0.3 0.0-0.3 10^3/uL Basophils # (Auto) 0.0 0.0-0.1 10^3/uL Sodium Level 141 135-145 MMOL/L Potassium Level 4.2 3.6-5.0 MMOL/L Chloride Level 107 98-107 MMOL/L Carbon Dioxide Level 26 21-32 MMOL/L Anion Gap 8 5-14 MMOL/L Blood Urea Nitrogen 16 7-18 MG/DL Creatinine 0.80 0.60-1.30 MG/DL Estimat Glomerular Filtration Rate > 60 BUN/Creatinine Ratio 20 Glucose Level 289 H 70-105 MG/DL Calcium Level 8.6 8.5-10.1 MG/DL Magnesium Level 2.0 1.8-2.4 MG/DL Total Bilirubin 0.3 0.1-1.0 MG/DL Aspartate Amino Transf (AST/SGOT) 15 5-34 U/L Alanine Aminotransferase (ALT/SGPT) 21 0-55 U/L Alkaline Phosphatase 82 40-136 U/L Total Protein 6.9 6.4-8.2 GM/DL Albumin 3.5 3.2-4.5 GM/DL Urine Color YELLOW Urine Clarity CLEAR Urine pH 6 5-9 Urine Specific [place] 1.015 L 1.016-1.022 Urine Protein 2+ H NEGATIVE Urine Glucose (UA) 3+ H NEGATIVE Urine Ketones NEGATIVE NEGATIVE Urine Nitrite NEGATIVE NEGATIVE Urine Bilirubin NEGATIVE NEGATIVE Urine Urobilinogen 1 NORMAL MG/DL Urine Leukocyte Esterase NEGATIVE NEGATIVE Urine RBC (Auto) NEGATIVE NEGATIVE Urine RBC NONE /HPF Urine WBC RARE /HPF Urine Crystals NONE /LPF Urine Bacteria NEGATIVE /HPF Urine Casts NONE /LPF Urine Mucus SMALL H /LPF Urine Culture Indicated NO Glucometer 93 70-110 MG/DL My Orders Orders - KADI ORTEGA MD Fentanyl Injection (Sublimaze Injection (01/29/18 18:45) Cbc With Automated Diff (01/29/18 18:42) Comprehensive Metabolic Panel (01/29/18 18:42) Magnesium (01/29/18 18:42) Ua Culture If Indicated (01/29/18 18:42) Chest 1 View, Ap/Pa Only (01/29/18 18:42) Ct Pelvis Wo (01/29/18 18:42) Ct Thoracic/Lumbar Spine Wo (01/29/18 18:42) Saline Lock/Iv-Start (01/29/18 18:42) Ns Iv 1000 Ml (Sodium Chloride 0.9%) (01/29/18 18:42) Fentanyl Injection (Sublimaze Injection (01/29/18 19:30) Hydromorphone Injection (Dilaudid Inject (01/29/18 20:02) Ct Chest W (01/29/18 20:03) Hydromorphone Injection (Dilaudid Inject (01/29/18 20:15) Lorazepam Injection (Ativan Injection) (01/29/18 20:15) Femur, Bilateral, 2 Views (01/29/18 20:35) Tibia/Fibula, Bilateral, 2view (01/29/18 20:35) Ketorolac Injection (Toradol Injection) (01/29/18 22:15) Hydromorphone Injection (Dilaudid Inject (01/29/18 23:13) Gabapentin Capsule/Tablet (Neurontin Cap (01/29/18 23:15) Ns Iv 1000 Ml (Sodium Chloride 0.9%) (01/29/18 23:17) Pineda Cath (01/30/18 00:32) 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 Patient required numerous doses of pain medication starting with fentanyl and escalating to multiple doses of Dilaudid. This provided insufficient pain relief from the patient's perspective. Toradol was then given which seemed to help a little bit more but patient still complained of uncontrolled pain. An additional dose of Dilaudid was given. No acute injuries were found, but patient's pain made her nonfunctional. There may have been some degree of weakness due to spinal stenosis as well. Patient was ultimately admitted for pain control. She may be a rehabilitation candidate. Ativan was given for anxiety. An incidental pulmonary nodule was found and evaluated further with CT scan with contrast. Diagnostic Imaging Diagonstic Imaging: CT Plain Films/CT/US/NM/MRI: other (Thoracolumbar spine) Comments CT of the thoracolumbar spine viewed by me and report reviewed. See report below: NAME: FRANKO [facility] REC#: [id number] PT STATUS: REG ER : 1950 PHYSICIAN: KADI ORTEGA MD ADMIT DATE: 01/29/18/ER Signed Date of Exam: 01/29/18 CT THORACIC/LUMBAR SPINE WO INDICATION: Fall with back pain. FINDINGS: Note is made of a mass-like density in the right upper lobe posteriorly abutting the top of the major fissure measuring 2.7 cm. It shows no air bronchograms; neoplasm could not be excluded. Reconstruction views reveal the thoracolumbar vertebral body heights to be within normal limits. There are advanced degenerative changes to the discs, endplates, and facets throughout the lumbar spine with vertebral body and posterior element fusion at the L4-L5 level with incorporated posterolateral bone graft. Anson defect in the left iliac bone noted, presumed postoperative. There is ossification of the posterior longitudinal ligament at the thoracolumbar level resulting in substantial and moderate severities of multilevel canal stenoses, chronic. No thoracolumbar fracture. No bony destruction. No traumatic malalignment. IMPRESSION: Thoracolumbar spondylosis, ossification of the posterior longitudinal ligament, and multilevel thoracolumbar junction canal stenoses, chronic. Incorporated interbody and posterior fusion at L4-L5. No thoracolumbar fracture or traumatic malalignment. Mass-like density in the right upper lobe, josh-fissural, posterolaterally; neoplasm cannot be excluded. No suspicious lytic or sclerotic thoracic spinal lesion, however. Dictated by: Dictated on workstation # [id number] Dict: 01/29/181956 Trans: 01/29/182201 Interpreted by: ANTWON VIVAR Electronically signed by: ANTWON VIVAR 01/29/182201 Diagonstic Imaging: CT Plain Films/CT/US/NM/MRI: pelvis Comments CT pelvis viewed by me and report reviewed. See report below: NAME: FRANKO [facility] REC#: [id number] PT STATUS: ADM Rei : 1950 PHYSICIAN: KADI ORTEGA MD ADMIT DATE: 01/29/18/4TH Signed Date of Exam: 01/29/18 CT PELVIS WO PROCEDURE: CT pelvis without contrast. TECHNIQUE: Multiple contiguous axial images were obtained through the pelvis without the use of intravenous contrast. Sagittal and coronal reformations were performed. INDICATION: Fell, pelvic and coccygeal pain. FINDINGS: CT scanning of the pelvis demonstrates an IUD in place. The uterus, adnexal structures, and urinary bladder are normal. The visualized bowel of loops appear unremarkable. A couple of diverticula are present. Mild arteriosclerosis is present. No hernias are present. The bone windows demonstrate postoperative changes to the lower lumbar spine. No fractures are present. No fluid collections are present. IMPRESSION: There are no acute findings. Dictated by: Dictated on workstation # [id number] Dict: 01/29/181958 Trans: 01/30/18 114 Interpreted by: BALJEET VILLAVICENCIO MD Electronically signed by: BALJEET VILLAVICENCIO MD 01/30/18 1145 Diagonstic Imaging: Xray Plain Films/CT/US/NM/MRI: chest Comments Chest x-ray viewed by me and report reviewed. Discussed with the radiologist. See report below: NAME: FRANKO [facility] REC#: [id number] PT STATUS: REG ER : 1950 PHYSICIAN: KADI ORTEGA MD ADMIT DATE: 01/29/18/ER Signed Date of Exam: 01/29/18 CHEST 1 VIEW, AP/PA ONLY INDICATION: Fall. COMPARISON: Study compared to 04/27/2011. FINDINGS: There is a new mass projecting over the right upper lung measuring 3.4 cm cephalocaudal. A correlative chest CT is recommended. Heart size is at the upper limits of normal. There is no focal pneumonia, effusion, or pneumothorax. IMPRESSION: Right upper lung mass has developed in the interim. Correlative chest CT recommended as its further evaluation. If iodinated contrast media is tolerable, its administration would improve sensitivity and specificity. Results phoned to the ER. Dictated by: Dictated on workstation # [id number] Dict: 01/29/181952 Trans: 01/29/182201 Interpreted by: ANTWON VIVAR Electronically signed by: ANTWON VIVAR 01/29/182201 Reviewed: Discussed w/Radiologist Diagonstic Imaging: CT Plain Films/CT/US/NM/MRI: chest Comments CT chest with contrast viewed by me and report reviewed. See report below: NAME: FRANKO [facility] REC#: [id number] PT STATUS: REG ER : 1950 PHYSICIAN: KADI ORTEGA MD ADMIT DATE: 01/29/18/ER Signed Date of Exam: 01/29/18 CT CHEST W PROCEDURE: CT chest with contrast only. TECHNIQUE: Multiple contiguous axial images were obtained through the chest after administration of intravenous contrast. INDICATION: Lung mass. FINDINGS: Soft tissue like density mass in the right upper lobe posteriorly measures 2.3 x 2.2 cm in axial plane. Its cephalocaudal length in the coronal reconstructions is roughly 3.1 cm. It abuts the very top of the of major fissure along its posterior aspect. There is no other lung mass. No pathological appearing hilar or mediastinal lymph nodes. No acute or suspicious osseous lesion. No effusion or pneumothorax. The visualized upper abdomen reveals the adrenals to be intact. The partially visualized liver mildly fatty but nonfocal and nonacute with mild postcholecystectomy ectasia of the biliary ducts. The aorta is patent and nonaneurysmal. There is no evidence for central PE. No fracture or traumatic abnormality. IMPRESSION: A right upper lobe lung mass is present, malignancy cannot be excluded. We note this is well seen on a radiograph of earlier this same date and reflects a development from a previous x-ray of July 2016, therefore viewed with suspicion. The mass could be biopsied percutaneously with CT guidance. There was no other significant finding. There were no findings suggestive of additional thoracic neoplasm. Dictated by: Dictated on workstation # [id number] Dict: 01/29/182045 Trans: 01/29/182201 Interpreted by: ANTWON VIVAR Electronically signed by: ANTWON VIVAR 01/29/182201 Reviewed: Reviewed by [place] Diagonstic Imaging: Xray Plain Films/CT/US/NM/MRI: leg Comments NAME: FRANKO [facility] REC#: [id number] PT STATUS: REG ER : 1950 PHYSICIAN: KADI ORTEGA MD ADMIT DATE: 01/29/18/ER Signed Date of Exam: 01/29/18 TIBIA/FIBULA, BILATERAL, 2VIEW INDICATION: Fall, pain. FINDINGS: Left knee arthroplasty performed. There is severe right knee tricompartmental osteoarthritis. No fractures or dislocations however. IMPRESSION: Tib-fib radiographs bilaterally revealed a replaced left knee and a severely degenerated right knee. No acute appearing abnormalities. Dictated by: Dictated on workstation # [id number] Dict: 01/29/182120 Trans: 01/29/182201 Interpreted by: ANTWON VIVAR Electronically signed by: ANTWON VIVAR 01/29/182201 Diagonstic Imaging: Xray Plain Films/CT/US/NM/MRI: leg Comments NAME: FRANKO [facility] REC#: [id number] PT STATUS: REG ER : 1950 PHYSICIAN: KADI ORTEGA MD ADMIT DATE: 01/29/18/ER Signed Date of Exam: 01/29/18 FEMUR, BILATERAL, 2 VIEWS INDICATION: Fall, pain FINDINGS: There is total left knee. Severe right knee osteoarthritis. There is mild arthritic changes to the bilateral hips symmetric. No femoral fracture. IMPRESSION: Degenerated right knee, replaced left knee. Mild arthritic changes to the bilateral hips. No acute femoral abnormality. Dictated by: Dictated on workstation # [id number] Dict: 01/29/182132 Trans: 01/29/182201 Interpreted by: ANTWON VIVAR Electronically signed by: ANTWON VIVAR 01/29/182201 Departure Communication (Admissions) Time/Spoke to Admitting Phy: 23:00 Dr. Ferreira Impression Primary Impression: Exacerbation of chronic back pain Additional Impressions: Fall on same level Qualified Codes: W18.30XA - Fall on same level, unspecified, initial encounter Spinal stenosis Qualified Codes: M48.05 - Spinal stenosis, thoracolumbar region Bilateral knee pain Qualified Codes: M25.561 - Pain in right knee; M25.562 - Pain in left knee; G89.29 - Other chronic pain Lung mass Disposition: ADMITTED INPATIENT Condition: Improved Admissions Decision to Admit Reason: Admit from ER (General) Decision to Admit/Date: January 29, 2018 Time/Decision to Admit Time: 23:00 Departure-Patient Inst. Referrals: BESS RICHARD MD (PCP/Family) Primary Care Physician KADI ORTEGA MD January 30, 2018 00:13
[2018-01-30 00:55] VITALS: BP 147/68
[2018-01-30] MEDS ORDERED: HYDROmorphone 1 MG/ML (DILAUDID) 1 ML SYRINGE ONE ×3 (01:28→06:43)
[2018-01-30] MEDS: HYDROMORPHONE 0.5 MG/0.5 ML IV PRN ×3 (01:38→06:50)
[2018-01-30 04:02] VITALS: BP 151/70
[2018-01-30] MEDS: inSUlin ASPART (NovoLOG) 1 UNIT/0.01 ML (CHARGE PER UNIT) SC SCH ×4 (05:13→20:20)
[2018-01-30 08:00] VITALS: BP 142/64
[2018-01-30] MEDS: GABAPENTIN 300 MG (NEURONTIN) CAP PO SCH ×2 (08:49→20:21)
[2018-01-30] MEDS: HYDROmorphone 1 MG/ML (DILAUDID) 1 ML SYRINGE IV PRN ×3 (08:50→14:29)
[2018-01-30] MEDS: LORazepam 1 MG (ATIVAN) TAB PO SCH ×3 (08:50→20:22)
[2018-01-30] MEDS ORDERED: NYST15CR TP (10:30)
[2018-01-30] MEDS ORDERED: FENT1PAT6 TD (10:30)
[2018-01-30] MEDS ORDERED: MONT10TA24 PO (10:30)
[2018-01-30] MEDS ORDERED: POLY255P PO (10:30)
[2018-01-30] MEDS ORDERED: BACL10TA PO (10:30)
[2018-01-30] MEDS ORDERED: RT-ALBUINH IH (10:30)
[2018-01-30] MEDS ORDERED: OXYC10TA7 PO (10:30)
[2018-01-30] MEDS ORDERED: POTA10TA36 PO (10:30)
[2018-01-30] MEDS ORDERED: FENT1PAT10 TD (10:30)
[2018-01-30] MEDS ORDERED: METH2.5T PO (10:30)
[2018-01-30] MEDS ORDERED: FURO40TA4 PO (10:30)
[2018-01-30] MEDS ORDERED: FOLI1TAB24 PO (10:30)
[2018-01-30] MEDS ORDERED: LORA10TA7 PO (10:30)
--- NOTE | 2018-01-30 11:19 | Physical Therapy Evaluation ---
PT Evaluation-General Medical Diagnosis Admission Date January 29, 2018 at 23:18 Medical Diagnosis: fall; exac of chronic back pain Onset Date: January 29, 2018 Therapy Diagnosis Therapy Diagnosis: weakness; abn gait Height/Weight Height (Feet): 5 Height (Inches): 4.00 Weight (Pounds): 324 Weight (Ounces): 1.6 Precautions Precautions/Isolations: Fall Prevention, Standard Precautions Referral Physician: Jhon Reason for Referral: Evaluation/Treatment Medical History Pertinent Medical History: COPD Additional Medical History spinal stenosis, chronic back pain asthma, DJD, RA Social History Home: Apartment Current Living Status: Alone (caregivers in and out) Entry Into Home: Level Entry Prior/Core FIM Prior Level of Function Functional [place] Measure 0=Not Assessed/NA 4=Minimal Assistance 1=Total Assistance 5=Supervision or Setup 2=Maximal Assistance 6=Modified [place] 3=Moderate Assistance 7=Complete [place] Bed Mobility: 6 Transfers (B,C,W/C) (FIM): 6 Gait: 6 (uses a cane or walker or goes without) Pt reports she is able to walk to her car from her apartment. PT Evaluation-Current Subjective Pt gives lengthy history of her past medical status. Reports she fell yesterday while trying to get off the toilet. She reports she stood up and her knees just gave out on her. She reports she fell on her buttock and her knees bent under her. Reports she did not hit her head. ROM/Strength ROM Lower Extremities WFL Strength Lower Extremities grossly 3/5 throughout Integumentary/Posture Integumentary refer to nursing notes. Bowel Incontinence: No Bladder Incontinence: Pineda Cath Posture normal and symmetrical Neuromuscular (Tone, Coordination, Reflexes) functional Sensory Vision: Functional Hearing: Functional Hand Dominance: Right Sensation Right Lower Extremit: Intact Sensation Left Lower Extremity: Intact Transfers Functional [place] Measure 0=Not Assessed/NA 4=Minimal Assistance 1=Total Assistance 5=Supervision or Setup 2=Maximal Assistance 6=Modified [place] 3=Moderate Assistance 7=Complete [place] Transfers (B, C, W/C) (FIM): 3 Rollin Supine to/from Sit: 3 (asssit to lift both legs into bed) Sit to/from Stand: 3 (unable to come to a full stand due to complaints of right knee pain. ) Gait Mode of Locomotion: Walk Anticipated Mode of Locomotion: Walk Comments/Gait Description Pt did not walk this date; only sat EOB and attempted ot come to a full stand. Balance Sitting Static: Good Sitting Dynamic: Good Standing Static: Fair Standing Dynamic: Fair Treatment Sit to stand x 3 reps wtih FWW with min assist. Stood only briefly Assessment/Needs Rehab Potential: Guarded Post Rehab Potential-Barriers: Pt seems to self limit PT Kier Hand Goals Long-Term Goals PT Kier Hand Goals Time Frame: February 06, 2018 Transfers (B,C,W/C) (FIM): 6 Gait (FIM): 5 (household exception) Gait distance (FIM): 2=438-28 ft Gait Assistive Device: FWW PT Plan Problem List Problem List: Activity Tolerance, Functional Strength, Safety, Balance, Gait, Transfer, Bed Mobility Treatment/Plan Treatment Plan: Continue Plan of Care Treatment Plan: Bed Mobility, Education, Functional Activity Jose, Functional Strength, Gait, Safety, Therapeutic Exercise, Transfers Treatment Duration: February 06, 2018 Frequency: 6 times per week Estimated Hrs Per Day: .25 hour per day Patient and/or Family Agrees t: Yes Safety Risks/Education Patient Education: Transfer Techniques, Safety Issues Teaching Recipient: Patient Teaching Methods: Demonstration, Discussion Response to Teaching: Reinforcement Needed Time/GCodes Time In: 1045 Time Out: 1110 Total Billed Treatment Time: 25 Total Billed Treatment visit EVM 25 PT/OT Therapy GCodes Therapy Functional Limitation: Physical Therapy Test(s)/Tool used to determine: Level of Assistance Scale Functional Limitation-Current Charge Code: MOBCUR Modifier: CM (asssit to get legs into bed; unable to ambulate or come to a full stand) Functional Limitation-Goal Charge Code: SELFGOAL Modifier: CJ (SBA to mod indep with all transfers and gait) LUNA BAH PT January 30, 2018 11:19
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
[2018-01-30 12:00] VITALS: BP 138/68
[2018-01-30] MEDS: BACLOFEN 10 MG (LIORESAL) TAB PO SCH ×3 (13:18→20:21)
[2018-01-30] MEDS: fentaNYL PATCH 75 MCG (DURAGESIC) TD SCH (13:18)
[2018-01-30] MEDS: POLYETHYLENE GLYCOL 17 GM (MIRALAX) PACK PO SCH (13:21)
[2018-01-30 16:05] VITALS: BP 140/62
[2018-01-30 19:20] VITALS: BP 142/68
[2018-01-30] MEDS: MONTELUKAST 10 MG (SINGULAIR) TAB PO SCH (20:21)
[2018-01-30] MEDS: LORATADINE (CLARITIN) 10 MG TAB PO SCH (20:21)
[2018-01-30] MEDS: PANTOPRAZOLE 40 MG (PROTONIX) TAB PO SCH (20:21)
[2018-01-30] MEDS: MICONAZOLE 2% POWDER (DESENEX AF) 90 GM TOP SCH (20:22)
[2018-01-31] VITALS: BP 179/79
[2018-01-31] MEDS: KETOROLAC 30 MG/ML VIAL IVP PRN ×2 (00:01→09:14)
[2018-01-31] MEDS: inSUlin ASPART (NovoLOG) 1 UNIT/0.01 ML (CHARGE PER UNIT) SC SCH ×5 (06:18→21:37)
[2018-01-31] MEDS: predniSONE 20 MG TAB PO SCH (06:20)
[2018-01-31 07:13] LABS: BASOPHILS % (AUTO) 0 % (0-10); EOSINOPHILS # (AUTO) 0.4 10^3/uL (0.0-0.3); EOSINOPHILS % (AUTO) 4 % (0-10); HEMATOCRIT 38 % (35-52); HEMOGLOBIN 12.2 G/DL (11.5-16.0); LYMPHOCYTES # (AUTO) 2.1 X 10^3 (1.0-4.0); LYMPHOCYTES % (AUTO) 20 % (12-44); MEAN CORPUSCULAR HEMOGLOBIN 29 PG (25-34); MEAN CORPUSCULAR HGB CONC 32 G/DL (32-36); MEAN CORPUSCULAR VOLUME 91 FL (80-99); MEAN PLATELET VOLUME 9.7 FL (7.4-10.4); MONOCYTES # (AUTO) 0.8 X 10^3 (0.0-1.0); MONOCYTES % (AUTO) 8 % (0-12); NEUTROPHILS # (AUTO) 7.3 X 10^3 (1.8-7.8); NEUTROPHILS % (AUTO) 69 % (42-75); PLATELET COUNT 271 10^3/uL (130-400); RED BLOOD COUNT 4.21 10^6/uL (4.35-5.85); RED CELL DISTRIBUTION WIDTH 14.7 % (10.0-14.5); WHITE BLOOD COUNT 10.6 10^3/uL (4.3-11.0)
[2018-01-31 07:31] LABS: BUN/CREATININE RATIO 16; CALCIUM 8.6 MG/DL (8.5-10.1); CARBON DIOXIDE 28 MMOL/L (21-32); CHLORIDE 104 MMOL/L (98-107); CREATININE SERUM 0.67 MG/DL (0.60-1.30); GFR ESTIMATED > 60; GLUCOSE 108 MG/DL (70-105); POTASSIUM 3.9 MMOL/L (3.6-5.0); SODIUM 141 MMOL/L (135-145)
[2018-01-31 08:00] VITALS: BP 132/61
[2018-01-31] MEDS: LORazepam 1 MG (ATIVAN) TAB PO SCH ×3 (09:07→21:43)
[2018-01-31] MEDS: GABAPENTIN 300 MG (NEURONTIN) CAP PO SCH ×2 (09:08→21:43)
[2018-01-31] MEDS: BACLOFEN 10 MG (LIORESAL) TAB PO SCH ×4 (09:08→21:43)
[2018-01-31] MEDS: MICONAZOLE 2% POWDER (DESENEX AF) 90 GM TOP SCH ×2 (09:08→21:43)
[2018-01-31] MEDS: FLUoxetine HCL 20 MG (PROzac) CAP PO SCH (09:08)
--- NOTE | 2018-01-31 11:14 | Physical Therapy Progress Note ---
Therapy Progress Note Patient was in bed, side lying right, and adamantly declined PT due to need of pain medication. Patient stated, "I'm not doing anything until I get my Oxy and that is not until 3-[address] Ferreira notified. \\ 1 ref ([id number]) BETH HYMAN PT January 31, 2018 11:14
--- NOTE | 2018-01-31 14:29 | Progress Note (SOAP) ---
Subjective Subjective/Events-last exam States that her pain is improved some. She is not wanting to work with PT due to pain. States that the toradol works well for her pain. Still has catheter. Tolerating PO diet. Review of Systems Date Seen by Provider: January 31, 2018 Time Seen by Provider: 10:40 Pulmonary: No Dyspnea, No Cough Cardiovascular: No: Chest Pain, Palpitations Musculoskeletal: back pain, leg pain (Right hip and knee) Neurological: Weakness Objective Exam Last Set of Vital Signs Vital Signs Date Time Temp Pulse Resp B/P (MAP) Pulse Ox O2 Delivery O2 Flow Rate FiO2 01/31/18 10:20 NIV CPAP 3.00 01/31/18 08:00 99.5 85 18 132/61 (84) 95 Capillary Refill : Less Than 3 Seconds I&O Intake and Output 01/31/18 00:00 Intake Total 1620 ml Output Total 2850 ml Balance -1230 ml Intake Oral 1620 ml Output Urine Total 2850 ml Daily Weight Change No General: Alert, Oriented X3, No Acute Distress, Other (Morbidly obese female) Lungs: Clear to Auscultation, Normal Air Movement Heart: Regular Rate, No Murmurs Extremities: No Edema, No Tenderness/Swelling Neuro: Other (Will not participate in motor testing) Results/Procedures Lab Laboratory Tests 01/31/18 05:10: White Blood Count 10.6, Red Blood Count 4.21L, Hemoglobin 12.2, Hematocrit 38, Mean Corpuscular Volume 91, Mean Corpuscular Hemoglobin 29, Mean Corpuscular Hemoglobin Concent 32, Red Cell Distribution Width 14.7H, Platelet Count 271, Mean Platelet Volume 9.7, Neutrophils (%) (Auto) 69, Lymphocytes (%) (Auto) 20, Monocytes (%) (Auto) 8, Eosinophils (%) (Auto) 4, Basophils (%) (Auto) 0, Neutrophils # (Auto) 7.3, Lymphocytes # (Auto) 2.1, Monocytes # (Auto) 0.8, Eosinophils # (Auto) 0.4H, Basophils # (Auto) 0.0, Sodium Level 141, Potassium Level 3.9, Chloride Level 104, Carbon Dioxide Level 28, Anion Gap 9, Blood Urea Nitrogen 11, Creatinine 0.67, Estimat Glomerular Filtration Rate > 60, BUN/ Creatinine Ratio 16, Glucose Level 108H, Calcium Level 8.6 01/31/18 06:16: Glucometer 106 01/31/18 10:28: Glucometer 148H Radiology See Imaging Assessment/Plan Assessment/Plan (1) Exacerbation of chronic back pain Status: Acute Assessment & Plan: - Continue home medications, Will get IRF evaluation, if she does not qualify would recommend PT thru 01/31: Saw patient with SW today, patient is willing to go to [place] for PT, will work on placement (2) Spinal stenosis Status: Acute Assessment & Plan: - Reviewed MRI, non surgery at this time - Will add Meloxicam Qualifiers: Qualified Codes: M48.05 - Spinal stenosis, thoracolumbar region (3) Fall on same level Status: Acute Qualifiers: Qualified Codes: W18.30XA - Fall on same level, unspecified, initial encounter (4) Pulmonary nodule Status: Acute Assessment & Plan: - Will follow up as outpatient, this is a new finding (5) Non-insulin dependent type 2 diabetes mellitus Status: Chronic Assessment & Plan: - A1c pending (6) HTN (hypertension) Status: Chronic Assessment & Plan: - Continue home meds Qualifiers: Qualified Codes: I10 - Essential (primary) hypertension (7) Supplemental oxygen dependent Status: Chronic (8) Morbid obesity with BMI of 50.0-59.9, adult Status: Chronic (9) DVT prophylaxis Status: Acute (10) RENA treated with BiPAP Status: Chronic Assessment & Plan: - Wearing home bipap this AM Clinical Quality Measures DVT/VTE Risk/Contraindication: Risk Factor Score Per Nursin RFS Level Per Nursing on Admit: 4+=Very High JOSE A HOLCOMB MD January 31, 2018 14:29
--- NOTE | 2018-01-31 14:53 | Physical Therapy Progress Note ---
Therapy Progress Note Patient had just returned to bed via nursing from [facility] and was repositioned side lying left. Patient declined PT stating her pain medication was "wearing off" and she felt what she just did was enough. PT will continue to attempt in a.m. 1 ref ([id number]) BETH HYMAN PT January 31, 2018 14:53
[2018-01-31] MEDS: MELOXICAM 7.5 MG (MOBIC) TABLET PO SCH (15:05)
[2018-01-31 16:00] VITALS: BP 133/71
[2018-01-31] MEDS: LORATADINE (CLARITIN) 10 MG TAB PO SCH (21:43)
[2018-01-31] MEDS: PANTOPRAZOLE 40 MG (PROTONIX) TAB PO SCH (21:43)
[2018-01-31] MEDS: MONTELUKAST 10 MG (SINGULAIR) TAB PO SCH (21:43)
[2018-02-01 00:12] VITALS: BP 132/61
[2018-02-01] MEDS: inSUlin ASPART (NovoLOG) 1 UNIT/0.01 ML (CHARGE PER UNIT) SC SCH ×3 (07:08→20:50)
[2018-02-01] MEDS: predniSONE 20 MG TAB PO SCH (07:12)
[2018-02-01 07:47] VITALS: BP 148/66
[2018-02-01] MEDS: GABAPENTIN 300 MG (NEURONTIN) CAP PO SCH ×2 (08:28→21:32)
[2018-02-01] MEDS: MICONAZOLE 2% POWDER (DESENEX AF) 90 GM TOP SCH ×2 (08:28→21:32)
[2018-02-01] MEDS: MELOXICAM 7.5 MG (MOBIC) TABLET PO SCH (08:28)
[2018-02-01] MEDS: FLUoxetine HCL 20 MG (PROzac) CAP PO SCH (08:28)
[2018-02-01] MEDS: LORazepam 1 MG (ATIVAN) TAB PO SCH ×3 (08:28→21:32)
[2018-02-01] MEDS: BACLOFEN 10 MG (LIORESAL) TAB PO SCH ×4 (08:28→21:32)
--- NOTE | 2018-02-01 11:05 | Progress Note (SOAP) ---
Subjective Subjective/Events-last exam Patient states that her pain has improved but then she was on the commode yesterday and some of the pain in her right hip flared up. She has worked with PT and has been up walking with walker. She states that she is concerned about going home and states that she does not feel like she would succeed at home. Tolerating PO diet. BM yesterday. Review of Systems Date Seen by Provider: February 01, 2018 Time Seen by Provider: 08:20 Pulmonary: No Dyspnea, No Cough Cardiovascular: No: Chest Pain, Palpitations Gastrointestinal: No: Abdominal Pain, Diarrhea, Constipation Musculoskeletal: back pain Neurological: Weakness Objective Exam Last Set of Vital Signs Vital Signs Date Time Temp Pulse Resp B/P (MAP) Pulse Ox O2 Delivery O2 Flow Rate FiO2 02/01/18 08:15 NIV CPAP 3.00 02/01/18 07:47 98.2 72 22 148/66 (93) 96 Capillary Refill : Less Than 3 Seconds I&O Intake and Output 02/01/18 00:00 Intake Total 2130 ml Output Total 2550 ml Balance -420 ml Intake Oral 2130 ml Output Urine Total 2550 ml General: Alert, Oriented X3, Cooperative, No Acute Distress Lungs: Clear to Auscultation, Normal Air Movement Heart: Regular Rate, No Murmurs Extremities: Other (trace swelling bilaterally) Skin: No Rashes Neuro: Sensation Intact, Cranial Nerves 3-12 NL Results/Procedures Lab Laboratory Tests 01/31/18 15:39: Glucometer 254H 01/31/18 20:52: Glucometer 169H 02/01/18 06:50: Glucometer 109 Radiology See Imaging Assessment/Plan Assessment/Plan (1) Exacerbation of chronic back pain Status: Acute Assessment & Plan: - Continue home medications, Will get IRF evaluation, if she does not qualify would recommend PT thru 01/31: Saw patient with SW today, patient is willing to go to [place] for PT, will work on placement 02/01: Pain is improving, patient has been working with PT, waiting on [facility] and rehab response (2) Spinal stenosis Status: Acute Assessment & Plan: - Reviewed MRI, non surgery at this time - Will add Meloxicam 02/01: Pain improving Qualifiers: Qualified Codes: M48.05 - Spinal stenosis, thoracolumbar region (3) Fall on same level Status: Acute Qualifiers: Qualified Codes: W18.30XA - Fall on same level, unspecified, initial encounter (4) Pulmonary nodule Status: Acute Assessment & Plan: - Will follow up as outpatient, this is a new finding (5) Non-insulin dependent type 2 diabetes mellitus Status: Chronic Assessment & Plan: - Blood sugars trending down (6) HTN (hypertension) Status: Chronic Assessment & Plan: - Continue home meds Qualifiers: Qualified Codes: I10 - Essential (primary) hypertension (7) Supplemental oxygen dependent Status: Chronic (8) Morbid obesity with BMI of 50.0-59.9, adult Status: Chronic (9) DVT prophylaxis Status: Acute Assessment & Plan: - Lovenox (10) RENA treated with BiPAP Status: Chronic Assessment & Plan: - Wearing home bipap this AM Clinical Quality Measures DVT/VTE Risk/Contraindication: Risk Factor Score Per Nursin RFS Level Per Nursing on Admit: 4+=Very High JOSE A HOLCOMB MD February 01, 2018 11:05
[2018-02-01] MEDS: ENOXAPARIN 40 MG/0.4 ML (LOVENOX) SYR SQ SCH (11:43)
[2018-02-01] MEDS: POLYETHYLENE GLYCOL 17 GM (MIRALAX) PACK PO SCH (11:43)
--- NOTE | 2018-02-01 12:23 | Physical Therapy Daily Note ---
PT Daily Note-Current Subjective Patient initially declined PT, however, agreed after much encouragement and tossed her CPAP off her face and stated,"Let's get this over with." Pain Numeric Pain Scale: 10-Worst Possible Pain Location: Left Location Body Site: Hip Pain Description: Chronic Mental Status Patient Orientation: Normal For Age Transfers Functional [place] Measure 0=Not Assessed/NA 4=Minimal Assistance 1=Total Assistance 5=Supervision or Setup 2=Maximal Assistance 6=Modified [place] 3=Moderate Assistance 7=Complete IndependenceIRFPAI Quality Coding Scale 6 Independent with activity with or without an assistive device 5 Patient requires set up or clean up by helper. Patient completes activity by themselves 4 Supervision or touching assist (CGA). [place] provide cues , steadying assist 3 The helper provides less than half the effort to complete the activity 2 The helper provides more than half the effort to complete the activity 1 Dependent. The helper does all the effort to complete an activity 7 Patient refused to complete or attempt activity 9 The patient did not perform the activity before the current illness or injury 88 Not attempted due to Medical conditions or safety concerns Transfers (B, C, W/C) (FIM): 6 Scootin Rollin Supine to/from Sit: 6 Sit to/from Stand: 6 Bed to/from Chair: 6 patient toileted self Gait Training Gait (FIM): 1 Distance (FIM): 1=up to 49 ft Distance: 10' Gait Level of Assist: 6 Gait Assistive Device: FWW patient demonstrates safe and functional trunk flexed and knee posture Assessment Patient returned to bed and declined further treatment and returned to bed. It appears patient self limits. PT Rn Icu Goals Rn Icu Goals PT Mcfp Goals Time Frame: February 06, 2018 Transfers (B,C,W/C) (FIM): 6 Gait (FIM): 5 (household exception) Gait distance (FIM): 3=292-89 ft Gait Assistive Device: FWW PT Plan Treatment/Plan Treatment Plan: Continue Plan of Care Treatment Plan: Bed Mobility, Education, Functional Activity Jose, Functional Strength, Gait, Safety, Therapeutic Exercise, Transfers Treatment Duration: February 06, 2018 Frequency: 6 times per week Estimated Hrs Per Day: .25 hour per day Patient and/or Family Agrees t: Yes Time/GCodes Time In: 1125 Time Out: 1135 Total Billed Treatment Time: 10 Total Billed Treatment 1 visit FA 10 min PT/OT Therapy GCodes Therapy Functional Limitation: Physical Therapy Test(s)/Tool used to determine: Level of Assistance Scale Functional Limitation-Current Charge Code: MOBCUR Modifier: CM (asssit to get legs into bed; unable to ambulate or come to a full stand) Functional Limitation-Goal Charge Code: SELFGOAL Modifier: CJ (SBA to mod indep with all transfers and gait) BETH HYMAN PT February 01, 2018 12:23
[2018-02-01 16:33] VITALS: BP 148/68
[2018-02-01] MEDS: LORATADINE (CLARITIN) 10 MG TAB PO SCH (21:32)
[2018-02-01] MEDS: PANTOPRAZOLE 40 MG (PROTONIX) TAB PO SCH (21:32)
[2018-02-01] MEDS: MONTELUKAST 10 MG (SINGULAIR) TAB PO SCH (21:32)
[2018-02-01 23:56] VITALS: BP 152/66
[2018-02-02] MEDS: inSUlin ASPART (NovoLOG) 1 UNIT/0.01 ML (CHARGE PER UNIT) SC SCH ×4 (05:49→21:59)
[2018-02-02] MEDS: predniSONE 20 MG TAB PO SCH (06:26)
[2018-02-02 08:00] VITALS: BP 138/63
[2018-02-02] MEDS: LORazepam 1 MG (ATIVAN) TAB PO SCH ×3 (09:37→22:00)
[2018-02-02] MEDS: FLUoxetine HCL 20 MG (PROzac) CAP PO SCH (09:37)
[2018-02-02] MEDS: MICONAZOLE 2% POWDER (DESENEX AF) 90 GM TOP SCH ×2 (09:37→22:02)
[2018-02-02] MEDS: BACLOFEN 10 MG (LIORESAL) TAB PO SCH ×4 (09:37→22:00)
[2018-02-02] MEDS: MELOXICAM 7.5 MG (MOBIC) TABLET PO SCH (09:37)
[2018-02-02] MEDS: GABAPENTIN 300 MG (NEURONTIN) CAP PO SCH ×2 (09:37→22:00)
[2018-02-02] MEDS: ENOXAPARIN 40 MG/0.4 ML (LOVENOX) SYR SQ SCH (11:19)
[2018-02-02] MEDS: fentaNYL PATCH 75 MCG (DURAGESIC) TD SCH (11:22)
--- NOTE | 2018-02-02 13:39 | Progress Note (SOAP) ---
Subjective Subjective/Events-last exam Still waiting to hear from [facility] to transfer patient. Patient continues to c/o of pain. Has been getting up to bedside commode. Review of Systems Date Seen by Provider: February 02, 2018 Time Seen by Provider: 11:00 Objective Exam Last Set of Vital Signs Vital Signs Date Time Temp Pulse Resp B/P (MAP) Pulse Ox O2 Delivery O2 Flow Rate FiO2 02/02/18 08:00 97.8 79 18 138/63 (88) 95 NIV CPAP 3.00 Capillary Refill : Less Than 3 Seconds I&O Intake and Output 02/02/18 00:00 Intake Total 1600 ml Output Total 1750 ml Balance -150 ml Intake Oral 1600 ml Output Urine Total 1750 ml # Bowel Movements 1 General: Alert, Oriented X3, Cooperative Psych/Mental Status: Mental Status NL, Mood NL Results/Procedures Lab Laboratory Tests 02/01/18 20:31: Glucometer 162H 02/02/18 05:48: Glucometer 101 Radiology See Imaging Assessment/Plan Assessment/Plan (1) Exacerbation of chronic back pain Status: Acute Assessment & Plan: - Continue home medications, Will get IRF evaluation, if she does not qualify would recommend PT thru 01/31: Saw patient with SW today, patient is willing to go to [place] for PT, will work on placement 02/01: Pain is improving, patient has been working with PT, waiting on [facility] response 02/02: [facility] pending; continue to work w/ PT (2) Spinal stenosis Status: Acute Assessment & Plan: - Reviewed MRI, non surgery at this time - Will add Meloxicam 02/01: Pain improving Qualifiers: Qualified Codes: M48.05 - Spinal stenosis, thoracolumbar region (3) Fall on same level Status: Acute Qualifiers: Qualified Codes: W18.30XA - Fall on same level, unspecified, initial encounter (4) Pulmonary nodule Status: Acute Assessment & Plan: - Will follow up as outpatient, this is a new finding (5) Non-insulin dependent type 2 diabetes mellitus Status: Chronic Assessment & Plan: - Blood sugars trending down 02/02: on Novolog SSI A. (6) HTN (hypertension) Status: Chronic Assessment & Plan: - Continue home meds Qualifiers: Qualified Codes: I10 - Essential (primary) hypertension (7) Supplemental oxygen dependent Status: Chronic (8) Morbid obesity with BMI of 50.0-59.9, adult Status: Chronic (9) DVT prophylaxis Status: Acute Assessment & Plan: - Lovenox (10) RENA treated with BiPAP Status: Chronic Assessment & Plan: - Wearing home bipap this AM (11) Rheumatoid arthritis Status: Chronic Assessment & Plan: 02/02: restart methotrexate which she usually takes on Fridays. Qualifiers: Qualified Codes: M06.9 - Rheumatoid arthritis, unspecified Clinical Quality Measures DVT/VTE Risk/Contraindication: Risk Factor Score Per Nursin RFS Level Per Nursing on Admit: 4+=Very High JOELLEN BUTT DO February 02, 2018 13:39
[2018-02-02] MEDS ORDERED: METHOTREXATE 2.5 MG TAB PO SCH (13:48)
[2018-02-02 15:24] VITALS: BP 166/78
[2018-02-02] MEDS: MONTELUKAST 10 MG (SINGULAIR) TAB PO SCH (22:00)
[2018-02-02] MEDS: PANTOPRAZOLE 40 MG (PROTONIX) TAB PO SCH (22:00)
[2018-02-02] MEDS: LORATADINE (CLARITIN) 10 MG TAB PO SCH (22:00)
[2018-02-03] VITALS: BP 144/64
[2018-02-03] MEDS: inSUlin ASPART (NovoLOG) 1 UNIT/0.01 ML (CHARGE PER UNIT) SC SCH ×4 (06:20→20:48)
[2018-02-03] MEDS: predniSONE 20 MG TAB PO SCH (07:28)
[2018-02-03 08:00] VITALS: BP 148/70
[2018-02-03] MEDS: BACLOFEN 10 MG (LIORESAL) TAB PO SCH ×4 (08:42→20:47)
[2018-02-03] MEDS: GABAPENTIN 300 MG (NEURONTIN) CAP PO SCH ×2 (08:42→20:47)
[2018-02-03] MEDS: MELOXICAM 7.5 MG (MOBIC) TABLET PO SCH (08:42)
[2018-02-03] MEDS: LORazepam 1 MG (ATIVAN) TAB PO SCH ×3 (08:42→20:47)
[2018-02-03] MEDS: MICONAZOLE 2% POWDER (DESENEX AF) 90 GM TOP SCH ×2 (08:42→20:48)
[2018-02-03] MEDS: FLUoxetine HCL 20 MG (PROzac) CAP PO SCH (08:42)
--- NOTE | 2018-02-03 10:35 | Progress Note (SOAP) ---
Subjective Subjective/Events-last exam Still awaiting [facility] acceptance. Review of Systems Date Seen by Provider: February 03, 2018 Time Seen by Provider: 10:33 Objective Exam Last Set of Vital Signs Vital Signs Date Time Temp Pulse Resp B/P (MAP) Pulse Ox O2 Delivery O2 Flow Rate FiO2 02/03/18 08:00 98.5 80 18 148/70 (96) 96 Nasal Cannula 2.00 Capillary Refill : Less Than 3 Seconds I&O Intake and Output 02/03/18 00:00 Intake Total 1530 ml Output Total 1475 ml Balance 55 ml Intake Oral 1530 ml Output Urine Total 1475 ml # Voids 2 General: Alert, Oriented X3, Cooperative Psych/Mental Status: Mental Status NL Results/Procedures Lab Laboratory Tests 02/02/18 14:56: Glucometer 132H 02/02/18 21:16: Glucometer 117H 02/03/18 05:25: Glucometer 112H Radiology See Imaging Assessment/Plan Assessment/Plan (1) Exacerbation of chronic back pain Status: Acute Assessment & Plan: - Continue home medications, Will get IRF evaluation, if she does not qualify would recommend PT thru 01/31: Saw patient with SW today, patient is willing to go to [place] for PT, will work on placement 02/01: Pain is improving, patient has been working with PT, waiting on [facility] response 02/02: [facility] pending; continue to work w/ PT 02/03: increased oxycodone to 10mg q6h prn while working with PT (2) Spinal stenosis Status: Acute Assessment & Plan: - Reviewed MRI, non surgery at this time - Will add Meloxicam 02/01: Pain improving Qualifiers: Qualified Codes: M48.05 - Spinal stenosis, thoracolumbar region (3) Fall on same level Status: Acute Qualifiers: Qualified Codes: W18.30XA - Fall on same level, unspecified, initial encounter (4) Pulmonary nodule Status: Acute Assessment & Plan: - Will follow up as outpatient, this is a new finding (5) Non-insulin dependent type 2 diabetes mellitus Status: Chronic Assessment & Plan: - Blood sugars trending down 02/02: on Novolog SSI A. 02/03 - BS well controlled (6) HTN (hypertension) Status: Chronic Assessment & Plan: - Continue home meds Qualifiers: Qualified Codes: I10 - Essential (primary) hypertension (7) Supplemental oxygen dependent Status: Chronic (8) Morbid obesity with BMI of 50.0-59.9, adult Status: Chronic (9) DVT prophylaxis Status: Acute Assessment & Plan: - Lovenox (10) RENA treated with BiPAP Status: Chronic Assessment & Plan: - Wearing home bipap this AM (11) Rheumatoid arthritis Status: Chronic Assessment & Plan: 02/02: restart methotrexate which she usually takes on Fridays. Qualifiers: Qualified Codes: M06.9 - Rheumatoid arthritis, unspecified Clinical Quality Measures DVT/VTE Risk/Contraindication: Risk Factor Score Per Nursin RFS Level Per Nursing on Admit: 4+=Very High JOELLEN BUTT DO February 03, 2018 10:35
[2018-02-03] MEDS: ENOXAPARIN 40 MG/0.4 ML (LOVENOX) SYR SQ SCH (11:27)
[2018-02-03] MEDS: POLYETHYLENE GLYCOL 17 GM (MIRALAX) PACK PO SCH (11:27)
[2018-02-03 15:33] VITALS: BP 133/61
[2018-02-03] MEDS: PANTOPRAZOLE 40 MG (PROTONIX) TAB PO SCH (20:47)
[2018-02-03] MEDS: LORATADINE (CLARITIN) 10 MG TAB PO SCH (20:47)
[2018-02-03] MEDS: MONTELUKAST 10 MG (SINGULAIR) TAB PO SCH (20:47)
[2018-02-04] VITALS: BP 160/84
[2018-02-04] MEDS: predniSONE 20 MG TAB PO SCH (05:09)
[2018-02-04] MEDS: inSUlin ASPART (NovoLOG) 1 UNIT/0.01 ML (CHARGE PER UNIT) SC SCH ×4 (06:09→18:45)
[2018-02-04 08:00] VITALS: BP 114/57
[2018-02-04] MEDS: GABAPENTIN 300 MG (NEURONTIN) CAP PO SCH ×2 (08:15→20:54)
[2018-02-04] MEDS: BACLOFEN 10 MG (LIORESAL) TAB PO SCH ×4 (08:15→20:54)
[2018-02-04] MEDS: LORazepam 1 MG (ATIVAN) TAB PO SCH ×3 (08:15→20:54)
[2018-02-04] MEDS: MELOXICAM 7.5 MG (MOBIC) TABLET PO SCH (08:15)
[2018-02-04] MEDS: FLUoxetine HCL 20 MG (PROzac) CAP PO SCH (08:15)
[2018-02-04] MEDS: MICONAZOLE 2% POWDER (DESENEX AF) 90 GM TOP SCH ×2 (08:16→20:54)
[2018-02-04] MEDS: ENOXAPARIN 40 MG/0.4 ML (LOVENOX) SYR SQ SCH (10:44)
--- NOTE | 2018-02-04 10:52 | Progress Note (SOAP) ---
Subjective Subjective/Events-last exam Patient reports that she is overall doing well, but continues to have spasms in her back, that she can locate where they start, on her left side, around mid- lower back. She reports this pain radiates down into her hip and when she sits she feels "like she is sitting on a knot" from the spasms. She reports that this has just made her hurt all over; the pain medication is helping some, but that overall she has been able to pinpoint these two things as areas that are the main contributors to her pain. Reports that she has an emotional component to her pain as well, as she had two daughters that committed suicide, 1 10 years ago and 1 4 years ago, both this month. She reports that they had always had mental problems and been into drugs, but this time of year is still difficult for her and she is sure that is contributing to her pain. No acute events overnight; only concern from nursing staff is that patient's pain does not seem well controlled on her current medication. Spoke with social work this morning, placement at [facility] is still pending at this time. Review of Systems Date Seen by Provider: February 04, 2018 Time Seen by Provider: 10:27 General: No Chills, No Night Sweats, No Fatigue HEENT: No Head Aches, No Visual Changes, No Dysphasia Pulmonary: No Dyspnea, No Cough Cardiovascular: No: Chest Pain, Palpitations, Paroxysmal Noc. Dyspnea Gastrointestinal: No: Nausea, Vomiting, Abdominal Pain, Diarrhea Genitourinary: No Dysuria, No Hematuria Musculoskeletal: back pain, leg pain Neurological: No: Change in speech, Confusion, Seizures Objective Exam Last Set of Vital Signs Vital Signs Date Time Temp Pulse Resp B/P (MAP) Pulse Ox O2 Delivery O2 Flow Rate FiO2 02/04/18 08:00 Nasal Cannula 3.00 02/04/18 08:00 97.0 74 20 114/57 (76) 94 Capillary Refill : Less Than 3 Seconds I&O Intake and Output 02/04/18 00:00 Intake Total 1364 ml Output Total 1115 ml Balance 249 ml Intake Oral 1364 ml Output Urine Total 1115 ml # Voids 3 # Bowel Movements 1 General: Alert, Oriented X3, Cooperative, No Acute Distress HEENT: Atraumatic, EOMI, Mucous Memb Moist/[place] Neck: Supple, No Thyromegaly Lungs: Clear to Auscultation, Normal Air Movement Heart: Regular Rate, Normal S1, Normal S2, No Murmurs Abdomen: Normal Bowel Sounds, Soft, No Tenderness, No Masses Extremities: No Clubbing, No Cyanosis, Normal Pulses Skin: No Rashes, No Significant Lesion Neuro: Normal Speech, Normal Tone, Sensation Intact, Cranial Nerves 3-12 NL Psych/Mental Status: Mental Status NL, Mood NL Results/Procedures Lab Laboratory Tests 02/03/18 14:09: Glucometer 145H 02/03/18 20:48: Glucometer 194H 02/04/18 06:03: Glucometer 107 02/04/18 09:52: Glucometer 147H Radiology See Imaging Assessment/Plan Assessment/Plan (1) Exacerbation of chronic back pain Status: Acute Assessment & Plan: - Continue home medications, Will get IRF evaluation, if she does not qualify would recommend PT thru 01/31: Saw patient with SW today, patient is willing to go to [place] for PT, will work on placement 02/01: Pain is improving, patient has been working with PT, waiting on [facility] response 02/02: [facility] pending; continue to work w/ PT 02/03: increased oxycodone to 10mg q6h prn while working with PT 02/04: continue to wait on placement; pain somewhat better after increased oxycodone to every 6 hours; pt reports source of pain is localized, will add lidoderm patch to see if this helps provide relief (2) Spinal stenosis Status: Acute Assessment & Plan: - Reviewed MRI, non surgery at this time - Will add Meloxicam 02/01: Pain improving 02/04: pt continues to report pain, now localized to one area of back with radiation and muscle spasm; will start lidoderm patch as patient is able to localize pain in back and robaxin for muscle spasm Qualifiers: Qualified Codes: M48.05 - Spinal stenosis, thoracolumbar region (3) Fall on same level Status: Acute Qualifiers: Qualified Codes: W18.30XA - Fall on same level, unspecified, initial encounter (4) Pulmonary nodule Status: Acute Assessment & Plan: - Will follow up as outpatient, this is a new finding (5) Non-insulin dependent type 2 diabetes mellitus Status: Chronic Assessment & Plan: - Blood sugars trending down 02/02: on Novolog SSI A. 02/03 - BS well controlled (6) HTN (hypertension) Status: Chronic Assessment & Plan: - Continue home meds Qualifiers: Qualified Codes: I10 - Essential (primary) hypertension (7) Supplemental oxygen dependent Status: Chronic (8) Morbid obesity with BMI of 50.0-59.9, adult Status: Chronic (9) DVT prophylaxis Status: Acute Assessment & Plan: - Lovenox (10) RENA treated with BiPAP Status: Chronic Assessment & Plan: - Wearing home bipap PRN (11) Rheumatoid arthritis Status: Chronic Assessment & Plan: 02/02: restart methotrexate which she usually takes on Fridays. Qualifiers: Qualified Codes: M06.9 - Rheumatoid arthritis, unspecified Clinical Quality Measures DVT/VTE Risk/Contraindication: Risk Factor Score Per Nursin RFS Level Per Nursing on Admit: 4+=Very High Copy Copies To 1: BESS RICHARD MD, MARGARET E DO February 04, 2018 10:52
--- NOTE | 2018-02-04 11:47 | Physical Therapy Progress Note ---
Therapy Progress Note Patient adamantly declined PT stating, "I am finally comfortable and I don't want to move. I haven't slept much and everyone always bothers me." This PT did remind patient she is in the hospital to gain strength to improve current LOF, however, patient continued to decline PT and stated she is able to do things on her own. RN notified. 1 ref ([id number]) BETH HYMAN PT February 04, 2018 11:47
[2018-02-04] MEDS: LIDOCAINE (LIDODERM) 5% PATCH TOP SCH (13:22)
[2018-02-04] MEDS: METHOCARBAMOL 750 MG (ROBAXIN) TAB PO SCH ×3 (13:22→20:54)
--- NOTE | 2018-02-04 15:43 | Physical Therapy Daily Note ---
PT Daily Note-Current Subjective Wants to get out of bed. Reports she is feeling much better. Transfers Functional [place] Measure 0=Not Assessed/NA 4=Minimal Assistance 1=Total Assistance 5=Supervision or Setup 2=Maximal Assistance 6=Modified Craig 3=Moderate Assistance 7=Complete IndependenceIRFPAI Quality Coding Scale 6 Independent with activity with or without an assistive device 5 Patient requires set up or clean up by helper. Patient completes activity by themselves 4 Supervision or touching assist (CGA). [place] provide cues , steadying assist 3 The helper provides less than half the effort to complete the activity 2 The helper provides more than half the effort to complete the activity 1 Dependent. The helper does all the effort to complete an activity 7 Patient refused to complete or attempt activity 9 The patient did not perform the activity before the current illness or injury 88 Not attempted due to Medical conditions or safety concerns Transfers (B, C, W/C) (FIM): 6 Gait Training Pt ambulated in room with FWW x 50 ft mod indep and was able to reach to turn off her CPAP and move without assist or LOB noted. Pt up in chair post treatmehnt. Assessment Current Status: Good Progress Functional mobility much improved. Pt feeling gauri.r PT Mcfp Goals Wood Preparation Supervisor Goals PT Wood Preparation Supervisor Goals Time Frame: February 06, 2018 Transfers (B,C,W/C) (FIM): 6 Gait (FIM): 5 (household exception) Gait distance (FIM): 4=998-05 ft Gait Assistive Device: FWW PT Plan Problem List Problem List: Activity Tolerance, Functional Strength, Safety, Gait, Transfer Treatment/Plan Treatment Plan: Continue Plan of Care Treatment Plan: Bed Mobility, Education, Functional Activity Jose, Functional Strength, Gait, Safety, Therapeutic Exercise, Transfers Treatment Duration: February 06, 2018 Frequency: 6 times per week Estimated Hrs Per Day: .25 hour per day Patient and/or Family Agrees t: Yes Time/GCodes Time In: 1505 Time Out: 1520 Total Billed Treatment Time: 15 Total Billed Treatment visit fa 15 PT/OT Therapy GCodes Therapy Functional Limitation: Physical Therapy Test(s)/Tool used to determine: Level of Assistance Scale Functional Limitation-Current Charge Code: MOBCUR Modifier: CM (asssit to get legs into bed; unable to ambulate or come to a full stand) Functional Limitation-Goal Charge Code: SELFGOAL Modifier: CJ (SBA to mod indep with all transfers and gait) LUNA BAH PT February 04, 2018 15:43
[2018-02-04 17:28] VITALS: BP 111/51
[2018-02-04] MEDS: LORATADINE (CLARITIN) 10 MG TAB PO SCH (20:54)
[2018-02-04] MEDS: PANTOPRAZOLE 40 MG (PROTONIX) TAB PO SCH (20:57)
[2018-02-04] MEDS: MONTELUKAST 10 MG (SINGULAIR) TAB PO SCH (20:57)
[2018-02-04] MEDS: LIDOCAINE PATCH REMOVAL TP SCH (20:59)
[2018-02-05] VITALS: BP 115/62
[2018-02-05] MEDS: inSUlin ASPART (NovoLOG) 1 UNIT/0.01 ML (CHARGE PER UNIT) SC SCH ×4 (05:40→21:23)
[2018-02-05] MEDS: predniSONE 20 MG TAB PO SCH (05:40)
[2018-02-05] MEDS: LORazepam 1 MG (ATIVAN) TAB PO SCH ×3 (07:55→21:26)
[2018-02-05] MEDS: BACLOFEN 10 MG (LIORESAL) TAB PO SCH ×4 (07:55→21:26)
[2018-02-05] MEDS: METHOCARBAMOL 750 MG (ROBAXIN) TAB PO SCH ×4 (07:55→21:27)
[2018-02-05] MEDS: FLUoxetine HCL 20 MG (PROzac) CAP PO SCH (07:55)
[2018-02-05] MEDS: MELOXICAM 7.5 MG (MOBIC) TABLET PO SCH (07:56)
[2018-02-05] MEDS: MICONAZOLE 2% POWDER (DESENEX AF) 90 GM TOP SCH ×2 (07:56→21:28)
[2018-02-05] MEDS: LIDOCAINE (LIDODERM) 5% PATCH TOP SCH (07:56)
[2018-02-05 08:00] VITALS: BP 121/62
[2018-02-05] MEDS: GABAPENTIN 300 MG (NEURONTIN) CAP PO SCH ×2 (08:00→21:26)
--- NOTE | 2018-02-05 10:19 | Physical Therapy Progress Note ---
Therapy Progress Note Patient in bed sidelying right moaning in discomfort. Patient has had all pain medication this a.m. per RN report. Patient adamantly declined stating she did too much yesterday and is "on fire" from the waist down. RN notified of patient refusing treatment. 1 ref ([id number]) BETH HYMAN PT February 05, 2018 10:19
[2018-02-05] MEDS: ENOXAPARIN 40 MG/0.4 ML (LOVENOX) SYR SQ SCH (10:26)
[2018-02-05] MEDS: POLYETHYLENE GLYCOL 17 GM (MIRALAX) PACK PO SCH (10:26)
[2018-02-05] MEDS: fentaNYL PATCH 75 MCG (DURAGESIC) TD SCH (10:27)
--- NOTE | 2018-02-05 12:12 | Discharge Summary ---
Diagnosis/Chief Complaint Date of Admission January 29, 2018 at 23:18 Date of Discharge 02/05/18 Admission Diagnosis Admission Diagnosis (1) Exacerbation of chronic back pain (2) Spinal stenosis (3) Fall on same level (4) Pulmonary nodule (5) Non-insulin dependent type 2 diabetes mellitus (6) HTN (hypertension) (7) Supplemental oxygen dependent (8) Morbid obesity with BMI of 50.0-59.9, adult (9) DVT prophylaxis Discharge Diagnosis (1) Exacerbation of chronic back pain (2) Spinal stenosis (3) Fall on same level (4) Pulmonary nodule (5) Non-insulin dependent type 2 diabetes mellitus (6) HTN (hypertension) (7) Supplemental oxygen dependent (8) Morbid obesity with BMI of 50.0-59.9, adult (9) DVT prophylaxis Patient's pain has been very difficult to control, she has complained of a lot of muscle spasms, and has been started on Robaxin. Patient reports she does not feel strong enough to go home and is planning to go to [facility] ; they were contacted this morning by social work, and they are expected to be ready to take the patient this afternoon. She will be discharged to a correction facility for therapies, with her end goal to be discharge to home after completing therapies. Chief Complaint/HPI Chief Complaint/HPI 67 yo F with extensive medical history that presents to ER after fall. States that she was ambulating to bathroom and felt weak. She was able to make it to the commode. She then stood up and went to take a step and then fell back on her tail bone. She states that she was on the ground for 30 mins prior to her granddaughter getting to her and calling EMS. Patient states that she has been feeling weak for the last month and then started having worsening of pain in the last week. Now her pain is exacerbated due to the fall. Has a h/o spinal stenosis. Denies any numbness or incontinence but states that her legs feel like they are on fire and weak. In ED she has Xrays and MRI done and no acute fracture or injury was found. Discharge Summary-Simple/Stand Consultations Discharge Physical Examination Allergies: Coded Allergies: Adhesive Bandage (Unverified Allergy, Unknown, 03/12/14) Vitals & I&Os Vital Sign - Last 12Hours Date Time Temp Pulse Resp B/P (MAP) Pulse Ox O2 Delivery O2 Flow Rate FiO2 5/15/18 08:00 97.5 72 18 121/62 (81) 94 Nasal Cannula 2.00 Intake and Output 02/05/18 00:00 Intake Total 1290 ml Output Total 100 ml Balance 1190 ml General Appearance: Alert, Oriented X3, Cooperative, No Acute Distress HEENT: Atraumatic, EOMI, Mucous Memb Moist/[place] Respiratory: Clear to Auscultation, Other (mildly diminished in bases) Cardiovascular: Regular Rate, Normal S1, Normal S2 Abdominal: Normal Bowel Sounds, Soft, No Tenderness Extremities: No Clubbing, No Cyanosis Skin: No Rashes, No Significant Lesion Neuro: Normal Gait, Normal Speech, Normal Tone, Sensation Intact, Cranial Nerves 3-12 NL Psych/Mental Status: Mental Status NL, Mood NL Hospital Course See final discharge diagnosis. Radiology Reviewed See Imaging Discharge Condition at discharge stable Instructions to patient/family Please see electronic discharge instructions given to patient. Discharge Medications Reviewed and agree with Discharge Medication list on patient's Discharge Instruction sheet Clinical Quality Measures DVT/VTE Risk/Contraindication: Risk Factor Score Per Nursin RFS Level Per Nursing on Admit: 4+=Very High Copy Copies To 1: BESS RICHARD MD, MARGARET E DO February 05, 2018 12:12
[2018-02-05] MEDS ORDERED: ORPHENADRINE 60 MG/2 ML (NORFLEX) AMP IM NR (12:15)
[2018-02-05] MEDS ORDERED: PRD20T PO (12:31)
[2018-02-05] MEDS ORDERED: OXYC10TA7 PO (12:31)
[2018-02-05] MEDS ORDERED: METH750T3 PO (12:31)
[2018-02-05] MEDS ORDERED: FENT1PAT10 TD (12:31)
[2018-02-05] MEDS ORDERED: ALPR1TAB7 PO (12:31)
[2018-02-05] MEDS ORDERED: GABA-488 PO (12:31)
--- NOTE | 2018-02-05 12:41 | Discharge Inst-Skilled Nursing ---
Discharge Inst-Skilled NF Patient Instructions Patient Problems: Morbid Obesity Unsteady Gait with Recent Falls Chronic Pain Neuropathy Muscle Spasms Anxiety and Depression Rheumatoid Arthritis Seasonal Allergies GERD Goal: -gait training -increase strength -increase steadiness Patient Instructions: -take medication as prescribed -you will be seen by Mylene FIELDS at [facility] Consult/Follow Up/Orders Follow up appt.: -patient will be seen by Mylene FIELDS at facility in the next 1-2 weeks Skilled NF Admit to: [facility] Certifications SNF I certify that SNF services are required to be given on an inpatient basis because of the above named patient's need for group home care on a continuing basis for the conditions(s) for which he/she was receiving inpatient hospital services prior to his/her transfer to the SNF. Snf Facility Order: Nursing Services, Power Generation Equipment Repairer-Evaluate & Treat, Physical Therapy-Evaluate & Treat Discharge Diet: Regular Diet Daily Activity as Tolerated: Yes New & Resume Previous Orders New & Resume Previous Orders Routine Vital Signs Regular Diet OT and PT as ordered above Pneu Vac Indicated: Yes Discharge Medications New, Converted or Re-Newed RX: RX on Chart New Medications: Gabapentin (Gabapentin) 300 Mg Capsule 300 MG PO TID for 14 Days, #42 CAP Methocarbamol (Methocarbamol) 750 Mg Tablet 1500 MG PO TID for 14 Days, #84 TAB Prednisone (Prednisone) 20 Mg Tab 20 MG PO DAILY@0700 for 4 Days, #4 TAB Changed Medications: Fentanyl (Fentanyl Patch 75MCG) 1 Each Patch.td72 75 MCG TD Q72H for 15 Days, #5 PATCH (Changed from: Removed Instructions) Continued Medications: Albuterol Sulfate (Proair Hfa) 1 Puff Puff 2 PUFF IH Q4H PRN for SHORTNESS OF BREATH, PUFF 1 PUFF = 90 MCG Alprazolam (Alprazolam) 1 Mg Tablet 1 MG PO TID PRN for ANXIETY for 14 Days, #42 TAB (This prescription has been renewed) Baclofen (Baclofen) 10 Mg Tablet 10 MG PO QID, TAB Fentanyl (Fentanyl Patch 12 MCG) 1 Each Patch.td72 12 MCG TD Q72H, PATCH USES ALONG WITH 75MCG PATCH Fluoxetine HCl (Fluoxetine HCl) 60 Mg Tablet 60 MG PO DAILY, TAB Folic Acid (Folic Acid) 1 Mg Tablet 1 MG PO SuMoTuWeThSa, TAB Furosemide (Furosemide) 40 Mg Tablet 20 MG PO 1300 PRN for SWELLING, TAB TAKES 1/2 (40MG) TABLET Furosemide (Furosemide) 40 Mg Tablet 40 MG PO DAILY, TAB Ibuprofen (Ibuprofen) 600 Mg Tablet 600 MG PO BID PRN for PAIN-MILD, TAB Loratadine (Loratadine) 10 Mg Tablet 10 MG PO HS, TAB 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 Sodium (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) 2.5 Mg Tablet 15 MG PO Fr, TAB TAKES 6 (2.5MG) TABLETS Montelukast Sodium (Montelukast Sodium) 10 Mg Tablet 10 MG PO HS, TAB Nystatin (Nystatin) 15 Gm Cream..g. TP BID PRN for RASH, TUBE Omeprazole (Omeprazole) 40 Mg Capsule.dr 40 MG PO HS, CAP Oxycodone HCl (Oxycodone HCl) 10 Mg Tablet 10 MG PO TID PRN for PAIN-SEVERE for 14 Days, #42 TAB (This prescription has been renewed) Polyethylene Glycol 3350 (Polyethylene Glycol 3350) 255 Gm Powder 17 GM PO Q48H, EA Potassium Chloride (Potassium Chloride) 10 Meq Tab.er.prt 10 MEQ PO DAILY, TAB Leana Rodríguez February 05, 2018 12:32 LEANA RODRÍGUEZ DO February 05, 2018 12:38
[2018-02-05 16:00] VITALS: BP 140/71
[2018-02-05] MEDS: PANTOPRAZOLE 40 MG (PROTONIX) TAB PO SCH (21:26)
[2018-02-05] MEDS: LORATADINE (CLARITIN) 10 MG TAB PO SCH (21:26)
[2018-02-05] MEDS: MONTELUKAST 10 MG (SINGULAIR) TAB PO SCH (21:26)
[2018-02-05] MEDS: LIDOCAINE PATCH REMOVAL TP SCH (21:29)
[2018-02-06] VITALS: BP 124/64
[2018-02-06] MEDS: inSUlin ASPART (NovoLOG) 1 UNIT/0.01 ML (CHARGE PER UNIT) SC SCH ×4 (06:22→20:49)
[2018-02-06] MEDS ORDERED: ORPHENADRINE 60 MG/2 ML (NORFLEX) AMP IM ONE ×2 (06:30→23:30)
[2018-02-06] MEDS: predniSONE 20 MG TAB PO SCH (06:43)
[2018-02-06] MEDS: MICONAZOLE 2% POWDER (DESENEX AF) 90 GM TOP SCH ×2 (08:02→20:49)
[2018-02-06 08:57] VITALS: BP 146/65
[2018-02-06] MEDS: LORazepam 1 MG (ATIVAN) TAB PO SCH ×3 (09:13→20:48)
[2018-02-06] MEDS: BACLOFEN 10 MG (LIORESAL) TAB PO SCH ×4 (09:13→20:48)
[2018-02-06] MEDS: MELOXICAM 7.5 MG (MOBIC) TABLET PO SCH (09:13)
[2018-02-06] MEDS: FLUoxetine HCL 20 MG (PROzac) CAP PO SCH (09:13)
[2018-02-06] MEDS: METHOCARBAMOL 750 MG (ROBAXIN) TAB PO SCH ×4 (09:13→20:49)
[2018-02-06] MEDS: GABAPENTIN 300 MG (NEURONTIN) CAP PO SCH ×2 (09:13→20:48)
[2018-02-06] MEDS: LIDOCAINE (LIDODERM) 5% PATCH TOP SCH (09:13)
--- NOTE | 2018-02-06 10:45 | Physical Therapy Progress Note ---
Therapy Progress Note Pt's discharge is charted but awaiting agreement between SNF & Insurance to be able to discharge to SNF. OCCUPATIONAL HEALTH NURSE will check back on pt. 1 visit, no tx rendered Time: 1030 RAMANA TORRES OCCUPATIONAL HEALTH NURSE February 06, 2018 10:45
[2018-02-06] MEDS: ENOXAPARIN 40 MG/0.4 ML (LOVENOX) SYR SQ SCH (11:40)
--- NOTE | 2018-02-06 14:35 | Physical Therapy Progress Note ---
Therapy Progress Note Pt R Sidelying upon arrival. Pt reports pain in Mid back and declines Ex but does have questions in regards to Therapy and her upcoming discharge to SNF. Pt & BIOFUELS TECHNOLOGY MANAGER discuss pt's medical history, need for MRI & future surgery as well as what pt needs to do for Therapy to get stronger and healthier to avoid future hospital visits. Time 9528-3439 (25m) 1 visit, FA x2 (25m) RAMANA TORRES BIOFUELS TECHNOLOGY MANAGER February 06, 2018 14:35
[2018-02-06 16:00] VITALS: BP 143/64
[2018-02-06] MEDS: MONTELUKAST 10 MG (SINGULAIR) TAB PO SCH (20:48)
[2018-02-06] MEDS: LORATADINE (CLARITIN) 10 MG TAB PO SCH (20:48)
[2018-02-06] MEDS: PANTOPRAZOLE 40 MG (PROTONIX) TAB PO SCH (20:48)
[2018-02-06] MEDS: LIDOCAINE PATCH REMOVAL TP SCH (20:51)
[2018-02-06] MEDS ORDERED: diphenhydrAMINE 50 MG/ML INJ (BENADRYL) IM ONE (23:30)
[2018-02-06] MEDS ORDERED: PROCHLORPERAZINE 10 MG/2ML INJ (COMPAZINE) IM ONE (23:30)
[2018-02-07] VITALS: BP 145/65
[2018-02-07] MEDS ORDERED: ORPHENADRINE 60 MG/2 ML (NORFLEX) AMP ONE (00:08)
[2018-02-07] MEDS ORDERED: PROCHLORPERAZINE 10 MG/2ML INJ (COMPAZINE) ONE (00:08)
[2018-02-07] MEDS ORDERED: diphenhydrAMINE 50 MG/ML INJ (BENADRYL) ONE (00:08)
[2018-02-07 05:54] VITALS: BP 151/69
[2018-02-07 05:56] VITALS: BP 151/69
[2018-02-07] MEDS ORDERED: LORazepam 1 MG (ATIVAN) TAB PO ONE (06:00)
[2018-02-07] MEDS: inSUlin ASPART (NovoLOG) 1 UNIT/0.01 ML (CHARGE PER UNIT) SC SCH ×2 (06:08→09:51)
[2018-02-07] MEDS: GABAPENTIN 300 MG (NEURONTIN) CAP PO SCH (06:14)
[2018-02-07] MEDS: predniSONE 20 MG TAB PO SCH (06:14)
[2018-02-07 08:20] VITALS: BP 133/64
[2018-02-07] MEDS: BACLOFEN 10 MG (LIORESAL) TAB PO SCH (09:13)
[2018-02-07] MEDS: FLUoxetine HCL 20 MG (PROzac) CAP PO SCH (09:13)
[2018-02-07] MEDS: METHOCARBAMOL 750 MG (ROBAXIN) TAB PO SCH (09:13)
[2018-02-07] MEDS: MELOXICAM 7.5 MG (MOBIC) TABLET PO SCH (09:14)
[2018-02-07] MEDS: LIDOCAINE (LIDODERM) 5% PATCH TOP SCH (09:14)
[2018-02-07] MEDS: LORazepam 1 MG (ATIVAN) TAB PO SCH (09:14)
[2018-02-07] MEDS: MICONAZOLE 2% POWDER (DESENEX AF) 90 GM TOP SCH (09:16)
[2018-02-07 11:30] VITALS: BP 133/64
[2018-02-08] MEDS ORDERED: METHOTREXATE 2.5 MG TAB PO SCH (13:45)
== END 2018-02-07 11:30 ==
LOC: EDUNIT# 18:28 → ER 18:29 → 4TH 23:18 → OBSVTOIN 02-01 11:05 → INTOOBSV 02-01 11:05 → 4TH 02-05 08:22 → UNDODISOB 02-07 11:30 → UNDODISIN 02-07 11:30
PROVIDERS: ADMIT Family Medicine; ATTEND Family Medicine
DX: M48.05 Spinal stenosis, thoracolumbar region (principal); M62.830 Muscle spasm of back; M17.11 Unilateral primary osteoarthritis, right knee; M25.551 Pain in right hip; G89.29 Other chronic pain; E11.9 Type 2 diabetes mellitus without complications; I10 Essential (primary) hypertension; J44.9 Chronic obstructive pulmonary disease, unspecified; J45.909 Unspecified asthma, uncomplicated; R91.1 Solitary pulmonary nodule; M05.9 Rheumatoid arthritis with rheumatoid factor, unspecified; F41.9 Anxiety disorder, unspecified; G47.33 Obstructive sleep apnea (adult) (pediatric); E66.01 Morbid (severe) obesity due to excess calories; Z68.43 Body mass index [BMI] 50.0-59.9, adult; Z99.81 Dependence on supplemental oxygen; W01.10XA Fall on same level from slipping, tripping and stumbling with subsequent striking against unspecified object, initial encounter; Y92.012 Bathroom of single-family (private) house as the place of occurrence of the external cause; Z87.891 Personal history of nicotine dependence; Z96.652 Presence of left artificial knee joint
CPT/HCPCS: 36415; 51702; 71045; 71260; 72128; 72131; 72192; 80048; 80053; 81000; 82962; 83735; 85025; 96374; 96375; 96376; G0378

== ENCOUNTER 2018-02-10 00:29 | Emergency (ER) | payer MEDICAID ==
[~2018-02-10] VITALS: Ht 162.6 cm; Wt 147.4 kg
[~2018-02-10 00:29] MED LIST changes: +FENT1PAT10 TD; +FENT1PAT6 TD; +FOLI1TAB24 PO; +GABA-488 PO; +LORA10TA7 PO; +METH750T3 PO; +MONT10TA24 PO; +NYST15CR TP; +POLY255P PO; +POTA10TA36 PO; +PRD20T PO; +RT-ALBUINH IH
--- NOTE | 2018-02-10 01:10 | ED Back Pain ---
General Chief Complaint: General Problems/Pain Stated Complaint: BACK PAIN Source of Information: Patient Exam Limitations: No Limitations History of Present Illness Date Seen by Provider: February 10, 2018 Time Seen by Provider: 00:40 Initial Comments The patient presents to the ER by EMS with a chief complaint she is having back spasms and pain for the past week or so since she had a fall. At that time she was put in the hospital and then transitioned to a custodial. She says the custodial was a bad situation and so she left and went home. When she went home , 3 days ago she discovered she was almost out of her oxycodone and completely out of her Xanax that she had just filled January 17 tablets. She had newly been prescribed Robaxin and Neurontin. She was taking these but she was concerned being out of Xanax might cause her to have a seizure. She's having back spasms and has this being worked up by Dr. El with an MRI planned soon. She says she is ambulatory at home but this made her scared to get up and move around because it seems to make her back spasms worse and Xanax helps. She does have her fentanyl patch on. Allergies and Home Medications Allergies Coded Allergies: Adhesive Bandage (Unverified Allergy, Unknown, 03/12/14) Home Medications Albuterol Sulfate 1 Puff Puff, 2 PUFF IH Q4H PRN for SHORTNESS OF BREATH, ( Reported) 1 PUFF = 90 MCG Alprazolam 1 Mg Tablet, 1 MG PO TID PRN for ANXIETY Prescribed by: MALENA RODRÍGUEZ on 02/05/18 1231 Baclofen 10 Mg Tablet, 10 MG PO QID, (Reported) Fentanyl 1 Each Patch.td72, 12 MCG TD Q72H, (Reported) USES ALONG WITH 75MCG PATCH Fentanyl 1 Each Patch.td72, 75 MCG TD Q72H Prescribed by: MALENA RODRÍGUEZ on 02/05/18 1231 Fluoxetine HCl 60 Mg Tablet, 60 MG PO DAILY, (Reported) Folic Acid 1 Mg Tablet, 1 MG PO SuMoTuWeThSa, (Reported) Furosemide 40 Mg Tablet, 20 MG PO 1300 PRN for SWELLING, (Reported) TAKES 1/2 (40MG) TABLET Furosemide 40 Mg Tablet, 40 MG PO DAILY, (Reported) Gabapentin 300 Mg Capsule, 300 MG PO TID Prescribed by: MALENA RODRÍGUEZ on 02/05/18 1231 Ibuprofen 600 Mg Tablet, 600 MG PO BID PRN for PAIN-MILD, (Reported) Loratadine 10 Mg Tablet, 10 MG PO HS, (Reported) Methocarbamol 750 Mg Tablet, 1,500 MG PO TID Prescribed by: MALENA RODRÍGUEZ on 02/05/18 1231 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 Sodium 2.5 Mg Tablet, 15 MG PO Fr, (Reported) TAKES 6 (2.5MG) TABLETS Montelukast Sodium 10 Mg Tablet, 10 MG PO HS, (Reported) Nystatin 15 Gm Cream..g., TP BID PRN for RASH, (Reported) Omeprazole 40 Mg Capsule.dr, 40 MG PO HS, (Reported) Oxycodone HCl 10 Mg Tablet, 10 MG PO TID PRN for PAIN-SEVERE Prescribed by: MALENA RODRÍGUEZ on 02/05/18 1231 Polyethylene Glycol 3350 255 Gm Powder, 17 GM PO Q48H, (Reported) Potassium Chloride 10 Meq Tab.er.prt, 10 MEQ PO DAILY, (Reported) Prednisone 20 Mg Tab, 20 MG PO DAILY@0700 Prescribed by: MALENA RODRÍGUEZ on 02/05/18 1231 Patient Home Medication List Home Medication List Reviewed: Yes Constitutional: No chills, No diaphoresis, No fever, No malaise, No weakness EENTM: No ear discharge, No ear pain Respiratory: No cough, No short of breath Cardiovascular: No chest pain, No edema Gastrointestinal: No abdominal pain, No constipation, No diarrhea, No nausea, No vomiting Genitourinary: No discharge, No dysuria Musculoskeletal: back pain; No joint pain Past Oajbgpd-Sotscn-Kyylyv Hx Patient Social History Alcohol Use: Denies Use Recreational Drug Use: No Smoking Status: Never a Smoker Type Used: Cigarettes Former Smoker, Quit: Jul 25, 1996 Recent Hopitalizations: Yes Immunizations Up To Date Date of Pneumonia Vaccine: Mar 12, 2012 Seasonal Allergies Seasonal Allergies: No Past Medical History Surgeries: Yes (appy, open gb, back surgeries,tubal ligation, t&a) Adenoidectomy, Gallbladder, Orthopedic, Tonsillectomy, Tubal Ligation Respiratory: Yes Asthma, COPD Currently Using CPAP: No Currently Using BIPAP: Yes Cardiac: Yes Neurological: No Reproductive Disorders: No Genitourinary: No Gastrointestinal: Yes Diverticulosis Musculoskeletal: Yes (DJD LEFT KNEE, spinal stenosis) Rheumatoid Arthritis Endocrine: Yes (pre DM) HEENT: No Cancer: No Psychosocial: Yes Anxiety Integumentary: Yes Psoriasis Blood Disorders: No Physical Exam Vital Signs Capillary Refill : General Appearance: No Apparent Distress, Obese HEENT: PERRL/EOMI, TMs Normal, Normal ENT Inspection, Pharynx Normal Neck: Full Range of Motion, Normal Inspection, Non Tender, Supple Cardiovascular: Regular Rate, Rhythm, No Edema, No Murmur, Normal Peripheral Pulses Respiratory: Chest Non Tender, Lungs Clear, Normal Breath Sounds, No Accessory Muscle Use, No Respiratory Distress Gastrointestinal: Normal Bowel Sounds, Non Tender, Soft Back: Normal Inspection, Vertebral Tenderness (lumbar) Extremity: Normal Inspection, Non Tender Neurologic/Psychiatric: Alert, Oriented x3, No Motor/Sensory Deficits, Normal Mood/Affect Skin: Normal Color, Warm/Dry Progress/Results/Core Measures Progress Progress Note : Time: 01:08 Progress Note She has outpatient steroids, NSAIDs, Xanax, oxycodone, Robaxin, baclofen and a fentanyl patch. She is on Neurontin 300 mg 3 times a day. We'll be happy to give her a small stash of Xanax to get her through till Sunday to prevent seizures and have encouraged her strongly to talk to the doctor's direction prescribing her medications if she runs out. We have also encouraged her not to overuse her medication so she does not run out of them at the end of the month. Departure Impression Primary Impression: Back pain Qualified Codes: M54.42 - Lumbago with sciatica, left side; G89.29 - Other chronic pain Disposition: HOME, SELF-CARE Condition: Stable Departure-Patient Inst. Decision time for Depature: 01:12 Referrals: BESS RICHARD MD (PCP/Family) Primary Care Physician Patient Instructions: Core Strengthening Exercises on Back or on Hands and Knees Add. 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 All discharge instructions reviewed with patient and/or family. Voiced understanding. Scripts Alprazolam (Xanax) 1 Mg Tablet 1 MG PO TID PRN for ANXIETY for 3 Days, #10 TAB 0 Refills Prov: JOSE ALBERTO SCHRADER 02/10/18 Copy Copies To 1: JOELLEN BUTT TITUS J February 10, 2018 01:10
[2018-02-10] MEDS ORDERED: RX-LORAZEPAM (ATIVAN) 0.5 MG TAB PPK#4 PO STA (01:11)
[2018-02-10] MEDS ORDERED: ALPRAZolam 1 MG (XANAX) TAB PO SCH (01:15)
[2018-02-10] MEDS ORDERED: ALPR1TAB2 PO (01:15)
[2018-02-10] MEDS ORDERED: oxyCODONE/APAP 10/325MG (PERCOCET 10) TABLET PO ONE (01:15)
[2018-02-10] MEDS ORDERED: ALPRAZolam 0.5 MG (XANAX) TAB ONE (01:26)
[2018-02-10 02:03] VITALS: BP 168/87
== END 2018-02-10 02:03 | disposition home or self-care (01) ==
LOC: EDUNIT# 00:29 → ER 00:30
DX: M54.5 Low back pain (principal); J44.9 Chronic obstructive pulmonary disease, unspecified; M06.9 Rheumatoid arthritis, unspecified; F41.9 Anxiety disorder, unspecified; Z79.52 Long term (current) use of systemic steroids; Z87.19 Personal history of other diseases of the digestive system; Z87.891 Personal history of nicotine dependence; Z90.89 Acquired absence of other organs; Z98.51 Tubal ligation status
CPT/HCPCS: 99283

== ENCOUNTER → 2018-04-02 | Outpatient (CLI) | payer MEDICAID ==
[~2018-04-02] MED LIST changes: +ALPR1TAB2 PO; +BARIUM SUSPENSION 2.1% (VANILLA SILQ) 450 ML PO ONE; +IOHEXOL 350 MG/ML 100 ML (OMNIPAQUE 350) VIAL IV ONE; +NS 250 ML (IVPB) BAG IV ONE
[2018-04-02 13:22] LABS: BUN/CREATININE RATIO 22; CREATININE SERUM 0.73 MG/DL (0.60-1.30); GFR ESTIMATED > 60
--- NOTE | 2018-04-02 15:00 | Diagnostic Imaging Report ---
PROCEDURE: CT abdomen and pelvis with contrast. TECHNIQUE: Multiple contiguous axial images were obtained through the abdomen and pelvis after administration of intravenous contrast. INDICATION: Adenocarcinoma of the lung. The study is performed for staging. COMPARISON: No prior studies are available for comparison. FINDINGS: Visualized lower lung paige are clear. The liver demonstrates generalized low density consistent with hepatic steatosis. No discrete liver mass is identified. The gallbladder is surgically absent. The pancreas and spleen are unremarkable. No adrenal mass is detected. The kidneys are unremarkable. Aorta is calcified but nonaneurysmal. No central retroperitoneal or mesenteric lymphadenopathy is seen. Small and large bowel loops of normal caliber. There is no ascites. Imaging through the pelvis does show an IUD within the uterus. The bladder is unremarkable. No pelvic lymphadenopathy is seen. Postsurgical changes in the lower lumbar spine are noted. IMPRESSION: 1. Hepatic steatosis. 2. No evidence of abdominal or pelvic lymphadenopathy or metastatic disease. Dictated by: Dictated on workstation # [id number]
== END ==
LOC: RAD 12:38
PROVIDERS: ATTEND Internal Medicine Hematology & Oncology
DX: C34.90 Malignant neoplasm of unspecified part of unspecified bronchus or lung (principal); K76.0 Fatty (change of) liver, not elsewhere classified
CPT/HCPCS: 36415; 74177; 82565; 84520

== ENCOUNTER → 2018-04-03 | Outpatient (CLI) | payer MEDICAID ==
[~2018-04-03] MED LIST changes: -BARIUM SUSPENSION 2.1% (VANILLA SILQ) 450 ML PO ONE; -IOHEXOL 350 MG/ML 100 ML (OMNIPAQUE 350) VIAL IV ONE; -NS 250 ML (IVPB) BAG IV ONE; +RT-ALBUTEROL SULF 2.5 MG/3 ML PRE-MIX VIAL INH ONE; +RT-ALBUTEROL SULF 2.5 MG/3 ML PRE-MIX VIAL ONE
== END ==
LOC: RT 16:17
PROVIDERS: ATTEND Internal Medicine Hematology & Oncology
DX: C34.90 Malignant neoplasm of unspecified part of unspecified bronchus or lung (principal)
CPT/HCPCS: 94060; 94726; 94729

== ENCOUNTER 2018-05-22 09:34 | Outpatient (RCR) | payer MEDICAID ==
[~2018-05-22 09:34] MED LIST changes: -RT-ALBUTEROL SULF 2.5 MG/3 ML PRE-MIX VIAL INH ONE; -RT-ALBUTEROL SULF 2.5 MG/3 ML PRE-MIX VIAL ONE
== END 2018-06-26 | disposition home or self-care (01) ==
LOC: ONC 09:34
PROVIDERS: ATTEND Internal Medicine Hematology & Oncology
DX: C34.11 Malignant neoplasm of upper lobe, right bronchus or lung (principal); J44.9 Chronic obstructive pulmonary disease, unspecified; E78.5 Hyperlipidemia, unspecified; M06.9 Rheumatoid arthritis, unspecified; Z79.891 Long term (current) use of opiate analgesic; Z79.899 Other long term (current) drug therapy; Z87.891 Personal history of nicotine dependence
CPT/HCPCS: 99204; 99213; 99214

== ENCOUNTER → 2018-10-02 | Outpatient (CLI) | payer MEDICAID ==
[~2018-10-02] MED LIST changes: +BARIUM SUSPENSION 2.1% (VANILLA SILQ) 450 ML PO ONE; +IOHEXOL 350 MG/ML 100 ML (OMNIPAQUE 350) VIAL IV ONE; -POLY255P PO; +POLY255P16 PO; +RECEIVED CONTRAST (Hold Metformin) IV SCH
--- NOTE | 2018-10-02 14:24 | Diagnostic Imaging Report ---
PROCEDURE: CT chest with contrast only. TECHNIQUE: Multiple contiguous axial images were obtained through the chest after administration of intravenous contrast. INDICATION: Lung cancer, non-small cell post radiation. COMPARISON: Exam compared 01/29/2018 FINDINGS: A josh-fissural mass in the right upper lobe posteriorly measures a diameter of 2.4 cm today, previously the same. Its morphology and density are not convincingly changed. No hilar, mediastinal or axillary lymphadenopathy. No effusion or pneumothorax. No destructive or suspicious chest wall abnormality. The visualized upper abdomen reveals intact adrenal glands and a nonfocal incompletely visualized liver. IMPRESSION: 1. The josh-fissural right upper lobe mass is unchanged in appearance from prior. 2. No CT developments to suggest formation of metastatic disease or new pathology. Dictated by: Dictated on workstation # [id number]
== END ==
LOC: RAD 13:20
PROVIDERS: ATTEND Internal Medicine Hematology & Oncology
DX: C34.90 Malignant neoplasm of unspecified part of unspecified bronchus or lung (principal)
CPT/HCPCS: 71260

== ENCOUNTER 2018-10-09 14:13 | Outpatient (RCR) | payer MEDICAID ==
[2018-08-07 16:21] LABS: BASOPHILS % (AUTO) 0 % (0-10); EOSINOPHILS # (AUTO) 0.2 10^3/uL (0.0-0.3); EOSINOPHILS % (AUTO) 2 % (0-10); HEMATOCRIT 42 % (35-52); HEMOGLOBIN 13.4 G/DL (11.5-16.0); LYMPHOCYTES # (AUTO) 1.6 X 10^3 (1.0-4.0); LYMPHOCYTES % (AUTO) 19 % (12-44); MEAN CORPUSCULAR HEMOGLOBIN 29 PG (25-34); MEAN CORPUSCULAR HGB CONC 32 G/DL (32-36); MEAN CORPUSCULAR VOLUME 89 FL (80-99); MEAN PLATELET VOLUME 9.7 FL (7.4-10.4); MONOCYTES # (AUTO) 0.6 X 10^3 (0.0-1.0); MONOCYTES % (AUTO) 7 % (0-12); NEUTROPHILS # (AUTO) 6.2 X 10^3 (1.8-7.8); NEUTROPHILS % (AUTO) 72 % (42-75); PLATELET COUNT 288 10^3/uL (130-400); RED CELL DISTRIBUTION WIDTH 14.2 % (10.0-14.5); WHITE BLOOD COUNT 8.7 10^3/uL (4.3-11.0)
[2018-08-07 16:38] LABS: ALANINE AMINOTRANSFERASE 16 U/L (0-55); ALBUMIN 4.1 GM/DL (3.2-4.5); ALKALINE PHOSPHATASE 80 U/L (40-136); BILIRUBIN,TOTAL 0.3 MG/DL (0.1-1.0); BUN/CREATININE RATIO 21; CALCIUM 9.6 MG/DL (8.5-10.1); CARBON DIOXIDE 24 MMOL/L (21-32); CHLORIDE 102 MMOL/L (98-107); CREATININE SERUM 0.85 MG/DL (0.60-1.30); GFR ESTIMATED > 60; GLUCOSE 232 MG/DL (70-105); POTASSIUM 4.1 MMOL/L (3.6-5.0); SODIUM 136 MMOL/L (135-145)
[2018-10-02 13:06] LABS: BASOPHILS % (AUTO) 0 % (0-10); EOSINOPHILS # (AUTO) 0.2 10^3/uL (0.0-0.3); EOSINOPHILS % (AUTO) 2 % (0-10); HEMATOCRIT 43 % (35-52); HEMOGLOBIN 13.9 G/DL (11.5-16.0); LYMPHOCYTES # (AUTO) 2.6 X 10^3 (1.0-4.0); LYMPHOCYTES % (AUTO) 21 % (12-44); MEAN CORPUSCULAR HEMOGLOBIN 29 PG (25-34); MEAN CORPUSCULAR HGB CONC 32 G/DL (32-36); MEAN CORPUSCULAR VOLUME 90 FL (80-99); MEAN PLATELET VOLUME 10.1 FL (7.4-10.4); MONOCYTES # (AUTO) 0.8 X 10^3 (0.0-1.0); MONOCYTES % (AUTO) 6 % (0-12); NEUTROPHILS # (AUTO) 8.8 X 10^3 (1.8-7.8); NEUTROPHILS % (AUTO) 71 % (42-75); PLATELET COUNT 288 10^3/uL (130-400); RED CELL DISTRIBUTION WIDTH 14.1 % (10.0-14.5); WHITE BLOOD COUNT 12.4 10^3/uL (4.3-11.0)
[2018-10-02 13:24] LABS: ALANINE AMINOTRANSFERASE 16 U/L (0-55); ALBUMIN 4.1 GM/DL (3.2-4.5); ALKALINE PHOSPHATASE 67 U/L (40-136); BILIRUBIN,TOTAL 0.6 MG/DL (0.1-1.0); BUN/CREATININE RATIO 20; CALCIUM 10.7 MG/DL (8.5-10.1); CARBON DIOXIDE 24 MMOL/L (21-32); CHLORIDE 101 MMOL/L (98-107); GFR ESTIMATED > 60; GLUCOSE 118 MG/DL (70-105); POTASSIUM 3.7 MMOL/L (3.6-5.0); SODIUM 137 MMOL/L (135-145); TOTAL PROTEIN 7.8 GM/DL (6.4-8.2)
[~2018-10-09 14:13] MED LIST changes: -BARIUM SUSPENSION 2.1% (VANILLA SILQ) 450 ML PO ONE; -IOHEXOL 350 MG/ML 100 ML (OMNIPAQUE 350) VIAL IV ONE; -RECEIVED CONTRAST (Hold Metformin) IV SCH
== END 2018-11-05 | disposition home or self-care (01) ==
LOC: ONC 14:13
PROVIDERS: ATTEND Internal Medicine Hematology & Oncology
DX: C34.11 Malignant neoplasm of upper lobe, right bronchus or lung (principal); J44.9 Chronic obstructive pulmonary disease, unspecified; E78.5 Hyperlipidemia, unspecified; M06.9 Rheumatoid arthritis, unspecified; Z79.891 Long term (current) use of opiate analgesic; Z79.899 Other long term (current) drug therapy; Z87.891 Personal history of nicotine dependence
CPT/HCPCS: 36415; 80053; 85025; 99213

== ENCOUNTER → 2019-01-01 | Outpatient (CLI) | payer MEDICAID ==
[2019-01-01 12:34] LABS: BASOPHILS % (AUTO) 0 % (0-10); EOSINOPHILS # (AUTO) 0.5 10^3/uL (0.0-0.3); EOSINOPHILS % (AUTO) 4 % (0-10); HEMATOCRIT 41 % (35-52); HEMOGLOBIN 13.4 G/DL (11.5-16.0); LYMPHOCYTES # (AUTO) 2.6 X 10^3 (1.0-4.0); LYMPHOCYTES % (AUTO) 21 % (12-44); MEAN CORPUSCULAR HEMOGLOBIN 30 PG (25-34); MEAN CORPUSCULAR HGB CONC 33 G/DL (32-36); MEAN CORPUSCULAR VOLUME 91 FL (80-99); MEAN PLATELET VOLUME 9.8 FL (7.4-10.4); MONOCYTES # (AUTO) 0.9 X 10^3 (0.0-1.0); MONOCYTES % (AUTO) 7 % (0-12); NEUTROPHILS # (AUTO) 8.4 X 10^3 (1.8-7.8); NEUTROPHILS % (AUTO) 68 % (42-75); PLATELET COUNT 359 10^3/uL (130-400); RED CELL DISTRIBUTION WIDTH 14.2 % (10.0-14.5); WHITE BLOOD COUNT 12.4 10^3/uL (4.3-11.0)
[2019-01-01 13:07] LABS: ERYTHROCYTE SEDIMENTATION RATE 37 MM/HR (0-30)
[2019-01-01 14:33] LABS: ALBUMIN 4.1 GM/DL (3.2-4.5); BILIRUBIN,DIRECT 0.1 MG/DL (0.0-0.3); BILIRUBIN,INDIRECT 0.2 MG/DL; BILIRUBIN,TOTAL 0.3 MG/DL (0.1-1.0); TOTAL PROTEIN 7.8 GM/DL (6.4-8.2)
== END ==
LOC: LAB 12:11
PROVIDERS: ATTEND Internal Medicine Rheumatology
DX: L40.50 Arthropathic psoriasis, unspecified (principal); Z79.899 Other long term (current) drug therapy
CPT/HCPCS: 36415; 80076; 85025; 85652; 86141

== ENCOUNTER → 2019-01-01 | Outpatient (CLI) | payer MEDICAID ==
[~2019-01-01] MED LIST changes: +HOLD METFORMIN - RECEIVED CONTRAST 20 ML VIAL IV SCH; +IOHEXOL 350 MG/ML 100 ML (OMNIPAQUE 350) VIAL IV ONE
--- NOTE | 2019-01-01 14:58 | Diagnostic Imaging Report ---
PROCEDURE: CT chest with contrast only. TECHNIQUE: Multiple contiguous axial images were obtained through the chest after administration of intravenous contrast. Auto Exposure Controls were utilized during the CT exam to meet ALARA standards for radiation dose reduction. INDICATION: [id number] lung cancer. COMPARISON: Exam compared to 10/02/2018. FINDINGS: A josh-fissural right upper lobe mass posterolaterally today measured 1.9 x 1.7 cm in maximal axial dimensions. When measured at the same level, previous dimensions were 2.5 x 2.1 cm, intervally decreased. Its density also appears at least somewhat improved when compared to the prior. Anterior to the mass, there is some new patchy peripheral airspace opacity in the right upper lobe laterally which may be some partial atelectasis. No new lung mass. No evidence for thoracic lymphadenopathy. Vascular structures are unremarkable. No effusion or pneumothorax. No suspicious or acute chest wall abnormality. The visualized upper abdomen demonstrates intact adrenal glands. Partially visualized fatty but nonfocal liver, unchanged. IMPRESSION: The josh-fissural right upper lobe mass is slightly smaller than on prior and showed mild reduction in its overall density. There is a new adjacent airspace opacity, likely mild inflammatory or atelectatic changes with no new soft tissue density lung mass or adenopathy. Dictated by: Dictated on workstation # [id number]
== END ==
LOC: RAD 12:36
PROVIDERS: ATTEND Internal Medicine Hematology & Oncology
DX: C34.90 Malignant neoplasm of unspecified part of unspecified bronchus or lung (principal)
CPT/HCPCS: 71260

== ENCOUNTER 2019-01-08 14:28 | Outpatient (RCR) | payer MEDICAID ==
[2019-01-01 12:35] LABS: BASOPHILS % (AUTO) 0 % (0-10); EOSINOPHILS # (AUTO) 0.4 10^3/uL (0.0-0.3); EOSINOPHILS % (AUTO) 3 % (0-10); HEMATOCRIT 41 % (35-52); HEMOGLOBIN 13.3 G/DL (11.5-16.0); LYMPHOCYTES # (AUTO) 2.6 X 10^3 (1.0-4.0); LYMPHOCYTES % (AUTO) 21 % (12-44); MEAN CORPUSCULAR HEMOGLOBIN 30 PG (25-34); MEAN CORPUSCULAR HGB CONC 33 G/DL (32-36); MEAN CORPUSCULAR VOLUME 91 FL (80-99); MEAN PLATELET VOLUME 9.8 FL (7.4-10.4); MONOCYTES # (AUTO) 0.9 X 10^3 (0.0-1.0); MONOCYTES % (AUTO) 7 % (0-12); NEUTROPHILS # (AUTO) 8.7 X 10^3 (1.8-7.8); NEUTROPHILS % (AUTO) 69 % (42-75); PLATELET COUNT 368 10^3/uL (130-400); RED CELL DISTRIBUTION WIDTH 14.2 % (10.0-14.5); WHITE BLOOD COUNT 12.6 10^3/uL (4.3-11.0)
[2019-01-01 12:57] LABS: ALANINE AMINOTRANSFERASE 20 U/L (0-55); ALBUMIN 4.1 GM/DL (3.2-4.5); ALKALINE PHOSPHATASE 83 U/L (40-136); BILIRUBIN,TOTAL 0.3 MG/DL (0.1-1.0); BUN/CREATININE RATIO 28; CALCIUM 10.3 MG/DL (8.5-10.1); CARBON DIOXIDE 24 MMOL/L (21-32); CHLORIDE 103 MMOL/L (98-107); CREATININE SERUM 0.81 MG/DL (0.60-1.30); GFR ESTIMATED > 60; GLUCOSE 137 MG/DL (70-105); POTASSIUM 3.9 MMOL/L (3.6-5.0); SODIUM 140 MMOL/L (135-145); TOTAL PROTEIN 7.8 GM/DL (6.4-8.2)
[~2019-01-08 14:28] MED LIST changes: -HOLD METFORMIN - RECEIVED CONTRAST 20 ML VIAL IV SCH; -IOHEXOL 350 MG/ML 100 ML (OMNIPAQUE 350) VIAL IV ONE
== END 2019-04-01 | disposition home or self-care (01) ==
LOC: ONC 14:28
PROVIDERS: ATTEND Internal Medicine Hematology & Oncology
DX: C34.11 Malignant neoplasm of upper lobe, right bronchus or lung (principal)
CPT/HCPCS: 36415; 80053; 85025; 99213

== ENCOUNTER → 2019-04-02 | Outpatient (CLI) | payer MEDICAID ==
[~2019-04-02] MED LIST changes: +CATHETER FLUSH 10 ML SYR IV PRN; +HOLD METFORMIN - RECEIVED CONTRAST 20 ML VIAL IV SCH; +IOHEXOL 350 MG/ML 100 ML (OMNIPAQUE 350) VIAL IV ONE; +NS 100 ML (IVPB) BAG IV ONE
--- NOTE | 2019-04-02 15:33 | Diagnostic Imaging Report ---
PROCEDURE: CT chest with contrast only. TECHNIQUE: Multiple contiguous axial images were obtained through the chest after administration of intravenous contrast. Auto Exposure Controls were utilized during the CT exam to meet ALARA standards for radiation dose reduction. INDICATION: Post-radiation treatment for lung cancer. COMPARISON: Study compared to 01/01/2019. FINDINGS: Right upper lobe nodule posteriorly abuts the top of the major fissure today measuring 1.8 cm previously 2.2 cm in diameter. It shows some degree of interval reduction in density. How much of this is viable tumor versus scar is unclear as warranted metabolic PET imaging may be of use. There is some perilesional pneumonitis given the history, presumptively post radiation change. This appears similar. No pathological appearing lymph nodes. No new lung mass. No adverse development. No effusion or pneumothorax. Upper abdomen demonstrates intact adrenal glands. Fatty nonfocal liver with no biliary dilatation. IMPRESSION: Right lung mass smaller and probably slightly less dense than on prior with some perilesional likely radiation pneumonitis. No adenopathy. No new lesion. No adverse development. Dictated by: Dictated on workstation # [id number]
== END ==
LOC: RAD 12:04
PROVIDERS: ATTEND Internal Medicine Hematology & Oncology
DX: C34.90 Malignant neoplasm of unspecified part of unspecified bronchus or lung (principal)
CPT/HCPCS: 71260

== ENCOUNTER 2019-04-09 14:34 | Outpatient (RCR) | payer MEDICARE, MEDICAID ==
[2019-04-02 12:05] LABS: BASOPHILS % (AUTO) 0 % (0-10); EOSINOPHILS # (AUTO) 0.4 10^3/uL (0.0-0.3); EOSINOPHILS % (AUTO) 3 % (0-10); HEMATOCRIT 42 % (35-52); HEMOGLOBIN 13.6 G/DL (11.5-16.0); LYMPHOCYTES # (AUTO) 2.2 X 10^3 (1.0-4.0); LYMPHOCYTES % (AUTO) 16 % (12-44); MEAN CORPUSCULAR HEMOGLOBIN 30 PG (25-34); MEAN CORPUSCULAR HGB CONC 32 G/DL (32-36); MEAN CORPUSCULAR VOLUME 92 FL (80-99); MEAN PLATELET VOLUME 9.6 FL (7.4-10.4); MONOCYTES # (AUTO) 0.7 X 10^3 (0.0-1.0); MONOCYTES % (AUTO) 5 % (0-12); NEUTROPHILS % (AUTO) 75 % (42-75); PLATELET COUNT 357 10^3/uL (130-400); WHITE BLOOD COUNT 13.3 10^3/uL (4.3-11.0)
[2019-04-02 12:28] LABS: ALANINE AMINOTRANSFERASE 18 U/L (0-55); ALBUMIN 4.1 GM/DL (3.2-4.5); ALKALINE PHOSPHATASE 81 U/L (40-136); BILIRUBIN,TOTAL 0.4 MG/DL (0.1-1.0); BUN/CREATININE RATIO 26; CALCIUM 9.8 MG/DL (8.5-10.1); CARBON DIOXIDE 26 MMOL/L (21-32); CHLORIDE 100 MMOL/L (98-107); CREATININE SERUM 0.82 MG/DL (0.60-1.30); GFR ESTIMATED > 60; GLUCOSE 118 MG/DL (70-105); POTASSIUM 4.2 MMOL/L (3.6-5.0); SODIUM 138 MMOL/L (135-145); TOTAL PROTEIN 7.7 GM/DL (6.4-8.2)
[~2019-04-09 14:34] MED LIST changes: -CATHETER FLUSH 10 ML SYR IV PRN; -HOLD METFORMIN - RECEIVED CONTRAST 20 ML VIAL IV SCH; -IOHEXOL 350 MG/ML 100 ML (OMNIPAQUE 350) VIAL IV ONE; -NS 100 ML (IVPB) BAG IV ONE
== END 2019-07-01 | disposition home or self-care (01) ==
LOC: ONC 14:34
PROVIDERS: ATTEND Internal Medicine Hematology & Oncology
DX: C34.11 Malignant neoplasm of upper lobe, right bronchus or lung (principal)
CPT/HCPCS: 36415; 80053; 85025; 99213

== ENCOUNTER → 2019-07-02 | Outpatient (CLI) | payer MEDICARE, MEDICAID ==
[~2019-07-02] MED LIST changes: +HOLD METFORMIN - RECEIVED CONTRAST 20 ML VIAL IV SCH; +IOHEXOL 350 MG/ML 100 ML (OMNIPAQUE 350) VIAL IV ONE; +NS 100 ML (IVPB) BAG IV ONE
--- NOTE | 2019-07-02 14:01 | Diagnostic Imaging Report ---
PROCEDURE: CT chest with contrast only. TECHNIQUE: Multiple contiguous axial images were obtained through the chest after administration of intravenous contrast. Auto Exposure Controls were utilized during the CT exam to meet ALARA standards for radiation dose reduction. DATE: July 02, 2019. COMPARISON: CT chest of April 02, 2019, January 01, 2019, October 02, 2018, and January 29, 2018. INDICATION: 68-year-old female, history of non-small cell lung cancer. Fatigue and shortness of breath. FINDINGS: There is focal airspace consolidation in the right upper lobe on axial image 39 and adjacent sequential images. The most nodular appearing area of consolidation is currently measuring 2.9 x 2.1 cm in axial extent. This has increased in size since April 02, 2019 and previously measured 1.8 x 2.0 cm in axial extent. There are adjacent predominantly linear-appearing opacities which are also more prominent on the current exam. There are peripheral areas of opacity adjacent to the right pleural margin on axial image 113 which have increased in size since the comparison exam. Although potentially reflecting atelectasis, a pleurally based nodule at this location with potential malignancy is also considered, especially given the presence previously as well as interval increase in size. There are mild upper lobe predominant changes of emphysema. There is a 4 mm benign calcified granuloma in the left lung apex. There is no additional focal airspace consolidation. There is no pneumothorax. There is no pleural effusion. The central airways are patent. There is a low attenuation centrally necrotic right hilar lymph node on axial image 53 measuring 3.0 x 2.4 cm in axial dimension. This previously measured 2.7 x 1.9 cm in size on April 02, 2019. This has increased in size since the comparison exam. There is a subcentimeter short axis partially calcified AP window lymph node as well as calcified left hilar lymph nodes, most likely relating to sequela of prior granulomatous disease. There is a precarinal noncalcified lymph node on axial image 48 measuring 12 mm in short axis. This has increased in size since the comparison exam and previously measured 7 mm in short axis. There are additional subcentimeter short axis mediastinal lymph nodes. There is no identified abnormally enlarged axillary lymph node. There is no identified central pulmonary embolus. The main pulmonary artery is normal in caliber. The heart is not enlarged. There is no pericardial effusion. The patient is status post cholecystectomy. Additional evaluation of the imaged portions of the upper abdomen is unremarkable. There are multilevel degenerative changes of the spine. There is no identified bone lesion to suggest bone metastasis. IMPRESSION: 1. Interval increase in size of the nodular area of focal airspace consolidation in the right upper lobe with adjacent increasing linear opacities. This is concerning for progression of malignancy. 2. Interval increase in size of the right hilar lymph node which is centrally necrotic as well as interval increase in size of the precarinal lymph node. The findings likely reflect progression of pau metastasis. Dictated by: Dictated on workstation # [id number]
== END ==
LOC: RAD 12:05
PROVIDERS: ATTEND Internal Medicine Hematology & Oncology
DX: C34.90 Malignant neoplasm of unspecified part of unspecified bronchus or lung (principal); J18.1 Lobar pneumonia, unspecified organism; R91.8 Other nonspecific abnormal finding of lung field; R59.0 Localized enlarged lymph nodes
CPT/HCPCS: 71260

== ENCOUNTER → 2019-08-06 | Outpatient (CLI) | payer MEDICARE, MEDICAID ==
[~2019-08-06] MED LIST changes: +CATHETER FLUSH 10 ML SYR IV PRN
--- NOTE | 2019-08-06 13:45 | Diagnostic Imaging Report ---
PROCEDURE: CT chest with contrast only. TECHNIQUE: Multiple contiguous axial images were obtained through the chest after administration of intravenous contrast. Auto Exposure Controls were utilized during the CT exam to meet ALARA standards for radiation dose reduction. INDICATION: Shortness of breath and [id number] lung carcinoma. COMPARISON: Correlation is made with prior chest CT from 07/02/2019. FINDINGS: No axillary lymphadenopathy is detected. Previously noted right hilar mass measures 3.1 x 2.6 cm compared with 3.0 x 2.4 cm on prior. Left hilum is unremarkable. Precarinal node measures 1.3 cm compared with 1.2 cm on prior. Parenchymal evaluation does show a calcified granuloma in left lung apex. Subpleural nodule in the left upper lobe laterally has increased in size measuring 1.5 cm compared with 0.9 cm on prior. Area of subpleural parenchymal density posteriorly in the right upper lobe persists measuring 2.6 x 2.1 cm compared with 3.0 x 2.1 cm on prior. There are some adjacent linear opacities, consistent with some minimal residual infiltrate. A nodular density has developed in the superior segment of the right lower lobe measuring 9 mm. Tiny subpleural nodule has developed in the left upper lobe, image 62, measuring 4 mm. Posterior right lower lobe subpleural nodule has developed measuring 8 mm. There are also enlarging and new nodules in the left lower lobe, largest 11 mm in size. The upper abdomen demonstrates new low densities in the posterior right lobe of the liver, largest 2.3 cm in size, concerning for hepatic metastatic disease. No adrenal mass is detected. Bony structures are unremarkable. IMPRESSION: 1. New and enlarging bilateral pulmonary nodules, consistent with worsening metastatic disease. Mediastinal and right hilar masses appear to be stable. Previously noted area of consolidation/mass in the posterior right upper lobe appears to be fairly stable. New right lobe liver masses are identified, consistent with hepatic metastatic disease. Dictated by: Dictated on workstation # [id number]
== END ==
LOC: RAD 11:29
PROVIDERS: ATTEND Internal Medicine Hematology & Oncology
DX: C34.90 Malignant neoplasm of unspecified part of unspecified bronchus or lung (principal)
CPT/HCPCS: 71260

== ENCOUNTER 2019-08-14 15:27 | Outpatient (RCR) | payer MEDICAID, MEDICARE ==
[2019-07-02 12:06] LABS: BASOPHILS % (AUTO) 0 % (0-10); EOSINOPHILS # (AUTO) 0.6 10^3/uL (0.0-0.3); EOSINOPHILS % (AUTO) 6 % (0-10); HEMATOCRIT 41 % (35-52); LYMPHOCYTES # (AUTO) 1.5 X 10^3 (1.0-4.0); LYMPHOCYTES % (AUTO) 15 % (12-44); MEAN CORPUSCULAR HEMOGLOBIN 28 PG (25-34); MEAN CORPUSCULAR HGB CONC 32 G/DL (32-36); MEAN CORPUSCULAR VOLUME 88 FL (80-99); MEAN PLATELET VOLUME 9.4 FL (7.4-10.4); MONOCYTES % (AUTO) 10 % (0-12); NEUTROPHILS # (AUTO) 6.8 X 10^3 (1.8-7.8); NEUTROPHILS % (AUTO) 69 % (42-75); PLATELET COUNT 397 10^3/uL (130-400); RED CELL DISTRIBUTION WIDTH 14.5 % (10.0-14.5); WHITE BLOOD COUNT 9.8 10^3/uL (4.3-11.0)
[2019-07-02 12:27] LABS: ALANINE AMINOTRANSFERASE 44 U/L (0-55); ALBUMIN 3.7 GM/DL (3.2-4.5); ALKALINE PHOSPHATASE 82 U/L (40-136); BILIRUBIN,TOTAL 0.4 MG/DL (0.1-1.0); BUN/CREATININE RATIO 24; CALCIUM 9.6 MG/DL (8.5-10.1); CARBON DIOXIDE 21 MMOL/L (21-32); CHLORIDE 102 MMOL/L (98-107); CREATININE SERUM 0.84 MG/DL (0.60-1.30); GFR ESTIMATED > 60; GLUCOSE 159 MG/DL (70-105); POTASSIUM 3.8 MMOL/L (3.6-5.0); SODIUM 137 MMOL/L (135-145); TOTAL PROTEIN 7.7 GM/DL (6.4-8.2)
[2019-08-06 11:38] LABS: BASOPHILS % (AUTO) 0 % (0-10); EOSINOPHILS # (AUTO) 0.8 10^3/uL (0.0-0.3); EOSINOPHILS % (AUTO) 8 % (0-10); HEMATOCRIT 42 % (35-52); HEMOGLOBIN 12.8 G/DL (11.5-16.0); LYMPHOCYTES # (AUTO) 2.1 X 10^3 (1.0-4.0); LYMPHOCYTES % (AUTO) 19 % (12-44); MEAN CORPUSCULAR HEMOGLOBIN 27 PG (25-34); MEAN CORPUSCULAR HGB CONC 30 G/DL (32-36); MEAN CORPUSCULAR VOLUME 89 FL (80-99); MONOCYTES # (AUTO) 0.9 X 10^3 (0.0-1.0); MONOCYTES % (AUTO) 8 % (0-12); NEUTROPHILS % (AUTO) 65 % (42-75); PLATELET COUNT 329 10^3/uL (130-400); RED CELL DISTRIBUTION WIDTH 15.3 % (10.0-14.5); WHITE BLOOD COUNT 10.7 10^3/uL (4.3-11.0)
[2019-08-06 11:50] LABS: ALANINE AMINOTRANSFERASE 19 U/L (0-55); ALBUMIN 3.8 GM/DL (3.2-4.5); ALKALINE PHOSPHATASE 89 U/L (40-136); BILIRUBIN,TOTAL 0.2 MG/DL (0.1-1.0); BUN/CREATININE RATIO 29; CALCIUM 9.7 MG/DL (8.5-10.1); CARBON DIOXIDE 23 MMOL/L (21-32); CHLORIDE 106 MMOL/L (98-107); CREATININE SERUM 0.76 MG/DL (0.60-1.30); GFR ESTIMATED > 60; GLUCOSE 237 MG/DL (70-105); POTASSIUM 3.8 MMOL/L (3.6-5.0); SODIUM 138 MMOL/L (135-145); TOTAL PROTEIN 7.2 GM/DL (6.4-8.2)
[~2019-08-14 15:27] MED LIST changes: -CATHETER FLUSH 10 ML SYR IV PRN; -HOLD METFORMIN - RECEIVED CONTRAST 20 ML VIAL IV SCH; -IOHEXOL 350 MG/ML 100 ML (OMNIPAQUE 350) VIAL IV ONE; -NS 100 ML (IVPB) BAG IV ONE
== END 2019-09-30 | disposition home or self-care (01) ==
LOC: ONC 15:27
PROVIDERS: ATTEND Internal Medicine Hematology & Oncology
DX: C34.90 Malignant neoplasm of unspecified part of unspecified bronchus or lung (principal); I25.10 Atherosclerotic heart disease of native coronary artery without angina pectoris; J44.9 Chronic obstructive pulmonary disease, unspecified; E11.9 Type 2 diabetes mellitus without complications; I10 Essential (primary) hypertension; M19.90 Unspecified osteoarthritis, unspecified site; E66.09 Other obesity due to excess calories; R09.89 Other specified symptoms and signs involving the circulatory and respiratory systems; M06.9 Rheumatoid arthritis, unspecified; Z82.49 Family history of ischemic heart disease and other diseases of the circulatory system
CPT/HCPCS: 36415; 80053; 85025; 99213